=== PATIENT | male | born 1940 | race Two or more races ===

== ENCOUNTER → 2024-07-08 | Outpatient (CLI) | payer MEDICARE, MEDICAID, SELFPAY ==
[2024-07-08 14:00] LABS: Basophils % (Auto) 1 % (0-2.5); Eosinophils # (Auto) 0.2 Thou/mm3 (0.0-0.5); Eosinophils % (Auto) 3 % (0-10); Hematocrit 35.5 % (41.0-53.0); Hemoglobin 10.4 g/dL (13.5-16.0); Immature Granulocytes % (Auto) 0 % (0-0); Immature Granulocytes Auto 0.02 Thou/mm3 (0.00-0.00); Lymphocytes # (Auto) 1.5 Thou/mm3 (1.0-4.8); Lymphocytes % (Auto) 25 % (10-50); Mean Corpuscular HGB Conc 29.3 g/dl (31.0-37.0); Mean Corpuscular Hemoglobin 25.3 pg (25.0-35.0); Mean Corpuscular Volume 86 fL (80-100); Monocytes # (Auto) 0.6 Thou/mm3 (0.0-0.8); Monocytes % (Auto) 10 % (0-12); Neutrophils # (Auto) 3.5 Thou/mm3 (1.8-7.7); Neutrophils % (Auto) 61 % (37-80); Nucleated Red Blood Cell % 0 /100 WBC (0); Platelet Count 254 Thou/mm3 (140-440); RDW Standard Deviation 58.8 fL (35.1-43.9); Red Blood Count 4.11 Miln/mm3 (4.50-5.90); White Blood Count 5.8 Thou/mm3 (3.8-10.6)
[2024-07-08 14:11] LABS: Prostate Specific Antigen 7.08 ng/mL (0-4.00)
[2024-07-08 14:13] LABS: Alanine Aminotransferase 25 U/L (10-49); Albumin, Serum 3.8 gm/dL (3.4-4.8); Albumin/Globulin Ratio 1.5 (1.2-2.2); Alkaline Phosphatase 130 U/L (46-116); Anion Gap 6 (7-16); Aspartate Amino Transferase 28 U/L (0-34); BUN/Creatinine Ratio 18 Ratio (12-20); Bilirubin,Total 0.6 mg/dL (0.3-1.2); Blood Urea Nitrogen 18 mg/dL (9-23); Calcium 8.9 mg/dL (8.3-10.6); Calcium (Corrected) 9.1 mg/dL (8.5-10.1); Carbon Dioxide 31.9 mMol/L (20.0-31.0); Chloride 103 mMol/L (98-107); Globulin 2.5 gm/dL (2.3-3.5); Glucose 94 mg/dL (74-106); Osmolality,Calculated 283 (275-295); Potassium 4.6 mMol/L (3.4-5.1); Sodium 141 mMol/L (136-145); Total Protein 6.3 gm/dL (5.7-8.2); eGFR > 60 See Note
== END | disposition home or self-care (01) ==
LOC: SCTO 13:03
PROVIDERS: PCP Family Medicine; Referring Provider Internal Medicine Hematology & Oncology; Visit Provider Internal Medicine Hematology & Oncology
DX: C61 Malignant neoplasm of prostate (principal)
CPT/HCPCS: 36415; 80053; 84153; 85025

== ENCOUNTER 2024-07-09 13:02 | Outpatient (RCR) | payer MEDICARE, MEDICAID, SELFPAY | END 2024-07-13 23:59 | disposition home or self-care (01) | LOC: SCTC 13:02 | PROVIDERS: PCP Nurse Practitioner Primary Care; Referring Provider Nurse Practitioner Primary Care; Visit Provider Internal Medicine Hematology & Oncology | DX: Z51.11 Encounter for antineoplastic chemotherapy (principal); C61 Malignant neoplasm of prostate; C67.9 Malignant neoplasm of bladder, unspecified; Z92.3 Personal history of irradiation; M89.9 Disorder of bone, unspecified; R97.21 Rising PSA following treatment for malignant neoplasm of prostate | CPT/HCPCS: 96402; 99213; J9217; G0463 ==

== ENCOUNTER → 2024-07-26 | Outpatient (CLI) | payer MEDICARE, MEDICAID, SELFPAY ==
[2024-07-26 10:20] LABS: Basophils % (Auto) 1 % (0-2.5); Eosinophils # (Auto) 0.2 Thou/mm3 (0.0-0.5); Eosinophils % (Auto) 4 % (0-10); Hematocrit 35.2 % (41.0-53.0); Hemoglobin 10.7 g/dL (13.5-16.0); Immature Granulocytes % (Auto) 0 % (0-0); Immature Granulocytes Auto 0.01 Thou/mm3 (0.00-0.00); Lymphocytes # (Auto) 1.6 Thou/mm3 (1.0-4.8); Lymphocytes % (Auto) 30 % (10-50); Mean Corpuscular HGB Conc 30.4 g/dl (31.0-37.0); Mean Corpuscular Hemoglobin 25.5 pg (25.0-35.0); Mean Corpuscular Volume 84 fL (80-100); Monocytes # (Auto) 0.4 Thou/mm3 (0.0-0.8); Monocytes % (Auto) 8 % (0-12); Neutrophils # (Auto) 3.1 Thou/mm3 (1.8-7.7); Neutrophils % (Auto) 58 % (37-80); Nucleated Red Blood Cell % 0 /100 WBC (0); Platelet Count 208 Thou/mm3 (140-440); RDW Standard Deviation 53.9 fL (35.1-43.9); Red Blood Count 4.19 Miln/mm3 (4.50-5.90); White Blood Count 5.3 Thou/mm3 (3.8-10.6)
[2024-07-26 10:40] LABS: Alanine Aminotransferase 28 U/L (10-49); Albumin, Serum 4.1 gm/dL (3.4-4.8); Albumin/Globulin Ratio 1.8 (1.2-2.2); Alkaline Phosphatase 119 U/L (46-116); Anion Gap 6 (7-16); Aspartate Amino Transferase 28 U/L (0-34); BUN/Creatinine Ratio 16 Ratio (12-20); Bilirubin,Total 0.7 mg/dL (0.3-1.2); Blood Urea Nitrogen 18 mg/dL (9-23); Calcium 9.3 mg/dL (8.3-10.6); Calcium (Corrected) 9.3 mg/dL (8.5-10.1); Carbon Dioxide 31.8 mMol/L (20.0-31.0); Chloride 101 mMol/L (98-107); Creatinine (Component) 1.1 mg/dL (0.6-1.3); Globulin 2.3 gm/dL (2.3-3.5); Glucose 116 mg/dL (74-106); Osmolality,Calculated 280 (275-295); Potassium 4.4 mMol/L (3.4-5.1); Sodium 139 mMol/L (136-145); Total Protein 6.4 gm/dL (5.7-8.2); eGFR > 60 See Note
[2024-07-26 10:41] LABS: Prostate Specific Antigen 6.95 ng/mL (0-4.00)
== END | disposition home or self-care (01) ==
LOC: SCTO 09:40
PROVIDERS: PCP Family Medicine; Referring Provider Internal Medicine Hematology & Oncology; Visit Provider Internal Medicine Hematology & Oncology
DX: C61 Malignant neoplasm of prostate (principal)
CPT/HCPCS: 36415; 80053; 84153; 85025

== ENCOUNTER 2024-07-31 07:00 | Outpatient (RCR) | payer MEDICARE, MEDICAID, SELFPAY | END 2024-08-13 23:59 | disposition home or self-care (01) | LOC: SCTC 07:00 | PROVIDERS: Referring Provider Internal Medicine Hematology & Oncology; Visit Provider Internal Medicine Hematology & Oncology | DX: C61 Malignant neoplasm of prostate (principal); Z79.818 Long term (current) use of other agents affecting estrogen receptors and estrogen levels; M89.9 Disorder of bone, unspecified | CPT/HCPCS: 99213; G0463 ==

== ENCOUNTER → 2024-09-24 | Outpatient (CLI) | payer MEDICARE, MEDICAID, SELFPAY ==
[2024-09-24 10:34] LABS: Basophils % (Auto) 0 % (0-2.5); Eosinophils # (Auto) 0.2 Thou/mm3 (0.0-0.5); Eosinophils % (Auto) 3 % (0-10); Hematocrit 35.1 % (41.0-53.0); Immature Granulocytes % (Auto) 0 % (0-0); Immature Granulocytes Auto 0.02 Thou/mm3 (0.00-0.00); Lymphocytes # (Auto) 1.1 Thou/mm3 (1.0-4.8); Lymphocytes % (Auto) 19 % (10-50); Mean Corpuscular HGB Conc 28.5 g/dl (31.0-37.0); Mean Corpuscular Hemoglobin 23.2 pg (25.0-35.0); Mean Corpuscular Volume 81 fL (80-100); Monocytes # (Auto) 0.5 Thou/mm3 (0.0-0.8); Monocytes % (Auto) 9 % (0-12); Neutrophils # (Auto) 3.8 Thou/mm3 (1.8-7.7); Neutrophils % (Auto) 68 % (37-80); Nucleated Red Blood Cell % 0 /100 WBC (0); Platelet Count 187 Thou/mm3 (140-440); RDW Standard Deviation 49.9 fL (35.1-43.9); Red Blood Count 4.31 Miln/mm3 (4.50-5.90); White Blood Count 5.6 Thou/mm3 (3.8-10.6)
[2024-09-24 10:43] LABS: B-Type Natriuretic Peptide 105 pg/mL (0-100)
[2024-09-24 10:57] LABS: Alanine Aminotransferase 18 U/L (10-49); Albumin, Serum 3.5 gm/dL (3.4-4.8); Alkaline Phosphatase 134 U/L (46-116); Anion Gap 3 (7-16); Aspartate Amino Transferase 22 U/L (0-34); BUN/Creatinine Ratio 16 Ratio (12-20); Bilirubin,Direct 0.2 mg/dL (0.0-0.3); Bilirubin,Total 0.6 mg/dL (0.3-1.2); Blood Urea Nitrogen 18 mg/dL (9-23); Carbon Dioxide 31.8 mMol/L (20.0-31.0); Cardiac Risk Estimate 2.8 RATIO (4.0-6.7); Chloride 108 mMol/L (98-107); Cholesterol 136 mg/dL (132-200); Creatinine (Component) 1.1 mg/dL (0.6-1.3); Glucose 113 mg/dL (74-106); HDL Cholesterol 48 mg/dL (40-60); LDL Cholesterol,Calculated 68 mg/dL (0-130); Osmolality,Calculated 287 (275-295); Phosphorous 4.1 mg/dL (2.4-5.1); Potassium 4.7 mMol/L (3.4-5.1); Sodium 143 mMol/L (136-145); Total Protein 5.7 gm/dL (5.7-8.2); Triglycerides 102 mg/dL (30-150); eGFR > 60 See Note
[2024-10-01 06:55] LABS: Direct LDL* 81 mg/dL (<100)
== END | disposition home or self-care (01) ==
PROVIDERS: Referring Provider Internal Medicine Cardiovascular Disease; Visit Provider Internal Medicine Cardiovascular Disease
DX: I11.0 Hypertensive heart disease with heart failure (principal); I50.9 Heart failure, unspecified; E78.5 Hyperlipidemia, unspecified
CPT/HCPCS: 36415; 80048; 80061; 80076; 83721; 83880; 84100; 85025

== ENCOUNTER → 2024-10-03 | Outpatient (CLI) | payer MEDICARE, MEDICAID, SELFPAY ==
[2024-10-03 10:27] LABS: Basophils % (Auto) 1 % (0-2.5); Eosinophils # (Auto) 0.1 Thou/mm3 (0.0-0.5); Eosinophils % (Auto) 2 % (0-10); Hematocrit 36.9 % (41.0-53.0); Hemoglobin 10.9 g/dL (13.5-16.0); Immature Granulocytes % (Auto) 0 % (0-0); Immature Granulocytes Auto 0.01 Thou/mm3 (0.00-0.00); Lymphocytes # (Auto) 1.5 Thou/mm3 (1.0-4.8); Lymphocytes % (Auto) 27 % (10-50); Mean Corpuscular HGB Conc 29.5 g/dl (31.0-37.0); Mean Corpuscular Hemoglobin 23.4 pg (25.0-35.0); Mean Corpuscular Volume 79 fL (80-100); Monocytes # (Auto) 0.4 Thou/mm3 (0.0-0.8); Monocytes % (Auto) 7 % (0-12); Neutrophils # (Auto) 3.5 Thou/mm3 (1.8-7.7); Neutrophils % (Auto) 63 % (37-80); Nucleated Red Blood Cell % 0 /100 WBC (0); Platelet Count 257 Thou/mm3 (140-440); RDW Standard Deviation 49.1 fL (35.1-43.9); Red Blood Count 4.65 Miln/mm3 (4.50-5.90); White Blood Count 5.5 Thou/mm3 (3.8-10.6)
[2024-10-03 10:44] LABS: Prostate Specific Antigen 8.94 ng/mL (0-4.00)
[2024-10-03 10:51] LABS: Alanine Aminotransferase 16 U/L (10-49); Albumin, Serum 3.7 gm/dL (3.4-4.8); Albumin/Globulin Ratio 1.5 (1.2-2.2); Alkaline Phosphatase 119 U/L (46-116); Anion Gap 6 (7-16); Aspartate Amino Transferase 22 U/L (0-34); BUN/Creatinine Ratio 18 Ratio (12-20); Bilirubin,Total 0.5 mg/dL (0.3-1.2); Blood Urea Nitrogen 18 mg/dL (9-23); Calcium 9.1 mg/dL (8.3-10.6); Calcium (Corrected) 9.3 mg/dL (8.5-10.1); Chloride 102 mMol/L (98-107); Globulin 2.4 gm/dL (2.3-3.5); Glucose 111 mg/dL (74-106); Osmolality,Calculated 282 (275-295); Potassium 4.8 mMol/L (3.4-5.1); Sodium 140 mMol/L (136-145); Total Protein 6.1 gm/dL (5.7-8.2); eGFR > 60 See Note
== END | disposition home or self-care (01) ==
LOC: SCTO 09:31
PROVIDERS: PCP Family Medicine; Referring Provider Internal Medicine Hematology & Oncology; Visit Provider Internal Medicine Hematology & Oncology
DX: C61 Malignant neoplasm of prostate (principal)
CPT/HCPCS: 36415; 80053; 84153; 85025

== ENCOUNTER 2024-10-08 13:02 | Outpatient (RCR) | payer MEDICARE, MEDICAID, SELFPAY ==
--- NOTE | 2024-10-20 15:05 | CTCFLWUP_ITS ---
Patient: DERRICK LESLIE : 1940 Page 2 of 2 FOLLOW UP NOTE DATE OF SERVICE: 10/20/2024 NAME: DERRICK LESLIE ACCOUNT: [id number] : 1940 AGE: 84 INTERVAL HISTORY: Patient doing well on Xtandi. Patient do not have any complaints. ONCOLOGY HISTORY:?[facility] Oncology Hx? DIAGNOSIS: Malignant neoplasm of prostate [ICD10] C61 DATE OF DIAGNOSIS: 11/04/2022 STAGE/TNM: Stage IV TREATMENT HISTORY: Care?Plan Start?Date Cycle Day Intent Lupron?22.5?mg?q?3?mon 12/11/2023 1 90 Palliative HISTORY OF PRESENT ILLNESS: Derrick Leslie is a 84-year-old SPA speaking male with the following oncology history. 09/29/2022: Mr. Leslie had prostate biopsy due to elevated PSA of 47. Biopsy showed Rose grade 10, grade group 5 prostate take adenocarcinoma in all the 10 biopsy samples. 11/04/2022: Bone scan? 12/19/2022: Mr. Leslie had CT scan of the abdomen and pelvis with IV contrast which was compared to previous study done on 09/19/2021. 11/03/2022: Mr. Leslie was started on Lupron injections. 01/31/2023 - 03/17/2023: Mr. Leslie had 5940 cGy radiation therapy to the pelvis. PSA trend: 03/04/2022: PSA 47.88 10/19/2022: PSA 195.4. 12/15/2022: PSA 92.92. 05/19/2023: PSA 9.01. 09/07/2023: PSA 3.78. 10/24/2023: Abiraterone and prednisone prescribed 12/04/2023: PSA 6.14. 12/26/2023: PET/CT scan 12/28/2023: PSA 4.48. 12/29/2023: Bone scan 03/26/2024: PSA 7.95 OTHER MEDICAL HISTORY/CONDITIONS: HTN Hyperlipidemia Prostate cancer - dx 09/29/2022 // FAMILY HISTORY: Cancer?History:?Denies Patient?denies?family?cancer?history. SOCIAL HISTORY: Occupational?History:?RETIRED Education?Level:?Completed something less than 8th grade Marital?Status:? Tobacco Use:?Smoked 2-3 cigarettes/day x 15 yrs - Quit 50 yrs ago ETOH?Use:?Socially Drug?Note:?Denies Social?History?Note:?Lives?with?son MEDICATIONS: 1. atorvastatin - 10 mg Daily 2. carvedilol - 3.13 mg Daily 3. Cozaar - 100 mg Daily 4. Lasix - 40 mg Daily 5. Xtandi - 80 mg 2 tab Daily?Palabra Meds? Medications Last Reconciled by Katie Tello MA on 10/08/2024 (Reconcile on Approval: ?) ALLERGIES: No Known Drug Allergies REVIEW OF SYSTEMS: A complete 14-point review of systems was performed and is negative except as noted in interval history. PHYSICAL EXAMINATION:?CloneBlock PE? VITAL SIGNS: PAIN: None ECOG Performance Status: 0 - Asymptomatic and fully active GENERAL APPEARANCE: Appears well, in no apparent distress, appropriately interactive. HEENT: Normocephalic, no temporal wasting, normal conjunctiva, no scleral icterus, normal hearing, lips without lesions, neck normal range of motion. CARDIOVASCULAR: Not assessed. PULMONARY: Normal respiratory effort, no respiratory distress or use of accessory muscles, speaking in full sentences, no tachypnea. EXTREMITIES: No pedal edema or cyanosis. SKIN: Normal skin appearance. NEUROLOGIC: Alert and oriented x4. PSHYCHIATRIC: Appropriate affect, mood normal, behavior normal, intact thought and speech. LABORATORY DATA: I have personally reviewed and interpreted each of the patient?s relevant lab tests, abnormal findings are below: Date 09/24/24 10/03/24 ??WHITE?BLOOD?COUNT?(Thou/mm3) 5.6 5.5 ??RED?BLOOD?COUNT?(Miln/mm3) 4.31?L 4.65 ??HEMOGLOBIN?(gm/dl) 10.0?L 10.9?L ??HEMATOCRIT?(%) 35.1?L 36.9?L ??PLATELET?COUNT?(Thou/mm3) 187 257 ??NEUTROPHILS?%,?AUTO?(%) 68 63 ??LYMPH?%,?AUTO?(%) 19 27 ??NEUTROPHILS,?AUTO?(Thou/mm3) 3.8 3.5 ??GLUCOSE,RANDOM?(mg/dL) 113?H 111?H ??BLOOD?UREA?NITROGEN?(mg/dL) 18 18 ??CREATININE?(mg/dL) 1.10 1.00 ??SODIUM?(mmol/L) 143 140 ??POTASSIUM?(mmol/L) 4.7 4.8 ??CHLORIDE?(mmol/L) 108?H 102 ??CrCl?(CandG)?(ml/min) ? 66.68 ??AST/SGOT?(Unit/L) ? 22 ??ALT/SGPT?(Unit/L) ? 16 ??ALKALINE?PHOSPHATASE?(Unit/L) ? 119?H ??BILIRUBIN,?TOTAL?(mg/dL) ? 0.5 ??PROTEIN?TOTAL?(gm/dl) ? 6.1 ??ALBUMIN,?SERUM?(gm/dl) ? 3.7 ??GLOBULIN?(gm/dl) ? 2.4 ??ALBUMIN/GLOBULIN?RATIO ? 1.5 ??CALCIUM,?SERUM?(mg/dL) 9.0 9.1 ??CALCIUM?SERUM?(CORRECTED)?(mg/dL) ? 9.3 ASSESSMENT/PLAN:?Traci Phipps Assessment/Plan? Metastatic prostate cancer Patient was unable to tolerate Zytiga PET CT scan showed only a lesion in the third rib and patient is asymptomatic from it Will continue Xtandi along with Lupron and Xgeva PSA is 8.94 Patient is elderly and do not want chemotherapy until absolutely necessary Will continue to monitor PSA and continue current therapy PSA has been mildly progressing ORDERS: CBC CMP PSA RETURN TO CLINIC: I will see him back in the clinic in 2 months. BILLING AND COMPLIANCE: I reviewed external records from providers outside my specialty as summarized above. I spent a total of 50 minutes on this patient?s care on the day of their visit excluding time spent related to any billed procedures. This time includes time spent with the patient as well as time spent documenting in the medical record, reviewing patients records and tests, obtaining history, placing orders, communicating with other healthcare professionals, counseling the patient, family or caregiver, and/or care coordination for the diagnoses above. Electronically Signed by: Maxi Phipps MD T: 3:02 PM CC: Erick?Roxana,? PCP: Bong Byers Referring: Bong Byers This document was completed utilizing speech recognition software. Grammatical errors, random word insertions, pronoun errors, and incomplete sentences are an occasional consequence of this system due to software limitations, ambient noise, and hardware issues. Any formal questions or concerns about the content, text or information contained within the body of this dictation should be directly addressed to the provider for clarification.
== END 2024-10-11 23:59 | disposition home or self-care (01) ==
LOC: SCTC 13:02
PROVIDERS: PCP Family Medicine; Referring Provider Family Medicine; Visit Provider Internal Medicine Hematology & Oncology
DX: Z51.11 Encounter for antineoplastic chemotherapy (principal); C61 Malignant neoplasm of prostate; R97.21 Rising PSA following treatment for malignant neoplasm of prostate
CPT/HCPCS: 96402; 99213; J9217; G0463

== ENCOUNTER → 2024-12-12 | Outpatient (CLI) | payer MEDICARE, MEDICAID, SELFPAY ==
[2024-12-12 09:55] LABS: Basophils % (Auto) 1 % (0-2.5); Eosinophils # (Auto) 0.1 Thou/mm3 (0.0-0.5); Eosinophils % (Auto) 2 % (0-10); Hematocrit 33.9 % (41.0-53.0); Hemoglobin 10.6 g/dL (13.5-16.0); Immature Granulocytes % (Auto) 1 % (0-0); Immature Granulocytes Auto 0.03 Thou/mm3 (0.00-0.00); Lymphocytes # (Auto) 1.5 Thou/mm3 (1.0-4.8); Lymphocytes % (Auto) 27 % (10-50); Mean Corpuscular HGB Conc 31.3 g/dl (31.0-37.0); Mean Corpuscular Hemoglobin 25.1 pg (25.0-35.0); Mean Corpuscular Volume 80 fL (80-100); Monocytes # (Auto) 0.4 Thou/mm3 (0.0-0.8); Monocytes % (Auto) 8 % (0-12); Neutrophils # (Auto) 3.3 Thou/mm3 (1.8-7.7); Neutrophils % (Auto) 61 % (37-80); Nucleated Red Blood Cell % 0 /100 WBC (0); Platelet Count 205 Thou/mm3 (140-440); RDW Standard Deviation 58.4 fL (35.1-43.9); Red Blood Count 4.23 Miln/mm3 (4.50-5.90); White Blood Count 5.3 Thou/mm3 (3.8-10.6)
[2024-12-12 10:00] LABS: Prostate Specific Antigen 12.31 ng/mL (0-4.00)
[2024-12-12 10:19] LABS: Alanine Aminotransferase 22 U/L (10-49); Albumin, Serum 3.8 gm/dL (3.4-4.8); Albumin/Globulin Ratio 1.5 (1.2-2.2); Alkaline Phosphatase 105 U/L (46-116); Anion Gap 8 (7-16); Aspartate Amino Transferase 27 U/L (0-34); BUN/Creatinine Ratio 21 Ratio (12-20); Bilirubin,Total 0.6 mg/dL (0.3-1.2); Blood Urea Nitrogen 25 mg/dL (9-23); Calcium 9.1 mg/dL (8.3-10.6); Calcium (Corrected) 9.3 mg/dL (8.5-10.1); Carbon Dioxide 29.9 mMol/L (20.0-31.0); Chloride 105 mMol/L (98-107); Creatinine (Component) 1.2 mg/dL (0.6-1.3); Globulin 2.5 gm/dL (2.3-3.5); Glucose 114 mg/dL (74-106); Osmolality,Calculated 290 (275-295); Potassium 4.7 mMol/L (3.4-5.1); Sodium 143 mMol/L (136-145); Total Protein 6.3 gm/dL (5.7-8.2); eGFR 59 See Note
== END | disposition home or self-care (01) ==
LOC: SCTO 08:44
PROVIDERS: PCP Family Medicine; Referring Provider Internal Medicine Hematology & Oncology; Visit Provider Internal Medicine Hematology & Oncology
DX: C61 Malignant neoplasm of prostate (principal)
CPT/HCPCS: 36415; 80053; 84153; 85025

== ENCOUNTER 2024-12-25 07:36 | Outpatient (CLI) | payer MEDICARE, MEDICAID, SELFPAY ==
[2024-12-23 14:50] VITALS: BMI 40.7
[2024-12-24 10:27] LABS: Basophils % (Auto) 1 % (0-2.5); Eosinophils # (Auto) 0.2 Thou/mm3 (0.0-0.5); Eosinophils % (Auto) 3 % (0-10); Hematocrit 35.5 % (41.0-53.0); Hemoglobin 11.1 g/dL (13.5-16.0); Immature Granulocytes % (Auto) 0 % (0-0); Immature Granulocytes Auto 0.02 Thou/mm3 (0.00-0.00); Lymphocytes # (Auto) 1.5 Thou/mm3 (1.0-4.8); Lymphocytes % (Auto) 24 % (10-50); Mean Corpuscular HGB Conc 31.3 g/dl (31.0-37.0); Mean Corpuscular Hemoglobin 25.2 pg (25.0-35.0); Mean Corpuscular Volume 81 fL (80-100); Monocytes # (Auto) 0.5 Thou/mm3 (0.0-0.8); Monocytes % (Auto) 9 % (0-12); Neutrophils # (Auto) 3.8 Thou/mm3 (1.8-7.7); Neutrophils % (Auto) 64 % (37-80); Nucleated Red Blood Cell % 0 /100 WBC (0); Platelet Count 215 Thou/mm3 (140-440)
[2024-12-24 11:39] LABS: INR 0.9 (0.9-1.3); Prothrombin Time 10.3 Seconds (9.0-12.2)
[2024-12-25] VITALS (12 sets, daily range): BP systolic 158–184; BP diastolic 72–92; PULSE 57–92; RESP 14–20; TEMP 36.2–36.5; O2SAT 92–100
--- NOTE | 2024-12-25 08:00 | XR_ITS ---
Examination: IR venous implantation Port-A-Cath. Ultrasound-guided needle placement right internal jugular vein. Fluoroscopy AP Chest, portable single view Exam date and time: December 25, 2024 0910 hours INDICATIONS: Diagnosis malignant neoplasm prostate, need for long-term intravenous chemotherapy. Informed consent provided Technique: A timeout was completed, verifying correct patient, procedure, site, positioning, and special equipment if applicable The patient was placed in a dependent position appropriate for central line placement based on the vein to be cannulated. The patient's right neck was prepped and draped in sterile fashion. Maximum Sterile Barrier Technique used including cap, mask, sterile gown, sterile gloves, and sterile full body drape. If ultrasound technique used: sterile gel and sterile probe covers. Hand Hygiene performed using proper scrub, soap and water, or alcohol-based hand rub. Site right portable apparatus utilized to confirm patency of the right internal jugular vein, utilizing ultrasonographic guidance successful 20-gauge Puncture right internal jugular vein Ultrasound images were recorded and stored. Successful micropuncture with a 21-gauge needle was performed. 0.18 wire guide was introduced into the IVC under fluoroscopic guidance. Low dissection utilized to form Port-A-Cath pocket in the upper right chest 8 Kenyan 26 cm Port-A-Cath line then connected to Port-A-Cath reservoir in place to a venous sheath into the right superior vena cava Estimated blood loss2 cc. Findings: Under fluoroscopy, the tip of the catheter is in good position in the vena cava. Portable chest x-ray, post line placement, as ordered. Impression: Successful ultrasound-guided needle placement right internal jugular vein. Successful IR venous implantation Port-A-Cath Fluoroscopy 0.1 minute radiation dose 3.49 milligray 1 spot fluoroscopic chest film. AP portable chest completion procedure demonstrates satisfactory position Port-A-Cath tip SVC. May use Port-A-Cath
[2024-12-25] MEDS: SODIUM CHLORIDE 0.9% 500 ML 500 ML 20 ML IV (09:49)
[2024-12-25] MEDS: ceFAZolin/D5W 1 GM IVPB 1 GM/50 ML BAG IV ×2 (09:50)
[2024-12-25] MEDS: HEPARIN SOD LOCK SYR 100 UNIT/ML 500 UNIT IV (10:20)
[2024-12-25] MEDS: LIDOCAINE 1% W/EPI 1:100K 20 ML VIAL 8 ML INFL (10:21)
[2024-12-25] MEDS: fentaNYL CIT INJ 50 mCg/ML AMP 2ML 100 MCG IVP (10:21)
[2024-12-25] MEDS: LIDOCAINE INJ PF 1% 30 ML VIAL 7 ML INFL (10:21)
--- NOTE | 2024-12-25 14:22 | PC.NURSE ---
1049 patient is awake, alert, breathing unlabored, s/p port placement, dressing to right chest dry with no bleeding, report received from Ema VERDUZCO, patient to recover for 1 hour. 1100 patient ate 1/2 sandwich and jello, tolerated well with no nausea or vomiting 1205 patient awake, alert, breathing unlabored, dressing dry with no bleeding, discharge instructions given by charge nurse/global consumer sector vice president Lakshmi VERDUZCO, patient discharged home in wheelchair with all belongings.
== END 2024-12-25 12:05 | disposition home or self-care (01) ==
PROVIDERS: Radiology Diagnostic Radiology; PCP Family Medicine; Referring Provider Internal Medicine Hematology & Oncology; Visit Provider Internal Medicine Hematology & Oncology
DX: C61 Malignant neoplasm of prostate (principal); R06.02 Shortness of breath; Z01.812 Encounter for preprocedural laboratory examination
CPT/HCPCS: 36561; 36415; 76937; 77001; 85025; 85610; 85730; C1769; C1788; C1894; J0689; J1642; J3010; J3490; J7040; J7050

== ENCOUNTER → 2025-01-02 | Outpatient (CLI) | payer MEDICARE, MEDICAID, SELFPAY ==
--- NOTE | 2025-01-02 12:30 | XR_ITS ---
EXAMINATION: PET/CT FUSION SKULL TO THIGH EXAM DATE AND TIME: January 02, 2025 at 1324 hours Comparison December 26, 2023, May 21, 2024 INDICATIONS: Diagnosis malignant neoplasm prostate, restaging CTDI:vol (mGy) 11.22 DLP: (mGycm) 1164 PROCEDURE: 16.8 mCi FDG was administered intravenously To allow for distribution and uptake of radiotracer, the patient was allowed to rest quietly in a shielded room. Imaging was performed on an integrated 16-slice PET/CT scanner, with scanning from the skull base to the mid thigh. Serum blood glucose at the time of the injection was measured 100 mg/dL. CT scanning was performed without oral or intravenous contrast material. FINDINGS: Head and Neck: There is no jacklyn hypermetabolism in the neck. The visualized portions of the brain are normal in appearance on CT. Chest: There is no jacklyn hypermetabolism in the chest. There are no pulmonary nodules. Abdomen and Pelvis: 1 hypermetabolic left lower lateral periaortic lymph node 19 mm compared to [address] scan December 26, 2023 Musculoskeletal: Stable non hypermetabolic sclerotic focus right third anterior rib. IMPRESSION: Non hypermetabolic left lateral periaortic lymph node measures 19 mm on the current study compared to [address] scan 03/27/2024 Stable sclerotic focus right third rib compared to December 26, 2023
== END | disposition home or self-care (01) ==
LOC: CDIM 12:19
PROVIDERS: PCP Family Medicine; Referring Provider Internal Medicine Hematology & Oncology; Visit Provider Internal Medicine Hematology & Oncology
DX: C61 Malignant neoplasm of prostate (principal)
CPT/HCPCS: 78815; A9552

== ENCOUNTER → 2025-01-03 | Outpatient (CLI) | payer MEDICARE, MEDICAID, SELFPAY ==
--- NOTE | 2025-01-03 11:59 | PC.NURSE ---
patient came in for jose a removal. nine jose a removed. patient tolerated well. site is soft, non-tender, flat, no signs of hematoma as well as no signs of infection. education given to patient and family member. both expressed verbal understanding.
== END | disposition home or self-care (01) ==
PROVIDERS: PCP Internal Medicine Hematology & Oncology; Referring Provider Radiology Diagnostic Radiology; Visit Provider Radiology Diagnostic Radiology
DX: Z48.02 Encounter for removal of sutures (principal)

== ENCOUNTER 2025-01-07 13:53 | Outpatient (RCR) | payer MEDICARE, MEDICAID, SELFPAY ==
--- NOTE | 2024-12-17 06:38 | CTCFLWUP_ITS ---
Patient: DERRICK LESLIE : 1940 Page 5 of 5 FOLLOW UP NOTE DATE OF SERVICE: 12/16/2024 NAME: DERRICK LESLIE ACCOUNT: [id number] : 1940 AGE: 84 INTERVAL HISTORY: Summary Derrick Bahena, an 84-year-old male with prostate cancer, presented for follow-up of rising PSA levels (increased from 8.94 to 12) while on Xtandi. He denied new pain or symptoms. Given disease progression despite current treatment, the plan includes continuing Xtandi, initiating low-dose Docetaxel chemotherapy, placing a chemotherapy port, ordering a PET scan to assess cancer spread, and obtaining blood work. Follow-up scheduled in 4 weeks to review results. . Chief Complaint Rising PSA levels indicating potential prostate cancer progression History of Present Illness Derrick Bahena, an 84-year-old male with a history of prostate cancer, presents for follow-up of his current treatment regimen. The patient reports feeling fine with his current medication, Xtandi. Since the last visit, there has been a notable increase in the patient's PSA level, rising from 8.94 to 12, indicating potential progression of his prostate cancer. Despite adherence to his prescribed medication, this increase suggests that the current treatment may not be optimally effective. The patient denies experiencing any new pain or symptoms in his body when specifically asked. The patient's age is taken into consideration for treatment planning, with emphasis placed on tolerability of potential new interventions. He expresses agreement with the proposed changes in his treatment plan, including the possibility of initiating chemotherapy. Medical History - Prostate cancer, with rising PSA levels (currently 12, previously 8.94) Medications and Supplements - Xtandi - Patient reports feeling fine with this medication - PSA levels increased from 8.94 to 12 while on this medication - Docetaxel - Not yet started, planned for future use Social History - Language: Japanese-speaking, requires critical care nurse Review of Systems Genitourinary: Negative for new pain. Laboratory, Imaging, and Diagnostic Test Results - PSA: 12 (current), 8.94 (previous) ONCOLOGY HISTORY: DIAGNOSIS: Malignant neoplasm of prostate [ICD10] C61 DATE OF DIAGNOSIS: 11/04/2022 STAGE/TNM: Stage IV TREATMENT HISTORY: Care?Plan Start?Date Cycle Day Intent Lupron?22.5?mg?q?3?mon 12/11/2023 1 90 Palliative HISTORY OF PRESENT ILLNESS: Derrick Leslie is a 84-year-old SPA speaking male with the following oncology history. 09/29/2022: Mr. Leslie had prostate biopsy due to elevated PSA of 47. Biopsy showed Kathryn grade 10, grade group 5 prostate take adenocarcinoma in all the 10 biopsy samples. 11/04/2022: Bone scan? 12/19/2022: Mr. Leslie had CT scan of the abdomen and pelvis with IV contrast which was compared to previous study done on 09/19/2021. 11/03/2022: Mr. Leslie was started on Lupron injections. 01/31/2023 - 03/17/2023: Mr. Leslie had 5940 cGy radiation therapy to the pelvis. PSA trend: 03/04/2022: PSA 47.88 10/19/2022: PSA 195.4. 12/15/2022: PSA 92.92. 05/19/2023: PSA 9.01. 09/07/2023: PSA 3.78. 10/24/2023: Abiraterone and prednisone prescribed 12/04/2023: PSA 6.14. 12/26/2023: PET/CT scan 12/28/2023: PSA 4.48. 12/29/2023: Bone scan 03/26/2024: PSA 7.95 OTHER MEDICAL HISTORY/CONDITIONS: HTN Hyperlipidemia Prostate cancer - dx 09/29/2022 // FAMILY HISTORY: Cancer?History:?Denies Patient?denies?family?cancer?history. SOCIAL HISTORY: Occupational?History:?RETIRED Education?Level:?Completed something less than 8th grade Marital?Status:? Tobacco Use:?Smoked 2-3 cigarettes/day x 15 yrs - Quit 50 yrs ago ETOH?Use:?Socially Drug?Note:?Denies Social?History?Note:?Lives?with?son MEDICATIONS: 1. atorvastatin - 10 mg Daily 2. carvedilol - 3.13 mg Daily 3. Cozaar - 100 mg Daily 4. Lasix - 40 mg Daily 5. Xtandi - 80 mg 2 tab Daily Medications Last Reconciled by An Garland MA on 12/16/2024 ALLERGIES: No Known Drug Allergies REVIEW OF SYSTEMS: A complete 14-point review of systems was performed and is negative except as noted in interval history. PHYSICAL EXAMINATION: VITAL SIGNS: Temperature?99.8, B/P?162/92, Oxygen?Saturation?95% PAIN: 0 - No pain ECOG Performance Status: 0 - Asymptomatic and fully active GENERAL APPEARANCE: Appears well, in no apparent distress, appropriately interactive. HEENT: Normocephalic, no temporal wasting, normal conjunctiva, no scleral icterus, normal hearing, lips without lesions, neck normal range of motion. CARDIOVASCULAR: Not assessed. PULMONARY: Normal respiratory effort, no respiratory distress or use of accessory muscles, speaking in full sentences, no tachypnea. EXTREMITIES: No pedal edema or cyanosis. SKIN: Normal skin appearance. NEUROLOGIC: Alert and oriented x4. PSHYCHIATRIC: Appropriate affect, mood normal, behavior normal, intact thought and speech. LABORATORY DATA: I have personally reviewed and interpreted each of the patient?s relevant lab tests, abnormal findings are below: Date 10/03/24 12/12/24 ??WHITE?BLOOD?COUNT?(Thou/mm3) 5.5 5.3 ??RED?BLOOD?COUNT?(Miln/mm3) 4.65 4.23?L ??HEMOGLOBIN?(gm/dl) 10.9?L 10.6?L ??HEMATOCRIT?(%) 36.9?L 33.9?L ??PLATELET?COUNT?(Thou/mm3) 257 205 ??NEUTROPHILS?%,?AUTO?(%) 63 61 ??LYMPH?%,?AUTO?(%) 27 27 ??NEUTROPHILS,?AUTO?(Thou/mm3) 3.5 3.3 ??GLUCOSE,RANDOM?(mg/dL) 111?H 114?H ??BLOOD?UREA?NITROGEN?(mg/dL) 18 25?H ??CREATININE?(mg/dL) 1.00 1.20 ??SODIUM?(mmol/L) 140 143 ??POTASSIUM?(mmol/L) 4.8 4.7 ??CHLORIDE?(mmol/L) 102 105 ??CrCl?(CandG)?(ml/min) 66.68 54.23 ??AST/SGOT?(Unit/L) 22 27 ??ALT/SGPT?(Unit/L) 16 22 ??ALKALINE?PHOSPHATASE?(Unit/L) 119?H 105 ??BILIRUBIN,?TOTAL?(mg/dL) 0.5 0.6 ??PROTEIN?TOTAL?(gm/dl) 6.1 6.3 ??ALBUMIN,?SERUM?(gm/dl) 3.7 3.8 ??GLOBULIN?(gm/dl) 2.4 2.5 ??ALBUMIN/GLOBULIN?RATIO 1.5 1.5 ??CALCIUM,?SERUM?(mg/dL) 9.1 9.1 ??CALCIUM?SERUM?(CORRECTED)?(mg/dL) 9.3 9.3 ASSESSMENT/PLAN: Metastatic prostate cancer Patient was unable to tolerate Zytiga PET CT scan showed only a lesion in the third rib and patient is asymptomatic from it Derrick Bahena, 84-year-old male with prostate cancer, presenting for follow-up of treatment with Xtandi (enzalutamide). Prostate Cancer Assessment: Patient's prostate-specific antigen (PSA) level has increased from 8.94 to 12, indicating disease progression despite current treatment with Xtandi (enzalutamide). This suggests that the current medication regimen is not effectively controlling the cancer. Patient denies any new pain or symptoms. Given the patient's advanced age of 84 years, treatment considerations must balance efficacy with tolerability. Plan: - Continue Xtandi (enzalutamide) until further notice - Initiate chemotherapy with Docetaxel - Start with a low dose to ensure tolerability - Informed consent obtained for chemotherapy initiation - Place chemotherapy port - Order PET scan to assess for cancer spread - Order blood work (specifics not mentioned) - Nursing staff to contact patient with chemotherapy approval and start date - Follow-up appointment in 4 weeks to review PET scan and blood work results ORDERS: Order # Description RETURN TO CLINIC: BILLING AND COMPLIANCE: I reviewed external records from providers outside my specialty as summarized above. I spent a total of 50 minutes on this patient?s care on the day of their visit excluding time spent related to any billed procedures. This time includes time spent with the patient as well as time spent documenting in the medical record, reviewing patients records and tests, obtaining history, placing orders, communicating with other healthcare professionals, counseling the patient, family or caregiver, and/or care coordination for the diagnoses above. Electronically Signed by: {Object.Sanct_ID*[email or web address]@M}, {Object.Sanct_ID*[email or web address]@U} D: {Object.Sanct_Date} T: {Object.Sanct_Time} CC: Erick?Roxana,? PCP: Adama Grigsby Referring: Adama Grigsby This document was completed utilizing speech recognition software. Grammatical errors, random word insertions, pronoun errors, and incomplete sentences are an occasional consequence of this system due to software limitations, ambient noise, and hardware issues. Any formal questions or concerns about the content, text or information contained within the body of this dictation should be directly addressed to the provider for clarification.
[2025-01-07 14:43] LABS: Basophils % (Auto) 0 % (0-2.5); Eosinophils # (Auto) 0.1 Thou/mm3 (0.0-0.5); Eosinophils % (Auto) 3 % (0-10); Hematocrit 32.6 % (41.0-53.0); Hemoglobin 10.3 g/dL (13.5-16.0); Immature Granulocytes % (Auto) 0 % (0-0); Immature Granulocytes Auto 0.01 Thou/mm3 (0.00-0.00); Lymphocytes % (Auto) 21 % (10-50); Mean Corpuscular HGB Conc 31.6 g/dl (31.0-37.0); Mean Corpuscular Hemoglobin 25.8 pg (25.0-35.0); Mean Corpuscular Volume 82 fL (80-100); Monocytes # (Auto) 0.4 Thou/mm3 (0.0-0.8); Monocytes % (Auto) 9 % (0-12); Neutrophils # (Auto) 3.4 Thou/mm3 (1.8-7.7); Neutrophils % (Auto) 67 % (37-80); Nucleated Red Blood Cell % 0 /100 WBC (0); Platelet Count 173 Thou/mm3 (140-440); RDW Standard Deviation 59.2 fL (35.1-43.9)
[2025-01-07 14:55] LABS: Alanine Aminotransferase 18 U/L (10-49); Albumin, Serum 3.7 gm/dL (3.4-4.8); Albumin/Globulin Ratio 1.6 (1.2-2.2); Alkaline Phosphatase 110 U/L (46-116); Anion Gap 7 (7-16); Aspartate Amino Transferase 27 U/L (0-34); BUN/Creatinine Ratio 18 Ratio (12-20); Bilirubin,Total 0.5 mg/dL (0.3-1.2); Blood Urea Nitrogen 21 mg/dL (9-23); Calcium 8.4 mg/dL (8.3-10.6); Calcium (Corrected) 8.6 mg/dL (8.5-10.1); Carbon Dioxide 29.8 mMol/L (20.0-31.0); Chloride 106 mMol/L (98-107); Creatinine (Component) 1.2 mg/dL (0.6-1.3); Globulin 2.3 gm/dL (2.3-3.5); Glucose 123 mg/dL (74-106); Osmolality,Calculated 288 (275-295); Potassium 3.9 mMol/L (3.4-5.1); Sodium 143 mMol/L (136-145); eGFR 59 See Note
== END 2025-01-11 23:59 | disposition home or self-care (01) ==
LOC: SCTC 13:53
PROVIDERS: PCP Family Medicine; Referring Provider Family Medicine; Visit Provider Internal Medicine Hematology & Oncology
DX: Z51.11 Encounter for antineoplastic chemotherapy (principal); C61 Malignant neoplasm of prostate; R97.21 Rising PSA following treatment for malignant neoplasm of prostate
CPT/HCPCS: 36591; 80053; 85025; 96402; 99212; A4216; J1642; J9217; G0463

== ENCOUNTER 2025-01-29 15:50 | Inpatient (IN) | payer MEDICARE, MEDICAID, SELFPAY ==
[2025-01-29] VITALS (8 sets, daily range): BP systolic 109–152; BP diastolic 55–74; PULSE 86–113; RESP 17–89; TEMP 37.2–39.3; O2SAT 93–100; BMI 41.9; BMI 43.4; BMI 44.6
--- NOTE | 2025-01-29 16:05 | XR_ITS ---
Examination: AP chest single view Technique : AP portable upright chest single view Date and time: January 29, 2025 1435 hours INDICATION: SOB today. FINDINGS: Mild prominence cardiac contour Prominent central pulmonary vasculature Scarring in the right lung No interval pneumonia or pulmonary edema. Right internal jugular Port-A-Cath tip satisfactory position IMPRESSION: Suspicious for pulmonary artery hypertension No lumbar pneumonia or pulmonary edema
--- NOTE | 2025-01-29 16:24 | XR_ITS ---
Examination: CT chest with intravenous contrast CT abdomen with intravenous contrast CT pelvis with intravenous contrast 2-D coronal and sagittal reconstructions Time of exam: January 29, 2025 1801 hours INDICATIONS: Fever chills today with leukopenia, unknown source of infection, diagnosis malignant neoplasm prostate COMPARISON: PET CT scan January 02, 2025 CTDI: vol (mGy) : 14.7 DLP: (mGycm): 1238 Technique: Multiple axial images of the chest, abdomen and pelvis with intravenous contrast, 3.0 mm slice thickness. Images obtained post intravenous injection Isovue 370 60 cc. 2-D sagittal and coronal reconstructions. Low dose protocols were performed. One or more of the following dose reduction techniques were used; automated exposure control, adjustment of the mA and/or KV according to patient size, use of iterative reconstruction technique. Findings: No thoracic aortic aneurysm dilatation No pulmonary artery filling defects No paratracheal tracheobronchial or bronchopulmonary adenopathy 12 mm 8 mm pulmonary nodules right middle lobe Opacity in the right upper lobe consistent with pneumonia No visualized liver or splenic lesion No gallstones Benign left and right renal cysts Aorta normal size Mild left hydronephrosis which appears to be secondary to a mass in the posterior left urinary bladder, axial images 278, measuring 32 x 18 mm Prostate is irregular in contour measuring 4 cm in AP dimension Sclerotic focus right third rib again depicted Left lateral periaortic lymph node again noted, measuring 25 mm on this study IMPRESSION: Right upper lobe pneumonia Pulmonary nodule is 12 mm 8 mm in the right middle lobe Mild left hydronephrosis which appears to be secondary to a mass in the posterior left urinary bladder, axial images 278, measuring 32 x 18 mm, recommend urology consultation and cystoscopy to confirm bladder mass Sclerotic focus right third anterior rib (the dictated Left lateral periaortic lymph node again depicted, currently measuring 25 mm
--- NOTE | 2025-01-29 16:24 | PD.EDURI ---
Upper Respiratory Inf. RME/HPI General Chief Complaint: Flu Like Symptoms Stated Complaint: FEVER, CHILLS X1WK SENT BY DR CERNA FROM [facility] Time Seen by Provider: 01/29/25 16:11 Arrival date/time: 01/29/25 15:50 RME / HPI RME / HPI Narrative: 84-year-old male patient with significant history of hypertension, prostate cancer, COPD, was sent to us by cancer MD for fever. Patient is having fever since early today. Patient's been sick not feeling well for 10 days, however since yesterday is getting worse. Patient been complaining of generalized body aches, joint pains, severity moderate. Saw PCP, and laboratory workup was done and was advised to come to the emergency room. Patient was noted to have a neutropenia open 0.7. Patient denies any cough denies any abdominal pain denies any other complaints. Last chemotherapy given was 9 days ago. Related Data Home Medications ?Medication ?Instructions ?Recorded ?Confirmed carvedilol 3.125 mg tablet 3.125 mg PO BID 11/04/21 12/25/24 furosemide 40 mg tablet 40 mg PO BID 11/04/21 12/25/24 atorvastatin 10 mg tablet 10 mg PO QDAY 10/20/22 12/25/24 enzalutamide 80 mg tablet (Xtandi) 80 mg PO BID 12/25/24 12/25/24 losartan 100 mg tablet 100 mg PO DAILY 12/25/24 12/25/24 Allergies Allergy/AdvReac Type Severity Reaction Status Date / Time No Known Allergies Allergy Verified 01/29/25 15:54 Review of Systems Review of Systems Narrative Review of Systems: Review of system reviewed and within normal limits except mentioned in HPI ED Exam Narrative Physical exam: VITAL SIGNS: Reviewed. GENERAL APPEARANCE: Alert and interactive, follows commands, no acute distress, febrile HEAD AND FACE: Non-traumatic. ENT: PERRL, pink conjunctivitis, eyelid no trauma, Mucous membrane moist. NECK: Supple, nontender, no nuchal rigidity. CHEST: No tenderness, no crepitus, no paradoxical movement, no retractions. LUNGS: Clear, well ventilated, symmetric, no rales, no wheezing, no ronchi, no stridor, good breath sounds bilaterally. HEART: Regular rate, regular rhythm, no murmur, no gallops. ABDOMEN: Soft, positive bowel sounds, nondistended, no guarding, nontender, no rebound, no masses, RECTAL: Deferred. GENITAL: Deferred. NEUROLOGICAL: Gross motor function intact sensory function intact, Appropriate for age. MUSCULOSKELETAL: low back nontender, full range of motion. EXTREMITIES: Nontender, full range of motion. SKIN: Color pink, dry, no rash, no lacerations, no abrasions, no contusions. LYMPHATICS: Deferred. Course Quality Measures none Orders Category Date Time Status Bedside COVID-19 Antigen Test NOW Care 01/29/25 16:05 Active Bedside Influenza A&B Antigen Test NOW Care 01/29/25 16:05 Completed COVID-19 Screening Questionnaire NOW Care 01/29/25 20:[address] Screening NOW Care 01/29/25 16:25 Active Body And Frame Man NOW Care 01/29/25 16:05 Active Decision to Admit X1 Care 01/29/25 20:03 Completed Insert IV NOW Care 01/29/25 16:06 Active May Access Port-A-Cath NOW Care 01/29/25 16:[address] chest abdomen pelvis w Stat Exams 01/29/25 16:24 Completed XR chest 1V portable Stat Exams 01/29/25 16:05 Completed Blood Culture (Lab) Stat Lab 01/29/25 16:25 Received CBC Stat Lab 01/29/25 16:25 Completed Comprehensive Metabolic Panel Stat Lab 01/29/25 16:25 Completed Lactate (Lactic Acid) Stat Lab 01/29/25 16:25 Completed Procalcitonin Stat Lab 01/29/25 16:25 Completed Urinalysis Stat Lab 01/29/25 17:40 Completed Urine Culture Stat Lab 01/29/25 17:40 Received Acetaminophen Tab [Tylenol ES Tab] Med 01/29/25 16:05 Discontinued 1,000 mg PO X1 ONE Cefepime Inj [Maxipime Inj] 2 gm Med 01/29/25 16:18 Discontinued SODIUM CHLORIDE 0.9% (Popper) [Ns 0.9% (P)] 50 ml IV X1 Filgrastim Inj (Zarxio) [Zarxio Inj] Med 01/29/25 16:30 Discontinued 300 mcg SC X1 ONE Fluconazole/Ns 200 mg Ivpb [Diflucan/Ns Ivpb] Med 01/29/25 16:22 Discontinued 200 mg in 100 ml IV X1 Sodium Chloride 0.9% 1000 ml [Ns] 1,000 ml Med 01/29/25 16:18 Discontinued IV 999 mls/hr Vital Signs Vital signs: Vital Signs Temperature 102.7 F H 01/29/25 16:03 Pulse Rate 113 H 01/29/25 16:03 Respiratory Rate 22 H 01/29/25 16:03 Blood Pressure 144/74 H 01/29/25 16:03 Pulse Oximetry (%) 93 L 01/29/25 16:03 Oxygen Delivery Method Room Air 01/29/25 16:03 Upper Respiratory Infection MDM Narrative MDM Narrative:: 84-year-old male patient with significant history of hypertension, prostate cancer, COPD, was sent to us by cancer MD for fever. Patient is having fever since early today. Patient's been sick not feeling well for 10 days, however since yesterday is getting worse. Patient been complaining of generalized body aches, joint pains, severity moderate. Saw PCP, and laboratory workup was done and was advised to come to the emergency room. Patient was noted to have a neutropenia open 0.7. Patient denies any cough denies any abdominal pain denies any other complaints. Last chemotherapy given was 9 days ago. Patient's CBC showed neutropenia of 0.7 hemoglobin 9.4 hematocrit of 29.0. Platelets normal CMP unremarkable urinalysis no UTI CT chest abdomen pelvis showed Right upper lobe pneumonia Pulmonary nodule is 12 mm 8 mm in the right middle lobe Mild left hydronephrosis which appears to be secondary to a mass in the posterior left urinary bladder, axial images 278, measuring 32 x 18 mm, recommend urology consultation and cystoscopy to confirm bladder mass Sclerotic focus right third anterior rib (the dictated Left lateral periaortic lymph node again depicted, currently measuring 25 mm Patient was started on IV cefepime, a dose of Diflucan IV x 1 Tylenol and Neupogen IM was also given IV fluids. Spoke with hospitalist who admitted the patient. Patient data External records reviewed:: None Clinical information provided by:: patient and family Social determinants that could affect healthcare access:: none Patient has the following chronic illnesses:: Prostate cancer How is presenting disease/condition affected by chronic disease/condition?: exacerbated by Evaluation data The following diagnostics were reviewed and interpreted by me:: lab results and radiology exam(s) Lab and/or radiology exams considered but not ordered:: None Interpretation Summary: See results in the MDM Medications / Prescriptions Medications or Prescriptions considered but not ordered:: None Medication administrations:: Medication Administration History Discontinued Medications Acetaminophen (Acetaminophen 500 Mg Tablet) 1,000 mg PO X1 ONE Stop: 01/29/25 16:06 Last Admin: 01/29/25 16:56 Dose: 1,000 mg Documented By: Filgrastim (Filgrastim Inj (Zarxio) 300 Mcg/0.5 Ml Syringe) 300 mcg SC X1 ONE Stop: 01/29/25 16:31 Last Admin: 01/29/25 17:03 Dose: 300 mcg Documented By: Sodium Chloride (Ns) 1,000 mls @ 999 mls/hr IV .Q1H1M ONE Stop: 01/29/25 17:18 Last Infusion: 01/29/25 18:47 Dose: Infused Documented By: Admin: 01/29/25 16:59 Dose: 999 mls/hr Documented By: Cefepime HCl 2 gm/ Sodium (Chloride) 50 mls @ 100 mls/hr IV X1 ONE Stop: 01/29/25 16:47 Last Infusion: 01/29/25 17:30 Dose: Infused Documented By: Admin: 01/29/25 17:00 Dose: 100 mls/hr Documented By: Fluconazole (Diflucan/Ns Ivpb) 200 mg in 100 mls @ 100 mls/hr IV X1 ONE Stop: 01/29/25 17:21 Last Infusion: 01/29/25 18:47 Dose: Infused Documented By: Admin: 01/29/25 17:30 Dose: 100 mls/hr Documented By: YAN Seen in [facility] Consultations Consultation(s) initiated? (list below): No Diagnosis Upper Respiratory Differential Diagnosis: upper respiratory infection and other (Pneumonia, neutropenic fever history of prostate cancer) Most likely diagnosis given after review of the tests above:: Neutropenic fever, history of prostate cancer, pneumonia, sepsis Admission Indicated Admission indicated?: indicated Admission Request Was there a request for admission?: Yes Admission Attestation Admission request attestation: Discussed case with [Dr. Choe] from Hospitalist service regarding admission. Discussed patients ED course, exam findings, labs, and radiology results. The Hospitalist [agrees] to accept the patient for admission. Disposition Plan Disposition Plan: Admit Discharge Plan Plan Patient Disposition: Admit Acute Care w/in Hospital Prescriptions/Referrals Prescriptions/Med Rec: No Action furosemide 40 mg tablet 40 mg PO BID carvedilol 3.125 mg tablet 3.125 mg PO BID Rx Instructions: must administer with a meal/food losartan 100 mg tablet 100 mg PO DAILY Patient Comments: take 1 tablet by mouth once daily Xtandi 80 mg tablet 80 mg PO BID atorvastatin 10 mg tablet 10 mg PO QDAY Patient Comments: take 1 tablet by mouth once daily for 3 MONTHS Referrals: No Primary/Family,Physician [Primary Care Provider] - In 1 week Problem List Clinical Impression: Sepsis, Pneumonia, Neutropenic fever, Prostate cancer Patient/Caregiver Discharge Instructions Print Language: Brazilian Stand Alone Forms: Diana Award Info., Patient Portal Info Letter
[2025-01-29 16:37] LABS: Lactate (Lactic Acid) 1.2 mMol/L (0.4-2.0)
[2025-01-29] MEDS: ACETAMINOPHEN 500 MG TABLET 1000 MG PO (16:56)
[2025-01-29] MEDS: SODIUM CHLORIDE 0.9% 1000 ML 1,000 ML 999 ML IV (16:59)
[2025-01-29] MEDS: CEFEPIME INJ 2 GM in SODIUM CHLORIDE 0.9% (Popper) 50 ML IV (17:00)
[2025-01-29] MEDS: FILGRASTIM INJ (ZARXIO) 300 MCG/0.5 ML SYRINGE SC (17:03)
[2025-01-29 17:09] LABS: Alanine Aminotransferase 14 U/L (10-49); Albumin, Serum 3.5 gm/dL (3.4-4.8); Albumin/Globulin Ratio 1.5 (1.2-2.2); Alkaline Phosphatase 88 U/L (46-116); Anion Gap 7 (7-16); Aspartate Amino Transferase 19 U/L (0-34); BUN/Creatinine Ratio 14 Ratio (12-20); Bilirubin,Total 0.8 mg/dL (0.3-1.2); Blood Urea Nitrogen 15 mg/dL (9-23); Calcium 8.2 mg/dL (8.3-10.6); Calcium (Corrected) 8.6 mg/dL (8.5-10.1); Carbon Dioxide 27.2 mMol/L (20.0-31.0); Chloride 102 mMol/L (98-107); Creatinine (Component) 1.1 mg/dL (0.6-1.3); Estimated Creatinine Clearance 58.5 mL/min (>60); Globulin 2.3 gm/dL (2.3-3.5); Glucose 146 mg/dL (74-106); Osmolality,Calculated 275 (275-295); Potassium 3.9 mMol/L (3.4-5.1); Procalcitonin 0.11 ng/ml (0.0-0.49); Sodium 136 mMol/L (136-145); Total Protein 5.8 gm/dL (5.7-8.2); eGFR > 60 See Note
[2025-01-29 17:28] LABS: Basophils % (Auto) 2 % (0-2.5); Eosinophils % (Auto) 0 % (0-10); Hemoglobin 9.4 g/dL (13.5-16.0); Immature Granulocytes % (Auto) 2 % (0-0); Immature Granulocytes Auto 0.01 Thou/mm3 (0.00-0.00); Lymphocytes # (Auto) 0.4 Thou/mm3 (1.0-4.8); Lymphocytes % (Auto) 54 % (10-50); Mean Corpuscular HGB Conc 32.4 g/dl (31.0-37.0); Mean Corpuscular Hemoglobin 25.8 pg (25.0-35.0); Mean Corpuscular Volume 80 fL (80-100); Monocytes # (Auto) 0.2 Thou/mm3 (0.0-0.8); Monocytes % (Auto) 35 % (0-12); Neutrophils # (Auto) 0.1 Thou/mm3 (1.8-7.7); Neutrophils % (Auto) 8 % (37-80); Nucleated Red Blood Cell # 0.18 Thou/mm3 (0.00-0.00); Nucleated Red Blood Cell % 28 /100 WBC (0); Platelet Count 160 Thou/mm3 (140-440); RDW Standard Deviation 49.7 fL (35.1-43.9); Red Blood Count 3.64 Miln/mm3 (4.50-5.90)
[2025-01-29] MEDS: FLUCONAZOLE/NS 200 MG IVPB 200 MG/100 ML BAG 100 MG IV (17:30)
[2025-01-29 17:39] LABS: White Blood Count 0.7 Thou/mm3 (3.8-10.6)
[2025-01-29 17:53] LABS: Collection Type, Urine Clean Catch
[2025-01-29 17:57] LABS: Bilirubin,Urine Negative (Negative); Blood,Urine Trace (Negative); Clarity,Urine Clear (Clear/Hazy); Color,Urine Yellow (Lt Yel-Yel); Glucose, Urine Negative (Negative); Hyaline Casts,Urine < 1 /hpf (0-1); Ketones,Urine Negative (Negative); Leukocyte Esterase,Urine Negative (Negative); Nitrite,Urine Negative (Negative); PH,Urine 6.5 (5.0-7.0); Protein,Urine Trace (Neg - Trace); RBC,Urine 12 /hpf (0-3); Specific Gravity,Urine 1.021 (1.001-1.035); Squamous Epithelial Cell,Urine 2 /hpf (0-5); WBC,Urine 1 /hpf (0-5)
--- NOTE | 2025-01-29 22:39 | ESHP_ITS ---
<Statement entered by Joleen Castaneda MD - 01/30/25 06:00> I Joleen Castnaeda MD reviewed the note and agree with the resident's assessment & plan with exceptions as below. I have personally reviewed labs, imaging, home meds/prior records, examined the patient, formulated and discussed management plan with the IM team. An 84-year-old male with history of metastatic prostate cancer, HTN, HLD with recent initiation of chemotherapy noted to be febrile, tachycardic with severe neutropenia. Admitted for evaluation and management of neutropenic fever. Will start on IV fluid resuscitation with NS at 125 mL an hour, will treat empirically with Zosyn, vancomycin and IV fluconazole. Likely potential source of infection is pneumonia. obtain EKG, blood cultures, urine cultures, sputum cultures, fungal cultures, cocci titers, mycoplasma antigen, urinary streptococcal antigen, inflammatory markers. Consult ID regarding optimal management. Documentation for date of: 01/29/25 HPI History of Present Illness Chief complaint: Neutropenic fever History of present illness: 84-year-old male with past medical history of prostate cancer, hypertension, COPD who presented to the ED from the cancer treatment center due to fevers of 103. Apparently patient has been sick for the past 10 days [facility] found to have [facility]ropenia and was sent here to the ER for sepsis workup. Patient states symptoms have gotten progressively worse. Patient is currently on chemotherapy regimen and last chemotherapy was with docetaxel on 01/20/2025. He also endorses some chills. Patient denies headache, blurry vision, shortness of breath, chest pain, palpitations, nausea, vomiting, diarrhea, recent sick contacts, recent travel. ED course: ED vitals: BP 144/74, HR 113, respiratory rate 22, temperature 102.7 ?F, saturating 93% on room air ED labs: WBC 0.7, hemoglobin 9.4, glucose 146, calcium 8.2, UA shows 12 RBCs, negative for UTI, chest x-ray suspicious for pulmonary artery hypertension, CT chest abdomen pelvis shows Right upper lobe pneumonia, Pulmonary nodule is 12 mm 8 mm in the right middle lobe, Mild left hydronephrosis which appears to be secondary to a mass in the posterior left urinary bladder, axial images 278, measuring 32 x 18 mm, recommend urology consultation and cystoscopy to confirm bladder mass, Sclerotic focus right third anterior rib, Left lateral periaortic lymph node again depicted, currently measuring 25 mm PMHx: As above SH Hx: Does not remember Social Hx: Denies cigarette use, denies alcohol use, denies illicit substances including THC FH X: Unknown Review of Systems Review of Systems Systems Reviewed: All systems reviewed, normal except as documented Narrative Review of Systems: All 12 systems reviewed and found negative unless otherwise stated in the HPI. Exam Vital Signs Temp Pulse Resp BP Pulse Ox O2 Del Method O2 Flow Rate 99.4 F 88 22 H 134/64 H 100 Nasal Cannula 2 01/29/25 21:00 01/29/25 21:00 01/29/25 21:00 01/29/25 21:00 01/29/25 21:00 01/29/25 21:00 01/29/25 21:00 Narrative Exam Physical Exam GENERAL: NAD, AAOx3, obese, slightly diaphoretic HEENT: Moist mucosa. Eyes open, symmetrical, & clear CARDIO: Heart RRR, no obvious murmurs PULM: No noted coughing/dyspnea CTA B/L, no R/W/R GI: Abdomen soft, nondistended, no pain on palpation. BSx4 SKIN/MSK/EXT: No wounds/rashes/edema/amputations, no pain on palpation. Pedal pulses present B/L NEURO: AAOx3, no focal neuro deficits, able to move all 4 extremities Results: Labs 01/29/25 16:25 01/29/25 16:25 Labs: Short CBC 01/29/25 Range/Units 16:25 WBC 0.7 L* (3.8-10.6) Thou/mm3 Hgb 9.4 L (13.5-16.0) g/dL Hct 29.0 L (41.0-53.0) % Plt Count 160 (140-440) Thou/mm3 BMP 01/29/25 16:25 Sodium 136 Potassium 3.9 Chloride 102 Carbon Dioxide 27.2 BUN 15 Creatinine 1.1 Glucose 146 H Calcium 8.2 L Liver Function 01/29/25 Range/Units 16:25 Total Bilirubin 0.8 (0.3-1.2) mg/dL AST 19 (0-34) U/L ALT 14 (10-49) U/L Alkaline Phosphatase 88 (46-116) U/L Albumin 3.5 (3.4-4.8) gm/dL Urine 01/29/25 Range/Units 17:40 Urine Color Yellow (Lt Yel-Yel) Urine Clarity Clear (Clear/Hazy) Urine pH 6.5 (5.0-7.0) Ur Specific [place] 1.021 (1.001-1.035) Urine Protein Trace (Neg - Trace) Urine Glucose (UA) Negative (Negative) Quality Measures Quality Measures none Advance care planning discussed with:: patient Medications Home Medications and Allergies Home Medications ?Medication ?Instructions ?Recorded ?Confirmed ?Type carvedilol 3.125 mg tablet 3.125 mg PO BID 11/04/21 History furosemide 40 mg tablet 40 mg PO BID 11/04/21 History atorvastatin 10 mg tablet 10 mg PO QDAY 10/20/2212/25 History enzalutamide 80 mg tablet (Xtandi) 80 mg PO BID 12/25/24 History losartan 100 mg tablet 100 mg PO DAILY 12/25/24 History Allergies Allergy/AdvReac Type Severity Reaction Status Date / Time No Known Allergies Allergy Verified 01/29/25 15:54 Visit Medications Acetaminophen (Acetaminophen 325 Mg Tablet) 650 mg PO Q6H PRN PRN Reason: Fever >99.5 Stop: 02/28/25 22:31 Acetaminophen (Acetaminophen 325 Mg Tablet) 1,000 mg PO Q6H PRN PRN Reason: PAIN SCALE 1-3 (mild Stop: 02/28/25 22:31 Enoxaparin Sodium (Enoxaparin Sod Inj 40 Mg/0.4 Ml Syringe) 40 mg SC QDAY [facility] Stop: 02/13/25 08:59 Piperacillin/Tazobactam/Dextrose (Zosyn) 50 mls @ 100 mls/hr IV Q8HR BERE Stop: 02/05/25 22:36 Ondansetron HCl (Ondansetron Inj 2 Mg/Ml Inj 2 Ml) 4 mg IVP Q6H PRN; Protocol PRN Reason: NAUSEA OR VOMITING Stop: 02/28/25 22:31 Pharmacy Consult (Vancomycin Pharmacy To Dose 1 Each Each) 1 each IV QDAY BERE Stop: 03/01/25 08:59 Discontinued Medications Acetaminophen (Acetaminophen 500 Mg Tablet) 1,000 mg PO X1 ONE Stop: 01/29/25 16:06 Last Admin: 01/29/25 16:56 Dose: 1,000 mg Filgrastim (Filgrastim Inj (Zarxio) 300 Mcg/0.5 Ml Syringe) 300 mcg SC X1 ONE Stop: 01/29/25 16:31 Last Admin: 01/29/25 17:03 Dose: 300 mcg Sodium Chloride (Ns) 1,000 mls @ 999 mls/hr IV .Q1H1M ONE Stop: 01/29/25 17:18 Last Infusion: 01/29/25 18:47 Dose: Infused Cefepime HCl 2 gm/ Sodium (Chloride) 50 mls @ 100 mls/hr IV X1 ONE Stop: 01/29/25 16:47 Last Infusion: 01/29/25 17:30 Dose: Infused Fluconazole (Diflucan/Ns Ivpb) 200 mg in 100 mls @ 100 mls/hr IV X1 ONE Stop: 01/29/25 17:21 Last Infusion: 01/29/25 18:47 Dose: Infused Assessment & Plan Plan 84-year-old male with past medical history as stated above who presents to the ED with neutropenic fever from cancer treatment center. #Neutropenic fever #Right upper lobe pneumonia #Prostate cancer on chemotherapy Patient has not been feeling well for the past 10 days and has been having fevers in the 103 last chemotherapy was with docetaxel on 01/20/2025. CT shows right upper lobe pneumonia WBCs on presentation 0.7 ANC: 58 ? Zosyn ? Vancomycin ? Fluconazole prophylaxis ? IV fluids ? Follow-up blood cultures ? Follow-up urine cultures ? Follow sputum cultures ? Follow-up fungal cultures ? Follow-up beta glucan ? Follow-up RSV, cocci ? Neutropenic precautions ? Neupogen [address] Phipps #Hypertension ? Resume carvedilol 3.125 mg twice daily as taken at home ? Resume Lasix ? Resume losartan #Normocytic anemia No active signs of bleeding ? Monitor #COPD Not in acute exacerbation ? DuoNebs as needed Health Maintenance: Disposition: MedSurg, neutropenic precautions Fluids: NS Feeding: Low-sodium Thrombo prophylaxis: lovenox Gastric Ulcer prophylaxis: none CODE STATUS: Full code Case discussed with my attending Dr. Leonel Byers MD PGY-1 Disclaimer: Despite multiple revisions, due to the dictation software being used, the document bellow may not be free of grammatical errors including phonetic/typographic errors. However, this does not deter from our commitment to providing health care in the patient's best interest in mind.
[2025-01-30] VITALS (17 sets, daily range): BP systolic 96–137; BP diastolic 56–70; PULSE 76–102; RESP 17–20; TEMP 36.1–36.6; O2SAT 94–100
[2025-01-30] MEDS: SODIUM CHLORIDE 0.9% 1000 ML 1,000 ML 100 ML IV (00:17)
[2025-01-30] MEDS: PIPER/TAZO 3.375 GM PREMIX 3.375 GM/50 ML BAG IV ×4 (00:17→21:43)
--- NOTE | 2025-01-30 01:45 | EKG_ITS ---
[facility] Test Date: 2025-01-30 Pat Name: DERRICK ALVARADO [facility] Gender: Male [employer] Machine: ARISTIDES : [id number] Requested By: James Alfaro Order Number: [id number] Reading MD: James Alfaro Measurements Intervals [place] Rate: 89 P: 67 AL: 263 QRS: 38 QRSD: 117 T: 44 QT: 379 QTc: 463 Interpretive Statements SINUS RHYTHM WITH FIRST DEGREE AV BLOCK MODERATE INTRAVENTRICULAR CONDUCTION DELAY Compared to ECG 04/18/2024 17:20:56 Sinus bradycardia no longer present T-wave abnormality no longer present /store/S0/[id number].pdf
[2025-01-30] MEDS: VANCOMYCIN/NS 1 GM IVPB 200 ML IV ×3 (02:11→21:42)
[2025-01-30] MEDS: POTASSIUM CHLORIDE 20 mEq TABCR PO (04:54)
[2025-01-30] MEDS: Furosemide 40 MG TABLET PO (05:28)
[2025-01-30 05:30] LABS: Basophils % (Auto) 0 % (0-2.5); Eosinophils % (Auto) 0 % (0-10); Hematocrit 26.3 % (41.0-53.0); Immature Granulocytes % (Auto) 1 % (0-0); Immature Granulocytes Auto 0.01 Thou/mm3 (0.00-0.00); Lymphocytes # (Auto) 0.5 Thou/mm3 (1.0-4.8); Lymphocytes % (Auto) 51 % (10-50); Mean Corpuscular HGB Conc 31.9 g/dl (31.0-37.0); Mean Corpuscular Hemoglobin 25.9 pg (25.0-35.0); Mean Corpuscular Volume 81 fL (80-100); Monocytes # (Auto) 0.4 Thou/mm3 (0.0-0.8); Monocytes % (Auto) 38 % (0-12); Neutrophils # (Auto) 0.1 Thou/mm3 (1.8-7.7); Neutrophils % (Auto) 11 % (37-80); Nucleated Red Blood Cell # 0.17 Thou/mm3 (0.00-0.00); Nucleated Red Blood Cell % 18 /100 WBC (0); Platelet Count 139 Thou/mm3 (140-440); RDW Standard Deviation 51.2 fL (35.1-43.9); Red Blood Count 3.24 Miln/mm3 (4.50-5.90)
[2025-01-30 05:50] LABS: Alanine Aminotransferase 11 U/L (10-49); Albumin, Serum 3.2 gm/dL (3.4-4.8); Albumin/Globulin Ratio 1.6 (1.2-2.2); Alkaline Phosphatase 77 U/L (46-116); Anion Gap 9 (7-16); Aspartate Amino Transferase 16 U/L (0-34); BUN/Creatinine Ratio 13 Ratio (12-20); Bilirubin,Total 0.9 mg/dL (0.3-1.2); Blood Urea Nitrogen 13 mg/dL (9-23); Calcium (Corrected) 8.6 mg/dL (8.5-10.1); Carbon Dioxide 26.2 mMol/L (20.0-31.0); Chloride 104 mMol/L (98-107); Estimated Creatinine Clearance 65.3 mL/min (>60); Glucose 116 mg/dL (74-106); Magnesium 1.6 mg/dL (1.6-2.6); Osmolality,Calculated 278 (275-295); Phosphorous 3.6 mg/dL (2.4-5.1); Potassium 3.9 mMol/L (3.4-5.1); Sodium 139 mMol/L (136-145); Total Protein 5.2 gm/dL (5.7-8.2); eGFR > 60 See Note
[2025-01-30] MEDS: Magnesium Sulfate 2 GM Ivpb 2 GM/50 ML BAG IV (06:02)
[2025-01-30 06:08] LABS: Hemoglobin 8.4 g/dL (13.5-16.0); White Blood Count 0.9 Thou/mm3 (3.8-10.6)
[2025-01-30] MEDS: carVEDILOL 3.125 MG TABLET PO ×2 (08:45→18:27)
[2025-01-30] MEDS: FLUCONAZOLE 100 MG TABLET 400 MG PO (08:46)
[2025-01-30] MEDS: ENOXAPARIN SOD INJ 40 MG/0.4 ML SYRINGE SC (08:46)
[2025-01-30] MEDS: FILGRASTIM INJ (ZARXIO) 480 MCG/0.8 ML SYRINGE SC (09:29)
--- NOTE | 2025-01-30 09:50 | PD.RESPRO ---
Documentation for date of: 01/30/25 Subjective Subjective Interval history: Overnight admission. Patient seen and examined at bedside in saturating well on 2 L nasal cannula and denies any shortness of breath. 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 Otherwise we will continue with broad-spectrum antibiotics (Vanco/Zosyn) and fluconazole, and follow-up labs. Cocci IgM pending, beta D glucan pending, blood/urine/sputum cultures pending. Fungal cultures ordered, RSV ordered. On Neupogen 480 mcg SC daily with goal ANC above 1000. Exam Vital Signs Temp Pulse Resp BP Pulse Ox O2 Del Method O2 Flow Rate 97.8 F 90 18 96/70 94 L Nasal Cannula 2 01/30/25 07:29 01/30/25 08:48 01/30/25 07:51 01/30/25 08:48 01/30/25 07:51 01/30/25 07:29 01/30/25 07:51 Narrative Exam General: AOx3, no acute distress, able to speak full sentences HEENT: NC/AT, mucous membranes moist, bilateral sclera anicteric Cardiovascular: regular rate and rhythm, S1/S2 present, no murmurs appreciated Pulmonary: breathing comfortably on 2 L NC, clear to auscultation bilaterally, no rales/rhonchi/wheezes Abdominal: soft, non-tender, non-distended, no rebound/guarding, normal bowel sounds present Musculoskeletal: normal ROM, no peripheral edema Skin: warm and dry, intact, no rashes Neuro: CN II-XII intact, no focal deficits Objective Labs 01/30/25 04:46 01/30/25 04:46 Labs: Laboratory Results - last 24 hr 01/29/25 01/29/25 01/30/25 16:25 17:40 04:46 WBC 0.7 L* 0.9 L* RBC 3.64 L 3.24 L Hgb 9.4 L 8.4 L Hct 29.0 L 26.3 L MCV 80 81 MCH 25.8 25.9 MCHC 32.4 31.9 RDW Std Deviation 49.7 H 51.2 H Plt Count 160 139 L Neut % (Auto) 8 L 11 L Lymph % (Auto) 54 H 51 H [place] % (Auto) 35 H 38 H Eos % (Auto) 0 0 Baso % (Auto) 2 0 Neut # (Auto) 0.1 L 0.1 L Lymph # (Auto) 0.4 L 0.5 L [place] # (Auto) 0.2 0.4 Eos # (Auto) 0.0 0.0 Baso # (Auto) 0.0 0.0 Immature Gran # (Auto) 0.01 H 0.01 H Absolute Nucleated RBC 0.18 H 0.17 H Immature Gran % 2 H 1 H Nucleated RBC % 28 H 18 H Sodium 136 139 Potassium 3.9 3.9 Chloride 102 104 Carbon Dioxide 27.2 26.2 Anion Gap 7 9 BUN 15 13 Creatinine 1.1 1.0 Estim Creat Clear Calc 58.5 L 65.3 eGFR > 60 > 60 BUN/Creatinine Ratio 14 13 Glucose 146 H 116 H Calculated Osmolality 275 278 Lactic Acid 1.2 Calcium 8.2 L 8.0 L Corrected Calcium 8.6 8.6 Phosphorus 3.6 Magnesium 1.6 Total Bilirubin 0.8 0.9 AST 19 16 ALT 14 11 Alkaline Phosphatase 88 77 Total Protein 5.8 5.2 L Albumin 3.5 3.2 L Globulin 2.3 2.0 L Albumin/Globulin Ratio 1.5 1.6 Procalcitonin 0.11 Ur Collection Type Clean Catch Urine Color Yellow Urine Clarity Clear Urine pH 6.5 Ur Specific [place] 1.021 Urine Protein Trace Urine Glucose (UA) Negative Urine Ketones Negative Urine Blood Trace Urine Nitrite Negative Urine Bilirubin Negative Urine Urobilinogen (Auto) 3.0 Ur Leukocyte Esterase Negative Urine RBC 12 H Urine WBC 1 Ur Squamous Epith Cells 2 Urine Bacteria None Hyaline Casts < 1 Quality Measures Quality Measures none Advance care planning discussed with:: patient Assessment & Plan Assessment Current Active Medications: Generic Name Dose Route Start Last Admin Trade Name Freq PRN Reason Stop Dose Admin Acetaminophen 650 mg 01/29/25 22:32 Acetaminophen 325 Mg Tablet PO 02/28/25 22:31 Q6H PRN Fever >99.5 Acetaminophen 1,000 mg 01/29/25 22:43 Acetaminophen 500 Mg Tablet PO 02/28/25 22:42 Q6H PRN PAIN SCALE 1-3 (mild Albuterol/Ipratropium 3 ml 01/30/25 00:47 Albuterol/Ipratropium (Duoneb) Rt Chaya 3 Ml Nebu INH 03/01/25 00:46 Q2HR PRN SHORTNESS OF BREATH OR WHEEZE Carvedilol 3.125 mg 01/30/25 08:00 01/30/25 08:45 Carvedilol 3.125 Mg Tablet PO 03/01/25 07:59 3.125 mg BIDWM BERE Administration Enoxaparin Sodium 40 mg 01/30/25 09:00 01/30/25 08:46 Enoxaparin Sod Inj 40 Mg/0.4 Ml Syringe SC 02/13/25 08:59 40 mg QDAY BERE Administration Filgrastim 480 mcg 01/30/25 09:00 01/30/25 09:29 Filgrastim Inj (Zarxio) 480 Mcg/0.8 Ml Syringe SC 03/01/25 08:59 480 mcg QDAY BERE Administration Fluconazole 400 mg 01/30/25 09:00 01/30/25 08:46 Fluconazole 100 Mg Tablet PO 02/06/25 08:59 400 mg QDAY BERE Administration Furosemide 40 mg 01/31/25 09:00 Furosemide 40 Mg Tablet PO 03/02/25 08:59 QDAY BERE Piperacillin/Tazobactam/Dextrose 3.375 gm in 50 mls @ 12.5 mls/hr 01/30/25 06:00 01/30/25 06:01 Zosyn IV 02/06/25 05:59 12.5 mls/hr Q8HR BERE Administration Protocol Vancomycin/Sodium Chloride 200 mls @ 120 mls/hr 01/30/25 22:00 Vancomycin/Ns 1 Gm Ivpb IV 02/06/25 21:59 Q12H BERE Losartan Potassium 100 mg 01/30/25 09:00 01/30/25 08:48 Losartan Potassium 25 Mg Tablet PO 03/01/25 08:59 Not Given QDAY BERE Ondansetron HCl 4 mg 01/29/25 22:32 Ondansetron Inj 2 Mg/Ml Inj 2 Ml IVP 02/28/25 22:31 Q6H PRN NAUSEA OR VOMITING Protocol Pharmacy Consult 1 each 01/29/25 23:10 Vancomycin Pharmacy To Dose 1 Each Each IV 02/28/25 23:09 QDAY PRN PROTOCOL Plan Geoff Bahena is an 84-year-old male with past medical history of prostate cancer on chemotherapy, hypertension, and COPD who is admitted for neutropenic fever secondary to pneumonia as seen on CT. #Neutropenic fever #Right upper lobe pneumonia #Prostate cancer on chemotherapy Presented to cancer center for which he was found to have a fever of 103 ?F and sent to ED. Last chemotherapy was with docetaxel on 01/20/2025. CT showed right upper lobe pneumonia. WBC on presentation 0.7, ANC 0.1. Blood culture 01/29: Pending Urine culture 01/29: Pending Sputum culture 01/30: Gram stain showing rare GNR Cocci IgM: Pending Beta D glucan: Pending ? Filgrastim 480 mcg daily with goal ANC >1000 ? Vancomycin/Zosyn (01/30-) ? Fluconazole (01/30-) ? Follow-up fungal cultures ? Follow-up RSV ? Neutropenic precautions #Hypertension ? Carvedilol 3.125 mg twice daily as taken at home ? Losartan held given soft BP ? Lasix 40 mg BID -> daily given soft BP #Normocytic anemia No active signs of bleeding ? Follow-up a.m. iron panel and ferritin ? Monitor #COPD Not in acute exacerbation ? DuoNebs as needed Health Maintenance: Disposition: MedSurg, neutropenic precautions Fluids: NS Feeding: Low-sodium DVT prophylaxis: lovenox GI prophylaxis: none CODE STATUS: Full code ----- Plan discussed with attending physician Dr. Amber Katz MD PGY-1 Internal Medicine Attending Provider Attestation/Addendum I attest that I was physically present for the evaluation, physical examination, lab and imaging review of the patient with the residents. I discussed the case with the residents and agree with the findings and plans of care as documented above. At bedside today, patient states she is feeling well and does not have any complaints. Did not have any febrile episodes overnight. Saturating well on 2 L nasal cannula. WBC is 900, improved from 700 yesterday. Neutrophil count is 500. Continues to be on broad-spectrum antibiotics and antifungal. Also on Neupogen 480 mcg daily with ANC goal of thousand and above. Continues to be on contact precautions for neutropenic fever. Decreased Lasix to 40 mg daily, continues to be on carvedilol, blood pressure is soft this morning, we will monitor closely and resume his antihypertensives if starts to go high. Peripheral blood smear shows anemia with an isopoikilocytosis and borderline MCV, we will obtain iron studies. Awaiting culture results. Vilma Clark MD
[2025-01-30 12:09] LABS: Cocci Serology, IgM Negative (Negative)
[2025-01-30] MEDS: PANTOPRAZOLE 40 MG TABLET PO (20:11)
[2025-01-31] VITALS (13 sets, daily range): BP systolic 99–136; BP diastolic 52–68; PULSE 64–86; RESP 14–20; TEMP 36–36.7; O2SAT 90–99
[2025-01-31 03:36] LABS: Respiratory Syncytial Virus Ag Negative (Negative)
[2025-01-31] MEDS: PIPER/TAZO 3.375 GM PREMIX 3.375 GM/50 ML BAG IV ×3 (05:26→21:17)
[2025-01-31 05:46] LABS: Basophils # (Auto) 0.1 Thou/mm3 (0.0-0.2); Basophils % (Auto) 1 % (0-2.5); Eosinophils % (Auto) 0 % (0-10); Hematocrit 25.4 % (41.0-53.0); Immature Granulocytes % (Auto) 7 % (0-0); Immature Granulocytes Auto 0.24 Thou/mm3 (0.00-0.00); Lymphocytes # (Auto) 0.5 Thou/mm3 (1.0-4.8); Lymphocytes % (Auto) 15 % (10-50); Mean Corpuscular HGB Conc 32.3 g/dl (31.0-37.0); Mean Corpuscular Hemoglobin 26.3 pg (25.0-35.0); Mean Corpuscular Volume 81 fL (80-100); Monocytes # (Auto) 0.7 Thou/mm3 (0.0-0.8); Monocytes % (Auto) 20 % (0-12); Neutrophils # (Auto) 2.1 Thou/mm3 (1.8-7.7); Neutrophils % (Auto) 57 % (37-80); Nucleated Red Blood Cell % 6 /100 WBC (0); Platelet Count 152 Thou/mm3 (140-440); RDW Standard Deviation 51.2 fL (35.1-43.9); Red Blood Count 3.12 Miln/mm3 (4.50-5.90); White Blood Count 3.6 Thou/mm3 (3.8-10.6)
[2025-01-31 05:55] LABS: Hemoglobin 8.2 g/dL (13.5-16.0)
[2025-01-31 06:04] LABS: Ferritin 75 ng/mL (10.5-307.3); Iron 13 mcg/dL (65-175); Percent Iron Saturation 6 % (20-55); Total Iron Binding Capacity 206 mcg/dL (250-425); Unsaturated Iron Binding 193 (225-295)
[2025-01-31 06:27] LABS: Alanine Aminotransferase 11 U/L (10-49); Albumin/Globulin Ratio 1.5 (1.2-2.2); Alkaline Phosphatase 78 U/L (46-116); Anion Gap 7 (7-16); Aspartate Amino Transferase 18 U/L (0-34); BUN/Creatinine Ratio 12 Ratio (12-20); Bilirubin,Total 0.8 mg/dL (0.3-1.2); Blood Urea Nitrogen 13 mg/dL (9-23); Calcium 7.9 mg/dL (8.3-10.6); Calcium (Corrected) 8.7 mg/dL (8.5-10.1); Carbon Dioxide 27.1 mMol/L (20.0-31.0); Chloride 105 mMol/L (98-107); Creatinine (Component) 1.1 mg/dL (0.6-1.3); Estimated Creatinine Clearance 59.4 mL/min (>60); Glucose 122 mg/dL (74-106); Magnesium 1.8 mg/dL (1.6-2.6); Osmolality,Calculated 278 (275-295); Phosphorous 2.8 mg/dL (2.4-5.1); Potassium 3.5 mMol/L (3.4-5.1); Sodium 139 mMol/L (136-145); eGFR > 60 See Note
[2025-01-31] MEDS: PANTOPRAZOLE 40 MG TABLET PO (08:43)
[2025-01-31] MEDS: ENOXAPARIN SOD INJ 40 MG/0.4 ML SYRINGE SC (08:43)
[2025-01-31] MEDS: Furosemide 40 MG TABLET PO (08:44)
[2025-01-31] MEDS: FLUCONAZOLE 100 MG TABLET 400 MG PO (08:44)
[2025-01-31] MEDS: carVEDILOL 3.125 MG TABLET PO ×2 (08:44→17:22)
[2025-01-31] MEDS: VANCOMYCIN/NS 1 GM IVPB 200 ML IV ×2 (09:12→22:51)
--- NOTE | 2025-01-31 12:34 | PC.SS ---
Patient is an 84YO male, reason for visit: NEUTORPONIC FEVER met with patient and his daughter in law Melanie Perry at bedside. Role and purpose of today's contact was provided. Demographic information was confirmed. Patient reports being independent with ADLs. He utilizes a walker-rollator to ambulate. [facility]acy[facility]. PCP: None. Previously with [facility]. Patient's primary medical surrogate surrogate decision maker is his son Tristen Kumar [phone]. Discharge plan: Home, anjel Ramon to provide transportation. Next of kin: Anjel Kumar [phone]
--- NOTE | 2025-01-31 13:33 | PD.RESPRO ---
Documentation for date of: 01/31/25 Subjective Subjective Interval history: No acute overnight events. Seen and examined at bedside with family present and patient has no complaints, including fever, chills, nausea, vomiting, shortness of breath. Vital signs stable and did not have any fevers overnight. CBC showed significant improvement after 1 day filgrastim with WBC 3.6 and ANC 2100 and so filgrastim was discontinued. Will continue on current regimen of Vanco, Zosyn, and fluconazole and monitor blood cultures which have been negative for last 24 hours. If remain negative after 48 hours, will touch base with Dr. Whelan for recommendations and anticipate discharge within next 24 to 48 hours. Exam Vital Signs Temp Pulse Resp BP Pulse Ox O2 Del Method O2 Flow Rate 96.9 F 67 20 136/52 H 95 Nasal Cannula 2 01/31/25 12:00 01/31/25 12:00 01/31/25 12:00 01/31/25 12:00 01/31/25 12:00 01/31/25 12:00 01/30/25 20:00 Narrative Exam General: AOx3, no acute distress, able to speak full sentences HEENT: NC/AT, mucous membranes moist, bilateral sclera anicteric Cardiovascular: regular rate and rhythm, S1/S2 present, no murmurs appreciated Pulmonary: breathing comfortably on 2 L NC, clear to auscultation bilaterally, no rales/rhonchi/wheezes Abdominal: soft, non-tender, non-distended, no rebound/guarding, normal bowel sounds present Musculoskeletal: normal ROM, no peripheral edema Skin: warm and dry, intact, no rashes Neuro: CN II-XII intact, no focal deficits Objective Labs 01/31/25 05:01 01/31/25 05:01 Labs: Laboratory Results - last 24 hr 01/30/25 01/31/25 12:00 05:01 WBC 3.6 L D RBC 3.12 L Hgb 8.2 L Hct 25.4 L MCV 81 MCH 26.3 MCHC 32.3 RDW Std Deviation 51.2 H Plt Count 152 Neut % (Auto) 57 Lymph % (Auto) 15 [place] % (Auto) 20 H Eos % (Auto) 0 Baso % (Auto) 1 Neut # (Auto) 2.1 Lymph # (Auto) 0.5 L [place] # (Auto) 0.7 Eos # (Auto) 0.0 Baso # (Auto) 0.1 Immature Gran # (Auto) 0.24 H Absolute Nucleated RBC 0.20 H Immature Gran % 7 H Nucleated RBC % 6 H Sodium 139 Potassium 3.5 Chloride 105 Carbon Dioxide 27.1 Anion Gap 7 BUN 13 Creatinine 1.1 Estim Creat Clear Calc 59.4 L eGFR > 60 BUN/Creatinine Ratio 12 Glucose 122 H Calculated Osmolality 278 Calcium 7.9 L Corrected Calcium 8.7 Phosphorus 2.8 Magnesium 1.8 Iron 13 L TIBC 206 L Iron Saturation 6 L Unsat Iron Binding 193 L Ferritin 75 Total Bilirubin 0.8 AST 18 ALT 11 Alkaline Phosphatase 78 Total Protein 5.0 L Albumin 3.0 L Globulin 2.0 L Albumin/Globulin Ratio 1.5 RSV Rapid Negative Quality Measures Quality Measures none Advance care planning discussed with:: patient and child Assessment & Plan Assessment Current Active Medications: Generic Name Dose Route Start Last Admin Trade Name Freq PRN Reason Stop Dose Admin Acetaminophen 650 mg 01/29/25 22:32 Acetaminophen 325 Mg Tablet PO 02/28/25 22:31 Q6H PRN Fever >99.5 Acetaminophen 1,000 mg 01/29/25 22:43 Acetaminophen 500 Mg Tablet PO 02/28/25 22:42 Q6H PRN PAIN SCALE 1-3 (mild Albuterol/Ipratropium 3 ml 01/30/25 00:47 Albuterol/Ipratropium (Duoneb) Rt Chaya 3 Ml Nebu INH 03/01/25 00:46 Q2HR PRN SHORTNESS OF BREATH OR WHEEZE Carvedilol 3.125 mg 01/30/25 08:00 01/31/25 08:44 Carvedilol 3.125 Mg Tablet PO 03/01/25 07:59 3.125 mg BIDWM BERE Administration Enoxaparin Sodium 40 mg 01/30/25 09:00 01/31/25 08:43 Enoxaparin Sod Inj 40 Mg/0.4 Ml Syringe SC 02/13/25 08:59 40 mg QDAY BERE Administration Fluconazole 400 mg 01/30/25 09:00 01/31/25 08:44 Fluconazole 100 Mg Tablet PO 02/06/25 08:59 400 mg QDAY BERE Administration Furosemide 40 mg 01/31/25 09:00 01/31/25 08:44 Furosemide 40 Mg Tablet PO 03/02/25 08:59 40 mg QDAY BERE Administration Piperacillin/Tazobactam/Dextrose 3.375 gm in 50 mls @ 12.5 mls/hr 01/30/25 06:00 01/31/25 05:26 Zosyn IV 02/06/25 05:59 12.5 mls/hr Q8HR BERE Administration Protocol Vancomycin/Sodium Chloride 200 mls @ 120 mls/hr 01/30/25 22:00 01/31/25 09:12 Vancomycin/Ns 1 Gm Ivpb IV 02/06/25 21:59 120 mls/hr Q12H BERE Administration Protocol Losartan Potassium 100 mg 01/30/25 09:00 01/30/25 08:48 Losartan Potassium 25 Mg Tablet PO 03/01/25 08:59 Not Given QDAY BERE Ondansetron HCl 4 mg 01/29/25 22:32 Ondansetron Inj 2 Mg/Ml Inj 2 Ml IVP 02/28/25 22:31 Q6H PRN NAUSEA OR VOMITING Protocol Pantoprazole Sodium 40 mg 01/30/25 20:15 01/31/25 08:43 Pantoprazole 40 Mg Tablet PO 03/01/25 20:14 40 mg QDAY BERE Administration Pharmacy Consult 1 each 01/29/25 23:10 Vancomycin Pharmacy To Dose 1 Each Each IV 02/28/25 23:09 QDAY PRN PROTOCOL Plan Geoff Bahena is an 84-year-old male with past medical history of prostate cancer on chemotherapy, hypertension, and COPD who is admitted for neutropenic fever secondary to pneumonia as seen on CT. #Neutropenic fever #Right upper lobe pneumonia #Prostate cancer on chemotherapy Presented to cancer center for which he was found to have a fever of 103 ?F and sent to ED. Last chemotherapy was with docetaxel on 01/20/2025. CT showed right upper lobe pneumonia. WBC on presentation 0.7, ANC 0.1. Blood culture 01/29: Gram stain showing GNR Urine culture 01/29: Pending Sputum culture 01/30: Gram stain showing rare GNR Beta D glucan: Pending Filgrastim discontinued on 01/31 Cocci IgG and IgM negative, RSV negative ? Vancomycin/Zosyn (01/30-) ? Fluconazole (01/30-) ? Follow-up fungal cultures ? Neutropenic precautions #Hypertension ? Carvedilol 3.125 mg twice daily as taken at home ? Losartan held given soft BP ? Lasix 40 mg BID -> daily given soft BP #Normocytic anemia No active signs of bleeding ? Follow-up a.m. iron panel and ferritin ? Monitor #COPD Not in acute exacerbation ? DuoNebs as needed Health Maintenance: Disposition: MedSurg, neutropenic precautions, IV antibiotics Feeding: Low-sodium DVT prophylaxis: lovenox GI prophylaxis: none CODE STATUS: Full code ----- Plan discussed with attending physician Dr. Amber Katz MD PGY-1 Internal Medicine Attending Provider Attestation/Addendum I attest that I was physically present for the evaluation, physical examination, lab and imaging review of the patient with the residents. I discussed the case with the residents and agree with the findings and plans of care as documented above. At bedside today, patient states she is feeling well and denies any new complaints. Saturating well on nasal cannula. Rest of the vitals are stable. Lab results show improvement in WBC from 0.9-3.6, his absolute neutrophil count also improved from 100-2100. We will stop filgrastim as discussed with oncology yesterday. Continues to be on broad-spectrum antibiotics and antifungal. Culture results are pending. Vilma Clark MD
[2025-01-31 13:54] LABS: Cocci Serology, IgG Negative (Negative)
[2025-01-31 22:32] LABS: Vancomycin,Trough 15.5 mcg/mL (5.0-10.0)
[2025-02-01] VITALS (15 sets, daily range): BP systolic 103–155; BP diastolic 53–73; PULSE 60–84; RESP 16–20; TEMP 36.1–36.9; O2SAT 96–100; BMI 44.6; BMI 15.0
[2025-02-01] MEDS: PIPER/TAZO 3.375 GM PREMIX 3.375 GM/50 ML BAG IV ×2 (05:27→13:41)
[2025-02-01 05:56] LABS: Basophils # (Auto) 0.1 Thou/mm3 (0.0-0.2); Basophils % (Auto) 1 % (0-2.5); Eosinophils % (Auto) 0 % (0-10); Hematocrit 23.2 % (41.0-53.0); Immature Granulocytes % (Auto) 11 % (0-0); Immature Granulocytes Auto 0.94 Thou/mm3 (0.00-0.00); Lymphocytes # (Auto) 0.9 Thou/mm3 (1.0-4.8); Lymphocytes % (Auto) 11 % (10-50); Mean Corpuscular HGB Conc 31.5 g/dl (31.0-37.0); Mean Corpuscular Hemoglobin 25.8 pg (25.0-35.0); Mean Corpuscular Volume 82 fL (80-100); Monocytes % (Auto) 11 % (0-12); Neutrophils # (Auto) 5.8 Thou/mm3 (1.8-7.7); Neutrophils % (Auto) 67 % (37-80); Nucleated Red Blood Cell # 0.08 Thou/mm3 (0.00-0.00); Nucleated Red Blood Cell % 1 /100 WBC (0); Platelet Count 166 Thou/mm3 (140-440); RDW Standard Deviation 52.2 fL (35.1-43.9); Red Blood Count 2.83 Miln/mm3 (4.50-5.90); White Blood Count 8.7 Thou/mm3 (3.8-10.6)
[2025-02-01 05:57] LABS: Hemoglobin 7.3 g/dL (13.5-16.0)
[2025-02-01 06:14] LABS: Alanine Aminotransferase 11 U/L (10-49); Albumin, Serum 3.1 gm/dL (3.4-4.8); Albumin/Globulin Ratio 1.6 (1.2-2.2); Alkaline Phosphatase 83 U/L (46-116); Anion Gap 9 (7-16); Aspartate Amino Transferase 17 U/L (0-34); BUN/Creatinine Ratio 11 Ratio (12-20); Bilirubin,Total 0.4 mg/dL (0.3-1.2); Blood Urea Nitrogen 13 mg/dL (9-23); Calcium 8.2 mg/dL (8.3-10.6); Calcium (Corrected) 8.9 mg/dL (8.5-10.1); Carbon Dioxide 31.4 mMol/L (20.0-31.0); Chloride 104 mMol/L (98-107); Creatinine (Component) 1.2 mg/dL (0.6-1.3); Estimated Creatinine Clearance 54.5 mL/min (>60); Glucose 112 mg/dL (74-106); Magnesium 1.8 mg/dL (1.6-2.6); Osmolality,Calculated 287 (275-295); Potassium 3.7 mMol/L (3.4-5.1); Sodium 144 mMol/L (136-145); Total Protein 5.1 gm/dL (5.7-8.2); eGFR 59 See Note
[2025-02-01 06:17] LABS: Path Review Blood Smear Sent to Pathologist
[2025-02-01] MEDS: carVEDILOL 3.125 MG TABLET PO (08:36)
[2025-02-01] MEDS: Furosemide 40 MG TABLET PO (08:36)
[2025-02-01] MEDS: PANTOPRAZOLE 40 MG TABLET PO (08:36)
[2025-02-01] MEDS: FLUCONAZOLE 100 MG TABLET 400 MG PO (08:37)
[2025-02-01] MEDS: ENOXAPARIN SOD INJ 40 MG/0.4 ML SYRINGE SC (08:37)
[2025-02-01] MEDS: VANCOMYCIN/NS 1 GM IVPB 200 ML IV (10:05)
--- NOTE | 2025-02-01 10:51 | PC.NURSE ---
Patient ambulated down hallway and back to room with PT no O2, O2 saturation 84% RA, applied O2 @ 2L NC saturation 95%.
--- NOTE | 2025-02-01 15:28 | ESDS_ITS ---
Planned Discharge Date 02/01/25 DS: Providers Provider Date of admission: 01/29/25 22:32 Primary care physician: Physician No Primary/Family Admitting Provider: Joleen Castaneda MD Attending Provider on Admission: Vilma Clark MD Consults: 02/01/25 08:22 Referral Physical Therapy Stat Comment: Physician Instructions: Attending Provider on DC: Kaur Mackay MD Discharging Provider: Kaur Mackay MD DS: Diagnosis Problem List Completed Was Problem List Reviewed/Reconciled?: Yes Hospital Course Hospital Course Hospital course: 84-year-old male with a history of prostate cancer on chemotherapy, hypertension, and COPD, who presented with high-grade fevers (up to 103?F) and was found to be neutropenic. He was transferred from the cancer treatment center for sepsis workup. The patient had been feeling unwell for approximately 10 days and was evaluated at the cancer center where neutropenia was identified. He was sent to the ED for further evaluation due to concern for febrile neutropenia and possible sepsis due to PNA. He endorsed chills but denied headache, blurry vision, chest pain, shortness of breath, nausea, vomiting, diarrhea, sick contacts, or recent travel. His last chemotherapy session (docetaxel) was on 01/20/2025. On presentation patient labs finding was WBC 0.7,Hemoglobin 9.4, absolute neutrophil count 0.1 Imaging: Chest X-ray: Suspicious for pulmonary artery hypertension Chest/Abdomen/Pelvis: Right upper lobe pneumonia Right middle lobe pulmonary nodule (12 x 8 mm) Mild left hydronephrosis likely secondary to bladder mass (32 x 18 mm, posterior bladder wall) Sclerotic focus in right third anterior rib Left periaortic lymphadenopathy (25 mm The patient was managed for febrile neutropenia and possible sepsis. He was started on broad-spectrum antibiotics and received a dose of filgrastim with good response. His absolute neutrophil count improved to 5.8. He remained afebrile throughout hospitalization after initial management, and blood cultures remained negative. Anemia was noted and one unit of PRBC was transfused per hematology's recommendation. He tolerated the transfusion well. Pulmonary infection was managed with antibiotics, and symptoms improved significantly. Today upon our evaluation patient was hemodynamically stable. He denied any shortness of breath, cough, fever or any other associated symptoms. Plan is to discharge patient today on Augmentin and doxycycline to complete pneumonia treatment, patient must follow-up outpatient with hematology on Monday, repeat CBC CMP on Monday, follow-up outpatient with PCP in 1 to 2 weeks after discharge. Patient also was given some iron tablets due to Fe def anemia Urology follow-up is recommended due to the suspected bladder mass seen on imaging. Cystoscopy as an outpatient is advised for further evaluation. Patient will be discharged home today. Family was at bedside, all questions and concerns were addressed. Patient gave verbalized understanding. #Sepsis-resolved #Neutropenic fever?resolved #Prostate cancer on chemotherapy #Right upper lobe pneumonia #Hypertension #Normocytic anemia #History of COPD Patient care was discussed with attending physician Dr. Amber Mackay MD PGY-2 Time Spent with Patient Time attestation: Total time spent providing and/or coordinating discharge services: Time spent: Less than 30 minutes Exam Vital Signs Temp Pulse Resp BP Pulse Ox O2 Del Method O2 Flow Rate 97.0 F 60 18 123/62 99 Nasal Cannula 2 02/01/25 13:05 02/01/25 13:05 02/01/25 13:05 02/01/25 13:05 02/01/25 13:05 02/01/25 12:00 02/01/25 13:05 Narrative Exam General: AOx3, no acute distress, able to speak full sentences HEENT: NC/AT, mucous membranes moist, bilateral sclera anicteric Cardiovascular: regular rate and rhythm, S1/S2 present, no murmurs appreciated Pulmonary: breathing comfortably on 2 L NC, clear to auscultation bilaterally, no rales/rhonchi/wheezes Abdominal: soft, non-tender, non-distended, no rebound/guarding, normal bowel sounds present Musculoskeletal: normal ROM, no peripheral edema Skin: warm and dry, intact, no rashes Neuro: CN II-XII intact, no focal deficits Discharge Plan Plan Patient Disposition: HOME (Self Care) Patient condition on transfer: Stable and Benefits outweigh risks Care Plan Goals: ? Continue taking all other home medications as prescribed - start taking Augmentin 1 tab twice daily for 7 more days - start taking Doxycycline 100 mg twice daily for 7 more days to complete pneu monia treatment course - start Iron tablets 1 tab every other day ? Follow-up with Dr. Phipps as soon as possible after discharge, - repeat CBC on MONDAY - Urology follow-up is recommended due to the suspected bladder mass seen on imaging. Cystoscopy as an outpatient is advised for further evaluation. - Follow up in Cancer center after discharge ? Follow-up with PCP within 1-2 weeks of discharge ? Return to ED if symptoms worsen or recur Prescriptions/Referrals Prescriptions/Med Rec: New amoxicillin-pot clavulanate 875-125 mg tablet 1 tab PO BID 7 Days Qty: 14 0RF doxycycline monohydrate 100 mg capsule 100 mg PO BID 7 Days Qty: 14 0RF ferrous sulfate [Feosol] 325 mg (65 mg iron) tablet 325 mg PO Q OTHER DAY 30 Days Qty: 15 0RF Continued furosemide 40 mg tablet 40 mg PO BID carvedilol 3.125 mg tablet 3.125 mg PO BID Rx Instructions: must administer with a meal/food losartan 100 mg tablet 100 mg PO DAILY Patient Comments: take 1 tablet by mouth once daily Xtandi 80 mg tablet 80 mg PO BID atorvastatin 10 mg tablet 10 mg PO QDAY Patient Comments: take 1 tablet by mouth once daily for 3 MONTHS Referrals: Myriam An MD [Physician] - Maxi Phipps MD [Physician] - No Primary/Family,Physician [Primary Care Provider] - Patient/Caregiver Discharge Instructions Discharge Activity: activity as tolerated Education Materials: Neutropenia, What Is Pneumonia?, Treating Pneumonia, ED Pneumonia (Adult) Print Language: Swedish Stand Alone Forms: Diana Award Info., Patient Portal Info Letter Discharge Order Discharge Orders: Discharge (Routine); Ordered 02/01/25 Ordered By: Kaur Mackay Quality Discharge Quality Measures VTE prophylaxis Attestestation Attestation I attest that I was physically present for the evaluation, physical examination, lab and imaging review of the patient with the residents. I discussed the case with the residents and agree with the findings and plans of care as documented above. Vilma Clark MD
--- NOTE | 2025-02-01 16:02 | PC.SS ---
ELKIN completed referral for oxygen to [facility]. Oxygen will be delivered at bedside.
--- NOTE | 2025-02-01 17:40 | PC.NURSE ---
Called and spoke with Dr. Parra, order received to deaccess port-a-cath prior to discharge.
[2025-02-02 19:49] LABS: (1-3)-B-D-glucan* <31 pg/mL
[2025-02-03 07:03] LABS: Interpretation NEGATIVE
== END 2025-02-01 17:46 | disposition home or self-care (01) | DRG 808 ==
LOC: SERX 22:26 → SERHOLD 23:01 → S3SX 23:48
PROVIDERS: Nurse Practitioner Primary Care; Student in an Organized Health Care Education/Training Program; Admitting Provider Student in an Organized Health Care Education/Training Program; Emergency Provider Emergency Medicine; Visit Provider Student in an Organized Health Care Education/Training Program
DX: D70.9 Neutropenia, unspecified (principal); J18.9 Pneumonia, unspecified organism; J44.0 Chronic obstructive pulmonary disease with (acute) lower respiratory infection; N13.30 Unspecified hydronephrosis; R50.81 Fever presenting with conditions classified elsewhere; I10 Essential (primary) hypertension; R91.1 Solitary pulmonary nodule; C61 Malignant neoplasm of prostate; D64.89 Other specified anemias; Z79.899 Other long term (current) drug therapy
CPT/HCPCS: 36415; 71045; 71260; 74177; 80053; 80202; 81001; 82728; 83540; 83550; 83605; 83735; 84100; 84145; 85025; 86331; 86635; 86850; 86900; 86901; 86923; 87040; 87081; 87086; 87101; 87102; 87205; 87400; 87449; 87634; 87811; 93005; 93225; 94762; 96365; 96367; 96372; 97162; 99285; A4649; J0692; J1450; J1650; J2543; J3370; J3475; J7030; J7050; P9016; Q5101; Q9967; A9270

== ENCOUNTER 2025-02-10 07:42 | Outpatient (RCR) | payer MEDICARE, MEDICAID, SELFPAY ==
[2025-01-17 11:45] LABS: Basophils % (Auto) 0 % (0-2.5); Eosinophils # (Auto) 0.2 Thou/mm3 (0.0-0.5); Eosinophils % (Auto) 4 % (0-10); Hematocrit 33.3 % (41.0-53.0); Hemoglobin 10.6 g/dL (13.5-16.0); Immature Granulocytes % (Auto) 0 % (0-0); Immature Granulocytes Auto 0.01 Thou/mm3 (0.00-0.00); Lymphocytes # (Auto) 1.3 Thou/mm3 (1.0-4.8); Lymphocytes % (Auto) 27 % (10-50); Mean Corpuscular HGB Conc 31.8 g/dl (31.0-37.0); Mean Corpuscular Hemoglobin 25.9 pg (25.0-35.0); Mean Corpuscular Volume 81 fL (80-100); Monocytes # (Auto) 0.4 Thou/mm3 (0.0-0.8); Monocytes % (Auto) 9 % (0-12); Neutrophils # (Auto) 2.9 Thou/mm3 (1.8-7.7); Neutrophils % (Auto) 59 % (37-80); Nucleated Red Blood Cell % 0 /100 WBC (0); Platelet Count 214 Thou/mm3 (140-440); RDW Standard Deviation 55.7 fL (35.1-43.9); White Blood Count 4.8 Thou/mm3 (3.8-10.6)
[2025-01-17 12:01] LABS: Alanine Aminotransferase 20 U/L (10-49); Albumin, Serum 3.8 gm/dL (3.4-4.8); Albumin/Globulin Ratio 1.8 (1.2-2.2); Alkaline Phosphatase 105 U/L (46-116); Anion Gap 10 (7-16); Aspartate Amino Transferase 31 U/L (0-34); BUN/Creatinine Ratio 19 Ratio (12-20); Bilirubin,Total 0.5 mg/dL (0.3-1.2); Blood Urea Nitrogen 25 mg/dL (9-23); Calcium (Corrected) 9.2 mg/dL (8.5-10.1); Carbon Dioxide 27.1 mMol/L (20.0-31.0); Chloride 104 mMol/L (98-107); Creatinine (Component) 1.3 mg/dL (0.6-1.3); Globulin 2.1 gm/dL (2.3-3.5); Glucose 91 mg/dL (74-106); Osmolality,Calculated 285 (275-295); Potassium 3.9 mMol/L (3.4-5.1); Prostate Specific Antigen 14.22 ng/mL (0-4.00); Sodium 141 mMol/L (136-145); Total Protein 5.9 gm/dL (5.7-8.2); eGFR 54 See Note
[2025-01-28 16:15] LABS: Basophils % (Auto) 2 % (0-2.5); Eosinophils % (Auto) 2 % (0-10); Hematocrit 29.7 % (41.0-53.0); Hemoglobin 9.4 g/dL (13.5-16.0); Immature Granulocytes % (Auto) 0 % (0-0); Lymphocytes # (Auto) 0.4 Thou/mm3 (1.0-4.8); Lymphocytes % (Auto) 67 % (10-50); Mean Corpuscular HGB Conc 31.6 g/dl (31.0-37.0); Mean Corpuscular Hemoglobin 25.5 pg (25.0-35.0); Mean Corpuscular Volume 81 fL (80-100); Monocytes # (Auto) 0.2 Thou/mm3 (0.0-0.8); Monocytes % (Auto) 23 % (0-12); Neutrophils # (Auto) 0.1 Thou/mm3 (1.8-7.7); Neutrophils % (Auto) 8 % (37-80); Nucleated Red Blood Cell # 0.04 Thou/mm3 (0.00-0.00); Nucleated Red Blood Cell % 6 /100 WBC (0); Platelet Count 153 Thou/mm3 (140-440); RDW Standard Deviation 51.2 fL (35.1-43.9); Red Blood Count 3.69 Miln/mm3 (4.50-5.90)
[2025-01-28 16:29] LABS: White Blood Count 0.7 Thou/mm3 (3.8-10.6)
[2025-01-28 16:37] LABS: Alanine Aminotransferase 15 U/L (10-49); Albumin, Serum 3.6 gm/dL (3.4-4.8); Albumin/Globulin Ratio 1.6 (1.2-2.2); Alkaline Phosphatase 89 U/L (46-116); Anion Gap 9 (7-16); Aspartate Amino Transferase 19 U/L (0-34); BUN/Creatinine Ratio 16 Ratio (12-20); Bilirubin,Total 0.6 mg/dL (0.3-1.2); Blood Urea Nitrogen 18 mg/dL (9-23); Calcium 8.4 mg/dL (8.3-10.6); Calcium (Corrected) 8.7 mg/dL (8.5-10.1); Chloride 103 mMol/L (98-107); Creatinine (Component) 1.1 mg/dL (0.6-1.3); Globulin 2.2 gm/dL (2.3-3.5); Glucose 116 mg/dL (74-106); Osmolality,Calculated 282 (275-295); Potassium 4.2 mMol/L (3.4-5.1); Sodium 140 mMol/L (136-145); Total Protein 5.8 gm/dL (5.7-8.2); eGFR > 60 See Note
[2025-01-28 17:57] LABS: Path Review Blood Smear Sent to Pathologist
--- NOTE | 2025-01-29 16:10 | CTCFLWUP_ITS ---
Patient: DERRICK LESLIE : 1940 Page 2 of 2 FOLLOW UP NOTE DATE OF SERVICE: 01/29/2025 NAME: DERRICK LESLIE ACCOUNT: [id number] : 1940 AGE: 84 INTERVAL HISTORY: Summary Patient was seen in the clinic for follow-up on his chemotherapy for prostate cancer. Patient received his last chemotherapy with docetaxel on 01/20/2025. Per patient he has been sick for last 10 days. He has his blood work done yesterday. Today in the clinic patient was found to have fever of 103. Patient is neutropenic with a fever. Patient wheeled into the emergency room for workup for sepsis. Patient should be covered and treated with broad-spectrum antibiotics as well as antifungal prophylaxis. Patient should be started on Neupogen until ANC is above thousand. Chief Complaint Fever and fatigue History of Present Illness Derrick Bahena, an 84-year-old male with a history of prostate cancer, presents for follow-up of his current treatment regimen. Patient was treated with first cycle of docetaxel. Since the last visit, patient had increase in his PSA level with Xtandi and was changed to Taxotere. Patient t olerated chemotherapy but has been fatigued and tired. As patient had a fever so concern is for sepsis so we will send patient for evaluation. Medical History - Prostate cancer, with rising PSA levels (currently 12, previously 8.94) Medications and Supplements - Xtandi - Patient reports feeling fine with this medication - PSA levels increased from 8.94 to 12 while on this medication - Docetaxel - Not yet started, planned for future use Social History - Language: Serbian-speaking, requires sight effects specialist Review of Systems Genitourinary: Negative for new pain. Laboratory, Imaging, and Diagnostic Test Results - PSA: 12 (current), 8.94 (previous) ONCOLOGY HISTORY: DIAGNOSIS: Malignant neoplasm of prostate [ICD10] C61 DATE OF DIAGNOSIS: 11/04/2022 STAGE/TNM: Stage IV TREATMENT HISTORY: Care?Plan Start?Date Cycle Day Intent Lupron?22.5?mg?q?3?mon 12/11/2023 1 90 Palliative DOCEtaxel?75?mg/m*2?and?prednisone?5?mg?bid 01/20/2025 1 21 Palliative HISTORY OF PRESENT ILLNESS: Derrick Leslie is a 84-year-old SPA speaking male with the following oncology history. 09/29/2022: Mr. Leslie had prostate biopsy due to elevated PSA of 47. Biopsy showed Kathryn grade 10, grade group 5 prostate take adenocarcinoma in all the 10 biopsy samples. 11/04/2022: Bone scan? 12/19/2022: Mr. Leslie had CT scan of the abdomen and pelvis with IV contrast which was compared to previous study done on 09/19/2021. 11/03/2022: Mr. Leslie was started on Lupron injections. 01/31/2023 - 03/17/2023: Mr. Leslie had 5940 cGy radiation therapy to the pelvis. PSA trend: 03/04/2022: PSA 47.88 10/19/2022: PSA 195.4. 12/15/2022: PSA 92.92. 05/19/2023: PSA 9.01. 09/07/2023: PSA 3.78. 10/24/2023: Abiraterone and prednisone prescribed 12/04/2023: PSA 6.14. 12/26/2023: PET/CT scan 12/28/2023: PSA 4.48. 12/29/2023: Bone scan 03/26/2024: PSA 7.95 OTHER MEDICAL HISTORY/CONDITIONS: HTN Hyperlipidemia Prostate cancer - dx 09/29/2022 // FAMILY HISTORY: Cancer?History:?Denies Patient?denies?family?cancer?history. SOCIAL HISTORY: Occupational?History:?RETIRED Education?Level:?Completed something less than 8th grade Marital?Status:? Tobacco Use:?Smoked 2-3 cigarettes/day x 15 yrs - Quit 50 yrs ago ETOH?Use:?Socially Drug?Note:?Denies Social?History?Note:?Lives?with?son MEDICATIONS: 1. atorvastatin - 10 mg Daily 2. carvedilol - 3.13 mg Daily 3. Compazine - 5 mg 1 tab as needed 4. Cozaar - 100 mg Daily 5. dexamethasone - 4 mg 2 tab 2 tabs po twice a day starting one day before chem 6. Lasix - 40 mg Daily 7. ondansetron - 8 mg 1 tab as needed 8. prednisone - 5 mg 1 tab Daily 9. Xtandi - 80 mg 2 tab Daily Medications Last Reconciled by Katie Tello MA on 01/29/2025 ALLERGIES: No Known Drug Allergies REVIEW OF SYSTEMS: A complete 14-point review of systems was performed and is negative except as noted in interval history. PHYSICAL EXAMINATION: VITAL SIGNS: PAIN: 2 - Mild pain ECOG Performance Status: 2 - Symptomatic; ambulatory; capable of self-care; >50% of waking hrs. not in bed GENERAL APPEARANCE: Appears well, in no apparent distress, appropriately interactive. HEENT: Normocephalic, no temporal wasting, normal conjunctiva, no scleral icterus, normal hearing, lips without lesions, neck normal range of motion. CARDIOVASCULAR: Not assessed. PULMONARY: Normal respiratory effort, no respiratory distress or use of accessory muscles, speaking in full sentences, no tachypnea. EXTREMITIES: No pedal edema or cyanosis. SKIN: Normal skin appearance. NEUROLOGIC: Alert and oriented x4. PSHYCHIATRIC: Appropriate affect, mood normal, behavior normal, intact thought and speech. LABORATORY DATA: I have personally reviewed and interpreted each of the patient?s relevant lab tests, abnormal findings are below: Date 01/17/25 01/28/25 ??WHITE?BLOOD?COUNT?(Thou/mm3) 4.8 0.7?LL ??RED?BLOOD?COUNT?(Miln/mm3) 4.10?L 3.69?L ??HEMOGLOBIN?(gm/dl) 10.6?L 9.4?L ??HEMATOCRIT?(%) 33.3?L 29.7?L ??PLATELET?COUNT?(Thou/mm3) 214 153 ??NEUTROPHILS?%,?AUTO?(%) 59 8?L ??LYMPH?%,?AUTO?(%) 27 67?H ??NEUTROPHILS,?AUTO?(Thou/mm3) 2.9 0.1?L ??GLUCOSE,RANDOM?(mg/dL) 91 116?H ??BLOOD?UREA?NITROGEN?(mg/dL) 25?H 18 ??CREATININE?(mg/dL) 1.30 1.10 ??SODIUM?(mmol/L) 141 140 ??POTASSIUM?(mmol/L) 3.9 4.2 ??CHLORIDE?(mmol/L) 104 103 ??CrCl?(CandG)?(ml/min) 50.85 59.69 ??AST/SGOT?(Unit/L) 31 19 ??ALT/SGPT?(Unit/L) 20 15 ??ALKALINE?PHOSPHATASE?(Unit/L) 105 89 ??BILIRUBIN,?TOTAL?(mg/dL) 0.5 0.6 ??PROTEIN?TOTAL?(gm/dl) 5.9 5.8 ??ALBUMIN,?SERUM?(gm/dl) 3.8 3.6 ??GLOBULIN?(gm/dl) 2.1?L 2.2?L ??ALBUMIN/GLOBULIN?RATIO 1.8 1.6 ??CALCIUM,?SERUM?(mg/dL) 9.0 8.4 ??CALCIUM?SERUM?(CORRECTED)?(mg/dL) 9.2 8.7 ASSESSMENT/PLAN: Metastatic prostate cancer Patient was unable to tolerate Zytiga Prostate Cancer Assessment: Patient's prostate-specific antigen (PSA) level has been rising indicating disease progression despite current treatment with Xtandi (enzalutamide). This suggests that the current medication regimen is not effectively controlling the cancer. Patient was started on docetaxel Patient previously received Xtandi Will send him to emergency room as patient have sepsis-have ANC less than 0.1 and temperature of 103 Patient need panculture Broad-spectrum antibiotics covering gram-negative and anaerobic's as well as antifungal Start on Neupogen 480 mcg subcu daily and continue till ANC is above 1000 IV fluids as tolerated RTC in 2 weeks after hospital discharge to reassess ORDERS: Order # Description [id number] Infusion 2 Hours [id number] Infusion 2 Hours [id number] Infusion 2 Hours [id number] Infusion 2 Hours [id number] Infusion 2 Hours [id number] Infusion 2 Hours [id number] Infusion 2 Hours [id number] Infusion 2 Hours [id number] Infusion 2 Hours RETURN TO CLINIC: BILLING AND COMPLIANCE: I reviewed external records from providers outside my specialty as summarized above. I spent a total of 50 minutes on this patient?s care on the day of their visit excluding time spent related to any billed procedures. This time includes time spent with the patient as well as time spent documenting in the medical record, reviewing patients records and tests, obtaining history, placing orders, communicating with other healthcare professionals, counseling the patient, family or caregiver, and/or care coordination for the diagnoses above. Electronically Signed by: Maxi Phipps MD T: 4:08 PM CC: Erick?Roxana? PCP: No Primary/family, Physician Referring: Maxi Phipps This document was completed utilizing speech recognition software. Grammatical errors, random word insertions, pronoun errors, and incomplete sentences are an occasional consequence of this system due to software limitations, ambient noise, and hardware issues. Any formal questions or concerns about the content, text or information contained within the body of this dictation should be directly addressed to the provider for clarification.
[2025-02-04 16:13] LABS: Basophils # (Auto) 0.1 Thou/mm3 (0.0-0.2); Basophils % (Auto) 1 % (0-2.5); Eosinophils % (Auto) 0 % (0-10); Hematocrit 30.7 % (41.0-53.0); Hemoglobin 9.8 g/dL (13.5-16.0); Immature Granulocytes % (Auto) 10 % (0-0); Immature Granulocytes Auto 0.61 Thou/mm3 (0.00-0.00); Lymphocytes # (Auto) 0.8 Thou/mm3 (1.0-4.8); Lymphocytes % (Auto) 13 % (10-50); Mean Corpuscular HGB Conc 31.9 g/dl (31.0-37.0); Mean Corpuscular Hemoglobin 25.7 pg (25.0-35.0); Mean Corpuscular Volume 80 fL (80-100); Monocytes # (Auto) 0.6 Thou/mm3 (0.0-0.8); Monocytes % (Auto) 10 % (0-12); Neutrophils # (Auto) 4.2 Thou/mm3 (1.8-7.7); Neutrophils % (Auto) 67 % (37-80); Nucleated Red Blood Cell # 0.06 Thou/mm3 (0.00-0.00); Nucleated Red Blood Cell % 1 /100 WBC (0); Platelet Count 194 Thou/mm3 (140-440); RDW Standard Deviation 52.4 fL (35.1-43.9); Red Blood Count 3.82 Miln/mm3 (4.50-5.90); White Blood Count 6.3 Thou/mm3 (3.8-10.6)
[2025-02-04 16:38] LABS: Alanine Aminotransferase 11 U/L (10-49); Albumin, Serum 3.5 gm/dL (3.4-4.8); Albumin/Globulin Ratio 1.5 (1.2-2.2); Alkaline Phosphatase 88 U/L (46-116); Anion Gap 7 (7-16); Aspartate Amino Transferase 20 U/L (0-34); BUN/Creatinine Ratio 18 Ratio (12-20); Bilirubin,Total 0.3 mg/dL (0.3-1.2); Blood Urea Nitrogen 21 mg/dL (9-23); Calcium 8.6 mg/dL (8.3-10.6); Chloride 104 mMol/L (98-107); Creatinine (Component) 1.2 mg/dL (0.6-1.3); Globulin 2.4 gm/dL (2.3-3.5); Glucose 114 mg/dL (74-106); Osmolality,Calculated 287 (275-295); Potassium 4.4 mMol/L (3.4-5.1); Sodium 142 mMol/L (136-145); Total Protein 5.9 gm/dL (5.7-8.2); eGFR 59 See Note
[2025-02-04 16:41] LABS: Prostate Specific Antigen 15.37 ng/mL (0-4.00)
--- NOTE | 2025-02-06 00:14 | CTCFLWUP_ITS ---
Patient: DERRICK LESLIE : 1940 Page 5 of 6 FOLLOW UP NOTE DATE OF SERVICE: 02/04/2025 NAME: DERRICK LESLIE ACCOUNT: [id number] : 1940 AGE: 84 INTERVAL HISTORY: Summary Derrick Bahena, an 84-year-old male, presented with fever after failing to take prescribed antibiotics (Augmentin and Doxycycline) since hospital discharge on February 01 due to family miscommunication about medication pickup. The patient was assessed with suspected ongoing/recurrent infection. Management included ordering immediate blood work (CBC), prescribing Augmentin and Doxycycline twice daily for 7 days, and educating the family on medication adherence and proper discharge procedures. Chief Complaint Fever and fatigue History of Present Illness Subjective: Chief Complaint Fever, not taking prescribed antibiotics since hospital discharge on February 01 History of Present Illness Derrick Bahena, an 84-year-old male, presents for follow-up after a recent hospital discharge on February 01, 2025. The patient has not been taking his prescribed antibiotics since discharge and is currently experiencing fever. Mr. Dagoberto Bahena was discharged from the hospital three days ago with prescriptions for Augmentin and Doxycycline. However, due to a miscommunication between family members, the medications were not picked up from the pharmacy. The patient's daughter, who is usually in charge of his care, thought the other family members had obtained the medications. As a result, the patient has not been taking his prescribed antibiotics since discharge. The patient is currently experiencing fever, though the exact onset, duration, and severity are not specified. This symptom, combined with the lack of antibiotic treatment, suggests a potential worsening of his condition since discharge. Medications and Supplements - Augmentin - Prescribed at hospital discharge - Not taken since discharge on the - Doxycycline - Prescribed at hospital discharge - Not taken since discharge on the Review of Systems General: Positive for fever. 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 Laboratory, Imaging, and Diagnostic Test Results - PSA: 12 (current), 8.94 (previous) ONCOLOGY HISTORY: DIAGNOSIS: Malignant neoplasm of prostate [ICD10] C61 DATE OF DIAGNOSIS: 11/04/2022 STAGE/TNM: Stage IV TREATMENT HISTORY: Care?Plan Start?Date Cycle Day Intent Lupron?22.5?mg?q?3?mon 12/11/2023 1 90 Palliative DOCEtaxel?75?mg/m*2?and?prednisone?5?mg?bid 01/20/2025 1 21 Palliative HISTORY OF PRESENT ILLNESS: Derrick Leslie is a 84-year-old SPA speaking male with the following oncology history. 09/29/2022: Mr. Leslie had prostate biopsy due to elevated PSA of 47. Biopsy showed [place] grade 10, grade group 5 prostate take adenocarcinoma in all the 10 biopsy samples. 11/04/2022: Bone scan? 12/19/2022: Mr. Leslie had CT scan of the abdomen and pelvis with IV contrast which was compared to previous study done on 09/19/2021. 11/03/2022: Mr. Leslie was started on Lupron injections. 01/31/2023 - 03/17/2023: Mr. Leslie had 5940 cGy radiation therapy to the pelvis. PSA trend: 03/04/2022: PSA 47.88 10/19/2022: PSA 195.4. 12/15/2022: PSA 92.92. 05/19/2023: PSA 9.01. 09/07/2023: PSA 3.78. 10/24/2023: Abiraterone and prednisone prescribed 12/04/2023: PSA 6.14. 12/26/2023: PET/CT scan 12/28/2023: PSA 4.48. 12/29/2023: Bone scan 03/26/2024: PSA 7.95 OTHER MEDICAL HISTORY/CONDITIONS: HTN Hyperlipidemia Prostate cancer - dx 09/29/2022 // FAMILY HISTORY: Cancer?History:?Denies Patient?denies?family?cancer?history. SOCIAL HISTORY: Occupational?History:?RETIRED Education?Level:?Completed something less than 8th grade Marital?Status:? Tobacco Use:?Smoked 2-3 cigarettes/day x 15 yrs - Quit 50 yrs ago ETOH?Use:?Socially Drug?Note:?Denies Social?History?Note:?Lives?with?son MEDICATIONS: 1. atorvastatin - 10 mg Daily 2. Augmentin - 500-125 mg 1 tab Daily 3. carvedilol - 3.13 mg Daily 4. Compazine - 5 mg 1 tab as needed 5. Cozaar - 100 mg Daily 6. dexamethasone - 4 mg 2 tab 2 tabs po twice a day starting one day before chem 7. doxycycline hyclate - 100 mg 1 tab twice Daily 8. Lasix - 40 mg Daily 9. ondansetron - 8 mg 1 tab as needed 10. prednisone - 5 mg 1 tab Daily 11. Xtandi - 80 mg 2 tab Daily Medications Last Reconciled by An Garland MA on 02/04/2025 ALLERGIES: No Known Drug Allergies REVIEW OF SYSTEMS: A complete 14-point review of systems was performed and is negative except as noted in interval history. PHYSICAL EXAMINATION: VITAL SIGNS: Temperature?100.5, B/P?148/74, Oxygen?Saturation?94% PAIN: 0 - No pain ECOG Performance Status: 1 - Symptomatic; ambulatory; restricted in strenuous activity GENERAL APPEARANCE: Appears well, in no apparent distress, appropriately interactive. HEENT: Normocephalic, no temporal wasting, normal conjunctiva, no scleral icterus, normal hearing, lips without lesions, neck normal range of motion. CARDIOVASCULAR: Not assessed. PULMONARY: Normal respiratory effort, no respiratory distress or use of accessory muscles, speaking in full sentences, no tachypnea. EXTREMITIES: No pedal edema or cyanosis. SKIN: Normal skin appearance. NEUROLOGIC: Alert and oriented x4. PSHYCHIATRIC: Appropriate affect, mood normal, behavior normal, intact thought and speech. LABORATORY DATA: I have personally reviewed and interpreted each of the patient?s relevant lab tests, abnormal findings are below: Date 02/01/25 02/04/25 ??WHITE?BLOOD?COUNT?(Thou/mm3) ? 6.3 ??RED?BLOOD?COUNT?(Miln/mm3) ? 3.82?L ??HEMOGLOBIN?(gm/dl) ? 9.8?L ??HEMATOCRIT?(%) ? 30.7?L ??PLATELET?COUNT?(Thou/mm3) ? 194 ??NEUTROPHILS?%,?AUTO?(%) ? 67 ??LYMPH?%,?AUTO?(%) ? 13 ??NEUTROPHILS,?AUTO?(Thou/mm3) ? 4.2 ??GLUCOSE,RANDOM?(mg/dL) 112?H 114?H ??BLOOD?UREA?NITROGEN?(mg/dL) 13 21 ??CREATININE?(mg/dL) 1.20 1.20 ??SODIUM?(mmol/L) 144 142 ??POTASSIUM?(mmol/L) 3.7 4.4 ??CHLORIDE?(mmol/L) 104 104 ??CrCl?(CandG)?(ml/min) 54.71 54.71 ??AST/SGOT?(Unit/L) 17 20 ??ALT/SGPT?(Unit/L) 11 11 ??ALKALINE?PHOSPHATASE?(Unit/L) 83 88 ??BILIRUBIN,?TOTAL?(mg/dL) 0.4 0.3 ??PROTEIN?TOTAL?(gm/dl) 5.1?L 5.9 ??ALBUMIN,?SERUM?(gm/dl) 3.1?L 3.5 ??GLOBULIN?(gm/dl) 2.0?L 2.4 ??ALBUMIN/GLOBULIN?RATIO 1.6 1.5 ??CALCIUM,?SERUM?(mg/dL) 8.2?L 8.6 ??CALCIUM?SERUM?(CORRECTED)?(mg/dL) 8.9 9.0 ??MAGNESIUM?(mg/dL) 1.8 ? ASSESSMENT/PLAN: Metastatic prostate cancer Patient was unable to tolerate Zytiga Prostate Cancer Assessment: Patient's prostate-specific antigen (PSA) level has been rising indicating disease progression despite current treatment with Xtandi (enzalutamide). This suggests that the current medication regimen is not effectively controlling the cancer. Patient was started on docetaxel Patient previously received Xtandi Derrick Dagoberto Bahena, an 84-year-old male, was recently discharged from the hospital on February 01, 2025, and has not been taking his prescribed antibiotics, presenting with fever. Suspected Infection Assessment: Patient was discharged from the hospital on February 01, 2025, with a prescription for oral antibiotics (Augmentin and Doxycycline) following intravenous antibiotic treatment during hospitalization. The patient has not been taking the prescribed antibiotics since discharge. He is currently pres enting with fever, suggesting a possible ongoing or recurrent infection. The lack of adherence to the antibiotic regimen may have contributed to the persistence or recurrence of symptoms. 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 I spent a total of 50 minutes on this patient?s care on the day of their visit excluding time spent related to any billed procedures. This time includes time spent with the patient as well as time spent documenting in the medical record, reviewing patients records and tests, obtaining history, placing orders, communicating with other healthcare professionals, counseling the patient, family or caregiver, and/or care coordination for the diagnoses above. Electronically Signed by: {Object.Sanct_ID*PnP.NameFL@M}, {Object.Sanct_ID*PnP.Suffix@U} D: {Object.Sanct_Date} T: {Object.Sanct_Time} CC: Erick?Roxana,? PCP: No Primary/family, Physician Referring: Maxi Phipps This document was completed utilizing speech recognition software. Grammatical errors, random word insertions, pronoun errors, and incomplete sentences are an occasional consequence of this system due to software limitations, ambient noise, and hardware issues. Any formal questions or concerns about the content, text or information contained within the body of this dictation should be directly addressed to the provider for clarification.
[2025-02-07 09:46] LABS: Basophils # (Auto) 0.1 Thou/mm3 (0.0-0.2); Basophils % (Auto) 1 % (0-2.5); Eosinophils % (Auto) 0 % (0-10); Hematocrit 32.3 % (41.0-53.0); Hemoglobin 9.9 g/dL (13.5-16.0); Immature Granulocytes % (Auto) 4 % (0-0); Lymphocytes # (Auto) 0.8 Thou/mm3 (1.0-4.8); Lymphocytes % (Auto) 15 % (10-50); Mean Corpuscular HGB Conc 30.7 g/dl (31.0-37.0); Mean Corpuscular Hemoglobin 25.6 pg (25.0-35.0); Mean Corpuscular Volume 84 fL (80-100); Monocytes # (Auto) 0.5 Thou/mm3 (0.0-0.8); Monocytes % (Auto) 9 % (0-12); Neutrophils # (Auto) 3.6 Thou/mm3 (1.8-7.7); Neutrophils % (Auto) 71 % (37-80); Nucleated Red Blood Cell # 0.02 Thou/mm3 (0.00-0.00); Nucleated Red Blood Cell % 0 /100 WBC (0); Platelet Count 253 Thou/mm3 (140-440); RDW Standard Deviation 53.5 fL (35.1-43.9); Red Blood Count 3.87 Miln/mm3 (4.50-5.90); White Blood Count 5.1 Thou/mm3 (3.8-10.6)
[2025-02-07 10:03] LABS: Prostate Specific Antigen 14.66 ng/mL (0-4.00)
[2025-02-07 10:06] LABS: Alanine Aminotransferase 10 U/L (10-49); Albumin, Serum 3.4 gm/dL (3.4-4.8); Albumin/Globulin Ratio 1.3 (1.2-2.2); Alkaline Phosphatase 82 U/L (46-116); Anion Gap 7 (7-16); Aspartate Amino Transferase 19 U/L (0-34); BUN/Creatinine Ratio 16 Ratio (12-20); Bilirubin,Total 0.3 mg/dL (0.3-1.2); Blood Urea Nitrogen 18 mg/dL (9-23); Calcium 8.7 mg/dL (8.3-10.6); Calcium (Corrected) 9.2 mg/dL (8.5-10.1); Chloride 105 mMol/L (98-107); Creatinine (Component) 1.1 mg/dL (0.6-1.3); Globulin 2.6 gm/dL (2.3-3.5); Glucose 105 mg/dL (74-106); Osmolality,Calculated 285 (275-295); Potassium 4.4 mMol/L (3.4-5.1); Sodium 142 mMol/L (136-145); eGFR > 60 See Note
== END 2025-02-10 23:59 | disposition home or self-care (01) ==
LOC: SCTC 07:42
PROVIDERS: Referring Provider Internal Medicine Hematology & Oncology; Visit Provider Internal Medicine Hematology & Oncology
DX: Z51.11 Encounter for antineoplastic chemotherapy (principal); C61 Malignant neoplasm of prostate; R50.9 Fever, unspecified; R53.0 Neoplastic (malignant) related fatigue
CPT/HCPCS: 36591; 80053; 84153; 85025; 96367; 96413; 99213; A4216; J1100; J1453; J1642; J2405; J7040; J7050; J9171; G0463

== ENCOUNTER 2025-03-03 12:06 | Emergency (ER) | payer MEDICARE, MEDICAID, SELFPAY ==
[2025-03-03 12:26] VITALS: BP 164/83; PULSE 95; RESP 16; TEMP 36.9; O2SAT 95
--- NOTE | 2025-03-03 12:33 | XR_ITS ---
Examination: Duplex scan of the lower extremity, unilateral left Date and time of exam: March 03, 2025 1258 hours INDICATIONS: Lower leg swelling and pain beginning one week ago Technique: Duplex scan of the extremity veins using B-mode/grayscale imaging and Doppler spectral analysis and color flow Attention is directed to internal echogenicity, compression and augmentation involving these veins, color flow assessment, spectral analysis Findings: Major deep venous structures in the extremity demonstrate normal course and caliber. There is no evidence of deep vein thrombosis. Normal color flow and spectral analysis Impression: Negative for DVT..
[2025-03-03 12:50] LABS: Basophils # (Auto) 0.0 Thou/mm3 (0.0-0.2); Basophils % (Auto) 0 % (0-2.5); Eosinophils # (Auto) 0.0 Thou/mm3 (0.0-0.5); Eosinophils % (Auto) 0 % (0-10); Hematocrit 34.1 % (41.0-53.0); Hemoglobin 10.5 g/dL (13.5-16.0); Immature Granulocytes Auto 0.03 Thou/mm3 (0.00-0.00); Lymphocytes # (Auto) 0.6 Thou/mm3 (1.0-4.8); Lymphocytes % (Auto) 9 % (10-50); Mean Corpuscular HGB Conc 30.8 g/dl (31.0-37.0); Mean Corpuscular Hemoglobin 27.2 pg (25.0-35.0); Mean Corpuscular Volume 88 fL (80-100); Monocytes # (Auto) 0.1 Thou/mm3 (0.0-0.8); Monocytes % (Auto) 1 % (0-12); Neutrophils # (Auto) 5.8 Thou/mm3 (1.8-7.7); Neutrophils % (Auto) 89 % (37-80); Nucleated Red Blood Cell # 0.00 Thou/mm3 (0.00-0.00); Nucleated Red Blood Cell % 0 /100 WBC (0); Platelet Count 245 Thou/mm3 (140-440); RDW Standard Deviation 66.2 fL (35.1-43.9); Red Blood Count 3.86 Miln/mm3 (4.50-5.90); White Blood Count 6.5 Thou/mm3 (3.8-10.6)
[2025-03-03 13:04] LABS: INR 1.0 (0.9-1.3); Prothrombin Time 10.6 Seconds (9.0-12.2)
[2025-03-03 13:05] LABS: B-Type Natriuretic Peptide 93 pg/mL (0-100)
[2025-03-03 13:06] LABS: Alanine Aminotransferase 11 U/L (10-49); Albumin, Serum 3.6 gm/dL (3.4-4.8); Albumin/Globulin Ratio 1.4 (1.2-2.2); Alkaline Phosphatase 100 U/L (46-116); Anion Gap 8 (7-16); Aspartate Amino Transferase 18 U/L (0-34); BUN/Creatinine Ratio 23 Ratio (12-20); Bilirubin,Total 0.5 mg/dL (0.3-1.2); Blood Urea Nitrogen 27 mg/dL (9-23); Calcium 8.6 mg/dL (8.3-10.6); Calcium (Corrected) 8.9 mg/dL (8.5-10.1); Carbon Dioxide 28.4 mMol/L (20.0-31.0); Chloride 105 mMol/L (98-107); Creatinine (Component) 1.2 mg/dL (0.6-1.3); Globulin 2.5 gm/dL (2.3-3.5); Glucose 169 mg/dL (74-106); Osmolality,Calculated 290 (275-295); Potassium 4.7 mMol/L (3.4-5.1); Sodium 141 mMol/L (136-145); Total Protein 6.1 gm/dL (5.7-8.2); eGFR 59 See Note
--- NOTE | 2025-03-03 13:30 | PD.EDLOWEX ---
Lower Extremity Injury RME/HPI General Chief Complaint: General Adult/Misc Complain Stated Complaint: SWELLING BLL; SENT BY CTC TO R/O DVT Time Seen by Provider: 03/03/25 12:20 Arrival date/time: 03/03/25 12:06 This is a case 84-year-old male with a history of prostate cancer on chemotherapy, hypertension, and COPD patient was in cancer clinic today when they noted that the patient have left lower extremities edema no pain they were instructed to go to ER for further evaluation and treatment of possible blood clot no injury or trauma Limitations: no limitations Related Data Home Medications ?Medication ?Instructions ?Recorded ?Confirmed carvedilol 3.125 mg tablet 3.125 mg PO BID 11/04/21 01/30/25 furosemide 40 mg tablet 40 mg PO BID 11/04/21 01/30/25 atorvastatin 10 mg tablet 10 mg PO QDAY 10/20/22 01/30/25 enzalutamide 80 mg tablet (Xtandi) 80 mg PO BID 12/25/24 01/30/25 losartan 100 mg tablet 100 mg PO DAILY 12/25/24 01/30/25 Allergies Allergy/AdvReac Type Severity Reaction Status Date / Time No Known Allergies Allergy Verified 03/03/25 12:10 Review of Systems Review of Systems Systems Reviewed: All systems reviewed, normal except as documented Constitutional Constitutional: Reports system reviewed and no additional complaints, except as documented and Reports as per HPI Cardiovascular Cardiovascular: Reports system reviewed and no additional complaints, except as documented, Reports as per HPI, Denies acrocyanosis, Denies chest pain, Denies chest pain at rest, Denies chest pain with activity, Denies claudication, Denies diaphoresis, Denies dyspnea, Denies dyspnea on exertion, Denies edema, Denies irregular heart rhythm, Reports leg edema, Denies leg ulcers, Denies lightheadedness, Denies orthopnea, Denies palpitations, Denies paroxysmal nocturnal dyspnea, Denies pedal edema, Denies radiating jaw, neck or arm pain, Denies rapid heart rate and Denies slow heart rate Respiratory Respiratory: Reports system reviewed and no additional complaints, except as documented, Reports as per HPI, Denies dyspnea and Denies dyspnea on exertion Gastrointestinal Gastrointestinal: Reports system reviewed and no additional complaints, except as documented and Reports as per HPI Genitourinary Genitourinary: Reports system reviewed and no additional complaints, except as documented and Reports as per HPI Musculoskeletal Musculoskeletal: Reports system reviewed and no additional complaints, except as documented and Reports as per HPI Neurologic Neurologic: Reports system reviewed and no additional complaints, except as documented and Reports as per HPI Endocrine Endocrine: Denies palpitations Past Medical History Past Medical History NEUROLOGIC: Negative Neurological Disorders CARDIAC: Positive Coronary Artery Disease (02/03/22 had a procedure where they went thru the groin he is unsure), Hypercholesterolemia and Hypertension; Negative Cardiac Disorders or Congestive Heart Failure RESPIRATORY: Negative Chronic Obstructive Pulmonary Disease (COPD) or Asthma GASTROINTESTINAL: Negative Gastrointestinal Disorders GENITOURINARY: Positive Genitourinary Disorders, Prostate Cancer and Benign Prostatic Hyperplasia; Negative Renal Disease MUSCULOSKELETAL: Negative Musculoskeletal Disorders ENT: Positive Cataracts ENDOCRINE: Negative Endocrine Disorders, Diabetes Mellitus Type 1 or Diabetes Mellitus Type 2 HEMATOLOGIC: Negative Blood Disorders or Sickle Cell Disease OTHER HISTORY: Positive Cancer and Prostate Cancer; Negative Autoimmune Disease, Blood Transfusions, Blood Transfusion Reaction or Anesthesia Reactions Family History FAMILY HISTORY: Negative Family Psychiatric Problems, Family Respiratory Disorders, Family Cardiac Disorders, Family Gastrointestinal Problems, Family Cancer, Family Surgery or Family Anesthesia Reaction Surgical History SURGICAL: Positive Angiogram; Negative Abdominal Surgery, Nephrectomy or Joint Replacement Social History SMOKING STATUS: Former smoker SUBSTANCE USE: does not use ED Exam General Limitations: Present no limitations General appearance: Present alert, in no apparent distress and other (Patient is awake alert oriented not in distress not toxic looking) Head Head exam: Present atraumatic, normocephalic and normal inspection Eye Eye exam: Present normal appearance, PERRL and EOMI ENT ENT exam: Present normal exam, normal oropharynx and mucous membranes moist Neck Neck exam: Present normal inspection, full ROM and trachea midline Chest Chest inspection: Present normal inspection and symmetric chest wall rise; Absent tenderness Respiratory Respiratory exam: Present normal lung sounds bilaterally; Absent respiratory distress, wheezes, stridor, accessory muscle use or prolonged expiratory phase Cardiovascular Cardiovascular exam: Present regular rate, normal rhythm, normal heart sounds and other (Patient have pitting edema +2 on the left lower extremities); Absent bradycardia, tachycardia, irregular rhythm, systolic murmur or diastolic murmur Abdominal Exam Abdominal exam: Present soft, normal bowel sounds and other (Obese); Absent distention, tenderness, guarding, rebound, rigidity, diminished bowel sounds, hyperactive bowel sounds or hypoactive bowel sounds Extremities Exam Extremities exam: Present normal inspection and full ROM Expanded Lower Extremity Exam Hip/Pelvis exam: Present normal inspection and full ROM; Absent tenderness or swelling Upper leg exam: Present normal inspection and full ROM; Absent tenderness or swelling Knee exam: Present normal inspection and full ROM; Absent tenderness or swelling Lower leg exam: Present normal inspection, full ROM and swelling (Left lower extremities +2 edema); Absent tenderness, abrasion, laceration, ecchymosis, deformity, crepitus, dislocation, erythema, palpable cord, Homans' sign or Achilles tendon intact Ankle exam: Present normal inspection and full ROM; Absent tenderness or swelling Foot/toe exam: Present normal inspection and full ROM; Absent tenderness or swelling Back Exam Back exam: Present normal inspection and full ROM Neurological Exam Neurological exam: Present alert, oriented X3, CN II-XII intact, normal gait and reflexes normal; Absent motor sensory deficit Psychiatric Psychiatric exam: Present normal affect and normal mood Skin Skin exam: Present warm, dry, intact and normal color Course Quality Measures none Orders Category Date Time Status US venous doppler LE LT Stat Exams 03/03/25 12:33 Completed BNP [B-Type Natriuretic Peptide] Stat Lab 03/03/25 12:42 Completed CBC Stat Lab 03/03/25 12:42 Completed CMP [Comprehensive Metabolic Panel] Stat Lab 03/03/25 12:42 Completed Prothrombin Time with INR Stat Lab 03/03/25 12:42 Completed Vital Signs Vital signs: Vital Signs Temperature 98.5 F 03/03/25 12:26 Pulse Rate 95 03/03/25 12:26 Respiratory Rate 16 03/03/25 12:26 Blood Pressure 164/83 H 03/03/25 12:26 Pulse Oximetry (%) 95 03/03/25 12:26 Oxygen Delivery Method Room Air 03/03/25 12:26 Patient is afebrile not tachycardic not tachypneic BP stable not hypoxic oxygen saturation 95% in room air BP was rechecked by me and noted to be 145/82 Extremity Injury, Lower MDM Narrative MDM Narrative:: This is a case 84-year-old male with a history of prostate cancer on chemotherapy, hypertension, and COPD patient was in cancer clinic today when they noted that the patient have left lower extremities edema no pain they were instructed to go to ER for further evaluation and treatment of possible blood clot no injury or trauma physical examination patient is awake alert oriented not in distress nontoxic looking patient lungs sound is clear no crackles no rales no retraction no stridor equal breath sounds heart normal rate regular rhythm no murmur abdomen soft normal active bowel sounds obese no guarding no rebound no rigidity no tenderness left lower extremities noted a +2 pitting edema on the left lower extremities ROM intact neurovascular intact negative Homans signs negative Price signs no calf tenderness blood test showed no leukocytosis no anemia kidney and liver function is normal no electrolyte imbalance BNP is normal PT/INR is also normal venous ultrasound of the left lower extremity is negative for DVT at this point patient will be discharged as peripheral edema they were advised to see a thoracic surgeon for left peripheral edema they were advised to use BRIGIDO hose stocking and elevation of the left lower extremities at all time for any worsening symptoms or any emergent concern they will return in the emergency room immediately or call 911 Patient was discharged with comfortable condition walking with stable gait. Patient verbalized no further complains explained diagnosis and answered patient question. Patient is comfortable with the proposed management plan including the need to follow up with his/her primary care physician and any specialist if applicable Discussed patient for any urgent condition or worsening sx, He/She needed to go to emergency room immediately or call 911. Patient acknowledge the responsibility to follow up as instructed and to monitor her/his symptoms. For any persistence of the symptoms for more than 3-5 days return precaution advised. Discussed the result of the test and was given printed discharge instruction Patient data External records reviewed:: [facility] previous records Clinical information provided by:: patient Social determinants that could affect healthcare access:: none Patient has the following chronic illnesses:: None How is presenting disease/condition affected by chronic disease/condition?: no chronic disease Evaluation data The following diagnostics were reviewed and interpreted by me:: lab results and radiology exam(s) Lab and/or radiology exams considered but not ordered:: Reviewed Interpretation Summary: Reviewed Medications / Prescriptions Medications or Prescriptions considered but not ordered:: Given Medication administrations:: Given Consultations Consultation(s) initiated? (list below): No Diagnosis Extremity Injury, Lower Differential Diagnosis: other (DVT cellulitis peripheral edema) Most likely diagnosis given after review of the tests above:: Peripheral edema Admission Indicated Admission indicated?: not indicated Explain why admission is indicated or not indicated:: Not indicated Admission Request Was there a request for admission?: No Admission Attestation Admission request attestation: Not indicated Disposition Plan Disposition Plan: Discharge Discharge Attestation Discharge Attestation: The patient and all family members were given an opportunity to ask questions and understood the discharge instructions. Discharge instructions specifically effects, indications for sooner follow up or return to the emergency department, and the expected course of current diagnosis. Patient condition: Stable Discharge Plan Plan Patient Disposition: HOME (Self Care) Patient condition on transfer: Stable Prescriptions/Referrals Prescriptions/Med Rec: No Action furosemide 40 mg tablet 40 mg PO BID carvedilol 3.125 mg tablet 3.125 mg PO BID Rx Instructions: must administer with a meal/food losartan 100 mg tablet 100 mg PO DAILY Patient Comments: take 1 tablet by mouth once daily Xtandi 80 mg tablet 80 mg PO BID atorvastatin 10 mg tablet 10 mg PO QDAY Patient Comments: take 1 tablet by mouth once daily for 3 MONTHS Problem List Clinical Impression: Edema, peripheral Patient/Caregiver Discharge Instructions Education Materials: ED Leg Swelling in a Single Leg Additional Instructions: Follow-up with your primary care physician in 2 days for reevaluation and to be referred to the neurosurgeon for further evaluation and treatment of peripheral edema persistent worsening symptoms or any emergent concern call 911 or go to the nearest emergency room use of BRIGIDO hose stocking is advised keep the left lower extremities elevated at all times to decrease the swelling Print Language: Citizen Of [place] Stand Alone Forms: Diana Award Info., Patient Portal Info Letter PA/BLADE Supervising Physician VIVIANE/BLADE Supervising Physician: DR kerr
== END 2025-03-03 14:28 | disposition home or self-care (01) ==
LOC: SERX 13:47
PROVIDERS: Nurse Practitioner Family; Emergency Provider Emergency Medicine; PCP Physician Assistant
DX: R60.0 Localized edema (principal)
CPT/HCPCS: 36415; 80053; 83880; 85025; 85610; 93971; 99283

== ENCOUNTER 2025-04-01 11:29 | Outpatient (RCR) | payer MEDICARE, MEDICAID, SELFPAY ==
[2025-03-17 10:10] LABS: Hematocrit 33.3 % (41.0-53.0); Hemoglobin 10.5 g/dL (13.5-16.0)
[2025-03-21 09:00] LABS: Basophils # (Auto) 0.0 Thou/mm3 (0.0-0.2); Basophils % (Auto) 1 % (0-2.5); Eosinophils # (Auto) 0.0 Thou/mm3 (0.0-0.5); Eosinophils % (Auto) 0 % (0-10); Hematocrit 33.2 % (41.0-53.0); Hemoglobin 10.3 g/dL (13.5-16.0); Immature Granulocytes Auto 0.02 Thou/mm3 (0.00-0.00); Lymphocytes # (Auto) 0.9 Thou/mm3 (1.0-4.8); Lymphocytes % (Auto) 12 % (10-50); Mean Corpuscular HGB Conc 31.0 g/dl (31.0-37.0); Mean Corpuscular Hemoglobin 27.5 pg (25.0-35.0); Mean Corpuscular Volume 89 fL (80-100); Monocytes # (Auto) 0.5 Thou/mm3 (0.0-0.8); Monocytes % (Auto) 7 % (0-12); Neutrophils # (Auto) 6.0 Thou/mm3 (1.8-7.7); Neutrophils % (Auto) 80 % (37-80); Nucleated Red Blood Cell # 0.00 Thou/mm3 (0.00-0.00); Nucleated Red Blood Cell % 0 /100 WBC (0); Platelet Count 195 Thou/mm3 (140-440); RDW Standard Deviation 66.6 fL (35.1-43.9); Red Blood Count 3.75 Miln/mm3 (4.50-5.90); White Blood Count 7.5 Thou/mm3 (3.8-10.6)
[2025-03-21 09:22] LABS: Alanine Aminotransferase 12 U/L (10-49); Albumin, Serum 3.5 gm/dL (3.4-4.8); Albumin/Globulin Ratio 1.9 (1.2-2.2); Alkaline Phosphatase 97 U/L (46-116); Anion Gap 10 (7-16); Aspartate Amino Transferase 22 U/L (0-34); BUN/Creatinine Ratio 21 Ratio (12-20); Bilirubin,Total 0.6 mg/dL (0.3-1.2); Blood Urea Nitrogen 23 mg/dL (9-23); Calcium 8.7 mg/dL (8.3-10.6); Calcium (Corrected) 9.1 mg/dL (8.5-10.1); Carbon Dioxide 29.9 mMol/L (20.0-31.0); Chloride 103 mMol/L (98-107); Creatinine (Component) 1.1 mg/dL (0.6-1.3); Globulin 1.8 gm/dL (2.3-3.5); Glucose 118 mg/dL (74-106); Osmolality,Calculated 289 (275-295); Potassium 3.9 mMol/L (3.4-5.1); Sodium 143 mMol/L (136-145); Total Protein 5.3 gm/dL (5.7-8.2); eGFR > 60 See Note
--- NOTE | 2025-04-07 00:23 | CTCFLWUP_ITS ---
Patient: DERRICK LESLIE : 1940 Page 4 of 6 FOLLOW UP NOTE DATE OF SERVICE: 04/01/2025 NAME: DERRICK LESLIE ACCOUNT: [id number] : 1940 AGE: 84 INTERVAL HISTORY: Summary Derrick Bahena, an 84-year-old male, presented with fever after failing to take prescribed antibiotics (Augmentin and Doxycycline) since hospital discharge on February 01 due to family miscommunication about medication pickup. The patient was assessed with suspected ongoing/recurrent infection. Management included ordering immediate blood work (CBC), prescribing Augmentin and Doxycycline twice daily for 7 days, and educating the family on medication adherence and proper discharge procedures. Chief Complaint Fever and fatigue History of Present Illness Subjective: Chief Complaint Fever, not taking prescribed antibiotics since hospital discharge on February 01 History of Present Illness Derrick Bahena, an 84-year-old male, presents for follow-up after a recent hospital discharge on February 01, 2025. The patient has not been taking his prescribed antibiotics since discharge and is currently experiencing fever. Mr. Dagoberto Bahena was discharged from the hospital three days ago with prescriptions for Augmentin and Doxycycline. However, due to a miscommunication between family members, the medications were not picked up from the pharmacy. The patient's daughter, who is usually in charge of his care, thought the other family members had obtained the medications. As a result, the patient has not been taking his prescribed antibiotics since discharge. The patient is currently experiencing fever, though the exact onset, duration, and severity are not specified. This symptom, combined with the lack of antibiotic treatment, suggests a potential worsening of his condition since discharge. Medications and Supplements - Augmentin - Prescribed at hospital discharge - Not taken since discharge on the - Doxycycline - Prescribed at hospital discharge - Not taken since discharge on the Review of Systems General: Positive for fever. 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 Laboratory, Imaging, and Diagnostic Test Results - PSA: 12 (current), 8.94 (previous) ONCOLOGY HISTORY: DIAGNOSIS: Malignant neoplasm of prostate [ICD10] C61 DATE OF DIAGNOSIS: 11/04/2022 STAGE/TNM: Stage IV TREATMENT HISTORY: Care?Plan Start?Date Cycle Day Intent Lupron?22.5?mg?q?3?mon 12/11/2023 1 90 Palliative DOCEtaxel?75?mg/m*2?and?prednisone?5?mg?bid 01/20/2025 1 21 Palliative HISTORY OF PRESENT ILLNESS: Derrick Leslie is a 84-year-old SPA speaking male with the following oncology history. 09/29/2022: Mr. Leslie had prostate biopsy due to elevated PSA of 47. 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 11/04/2022: Bone scan? 12/19/2022: Mr. Leslie had CT scan of the abdomen and pelvis with IV contrast which was compared to previous study done on 09/19/2021. 11/03/2022: Mr. Leslie was started on Lupron injections. 01/31/2023 - 03/17/2023: Mr. Leslie had 5940 cGy radiation therapy to the pelvis. PSA trend: 03/04/2022: PSA 47.88 10/19/2022: PSA 195.4. 12/15/2022: PSA 92.92. 05/19/2023: PSA 9.01. 09/07/2023: PSA 3.78. 10/24/2023: Abiraterone and prednisone prescribed 12/04/2023: PSA 6.14. 12/26/2023: PET/CT scan 12/28/2023: PSA 4.48. 12/29/2023: Bone scan 03/26/2024: PSA 7.95 OTHER MEDICAL HISTORY/CONDITIONS: HTN Hyperlipidemia Prostate cancer - dx 09/29/2022 // FAMILY HISTORY: Cancer?History:?Denies Patient?denies?family?cancer?history. SOCIAL HISTORY: Occupational?History:?RETIRED Education?Level:?Completed something less than 8th grade Marital?Status:? Tobacco Use:?Smoked 2-3 cigarettes/day x 15 yrs - Quit 50 yrs ago ETOH?Use:?Socially Drug?Note:?Denies Social?History?Note:?Lives?with?son MEDICATIONS: 1. atorvastatin - 10 mg Daily 2. carvedilol - 6.25 mg Twice a Day 3. Compazine - 5 mg 1 tab as needed 4. Cozaar - 100 mg Daily 5. dexamethasone - 4 mg 2 tab 2 tabs po twice a day starting one day before chem 6. doxycycline hyclate - 100 mg 1 tab twice Daily 7. Lasix - 40 mg Daily 8. metolazone - 5 mg 9. ondansetron - 8 mg 1 tab as needed 10. prednisone - 5 mg 1 tab Daily 11. Renal-Sachin - 1 tab Daily 12. Xtandi - 80 mg 2 tab Daily Medications Last Reconciled by An Garland MA on 04/01/2025 ALLERGIES: No Known Drug Allergies REVIEW OF SYSTEMS: A complete 14-point review of systems was performed and is negative except as noted in interval history. PHYSICAL EXAMINATION: VITAL SIGNS: Temperature?99.1, B/P?151/77, Oxygen?Saturation?94% PAIN: 0 - No pain ECOG Performance Status: 2 - Symptomatic; ambulatory; capable of self-care; >50% of waking hrs. not in bed GENERAL APPEARANCE: Appears well, in no apparent distress, appropriately interactive. HEENT: Normocephalic, no temporal wasting, normal conjunctiva, no scleral icterus, normal hearing, lips without lesions, neck normal range of motion. CARDIOVASCULAR: Not assessed. PULMONARY: Normal respiratory effort, no respiratory distress or use of accessory muscles, speaking in full sentences, no tachypnea. EXTREMITIES: No pedal edema or cyanosis. SKIN: Normal skin appearance. NEUROLOGIC: Alert and oriented x4. PSHYCHIATRIC: Appropriate affect, mood normal, behavior normal, intact thought and speech. LABORATORY DATA: I have personally reviewed and interpreted each of the patient?s relevant lab tests, abnormal findings are below: Date 03/10/25 03/17/25 03/21/25 ??WHITE?BLOOD?COUNT?(Thou/mm3) ? ? 7.5 ??RED?BLOOD?COUNT?(Miln/mm3) ? ? 3.75?L ??HEMOGLOBIN?(gm/dl) 10.0?L 10.5?L 10.3?L ??HEMATOCRIT?(%) 31.7?L 33.3?L 33.2?L ??PLATELET?COUNT?(Thou/mm3) ? ? 195 ??NEUTROPHILS?%,?AUTO?(%) ? ? 80 ??LYMPH?%,?AUTO?(%) ? ? 12 ??NEUTROPHILS,?AUTO?(Thou/mm3) ? ? 6.0 ??GLUCOSE,RANDOM?(mg/dL) ? ? 118?H ??BLOOD?UREA?NITROGEN?(mg/dL) ? ? 23 ??CREATININE?(mg/dL) ? ? 1.10 ??SODIUM?(mmol/L) ? ? 143 ??POTASSIUM?(mmol/L) ? ? 3.9 ??CHLORIDE?(mmol/L) ? ? 103 ??CrCl?(CandG)?(ml/min) ? ? 59.78 ??AST/SGOT?(Unit/L) ? ? 22 ??ALT/SGPT?(Unit/L) ? ? 12 ??ALKALINE?PHOSPHATASE?(Unit/L) ? ? 97 ??BILIRUBIN,?TOTAL?(mg/dL) ? ? 0.6 ??PROTEIN?TOTAL?(gm/dl) ? ? 5.3?L ??ALBUMIN,?SERUM?(gm/dl) ? ? 3.5 ??GLOBULIN?(gm/dl) ? ? 1.8?L ??ALBUMIN/GLOBULIN?RATIO ? ? 1.9 ??CALCIUM,?SERUM?(mg/dL) ? ? 8.7 ??CALCIUM?SERUM?(CORRECTED)?(mg/dL) ? ? 9.1 ASSESSMENT/PLAN: Metastatic prostate cancer Patient was unable to tolerate Zytiga and progressed on Xtandi Patient has been on docetaxel reduced dose Patient had infection which was treated with antibiotics Completed 4 cycles Will complete total 6 cycles and rescan patient Requested to do PSA before the next visit ORDERS: Order # Description [id number] PSA + Comprehensive Metabolic Panel - 12 + CBC with Auto Diff + RETURN TO CLINIC: I reviewed the diagnosis, prognosis, and recommended treatment/procedure options with the patient (and/or their legal healthcare sales representative), including the potential benefits, risks, side effects and alternative therapies. We also discussed the option of no treatment and the possibility of clinical trial participation, if applicable. All questions were addressed, and they demonstrated understanding. They provided informed consent to proceed with the proposed plan of care. BILLING AND COMPLIANCE: I reviewed external records from providers outside my specialty as summarized above. I spent a total of 50 minutes on this patient?s care on the day of their visit excluding time spent related to any billed procedures. This time includes time spent with the patient as well as time spent documenting in the medical record, reviewing patients records and tests, obtaining history, placing orders, communicating with other healthcare professionals, counseling the patient, family or caregiver, and/or care coordination for the diagnoses above. Electronically Signed by: {Object.Sanct_ID*PnP.NameFL@M}, {Object.Sanct_ID*PnP.Suffix@U} D: {Object.Sanct_Date} T: {Object.Sanct_Time} CC: Erick?Roxana,? PCP: Ben Marlow Referring: Maxi Phipps This document was completed utilizing speech recognition software. Grammatical errors, random word insertions, pronoun errors, and incomplete sentences are an occasional consequence of this system due to software limitations, ambient noise, and hardware issues. Any formal questions or concerns about the content, text or information contained within the body of this dictation should be directly addressed to the provider for clarification.
== END 2025-04-13 23:59 | disposition home or self-care (01) ==
LOC: SCTC 11:29
PROVIDERS: PCP Physician Assistant; Referring Provider Physician Assistant; Visit Provider Internal Medicine Hematology & Oncology
DX: Z51.11 Encounter for antineoplastic chemotherapy (principal); C61 Malignant neoplasm of prostate
CPT/HCPCS: 36591; 80053; 85014; 85018; 85025; 96367; 96372; 96413; 99212; A4216; J1100; J1453; J1642; J2405; J7040; J7050; J9171; Q5101; G0463

== ENCOUNTER 2025-04-18 10:47 | Inpatient (IN) | payer MEDICARE, MEDICAID, SELFPAY ==
[2025-04-18] VITALS (10 sets, daily range): BP systolic 130–149; BP diastolic 67–92; PULSE 93–102; RESP 15–24; TEMP 36.6–37.7; O2SAT 92–100; BMI 38.7
--- NOTE | 2025-04-18 11:26 | XR_ITS ---
Examination: PA lateral chest 2 views TECHNIQUE: Upright PA lateral chest 2 views Date and time: April 18, 2025, 1128 hours, comparison January 29, 2025 INDICATIONS: Patient fell down 5 days ago with chest pain FINDINGS: Mild enlargement cardiac contour. Ectatic enlarged thoracic aorta. Right internal jugular Port-A-Cath tip satisfactory position Prominent central pulmonary arteries Scarring versus pneumonia both lung bases, clinical correlation advised. No pneumothorax. Clavicles ribs appear intact as well as thoracic vertebral bodies Moderate hyperexpansion IMPRESSION: No pneumothorax Scarring versus pneumonia at the lung bases, clinical correlation advised
--- NOTE | 2025-04-18 11:26 | EKG_ITS ---
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
--- NOTE | 2025-04-18 11:26 | PD.EDRME ---
Rapid Medical Screening Exam E Arrival date/time: 04/18/25 10:47 84-year-old male with a history of hyperlipidemia, hypertension, prostate cancer, COPD presents to the emergency room with a chief complaint of cough, congestion, weakness x 3 days. Patient was sent over by his primary care provider. I have greeted and performed a focused initial assessment of this patient. A comprehensive ED assessment and evaluation of the patient, analysis of all test results, and completion of the medical decision making process will be conducted by additional ED providers. Chief Complaint: General Adult/Misc Complain Vital signs: Vital Signs Temperature 99.8 F 04/18/25 10:59 Pulse Rate 98 04/18/25 10:59 Respiratory Rate 24 H 04/18/25 10:59 Blood Pressure 148/77 H 04/18/25 10:59 Pulse Oximetry (%) 93 L 04/18/25 10:59 Oxygen Delivery Method Room Air 04/18/25 10:59 Vital signs reviewed by provider: Yes
--- NOTE | 2025-04-18 11:47 | XR_ITS ---
Examination: CT abdomen and pelvis without contrast. Coronal 3-D reconstructions. Sagittal 2-D reconstructions. Date and time of exam:April 18, 2025 1211 hours, comparison CT chest abdomen pelvis January 29, 2025 INDICATIONS: Patient fell 5 days ago with injury to the abdomen and pelvis, abdomen pain pelvic pain CTDI: vol (mGy): 12.6 DLP: (mGycm): 849 Technique: Axial images of the abdomen have been obtained, 3 mm slice thickness Intravenous contrast material has not been administered. Low dose protocols were performed. One or more of the following dose reduction techniques were used; automated exposure control, adjustment of the mA and/or KV according to patient size, use of iterative reconstruction technique. Findings: No pneumothorax Small left pleural effusion Retrocardiac gastric hernia No liver splenic or renal laceration on this limited noncontrast study Bilateral renal cysts Aorta is intact no free blood in the abdomen or pelvis Normal appendix Negative for pneumoperitoneum Aorto iliac stent Urinary bladder intact without wall thickening Transverse prostate dimension 4.5 cm Severe osteopenia. Nondisplaced fractures left first and second transverse processes IMPRESSION: Nondisplaced fractures left first and second transverse processes No abdominal parenchymal laceration on this noncontrast study Abdominal aorta intact, no free blood in the abdomen
[2025-04-18 12:28] LABS: Basophils # (Auto) 0.0 Thou/mm3 (0.0-0.2); Basophils % (Auto) 0 % (0-2.5); Eosinophils # (Auto) 0.0 Thou/mm3 (0.0-0.5); Eosinophils % (Auto) 0 % (0-10); Hematocrit 33.6 % (41.0-53.0); Hemoglobin 10.3 g/dL (13.5-16.0); Immature Granulocytes Auto 1.43 Thou/mm3 (0.00-0.00); Lymphocytes # (Auto) 0.5 Thou/mm3 (1.0-4.8); Lymphocytes % (Auto) 3 % (10-50); Mean Corpuscular HGB Conc 30.7 g/dl (31.0-37.0); Mean Corpuscular Hemoglobin 28.2 pg (25.0-35.0); Mean Corpuscular Volume 92 fL (80-100); Monocytes # (Auto) 0.1 Thou/mm3 (0.0-0.8); Monocytes % (Auto) 0 % (0-12); Neutrophils # (Auto) 16.5 Thou/mm3 (1.8-7.7); Neutrophils % (Auto) 89 % (37-80); Nucleated Red Blood Cell # 0.00 Thou/mm3 (0.00-0.00); Nucleated Red Blood Cell % 0 /100 WBC (0); Platelet Count 127 Thou/mm3 (140-440); RDW Standard Deviation 65.4 fL (35.1-43.9); Red Blood Count 3.65 Miln/mm3 (4.50-5.90); White Blood Count 18.5 Thou/mm3 (3.8-10.6)
[2025-04-18 12:39] LABS: INR 1.0 (0.9-1.3); Partial Thromboplastin Time 27.9 Seconds (22.0-36.0); Prothrombin Time 10.8 Seconds (9.0-12.2)
[2025-04-18 12:41] LABS: Collection Type, Urine Clean Catch
[2025-04-18 12:42] LABS: B-Type Natriuretic Peptide 118 pg/mL (0-100)
[2025-04-18 12:51] LABS: Bilirubin,Urine Negative (Negative); Blood,Urine Negative (Negative); Clarity,Urine Clear (Clear/Hazy); Color,Urine Yellow (Lt Yel-Yel); Culture Indicated,Urine Not Indicated; Glucose, Urine Negative (Negative); Ketones,Urine Negative (Negative); Leukocyte Esterase,Urine Negative (Negative); Nitrite,Urine Negative (Negative); PH,Urine 5.5 (5.0-7.0); Protein,Urine Trace (Neg - Trace); RBC,Urine 3 /hpf (0-3); Specific Gravity,Urine 1.026 (1.001-1.035); Squamous Epithelial Cell,Urine 1 /hpf (0-5); Urobilinogen,Urine Negative mg/dL (0.0-1.0); WBC,Urine 6 /hpf (0-5)
[2025-04-18 12:55] LABS: Alanine Aminotransferase 9 U/L (10-49); Albumin, Serum 3.4 gm/dL (3.4-4.8); Albumin/Globulin Ratio 1.8 (1.2-2.2); Alkaline Phosphatase 93 U/L (46-116); Anion Gap 11 (7-16); Aspartate Amino Transferase 20 U/L (0-34); BUN/Creatinine Ratio 19 Ratio (12-20); Bilirubin,Total 0.9 mg/dL (0.3-1.2); Blood Urea Nitrogen 21 mg/dL (9-23); Calcium 8.7 mg/dL (8.3-10.6); Calcium (Corrected) 9.2 mg/dL (8.5-10.1); Carbon Dioxide 28.5 mMol/L (20.0-31.0); Chloride 106 mMol/L (98-107); Creatinine (Component) 1.1 mg/dL (0.6-1.3); Estimated Creatinine Clearance 60.6 mL/min (>60); Globulin 1.9 gm/dL (2.3-3.5); Glucose 117 mg/dL (74-106); Magnesium 1.9 mg/dL (1.6-2.6); Osmolality,Calculated 292 (275-295); Potassium 4.2 mMol/L (3.4-5.1); Sodium 145 mMol/L (136-145); Total Protein 5.3 gm/dL (5.7-8.2); Troponin I 0.038 ng/mL (0.0-0.045); eGFR > 60 See Note
[2025-04-18 15:48] LABS: Neutrophils (Manual) 84 % (50-70)
[2025-04-18 15:49] LABS: Band Neutrophils (Manual) 112 % (0-6); Lymphocytes (Manual) 1 % (20-44); Monocytes (Manual) 1 % (2-9); Myelocytes (Manual) 2 % (0-0)
--- NOTE | 2025-04-18 16:21 | XR_ITS ---
Examination: CT chest, without intravenous contrast. Sagittal and coronal 2-D reconstructions. Exam date and time: April 18, 2025, 1648 hrs., Comparison January 29, 2025 Indications: Shortness of breath today, history pulmonary nodules CTDI:vol (mGy) 22.8 DLP: (mGycm) 832 Technique: Multiple 3.0 mm axial sections of the chest to been obtained. Bone and lung density settings are obtained. Sagittal and coronal 2-D reconstructions have been obtained. Low dose protocols were performed. One or more of the following dose reduction techniques were used; automated exposure control, adjustment of the mA and/or KV according to patient size, use of iterative reconstruction technique. Findings: 21 mm calcified thyroid nodule. Thoracic aortic calcification no aneurysmal dilatation Main pulmonary artery segment 46 mm No paratracheal tracheobronchial or bronchopulmonary adenopathy. 9 mm pulmonary nodule left lower lobe 12 mm pulmonary nodule right upper lobe Subtle opacity in both upper lobes with small left pleural fluid Trace pericardial thickening. No visualized liver or splenic lesion No gallstones. No pancreatic or adrenal mass Multiple benign bilateral renal cysts, no hydronephrosis Prominent osteopenia Impression: Calcified right thyroid nodule Pulmonary nodules as above, follow-up continued imaging recommended Pulmonary artery hypertension Subtle pneumonia both upper lobes
[2025-04-18] MEDS: ALBUTEROL RT 2.5 MG/3 ML NEBU 5 MG INH (16:30)
[2025-04-18] MEDS: SODIUM CHLORIDE 0.9% 1000 ML 1,000 ML 999 ML IV (16:41)
--- NOTE | 2025-04-18 16:41 | PD.EDADULT ---
ED General RME/HPI General Chief complaint: General Adult/Misc Complain Stated complaint: PAIN TO L SIDE FELL ON MONDAY, FLU LIKE SYMPTOMS Time Seen by Provider: 04/18/25 11:27 Arrival date/time: 04/18/25 10:47 Limitations: no limitations RME / HPI RME / HPI narrative: 04/18/25 10:47 84-year-old male with a history of hyperlipidemia, hypertension, prostate cancer, COPD presents to the emergency room with a chief complaint of cough, congestion, weakness x 3 days. Patient was sent over by his primary care provider. I have greeted and performed a focused initial assessment of this patient. A comprehensive ED assessment and evaluation of the patient, analysis of all test results, and completion of the medical decision making process will be conducted by additional ED providers. DR. JOHNSON MAIN ED EVALUATION: 84 year old male with history of prostate cancer, hypertension, COPD presents to the ED with right flank pain. The pain began 5 days ago following a ground-level fall. Describes the pain as a dull, aching sensation that has progressively worsened, with a significant increase in intensity today. In addition, the patient reports the onset of a cough, nasal congestion, and generalized weakness starting approximately 3 days ago. Denies fever, chills, chest pain, abdominal pain, nausea, vomiting, diarrhea, or urinary symptoms. Related Data Home Medications ?Medication ?Instructions ?Recorded ?Confirmed carvedilol 3.125 mg tablet 3.125 mg PO BID 11/04/21 01/30/25 furosemide 40 mg tablet 40 mg PO BID 11/04/21 01/30/25 atorvastatin 10 mg tablet 10 mg PO QDAY 10/20/22 01/30/25 enzalutamide 80 mg tablet (Xtandi) 80 mg PO BID 12/25/24 01/30/25 losartan 100 mg tablet 100 mg PO DAILY 12/25/24 01/30/25 Previous Rx's ?Medication ?Instructions ?Recorded levofloxacin 500 mg tablet 500 mg PO QDAY 10 days #10 tabs 04/18/25 Allergies Allergy/AdvReac Type Severity Reaction Status Date / Time No Known Allergies Allergy Verified 04/18/25 10:51 Review of Systems Review of Systems Systems Reviewed: All systems reviewed, normal except as documented Past Medical History Past Medical History CARDIAC: Positive Coronary Artery Disease (02/03/22 had a procedure where they went thru the groin he is unsure), Hypercholesterolemia and Hypertension GENITOURINARY: Positive Genitourinary Disorders, Prostate Cancer and Benign Prostatic Hyperplasia ENT: Positive Cataracts OTHER HISTORY: Positive Cancer and Prostate Cancer Surgical History SURGICAL: Positive Angiogram Social History SMOKING STATUS: Never smoker SUBSTANCE USE: does not use ED Exam General Limitations: Present no limitations General appearance: Present alert and in no apparent distress Head Head exam: Present atraumatic, normocephalic and normal inspection Eye Eye exam: Present normal appearance, PERRL and EOMI ENT ENT exam: Present normal exam, normal oropharynx and mucous membranes moist Neck Neck exam: Present normal inspection, full ROM and trachea midline Chest Chest inspection: Present normal inspection and symmetric chest wall rise Respiratory Respiratory exam: Present normal lung sounds bilaterally Cardiovascular Cardiovascular exam: Present regular rate, normal rhythm and normal heart sounds Abdominal Exam Abdominal exam: Present soft and normal bowel sounds Extremities Exam Extremities exam: Present normal inspection and full ROM Back Exam Back exam: Present full ROM and other (Ecchymosis to the left back T12-L1 area measuring 2x5cm, no significant hematoma ) Neurological Exam Neurological exam: Present alert, oriented X3 and CN II-XII intact Psychiatric Psychiatric exam: Present normal affect and normal mood Skin Skin exam: Present warm, dry, intact and normal color Course Quality Measures Current suspected stage: sepsis Possible source: pulmonary Blood cultures ordered: completed in ED Antibiotic ordered: Yes Pertinent labs: 04/18/25 17:20 Lactic Acid 2.5 H mMol/L (0.4-2.0) Procalcitonin Pending sepsis Orders Category Date Time Status Bedside COVID-19 Antigen Test NOW Care 04/18/25 17:13 Active Bedside Influenza A&B Antigen Test NOW Care 04/18/25 17:13 Active COVID-19 Screening Questionnaire NOW Care 04/18/25 17:40 Active Government Relations Analyst NOW Care 04/18/25 16:21 Active Continuous Pulse Oximetry NOW Care 04/18/25 16:21 Completed Decision to Admit X1 Care 04/18/25 17:40 Active EKG (ED ONLY) *Do not use* NOW Care 04/18/25 11:26 Completed Insert IV NOW Care 04/18/25 16:21 Active Referral - Food Inspector Stat Cons 04/18/25 17:[address] abdomen pelvis wo con Stat Exams 04/18/25 11:[address] chest wo con Stat Exams 04/18/25 16:21 Completed EKG (ED Only) Stat Exams 04/18/25 11:26 Draft XR chest 2V Stat Exams 04/18/25 11:26 Completed B-Type Natriuretic Peptide Stat Lab 04/18/25 11:54 Completed Blood Culture (Lab) Stat Lab 04/18/25 17:20 Received CBC Stat Lab 04/18/25 11:54 Completed Comprehensive Metabolic Panel Stat Lab 04/18/25 11:54 Completed Lactic Acid [Lactate (Lactic Acid)] Stat Lab 04/18/25 17:20 Results Magnesium Stat Lab 04/18/25 11:54 Completed Partial Thromboplastin Time Stat Lab 04/18/25 11:54 Completed Procalcitonin Stat Lab 04/18/25 17:20 Received Prothrombin Time with INR Stat Lab 04/18/25 11:54 Completed Troponin I Stat Lab 04/18/25 11:54 Completed Troponin I Stat Lab 04/18/25 17:20 Received Urinalysis, C/S if Indicated Stat Lab 04/18/25 12:35 Completed ALBUTEROL RT 3ml [Proventil Rt 3ml] Med 04/18/25 15:55 Discontinued 5 mg INH X1 ONE Levofloxacin [Levaquin] Med 04/18/25 15:55 Discontinued 500 mg PO X1 ONE Sodium Chloride 0.9% 1000 ml [Ns] 1,000 ml Med 04/18/25 16:21 Discontinued IV 999 mls/hr metroNIDAZOLE/NS 500 MG IVPB [Flagyl 500 mg IV] Med 04/18/25 17:15 Discontinued 500 mg in 100 ml IV Q6HR Oxygen Delivery NOW RT 04/18/25 16:21 Active Vital Signs Vital signs: Vital Signs Temperature 99.8 F 04/18/25 10:59 Pulse Rate 98 04/18/25 10:59 Respiratory Rate 24 H 04/18/25 10:59 Blood Pressure 148/77 H 04/18/25 10:59 Pulse Oximetry (%) 93 L 04/18/25 10:59 Oxygen Delivery Method Room Air 04/18/25 10:59 Pulse ox is 93% on room air which is low. Discharge Plan Plan Patient Disposition: Admit Acute Care w/in Hospital Prescriptions/Referrals Prescriptions/Med Rec: New levofloxacin 500 mg tablet 500 mg PO QDAY 10 Days Qty: 10 0RF No Action furosemide 40 mg tablet 40 mg PO BID carvedilol 3.125 mg tablet 3.125 mg PO BID Rx Instructions: must administer with a meal/food losartan 100 mg tablet 100 mg PO DAILY Patient Comments: take 1 tablet by mouth once daily Xtandi 80 mg tablet 80 mg PO BID atorvastatin 10 mg tablet 10 mg PO QDAY Patient Comments: take 1 tablet by mouth once daily for 3 MONTHS Referrals: Ben Marlow PA-C [Primary Care Provider] - In 1 week Problem List Clinical Impression: Pneumonia, Fracture of transverse process of vertebra, Leukocytosis Patient/Caregiver Discharge Instructions Education Materials: What Is Pneumonia?, Treating Pneumonia Print Language: Eritrean Stand Alone Forms: Diana Award Info., Patient Portal Info Letter MDM Narrative MDM hospital course: Elaine Zuniga am scribing for and in the presence of Dr. Johnson. Clinical Information Provided by patient Medical Records Reviewed [facility] Meds/Rx Considered, not Ordered None Labs/Rad/Tests considered, not Ordered None Chronic Illness/Social Conditions which may negatively complicate care or outcome(s)-explain: Cancer EKG Interpretation EKG #1: Date/time of EK04/18/25 11:40 AM EKG interpretation: Sinus tachycardia, rate 111, no STEMI. Lab Interpretation Lab(s) interpretation(s): Leukocytosis at 18.5 Imaging Radiology reports / interpretation(s): Ordering Physician: Branden Hnoeycutt Date of Service: 04/18/25 Procedure(s): XR chest 2V Accession Number(s): [id number] cc: Branden Honeycutt; Thuan Hodgson MD~ Examination: PA lateral chest 2 views TECHNIQUE: Upright PA lateral chest 2 views Date and time: April 18, 2025, 1128 hours, comparison January 29, 2025 INDICATIONS: Patient fell down 5 days ago with chest pain FINDINGS: Mild enlargement cardiac contour. Ectatic enlarged thoracic aorta. Right internal jugular Port-A-Cath tip satisfactory position Prominent central pulmonary arteries Scarring versus pneumonia both lung bases, clinical correlation advised. No pneumothorax. Clavicles ribs appear intact as well as thoracic vertebral bodies Moderate hyperexpansion IMPRESSION: No pneumothorax Scarring versus pneumonia at the lung bases, clinical correlation advised Dictated By: Thuan Hodgson MD Signed By: <Electronically signed by Thuan Hodgson MD in OV> 09/05/25 1144 Ordering Physician: Branden Honeycutt Date of Service: 04/18/25 Procedure(s): CT abdomen pelvis wo con Accession Number(s): [id number] cc: Branden Honeycutt; Thuan Hodgson MD~ Examination: CT abdomen and pelvis without contrast. Coronal 3-D reconstructions. Sagittal 2-D reconstructions. Date and time of exam:April 18, 2025 1211 hours, comparison CT chest abdomen pelvis January 29, 2025 INDICATIONS: Patient fell 5 days ago with injury to the abdomen and pelvis, abdomen pain pelvic pain CTDI: vol (mGy): 12.6 DLP: (mGycm): 849 Technique: Axial images of the abdomen have been obtained, 3 mm slice thickness Intravenous contrast material has not been administered. Low dose protocols were performed. One or more of the following dose reduction techniques were used; automated exposure control, adjustment of the mA and/or KV according to patient size, use of iterative reconstruction technique. Findings: No pneumothorax Small left pleural effusion Retrocardiac gastric hernia No liver splenic or renal laceration on this limited noncontrast study Bilateral renal cysts Aorta is intact no free blood in the abdomen or pelvis Normal appendix Negative for pneumoperitoneum Aorto iliac stent Urinary bladder intact without wall thickening Transverse prostate dimension 4.5 cm Severe osteopenia. Nondisplaced fractures left first and second transverse processes IMPRESSION: Nondisplaced fractures left first and second transverse processes No abdominal parenchymal laceration on this noncontrast study Abdominal aorta intact, no free blood in the abdomen Dictated By: Thuan Hodgson MD Signed By: <Electronically signed by Thuan Hodgson MD in OV> 04/18/25 1246 Ordering Physician: Zen Johnson MD Date of Service: 04/18/25 Procedure(s): CT chest wo con Accession Number(s): [id number] cc: Zen Johnson MD; Ben Marlow PA-C; Thuan Hodgson MD~ Examination: CT chest, without intravenous contrast. Sagittal and coronal 2-D reconstructions. Exam date and time: April 18, 2025, 1648 hrs., Comparison January 29, 2025 Indications: Shortness of breath today, history pulmonary nodules CTDI:vol (mGy) 22.8 DLP: (mGycm) 832 Technique: Multiple 3.0 mm axial sections of the chest to been obtained. Bone and lung density settings are obtained. Sagittal and coronal 2-D reconstructions have been obtained. Low dose protocols were performed. One or more of the following dose reduction techniques were used; automated exposure control, adjustment of the mA and/or KV according to patient size, use of iterative reconstruction technique. Findings: 21 mm calcified thyroid nodule. Thoracic aortic calcification no aneurysmal dilatation Main pulmonary artery segment 46 mm No paratracheal tracheobronchial or bronchopulmonary adenopathy. 9 mm pulmonary nodule left lower lobe 12 mm pulmonary nodule right upper lobe Subtle opacity in both upper lobes with small left pleural fluid Trace pericardial thickening. No visualized liver or splenic lesion No gallstones. No pancreatic or adrenal mass Multiple benign bilateral renal cysts, no hydronephrosis Prominent osteopenia Impression: Calcified right thyroid nodule Pulmonary nodules as above, follow-up continued imaging recommended Pulmonary artery hypertension Subtle pneumonia both upper lobes Dictated By: Thuan Hodgson MD Signed By: <Electronically signed by Thuan Hodgson MD in OV> 04/18/25 8247 Medication Administration(s) Medication Administration History Discontinued Medications Albuterol (Albuterol Rt 2.5 Mg/3 Ml Nebu) 5 mg INH X1 ONE Stop: 04/18/25 15:56 Last Admin: 04/18/25 16:30 Dose: 5 mg Documented By: RG Sodium Chloride (Ns) 1,000 mls @ 999 mls/hr IV .Q1H1M ONE Stop: 04/18/25 17:21 Last Admin: 04/18/25 16:41 Dose: 999 mls/hr Documented By: BY Metronidazole (Flagyl 500 Mg Iv) 500 mg in 100 mls @ 200 mls/hr IV Q6HR BERE Stop: 04/25/25 17:14 Levofloxacin (Levofloxacin 250 Mg Tablet) 500 mg PO X1 ONE Stop: 04/18/25 15:56 Last Admin: 04/18/25 17:14 Dose: 500 mg Documented By: BY See above Consultations/Discussions re: Management Consult #1: Date/time: 04/18/25 5:45 pm Physician, specialty, service, details: I spoke with hospitalist team A regarding admission. Diagnosis Most likely dx, and/or detailed dx discussion: Transverse process fracture Leukocytosis Pneumonia Dispositon Disposition: Admit
[2025-04-18] MEDS: LEVOFLOXACIN 250 MG TABLET 500 MG PO (17:14)
[2025-04-18 17:28] LABS: Lactate (Lactic Acid) 2.5 mMol/L (0.4-2.0)
[2025-04-18 18:00] LABS: Procalcitonin 0.13 ng/ml (0.0-0.49); Troponin I 0.033 ng/mL (0.0-0.045)
--- NOTE | 2025-04-18 18:11 | PC.NURSE ---
patient is covid positive, patient placed on airborne brecautions, and supplies placed at the door
--- NOTE | 2025-04-18 18:15 | PD.HHHP ---
Documentation for date of: 04/18/25 HPI - Hospitalist History of Present Illness History of present illness: Patient is a pleasant 84-year-old male with a medical history of prostate cancer with mets, primary hypertension, COPD, and dyslipidemia presents to [facility] emergency department on 04/18/2025 with chief complaint of productive cough, congestion, and generalized weakness. Patient reports symptoms have been present for 3 days and have progressively worsened. He was seen by his primary care provider today and given the severity of his symptoms he was sent to the emergency room. Patient accompanied by his daughter. At bedside he endorses relatively severe shortness of breath and productive cough. He endorses subjective fever/chills. He denies headache, chest pain, palpitations, abdominal pain, urinary or GI symptoms. He does state he fell down days prior and has had back pain since he is still able to ambulate. He denies loss of sensation or urinary symptoms. Social history: Denies tobacco, alcohol, and illicit substances Surgical history: Unknown Family history: Noncontributory ED course: Presenting vital signs: Temperature 99.0 ?F, pulse 102, BP 149/92, O2 sat 92% Pertinent laboratories: WBC 18.5, hemoglobin 10.3, platelets 127, CR 1.1, BUN 21, LA 2.5, BNP 118, PSA 7.75 Urinalysis: Within normal limits Chest x-ray: Pneumonia at lung bases Abdomen and pelvis: Nondisplaced fractures of left 1st and 2nd transverse processes Chest CT: Pneumonia both upper lobes and pulmonary nodules Plan : Patient was given levofloxacin 500 mg p.o. x 1, 1 L fluid bolus NS, and breathing treatment x 1. Review of Systems Review of Systems Systems Reviewed: All systems reviewed, normal except as documented Past Medical History Past Medical History CARDIAC: Positive Coronary Artery Disease (02/03/22 had a procedure where they went thru the groin he is unsure), Hypercholesterolemia and Hypertension GENITOURINARY: Positive Genitourinary Disorders, Prostate Cancer and Benign Prostatic Hyperplasia ENT: Positive Cataracts OTHER HISTORY: Positive Cancer and Prostate Cancer Surgical History SURGICAL: Positive Angiogram Social History SMOKING STATUS: Never smoker SUBSTANCE USE: does not use Meds Home Medications and Allergies Home Medications ?Medication ?Instructions ?Recorded ?Confirmed ?Type carvedilol 3.125 mg tablet 3.125 mg PO BID 11/04/21 01/30/25 History furosemide 40 mg tablet 40 mg PO BID 11/04/21 01/30/25 History atorvastatin 10 mg tablet 10 mg PO QDAY 10/20/22 01/30/25 History enzalutamide 80 mg tablet (Xtandi) 80 mg PO BID 12/25/24 01/30/25 History losartan 100 mg tablet 100 mg PO DAILY 12/25/24 01/30/25 History Allergies Allergy/AdvReac Type Severity Reaction Status Date / Time No Known Allergies Allergy Verified 04/18/25 10:51 Exam Vital Signs Temp Pulse Resp BP Pulse Ox O2 Del Method O2 Flow Rate 99 F 101 H 18 132/67 H 98 Nasal Cannula 3 04/18/25 15:17 04/18/25 17:59 04/18/25 17:59 04/18/25 17:59 04/18/25 17:59 04/18/25 17:59 04/18/25 17:59 Narrative Gen: A&O NAD HEENT: NCAT, EOMI, not icteric. External ears normal. No rhinorrhea. Moist mucous membranes. Neck: Supple, full range of motion, no observable masses, No meningeal sign. Lungs: Bilateral rhonchi noted at lung bases, no wheezing at this time CV: RRR, Normal S1/S2, no edema. Abdomen: Soft, nondistended, No rebound tenderness. MSK: No joint swelling, no redness. Skin: No rashes, petechiae, lesions. Normal color per patient. Neuro: Normal Gait, Grossly intact. CN II-XII grossly intact Psych: Appropriate for situation. Results - Hospitalist Labs Diagrams: 04/18/25 11:54 04/18/25 11:54 Labs: Short CBC 04/18/25 Range/Units 11:54 WBC 18.5 H D (3.8-10.6) Thou/mm3 Hgb 10.3 L (13.5-16.0) g/dL Hct 33.6 L (41.0-53.0) % Plt Count 127 L D (140-440) Thou/mm3 BMP 04/18/25 11:54 Sodium 145 Potassium 4.2 Chloride 106 Carbon Dioxide 28.5 BUN 21 Creatinine 1.1 Glucose 117 H Calcium 8.7 Cardiac Enzymes 04/18/25 04/18/25 Range/Units 11:54 17:20 Troponin I 0.038 0.033 (0.0-0.045) ng/mL Liver Function 04/18/25 Range/Units 11:54 Total Bilirubin 0.9 (0.3-1.2) mg/dL AST 20 (0-34) U/L ALT 9 L (10-49) U/L Alkaline Phosphatase 93 (46-116) U/L Albumin 3.4 (3.4-4.8) gm/dL Urine 04/18/25 Range/Units 12:35 Urine Color Yellow (Lt Yel-Yel) Urine Clarity Clear (Clear/Hazy) Urine pH 5.5 (5.0-7.0) Ur Specific [place] 1.026 (1.001-1.035) Urine Protein Trace (Neg - Trace) Urine Glucose (UA) Negative (Negative) Assessment & Plan -Hospitalist Additional Assessment Patient is a pleasant 84-year-old male with a medical history of prostate cancer with mets, primary hypertension, COPD, and dyslipidemia presents to [facility] emergency department on 04/18/2025 with chief complaint of productive cough, congestion, and generalized weakness. Patient was found to have bacterial pneumonia with elevated curb 65 and COVID-positive in the setting of prostate cancer and will be admitted to the hospital for IV antibiotics. #Community-acquired pneumonia #COVID Pneumonitis #Pulmonary nodules #COPD - Patient presented with productive cough, congestion, and generalized weakness, LA 2.5, WBC 18.5 - Curb 65 score 2 points and intermediate risk - CXR: Pneumonia at lung bases bilaterally - Chest CT: Pneumonia both upper lobes with pulmonary nodules - Plan: Given patient is immunocompromise with metastatic cancer and elevated curb 65 score, I feel patient needs admission to the hospital for IV antibiotics given the severity of his infection. Start IV Rocephin and doxycycline. Continue supplemental oxygen as needed for comfort, maintain O2 saturation 90% or greater. Cultures taken and follow-up results when available. No wheezing on exam and low suspicion for COPD exacerbation and no steroids needed for now. Breathing treatments as needed for shortness of breath. Patient was found to be COVID-positive and we will proceed with supportive treatment for now. Tylenol as needed for fever. # Lactic acidosis - On admission lactic acid 2.5. - Most likely type A from infection versus type B from underlying malignancy - Plan: Start IVF LR at 70 cc an hour. Follow-up repeat lactic acid. #Ground-level fall # Transverse fracture of spine - CT abdomen and pelvis revealed nondisplaced fractures of the left 1st and 2nd transverse processes. - Plan: No orthopedics available in house although treatment is largely supportive. Pain management as needed. Physical therapy consultation. Follow-up outpatient with orthopedics. # Prostate cancer with mets - Follows at [facility] with Dr. Hill - Plan: PSA 7.75 on admission. Appears to take Xtandi which is not on formulary. Awaiting home medication reconciliation and family advised to bring medicines to the hospital. # Primary hypertension - plan: Resume home Coreg 6.25 mg p.o. twice daily. Patient reports he takes nifedipine as well although awaiting medication reconciliation. Will resume home antihypertensives as tolerated. # Dyslipidemia Plan: Continue home atorvastatin, pending dosage DVT prophylaxis; heparin Diet: Cardiac CODE STATUS: Full code Dispo: Admit to the hospital for IV antibiotics Dr. Mark MD Quality Measures Quality Measures sepsis Current suspected stage: ruled out Possible source: pulmonary Blood cultures ordered: completed in ED Antibiotic ordered: Yes Advance care planning discussed with:: patient
--- NOTE | 2025-04-18 18:17 | PC.CC ---
Patient is a 84 year-old male who presents to the hospital for generalized pain to left side fell on Monday. TELETYPIST, Emily made [id number] contact with patient introduced self, role, and reason for visit. Patient appeared alert and oriented to self, location, and situation. At bedside was patient's daughter in law, Melanie Perry whom patient provided consent to remain in the room during assessment. TELETYPIST, discussed limits of confidentiality. Patient made appropriate eye contact and engaged in initial assessment. ? Patient confirmed information on demographics and reports to living at home with his son, Tristen and daughter in law Melanie. Patient's next of kin is his son Tristen Kumar . At home patient ambulates with a walker and is able to complete his own ADLs. Patient reports he uses oxygen at home but was unable to provider the liters. Per patient his primary provider is Ben Marlow and he uses [facility] for prescription medication. Upon discharge patient plans to return home with his family. creative services manager to follow up with any discharge needs.
[2025-04-18] MEDS: RINGERS LACTATED 1000 ML 1,000 ML 70 ML IV (19:09)
[2025-04-18 20:25] LABS: Reflex Lactate? Y
[2025-04-18 20:53] LABS: Lactic Acid, 3 HR 2.0 mMol/L (0.4-2.0)
[2025-04-18] MEDS: DOXYCYCLINE 100 MG TABLET PO (21:10)
[2025-04-18] MEDS: HEPARIN SOD INJ 5000 UNIT/ML VIAL SC (21:12)
[2025-04-19] VITALS (12 sets, daily range): BP systolic 118–142; BP diastolic 62–84; PULSE 73–118; RESP 17–20; TEMP 36.1–36.9; O2SAT 94–99
--- NOTE | 2025-04-19 00:09 | PC.NURSE ---
Med reconcilation not completed. Pt. not sure what medication he is taking at home. Family will bring a med list in the AM.
[2025-04-19] MEDS: HEPARIN SOD INJ 5000 UNIT/ML VIAL SC ×3 (05:12→21:26)
[2025-04-19 05:36] LABS: Basophils # (Auto) 0.0 Thou/mm3 (0.0-0.2); Basophils % (Auto) 0 % (0-2.5); Eosinophils # (Auto) 0.0 Thou/mm3 (0.0-0.5); Eosinophils % (Auto) 0 % (0-10); Hematocrit 32.2 % (41.0-53.0); Hemoglobin 9.6 g/dL (13.5-16.0); Immature Granulocytes Auto 1.72 Thou/mm3 (0.00-0.00); Lymphocytes # (Auto) 0.3 Thou/mm3 (1.0-4.8); Lymphocytes % (Auto) 3 % (10-50); Mean Corpuscular HGB Conc 29.8 g/dl (31.0-37.0); Mean Corpuscular Hemoglobin 27.9 pg (25.0-35.0); Mean Corpuscular Volume 94 fL (80-100); Monocytes # (Auto) 0.1 Thou/mm3 (0.0-0.8); Monocytes % (Auto) 1 % (0-12); Neutrophils # (Auto) 9.6 Thou/mm3 (1.8-7.7); Neutrophils % (Auto) 82 % (37-80); Nucleated Red Blood Cell # 0.00 Thou/mm3 (0.00-0.00); Nucleated Red Blood Cell % 0 /100 WBC (0); Platelet Count 110 Thou/mm3 (140-440); RDW Standard Deviation 65.6 fL (35.1-43.9); Red Blood Count 3.44 Miln/mm3 (4.50-5.90); White Blood Count 11.7 Thou/mm3 (3.8-10.6)
[2025-04-19 06:16] LABS: Path Review Blood Smear Sent to Pathologist
[2025-04-19 06:17] LABS: Alanine Aminotransferase 9 U/L (10-49); Albumin, Serum 3.3 gm/dL (3.4-4.8); Albumin/Globulin Ratio 1.9 (1.2-2.2); Alkaline Phosphatase 88 U/L (46-116); Anion Gap 9 (7-16); Aspartate Amino Transferase 24 U/L (0-34); BUN/Creatinine Ratio 24 Ratio (12-20); Bilirubin,Total 0.8 mg/dL (0.3-1.2); Blood Urea Nitrogen 22 mg/dL (9-23); Calcium 8.5 mg/dL (8.3-10.6); Calcium (Corrected) 9.1 mg/dL (8.5-10.1); Carbon Dioxide 29.9 mMol/L (20.0-31.0); Chloride 106 mMol/L (98-107); Creatinine (Component) 0.9 mg/dL (0.6-1.3); Estimated Creatinine Clearance 74.1 mL/min (>60); Globulin 1.7 gm/dL (2.3-3.5); Glucose 120 mg/dL (74-106); Magnesium 2.0 mg/dL (1.6-2.6); Osmolality,Calculated 293 (275-295); Phosphorous 3.9 mg/dL (2.4-5.1); Potassium 4.4 mMol/L (3.4-5.1); Sodium 145 mMol/L (136-145); Total Protein 5.0 gm/dL (5.7-8.2); eGFR > 60 See Note
[2025-04-19] MEDS: DOXYCYCLINE 100 MG TABLET PO ×2 (09:08→21:26)
[2025-04-19] MEDS: cefTRIAXone/D5w 1gm IV premix 1 GM/50 ML BAG IV (09:11)
--- NOTE | 2025-04-19 10:47 | XR_ITS ---
Examination: Bilateral hips, AP pelvis, 5 views Technique: AP, lateral views both hips, AP pelvis, 5 views Exam date and time: April 19, 2025, 10:50 AM Indications: Patient fell today with injury to both hips, bilateral hip pain. Findings: Severe osteopenia No acute hip fracture. Bones of the pelvis intact Impression: No acute hip fracture Given the severe osteopenia, recommend 1 day follow-up AP pelvis as clinically warranted
--- NOTE | 2025-04-19 15:02 | ESPR_ITS ---
<Statement entered by Sabine Valencia MD - 04/20/25 16:29> Patient seen and examined at bedside. No acute overnight events reported. Patient uses home oxygen but not sure how much at home. Per chart review, no formal PFTs for possible COPD diagnosis. Patient may have a component of OHS/PAULA and may need to follow-up outpatient for sleep study. Patient will continue to be on IV antibiotics for suspected bacterial pneumonia superimposed with COVID pneumonitis. Pending PT eval as well as formal O2 walk test. Anticipate discharge within 48 hours. I discussed with and supervised the physician general internal medicine physician who took care of this patient. I personally saw and examined the patient and discussed the assessment and plan with the entire medicine team, including my attending Dr. Flores, I agree with most of the assessment and plan as documented below Sabine Valencia M.D. PGY-3 Disclaimer: Despite multiple revisions, due to the dictation software being used, the document bellow may not be free of grammatical errors including phonetic/typographic errors. However, this does not deter from our commitment to providing health care in the patient's best interest in mind. Documentation for date of: 04/19/25 Subjective Subjective Interval history: Patient is a pleasant 84-year-old male with a medical history of prostate cancer with mets, primary hypertension, COPD, and dyslipidemia presents to [facility] emergency department on 04/18/2025 with chief complaint of productive cough, congestion, and generalized weakness. Patient reports symptoms have been present for 3 days and have progressively worsened. He was seen by his primary care provider today and given the severity of his symptoms he was sent to the emergency room. Patient accompanied by his daughter. At bedside he endorses relatively severe shortness of breath and productive cough. He endorses subjective fever/chills. He denies headache, chest pain, palpitations, abdominal pain, urinary or GI symptoms. He does state he fell down days prior and has had back pain since he is still able to ambulate. He denies loss of sensation or urinary symptoms. 04/19/2024 patient seen and examined at bedside. pt states that he does not use home oxygen. Patient appears to be comfortable sitting upright and also when seen later patient able to tolerate laying flat on 4 L nasal cannula. Per chart review patient was discharged 621 with plans for p.o. antibiotics for pneumonia seen on chest x-ray however due to communication mixup patient was not able to fern picker prescription and did not take. Patient continues on antibiotics suspected bacterial pneumonia superimposed on COVID pneumonitis. Continue supportive measures downtitrate o2 as tolerated. pt reports that he had fallen on his L hip, BL hip xray, pending read. PT eval pending. Exam Vital Signs Temp Pulse Resp BP Pulse Ox O2 Del Method O2 Flow Rate 97.8 F 73 18 126/82 97 Room Air 4 04/19/25 12:00 04/19/25 12:00 04/19/25 12:00 04/19/25 12:00 04/19/25 12:00 04/19/25 12:00 04/19/25 07:45 Narrative Exam General: AOx3, no acute distress, able to speak full sentences, sitting upright eating breakfast, and later laying flat HEENT: NC/AT, mucous membranes moist, bilateral sclera anicteric Cardiovascular: regular rate and rhythm, S1/S2 present, no murmurs appreciated Pulmonary: breathing comfortably on 4 L NC, clear to auscultation bilaterally, no rales/rhonchi/wheezes Abdominal: obese, soft, non-tender, non-distended, no rebound/guarding, normal bowel sounds present Musculoskeletal: normal ROM, no peripheral edema Skin: warm and dry, intact, no rashes Neuro: CN II-XII intact, no focal deficits Objective Labs 04/20/25 06:02 04/19/25 04:32 Labs: Laboratory Results - last 24 hr 04/18/25 04/18/25 04/18/25 11:54 17:20 20:47 WBC RBC Hgb Hct MCV MCH MCHC RDW Std Deviation Plt Count Neut % (Auto) Lymph % (Auto) Garrard % (Auto) Eos % (Auto) Baso % (Auto) Neut # (Auto) Lymph # (Auto) Garrard # (Auto) Eos # (Auto) Baso # (Auto) Immature Gran # (Auto) Absolute Nucleated RBC Immature Gran % Neutrophils % (Manual) 84 H Monocytes % (Manual) 1 L Myelocytes % 2 H Nucleated RBC % Band Neutrophils 112 H Lymphocytes (Manual) 1 L Smear Path Review Sodium Potassium Chloride Carbon Dioxide Anion Gap BUN Creatinine Estim Creat Clear Calc eGFR BUN/Creatinine Ratio Glucose Calculated Osmolality Lactic Acid 2.5 H 2.0 Calcium Corrected Calcium Phosphorus Magnesium Total Bilirubin AST ALT Alkaline Phosphatase Troponin I 0.033 Total Protein Albumin Globulin Albumin/Globulin Ratio Procalcitonin 0.13 04/19/25 04:32 WBC 11.7 H D RBC 3.44 L Hgb 9.6 L Hct 32.2 L MCV 94 MCH 27.9 MCHC 29.8 L RDW Std Deviation 65.6 H Plt Count 110 L Neut % (Auto) 82 H Lymph % (Auto) 3 L Garrard % (Auto) 1 Eos % (Auto) 0 Baso % (Auto) 0 Neut # (Auto) 9.6 H Lymph # (Auto) 0.3 L Garrard # (Auto) 0.1 Eos # (Auto) 0.0 Baso # (Auto) 0.0 Immature Gran # (Auto) 1.72 H Absolute Nucleated RBC 0.00 Immature Gran % 15 H Neutrophils % (Manual) Monocytes % (Manual) Myelocytes % Nucleated RBC % 0 Band Neutrophils Lymphocytes (Manual) Smear Path Review Sent to Pathologist Sodium 145 Potassium 4.4 Chloride 106 Carbon Dioxide 29.9 Anion Gap 9 BUN 22 Creatinine 0.9 Estim Creat Clear Calc 74.1 eGFR > 60 BUN/Creatinine Ratio 24 H Glucose 120 H Calculated Osmolality 293 Lactic Acid Calcium 8.5 Corrected Calcium 9.1 Phosphorus 3.9 Magnesium 2.0 Total Bilirubin 0.8 AST 24 ALT 9 L Alkaline Phosphatase 88 Troponin I Total Protein 5.0 L Albumin 3.3 L Globulin 1.7 L Albumin/Globulin Ratio 1.9 Procalcitonin Quality Measures Quality Measures sepsis Current suspected stage: sepsis Possible source: pulmonary Blood cultures ordered: completed in ED Antibiotic ordered: Yes Advance care planning discussed with:: patient Assessment & Plan Assessment Current Active Medications: Generic Name Dose Route Start Last Admin Trade Name Freq PRN Reason Stop Dose Admin Acetaminophen 650 mg 04/18/25 18:08 Acetaminophen 325 Mg Tablet PO 05/18/25 18:07 Q6H PRN Fever >101.5 Acetaminophen 650 mg 04/18/25 18:08 Acetaminophen 325 Mg Tablet PO 05/18/25 18:07 Q6H PRN PAIN SCALE 1-3 (mild Albuterol/Ipratropium 3 ml 04/18/25 18:22 Albuterol/Ipratropium (Duoneb) Rt Chaya 3 Ml Nebu INH 05/18/25 18:21 Q2HR PRN SHORTNESS OF BREATH OR WHEEZE Carvedilol 6.25 mg 04/19/25 08:00 04/19/25 09:08 Carvedilol 3.125 Mg Tablet PO 05/19/25 07:59 6.25 mg BIDWM BERE Administration Doxycycline Hyclate 100 mg 04/18/25 21:00 04/19/25 09:08 Doxycycline 100 Mg Tablet PO 04/25/25 20:59 100 mg BID BERE Administration Heparin Sodium (Porcine) 5,000 unit 04/18/25 22:00 04/19/25 13:40 Heparin Sod Inj 5000 Unit/Ml Vial SC 05/02/25 21:59 5,000 unit Q8HR BERE Administration Ceftriaxone Sodium/Dextrose 1 gm in 50 mls @ 100 mls/hr 04/19/25 09:00 04/19/25 09:11 Rocephin/D5w 1gm Iv Premix IV 04/26/25 08:59 100 mls/hr QDAY BERE Administration Ondansetron HCl 4 mg 04/18/25 18:08 Ondansetron Inj 2 Mg/Ml Inj 2 Ml IVP 05/18/25 18:07 Q6H PRN NAUSEA OR VOMITING Protocol Plan Patient is a pleasant 84-year-old male with a medical history of prostate cancer with mets, primary hypertension, COPD, and dyslipidemia presents to [facility] emergency department on 04/18/2025 with chief complaint of productive cough, congestion, and generalized weakness. Patient was found to have bacterial pneumonia with elevated curb 65 and COVID-positive in the setting of prostate cancer and will be admitted to the hospital for IV antibiotics. #Community-acquired pneumonia #COVID Pneumonitis #Pulmonary nodules #COPD (not on home oxygen) (on 4L SD inpatient) - Patient presented with productive cough, congestion, and generalized weakness, LA 2.5, WBC 18.5 (downtrending) - Curb 65 score 2 points and intermediate risk - CXR: Pneumonia at lung bases bilaterally - Chest CT: Pneumonia both upper lobes with pulmonary nodules - Plan: Given patient is immunocompromise with metastatic cancer and elevated curb 65 score, patient needs admission to the hospital for IV antibiotics given the severity of his infection. - IV Rocephin and doxycycline. (04/18-) - Continue supplemental oxygen as needed for comfort, maintain O2 saturation 90% or greater. - Cultures taken and follow-up results when available. No wheezing on exam and low suspicion for COPD exacerbation and no steroids needed for now. Breathing treatments as needed for shortness of breath. - Patient was found to be COVID-positive and we will proceed with supportive treatment for now. - Tylenol as needed for fever. #Ground-level fall # Transverse fracture of spine - CT abdomen and pelvis revealed nondisplaced fractures of the left 1st and 2nd transverse processes. - XR hips, pending read - Plan: No orthopedics available in house although treatment is largely supportive. Pain management as needed. Physical therapy consultation. Follow- up outpatient with orthopedics. # Lactic acidosis- RESOLVED - On admission lactic acid 2.5. --> 2.0 - Most likely type A from infection versus type B from underlying malignancy - Plan: Start IVF LR at 70 cc an hour. # Prostate cancer with mets - Follows at [facility] with Dr. Hill - Plan: PSA 7.75 on admission. Appears to take Xtandi which is not on formulary. Awaiting home medication reconciliation and family advised to bring medicines to the hospital. # Primary hypertension - plan: Resume home Coreg 6.25 mg p.o. twice daily. Patient reports he takes nifedipine as well although awaiting medication reconciliation. HOLDING antihypertensives BP 120s # Dyslipidemia Plan: Continue home atorvastatin, pending dosage DVT prophylaxis; heparin Diet: Cardiac CODE STATUS: Full code Dispo: Admit to the hospital for IV antibiotics and managment of acute hypoxic resp failure Plan discussed with Dr. Calderon, Dr Valencia, and Dr. Mark Dc MD PGY1 Attending Provider Attestation/Addendum I have examined the patient, reviewed labs and imaging findings, discussed the case with the resident(s), and reviewed entered orders. I agree with the plan of care as outlined in this note, with these additional summaries/recommendations: Patient seen at bedside. No acute overnight events. Today patient is noted to be on 4 L nasal cannula with O2 saturation 93%. He denies using home oxygen. Continue to wean supplemental oxygen as tolerated. Patient admitted for community-acquired pneumonia with elevated curb 65 score and COVID pneumonitis. Continue supportive treatment for COVID. Continue IV antibiotics for superimposed bacterial infection. Leukocytosis improving. Breathing treatments as needed for history of COPD. No wheezing noted on physical exam. Lactic acidosis resolved. Patient had ground-level fall prior to admission that revealed left 1st and 2nd transverse process fractures of spine. Continue pain management and patient will need to follow-up with orthopedics outpatient. Pending physical therapy consultation. Patient has underlying prostate cancer with metastasis. Outpatient follow-up with oncology. Continue home antihypertensives. Patient updated on the plan and in agreement. All questions answered to satisfaction. Please see residents note for additional details of management. Dr. Mark MD
--- NOTE | 2025-04-19 15:18 | PC.SS ---
Rounding: COVID+, pending cultures on IV ABX, DC plan home
[2025-04-20] VITALS (15 sets, daily range): BP systolic 110–169; BP diastolic 55–82; PULSE 74–130; RESP 12–20; TEMP 36.1–37; O2SAT 95–100
--- NOTE | 2025-04-20 01:26 | EKG_ITS ---
[facility] Test Date: 2025-04-20 Pat Name: DERRICK ALVARADO [facility] Hearing Impaired Itinerant Teacher: YOLANDA : 1940 Requested By: Santo Crow Order Number: [id number] Reading MD: Santo Crow Measurements Intervals [place] Rate: 84 P: 42 MI: 227 QRS: 47 QRSD: 118 T: 75 QT: 377 QTc: 446 Interpretive Statements SINUS RHYTHM WITH FIRST DEGREE AV BLOCK MODERATE INTRAVENTRICULAR CONDUCTION DELAY Compared to ECG 04/18/2025 11:41:02 Intraventricular conduction delay now present /store/S0/[id number].pdf
[2025-04-20] MEDS: HEPARIN SOD INJ 5000 UNIT/ML VIAL SC ×2 (05:12→13:31)
[2025-04-20 06:22] LABS: Basophils # (Auto) 0.0 Thou/mm3 (0.0-0.2); Basophils % (Auto) 0 % (0-2.5); Eosinophils # (Auto) 0.1 Thou/mm3 (0.0-0.5); Eosinophils % (Auto) 1 % (0-10); Hematocrit 30.5 % (41.0-53.0); Hemoglobin 9.0 g/dL (13.5-16.0); Immature Granulocytes Auto 0.43 Thou/mm3 (0.00-0.00); Lymphocytes # (Auto) 0.5 Thou/mm3 (1.0-4.8); Lymphocytes % (Auto) 13 % (10-50); Mean Corpuscular HGB Conc 29.5 g/dl (31.0-37.0); Mean Corpuscular Hemoglobin 27.9 pg (25.0-35.0); Mean Corpuscular Volume 94 fL (80-100); Monocytes # (Auto) 0.1 Thou/mm3 (0.0-0.8); Monocytes % (Auto) 2 % (0-12); Neutrophils # (Auto) 2.9 Thou/mm3 (1.8-7.7); Neutrophils % (Auto) 72 % (37-80); Nucleated Red Blood Cell # 0.00 Thou/mm3 (0.00-0.00); Nucleated Red Blood Cell % 0 /100 WBC (0); Platelet Count 74 Thou/mm3 (140-440); RDW Standard Deviation 63.7 fL (35.1-43.9); Red Blood Count 3.23 Miln/mm3 (4.50-5.90); White Blood Count 4.0 Thou/mm3 (3.8-10.6)
[2025-04-20 07:13] LABS: Slide Review Platelets confirmed
[2025-04-20 07:54] LABS: Alanine Aminotransferase 9 U/L (10-49); Albumin, Serum 3.1 gm/dL (3.4-4.8); Albumin/Globulin Ratio 1.7 (1.2-2.2); Alkaline Phosphatase 83 U/L (46-116); Anion Gap 8 (7-16); Aspartate Amino Transferase 18 U/L (0-34); BUN/Creatinine Ratio 22 Ratio (12-20); Bilirubin,Total 0.6 mg/dL (0.3-1.2); Blood Urea Nitrogen 20 mg/dL (9-23); Calcium 8.3 mg/dL (8.3-10.6); Calcium (Corrected) 9.0 mg/dL (8.5-10.1); Carbon Dioxide 31.3 mMol/L (20.0-31.0); Chloride 106 mMol/L (98-107); Creatinine (Component) 0.9 mg/dL (0.6-1.3); Estimated Creatinine Clearance 74.1 mL/min (>60); Globulin 1.8 gm/dL (2.3-3.5); Glucose 112 mg/dL (74-106); Osmolality,Calculated 292 (275-295); Potassium 4.7 mMol/L (3.4-5.1); Sodium 145 mMol/L (136-145); Total Protein 4.9 gm/dL (5.7-8.2); eGFR > 60 See Note
[2025-04-20] MEDS: DOXYCYCLINE 100 MG TABLET PO ×2 (08:45→21:16)
[2025-04-20] MEDS: cefTRIAXone/D5w 1gm IV premix 1 GM/50 ML BAG IV (08:48)
[2025-04-20 10:17] LABS: Magnesium 1.9 mg/dL (1.6-2.6); Phosphorous 3.7 mg/dL (2.4-5.1)
--- NOTE | 2025-04-20 10:30 | PC.SS ---
Addendum entered by GENNY Perales 04/20/25 15:30: Rounding note: Bipap tomorrow, SS will follow up with new oxygen test note once available and send to [facility]. Addendum entered by GENNY Perales 04/20/25 10:41: BOAT WASHER spoke to bedside nurse Lakia to notify her patient is established with [facility] but they need an updated note. Original Note: BOAT WASHER spoke to Dr. Flores who stated patient may need oxygen once medical clear, BOAT WASHER will follow up to verify if patient is connected to provider. BOAT WASHER spoke to patients daughter in law Melanie who confirmed patient has oxygen at home and it is provided by [facility]. BOAT WASHER notified family that they would need to bring oxygen to the hospitals. BOAT WASHER spoke to Loki at [facility] who confirmed that patient is connected to [facility] for DME walker, vest, oxygen. Loki from [facility] stated that patient would need new prescription if oxygen is 5L and higher, patients oxygen is currently 4L. Loki requested that updated oxygen prescription be sent. Loki stated that if patient is at 4L then they can just increase the oxygen themselves with the equipment they have already.
[2025-04-20] MEDS: FUROSEMIDE INJ 10 MG/ML 4ML VIAL 40 MG IVP ×2 (11:46→17:13)
[2025-04-20 12:25] LABS: Base Excess, Venous 5 (-3-3); O2 Saturation, Venous 54 % (96-97); PCO2, Venous 64 mmHg (36-56); PO2, Venous 30 mmHg (15-58); pH, Venous 7.31 (7.33-7.66)
--- NOTE | 2025-04-20 12:38 | ESPR_ITS ---
Documentation for date of: 04/20/25 Subjective Subjective Interval history: Patient is a pleasant 84-year-old male with a medical history of prostate cancer with mets, primary hypertension, COPD, and dyslipidemia presents to [facility] emergency department on 04/18/2025 with chief complaint of productive cough, congestion, and generalized weakness. Patient reports symptoms have been present for 3 days and have progressively worsened. He was seen by his primary care provider today and given the severity of his symptoms he was sent to the emergency room. Patient accompanied by his daughter. At bedside he endorses relatively severe shortness of breath and productive cough. He endorses subjective fever/chills. He denies headache, chest pain, palpitations, abdominal pain, urinary or GI symptoms. He does state he fell down days prior and has had back pain since he is still able to ambulate. He denies loss of sensation or urinary symptoms. 04/19/2025 patient seen and examined at bedside. pt states that he does not use home oxygen. Patient appears to be comfortable sitting upright and also when seen later patient able to tolerate laying flat on 4 L nasal cannula. Per chart review patient was discharged 621 with plans for p.o. antibiotics for pneumonia seen on chest x-ray however due to communication mixup patient was not able to tow picker prescription and did not take. Patient continues on antibiotics suspected bacterial pneumonia superimposed on COVID pneumonitis. Continue supportive measures downtitrate o2 as tolerated. pt reports that he had fallen on his L hip, BL hip xray, pending read. PT eval pending. 04/20/2025 patient seen and examined at bedside. Patient's son is present. Patient states that he does use oxygen at home when he needs it however does not remember how many liters of oxygen he uses. Patient reports decreased appetite and increased fatigue. today he continues to be on 4 L nasal cannula renal panel notable for bicarb of 31 VBG with pH 7.31 and pCO2 of 64. Placed patient on CPAP at night. Given Lasix 40 twice daily and atorvastatin 10 mg nightly given patient is on contact precautions for COVID infection he is unable to proceed with ambulation test. Exam Vital Signs Temp Pulse Resp BP Pulse Ox O2 Del Method O2 Flow Rate 97.0 F 87 13 142/68 H 99 Room Air 4 04/20/25 08:00 04/20/25 12:00 04/20/25 08:00 04/20/25 11:46 04/20/25 08:00 04/20/25 08:00 04/20/25 07:15 Narrative Exam General: AOx3, no acute distress, able to speak short sentences sentences,laying flat in bed with a couple pillows HEENT: NC/AT, mucous membranes moist, bilateral sclera anicteric Cardiovascular: regular rate and rhythm, S1/S2 present, no murmurs appreciated Pulmonary: breathing comfortably on 4 L NC, clear to auscultation bilaterally, no rales/rhonchi/wheezes Abdominal: obese, soft, non-tender, non-distended, no rebound/guarding, normal bowel sounds present Musculoskeletal: normal ROM, trace edema bilaterally Skin: warm and dry, intact, no rashes Neuro: CN II-XII intact, no focal deficits Objective Labs 04/21/25 06:10 04/21/25 04:25 Labs: Laboratory Results - last 24 hr 04/20/25 04/20/25 06:02 11:55 WBC 4.0 D RBC 3.23 L Hgb 9.0 L Hct 30.5 L MCV 94 MCH 27.9 MCHC 29.5 L RDW Std Deviation 63.7 H Plt Count 74 L D Neut % (Auto) 72 Lymph % (Auto) 13 [place] % (Auto) 2 Eos % (Auto) 1 Baso % (Auto) 0 Neut # (Auto) 2.9 Lymph # (Auto) 0.5 L [place] # (Auto) 0.1 Eos # (Auto) 0.1 Baso # (Auto) 0.0 Immature Gran # (Auto) 0.43 H Absolute Nucleated RBC 0.00 Immature Gran % 11 H Nucleated RBC % 0 VBG pH 7.31 L VBG pCO2 64 H VBG pO2 30 VBG O2 Sat (Dilma) 54 L VBG Base Excess 5 H Sodium 145 Potassium 4.7 Chloride 106 Carbon Dioxide 31.3 H Anion Gap 8 BUN 20 Creatinine 0.9 Estim Creat Clear Calc 74.1 eGFR > 60 BUN/Creatinine Ratio 22 H Glucose 112 H Calculated Osmolality 292 Calcium 8.3 Corrected Calcium 9.0 Phosphorus 3.7 Magnesium 1.9 Total Bilirubin 0.6 AST 18 ALT 9 L Alkaline Phosphatase 83 Total Protein 4.9 L Albumin 3.1 L Globulin 1.8 L Albumin/Globulin Ratio 1.7 Misc Test Result Platelets confirmed ABG Interpretation ABG results: 04/20/25 11:55 VBG pH 7.31 L VBG pCO2 64 H VBG pO2 30 VBG Base Excess 5 H Quality Measures Quality Measures sepsis Current suspected stage: sepsis Possible source: pulmonary Blood cultures ordered: completed in ED Antibiotic ordered: Yes Advance care planning discussed with:: patient and child Assessment & Plan Assessment Current Active Medications: Generic Name Dose Route Start Last Admin Trade Name Freq PRN Reason Stop Dose Admin Acetaminophen 650 mg 04/18/25 18:08 Acetaminophen 325 Mg Tablet PO 05/18/25 18:07 Q6H PRN Fever >101.5 Acetaminophen 650 mg 04/18/25 18:08 Acetaminophen 325 Mg Tablet PO 05/18/25 18:07 Q6H PRN PAIN SCALE 1-3 (mild Albuterol/Ipratropium 3 ml 04/18/25 18:22 Albuterol/Ipratropium (Duoneb) Rt Chaya 3 Ml Nebu INH 05/18/25 18:21 Q2HR PRN SHORTNESS OF BREATH OR WHEEZE Atorvastatin Calcium 10 mg 04/20/25 21:00 Atorvastatin Calcium 10 Mg Tablet PO 05/20/25 20:59 HS BERE Carvedilol 6.25 mg 04/19/25 08:00 04/20/25 08:45 Carvedilol 3.125 Mg Tablet PO 05/19/25 07:59 6.25 mg BIDWM BERE Administration Doxycycline Hyclate 100 mg 04/18/25 21:00 04/20/25 08:45 Doxycycline 100 Mg Tablet PO 04/25/25 20:59 100 mg BID BERE Administration Furosemide 40 mg 04/20/25 11:00 04/20/25 11:46 Furosemide Inj 10 Mg/Ml 4ml Vial IVP 05/20/25 10:59 40 mg BIDD BERE Administration Heparin Sodium (Porcine) 5,000 unit 04/18/25 22:00 04/20/25 05:12 Heparin Sod Inj 5000 Unit/Ml Vial SC 05/02/25 21:59 5,000 unit Q8HR BERE Administration Ceftriaxone Sodium/Dextrose 1 gm in 50 mls @ 100 mls/hr 04/19/25 09:00 04/20/25 08:48 Rocephin/D5w 1gm Iv Premix IV 04/26/25 08:59 100 mls/hr QDAY BERE Administration Ondansetron HCl 4 mg 04/18/25 18:08 Ondansetron Inj 2 Mg/Ml Inj 2 Ml IVP 05/18/25 18:07 Q6H PRN NAUSEA OR VOMITING Protocol Plan Patient is a pleasant 84-year-old male with a medical history of prostate cancer with mets, primary hypertension, COPD, and dyslipidemia presents to [facility] emergency department on 04/18/2025 with chief complaint of productive cough, congestion, and generalized weakness. Patient was found to have bacterial pneumonia with elevated curb 65 and COVID-positive in the setting of prostate cancer and will be admitted to the hospital for IV antibiotics. #Community-acquired pneumonia #COVID Pneumonitis #Pulmonary nodules #respiratory acidosis 2/ #Suspect PAULA vs OHS #COPD (on home oxygen- unknown L ) (on 4L [place] inpatient) - Patient presented with productive cough, congestion, and generalized weakness, LA 2.5, WBC 18.5 (downtrending) - Curb 65 score 2 points and intermediate risk - CXR: Pneumonia at lung bases bilaterally - Chest CT: Pneumonia both upper lobes with pulmonary nodules - Plan: Given patient is immunocompromise with metastatic cancer and elevated curb 65 score, patient needs admission to the hospital for IV antibiotics given the severity of his infection. - IV Rocephin and doxycycline. (04/18-) - Continue supplemental oxygen as needed for comfort, maintain O2 saturation 90% or greater. - Cultures taken and follow-up results when available. No wheezing on exam and low suspicion for COPD exacerbation and no steroids needed for now. Breathing treatments as needed for shortness of breath. - CPAP qhs - Tylenol as needed for fever. - Lasix 40 mg IV BID #Ground-level fall # Transverse fracture of spine - CT abdomen and pelvis revealed nondisplaced fractures of the left 1st and 2nd transverse processes. - XR hips, w severe osteopenia - Plan: No orthopedics available in house although treatment is largely supportive. Pain management as needed. Physical therapy consultation. Follow- up outpatient with orthopedics. # Lactic acidosis- RESOLVED - On admission lactic acid 2.5. --> 2.0 - Most likely type A from infection versus type B from underlying malignancy - Plan: Start IVF LR at 70 cc an hour. # Prostate cancer with mets - Follows at [facility] with Dr. Hill - Plan: PSA 7.75 on admission. Appears to take Xtandi which is not on formulary. Awaiting home medication reconciliation and family advised to bring medicines to the hospital. # Primary hypertension - plan: Resume home Coreg 6.25 mg p.o. twice daily. Patient reports he takes nifedipine as well although awaiting medication reconciliation. HOLDING antihypertensives BP 120s # Dyslipidemia Plan: Continue home atorvastatin 10 mg DVT prophylaxis; heparin Diet: Cardiac CODE STATUS: Full code Dispo: Admit to the hospital for IV antibiotics and managment of acute hypoxic resp failure, cpap tonight Plan discussed with Dr. Mark Dc MD PGY1 Attending Provider Attestation/Addendum I have examined the patient, reviewed labs and imaging findings, discussed the case with the resident(s), and reviewed entered orders. I agree with the plan of care as outlined in this note, with these additional summaries/recommendations: Patient seen at bedside. No acute overnight events. Today patient is noted to be on 4 L nasal cannula with O2 saturation 93%. Patient's son reports he uses home oxygen as needed at nighttime. Discussed with patient and patient's son to obtain pulse oximeter at home to monitor O2 saturation. Patient is currently requiring 4 L at rest. Continue to wean supplemental oxygen as tolerated and case management working with DME supplier to arrange oxygen to home when medically cleared for discharge. Patient will remain hospitalized today as we continue to wean O2 supplementation. Patient admitted for community-acquired pneumonia with elevated curb 65 score and COVID pneumonitis. Continue supportive treatment for COVID. Continue IV antibiotics for superimposed bacterial infection. Leukocytosis improving. Breathing treatments as needed for history of COPD. No wheezing noted on physical exam. Lactic acidosis resolved. Patient had ground-level fall prior to admission that revealed left 1st and 2nd transverse process fractures of spine. Continue pain management and patient will need to follow-up with orthopedics outpatient. Patient was seen by physical therapy who recommended home health although patient and family refused. Resume home diuresis to keep lungs dry. Patient has underlying prostate cancer with metastasis. Outpatient follow-up with oncology. Continue home antihypertensives. Patient updated on the plan and in agreement. All questions answered to satisfaction. Please see residents note for additional details of management. Dr. Mark MD
[2025-04-20] MEDS: ATORVASTATIN CALCIUM 10 MG TABLET PO (21:16)
[2025-04-20] MEDS: ONDANSETRON INJ 2 MG/ML INJ 2 ML 4 MG IVP (22:47)
[2025-04-21] VITALS (15 sets, daily range): BP systolic 122–145; BP diastolic 50–77; PULSE 73–98; RESP 14–22; TEMP 36.1–36.3; O2SAT 95–100
[2025-04-21 05:33] LABS: Basophils # (Auto) 0.0 Thou/mm3 (0.0-0.2); Basophils % (Auto) 3 % (0-2.5); Eosinophils # (Auto) 0.0 Thou/mm3 (0.0-0.5); Eosinophils % (Auto) 2 % (0-10); Hematocrit 28.6 % (41.0-53.0); Immature Granulocytes Auto 0.03 Thou/mm3 (0.00-0.00); Lymphocytes # (Auto) 0.4 Thou/mm3 (1.0-4.8); Lymphocytes % (Auto) 37 % (10-50); Mean Corpuscular HGB Conc 30.8 g/dl (31.0-37.0); Mean Corpuscular Hemoglobin 28.8 pg (25.0-35.0); Mean Corpuscular Volume 94 fL (80-100); Monocytes # (Auto) 0.1 Thou/mm3 (0.0-0.8); Monocytes % (Auto) 9 % (0-12); Neutrophils # (Auto) 0.5 Thou/mm3 (1.8-7.7); Neutrophils % (Auto) 47 % (37-80); Nucleated Red Blood Cell # 0.00 Thou/mm3 (0.00-0.00); Nucleated Red Blood Cell % 0 /100 WBC (0); RDW Standard Deviation 62.4 fL (35.1-43.9); Red Blood Count 3.06 Miln/mm3 (4.50-5.90)
[2025-04-21 05:45] LABS: Hemoglobin 8.8 g/dL (13.5-16.0); Platelet Count 48 Thou/mm3 (140-440); White Blood Count 1.1 Thou/mm3 (3.8-10.6)
[2025-04-21] MEDS: FUROSEMIDE INJ 10 MG/ML 4ML VIAL 40 MG IVP ×2 (05:49→17:20)
[2025-04-21 06:12] LABS: Alanine Aminotransferase 9 U/L (10-49); Albumin, Serum 3.0 gm/dL (3.4-4.8); Albumin/Globulin Ratio 1.9 (1.2-2.2); Alkaline Phosphatase 77 U/L (46-116); Anion Gap 8 (7-16); Aspartate Amino Transferase 17 U/L (0-34); BUN/Creatinine Ratio 22 Ratio (12-20); Bilirubin,Total 0.4 mg/dL (0.3-1.2); Blood Urea Nitrogen 20 mg/dL (9-23); Calcium 8.4 mg/dL (8.3-10.6); Calcium (Corrected) 9.2 mg/dL (8.5-10.1); Carbon Dioxide 32.3 mMol/L (20.0-31.0); Chloride 105 mMol/L (98-107); Creatinine (Component) 0.9 mg/dL (0.6-1.3); Estimated Creatinine Clearance 74.1 mL/min (>60); Globulin 1.6 gm/dL (2.3-3.5); Glucose 108 mg/dL (74-106); Magnesium 1.8 mg/dL (1.6-2.6); Osmolality,Calculated 292 (275-295); Phosphorous 4.0 mg/dL (2.4-5.1); Potassium 4.6 mMol/L (3.4-5.1); Sodium 145 mMol/L (136-145); Total Protein 4.6 gm/dL (5.7-8.2); eGFR > 60 See Note
[2025-04-21 06:36] LABS: Basophils # (Auto) 0.1 Thou/mm3 (0.0-0.2); Basophils % (Auto) 4 % (0-2.5); Eosinophils # (Auto) 0.0 Thou/mm3 (0.0-0.5); Eosinophils % (Auto) 2 % (0-10); Hematocrit 30.7 % (41.0-53.0); Hemoglobin 9.2 g/dL (13.5-16.0); Immature Granulocytes Auto 0.11 Thou/mm3 (0.00-0.00); Lymphocytes # (Auto) 0.5 Thou/mm3 (1.0-4.8); Lymphocytes % (Auto) 36 % (10-50); Mean Corpuscular HGB Conc 30.0 g/dl (31.0-37.0); Mean Corpuscular Hemoglobin 28.0 pg (25.0-35.0); Mean Corpuscular Volume 94 fL (80-100); Monocytes # (Auto) 0.1 Thou/mm3 (0.0-0.8); Monocytes % (Auto) 9 % (0-12); Neutrophils # (Auto) 0.5 Thou/mm3 (1.8-7.7); Neutrophils % (Auto) 41 % (37-80); Nucleated Red Blood Cell # 0.00 Thou/mm3 (0.00-0.00); Nucleated Red Blood Cell % 0 /100 WBC (0); Platelet Count 82 Thou/mm3 (140-440); RDW Standard Deviation 62.1 fL (35.1-43.9); Red Blood Count 3.28 Miln/mm3 (4.50-5.90)
[2025-04-21 07:00] LABS: White Blood Count 1.3 Thou/mm3 (3.8-10.6)
[2025-04-21 07:47] LABS: Slide Review Platelets confirmed
[2025-04-21] MEDS: DOXYCYCLINE 100 MG TABLET PO ×2 (08:09→21:32)
[2025-04-21] MEDS: cefTRIAXone/D5w 1gm IV premix 1 GM/50 ML BAG IV (08:10)
[2025-04-21] MEDS: Magnesium Sulfate 4 GM Ivpb 4 GM/50 ML BAG IV (09:55)
--- NOTE | 2025-04-21 13:38 | ESPR_ITS ---
Documentation for date of: 04/21/25 Subjective Subjective Interval history: Patient is a pleasant 84-year-old male with a medical history of prostate cancer with mets, primary hypertension, COPD, and dyslipidemia presents to [facility] emergency department on 04/18/2025 with chief complaint of productive cough, congestion, and generalized weakness. Patient reports symptoms have been present for 3 days and have progressively worsened. He was seen by his primary care provider today and given the severity of his symptoms he was sent to the emergency room. Patient accompanied by his daughter. At bedside he endorses relatively severe shortness of breath and productive cough. He endorses subjective fever/chills. He denies headache, chest pain, palpitations, abdominal pain, urinary or GI symptoms. He does state he fell down days prior and has had back pain since he is still able to ambulate. He denies loss of sensation or urinary symptoms. 04/19/2025 patient seen and examined at bedside. pt states that he does not use home oxygen. Patient appears to be comfortable sitting upright and also when seen later patient able to tolerate laying flat on 4 L nasal cannula. Per chart review patient was discharged 621 with plans for p.o. antibiotics for pneumonia seen on chest x-ray however due to communication mixup patient was not able to cloth picker prescription and did not take. Patient continues on antibiotics suspected bacterial pneumonia superimposed on COVID pneumonitis. Continue supportive measures downtitrate o2 as tolerated. pt reports that he had fallen on his L hip, BL hip xray, pending read. PT eval pending. 04/20/2025 patient seen and examined at bedside. Patient's son is present. Patient states that he does use oxygen at home when he needs it however does not remember how many liters of oxygen he uses. Patient reports decreased appetite and increased fatigue. today he continues to be on 4 L nasal cannula renal panel notable for bicarb of 31 VBG with pH 7.31 and pCO2 of 64. Placed patient on CPAP at night. Given Lasix 40 twice daily and atorvastatin 10 mg nightly given patient is on contact precautions for COVID infection he is unable to proceed with ambulation test. 04/21/2025: Patient seen and examined at bedside patient's home program done and [id number]. Supplemental oxygen reduced from 4 L to 1 L while in the room saturating well. Patient endorses increased fatigue and decreased appetite. Patient did not use CPAP last night continued with nasal cannula. Of note patient white count 1.3 today, contacted Dr. Phipps who recommended giving 480 mcg of Neupogen subcutaneously. Patient and family amenable to home with home health. Unable to ambulate patient in hallway secondary to COVID contact precautions. Exam Vital Signs Temp Pulse Resp BP Pulse Ox O2 Del Method O2 Flow Rate 97.0 F 77 20 132/59 H 96 Nasal Cannula 3 04/21/25 12:00 04/21/25 12:04/21/25 12:00 04/21/25 12:04/21/25 12:04/21/25 12:04/21/25 12:00 Narrative Exam General: AOx3, no acute distress, able to speak short sentences sentences,laying flat in bed with a couple pillows HEENT: NC/AT, mucous membranes moist, bilateral sclera anicteric Cardiovascular: regular rate and rhythm, S1/S2 present, no murmurs appreciated Pulmonary: breathing comfortably on 2-3 L NC, clear to auscultation bilaterally, no rales/rhonchi/wheezes Abdominal: obese, soft, non-tender, non-distended, no rebound/guarding, normal bowel sounds present Musculoskeletal: normal ROM, trace edema bilaterally Skin: warm and dry, intact, no rashes Neuro: CN II-XII intact, no focal deficits Objective Labs 04/21/25 06:10 04/21/25 04:25 Labs: Laboratory Results - last 24 hr 04/21/25 04/21/25 04:25 06:10 WBC 1.1 L* D 1.3 L* RBC 3.06 L 3.28 L Hgb 8.8 L 9.2 L Hct 28.6 L 30.7 L MCV 94 94 MCH 28.8 28.0 MCHC 30.8 L 30.0 L RDW Std Deviation 62.4 H 62.1 H Plt Count 48 L D 82 L D Neut % (Auto) 47 41 Lymph % (Auto) 37 36 [place] % (Auto) 9 9 Eos % (Auto) 2 2 Baso % (Auto) 3 H 4 H Neut # (Auto) 0.5 L 0.5 L Lymph # (Auto) 0.4 L 0.5 L [place] # (Auto) 0.1 0.1 Eos # (Auto) 0.0 0.0 Baso # (Auto) 0.0 0.1 Immature Gran # (Auto) 0.03 H 0.11 H Absolute Nucleated RBC 0.00 0.00 Immature Gran % 3 H 9 H Nucleated RBC % 0 0 Sodium 145 Potassium 4.6 Chloride 105 Carbon Dioxide 32.3 H Anion Gap 8 BUN 20 Creatinine 0.9 Estim Creat Clear Calc 74.1 eGFR > 60 BUN/Creatinine Ratio 22 H Glucose 108 H Calculated Osmolality 292 Calcium 8.4 Corrected Calcium 9.2 Phosphorus 4.0 Magnesium 1.8 Total Bilirubin 0.4 AST 17 ALT 9 L Alkaline Phosphatase 77 Total Protein 4.6 L Albumin 3.0 L Globulin 1.6 L Albumin/Globulin Ratio 1.9 Misc Test Result Platelets confirmed ABG Interpretation ABG results: 04/20/25 11:55 VBG pH 7.31 L VBG pCO2 64 H VBG pO2 30 VBG Base Excess 5 H Quality Measures Quality Measures sepsis Current suspected stage: sepsis Possible source: pulmonary Blood cultures ordered: completed in ED Antibiotic ordered: Yes Advance care planning discussed with:: patient and child Assessment & Plan Assessment Current Active Medications: Generic Name Dose Route Start Last Admin Trade Name Freq PRN Reason Stop Dose Admin Acetaminophen 650 mg 04/18/25 18:08 Acetaminophen 325 Mg Tablet PO 05/18/25 18:07 Q6H PRN Fever >101.5 Acetaminophen 650 mg 04/18/25 18:08 Acetaminophen 325 Mg Tablet PO 05/18/25 18:07 Q6H PRN PAIN SCALE 1-3 (mild Albuterol/Ipratropium 3 ml 04/18/25 18:22 Albuterol/Ipratropium (Duoneb) Rt Chaya 3 Ml Nebu INH 05/18/25 18:21 Q2HR PRN SHORTNESS OF BREATH OR WHEEZE Atorvastatin Calcium 10 mg 04/20/25 21:00 04/20/25 21:16 Atorvastatin Calcium 10 Mg Tablet PO 05/20/25 20:59 10 mg HS BERE Administration Carvedilol 6.25 mg 04/19/25 08:00 04/21/25 08:09 Carvedilol 3.125 Mg Tablet PO 05/19/25 07:59 6.25 mg BIDWM BERE Administration Doxycycline Hyclate 100 mg 04/18/25 21:00 04/21/25 08:09 Doxycycline 100 Mg Tablet PO 04/25/25 20:59 100 mg BID BERE Administration Furosemide 40 mg 04/20/25 11:00 04/21/25 05:49 Furosemide Inj 10 Mg/Ml 4ml Vial IVP 05/20/25 10:59 40 mg BIDD BERE Administration Heparin Sodium (Porcine) 5,000 unit 04/18/25 22:00 04/21/25 13:37 Heparin Sod Inj 5000 Unit/Ml Vial SC 05/02/25 21:59 Not Given Q8HR BERE Ceftriaxone Sodium/Dextrose 1 gm in 50 mls @ 100 mls/hr 04/19/25 09:00 04/21/25 08:10 Rocephin/D5w 1gm Iv Premix IV 04/26/25 08:59 100 mls/hr QDAY BERE Administration Ondansetron HCl 4 mg 04/18/25 18:08 04/20/25 22:47 Ondansetron Inj 2 Mg/Ml Inj 2 Ml IVP 05/18/25 18:07 4 mg Q6H PRN Administration NAUSEA OR VOMITING Protocol Plan Patient is a pleasant 84-year-old male with a medical history of prostate cancer with mets, primary hypertension, COPD, and dyslipidemia presents to [facility] emergency department on 04/18/2025 with chief complaint of productive cough, congestion, and generalized weakness. Patient was found to have bacterial pneumonia with elevated curb 65 and COVID-positive in the setting of prostate cancer and will be admitted to the hospital for IV antibiotics, now with leukopenia given philgastrim per Dr. Phipps recommendations. pt and family amenable to home with home health. #Leukopenia likely secondary to chemotherapy 04/15 Discussed patient case with Dr. Phipps who recommended giving patient 1-2 doses of philgastrim 480mcg subcutaneously WBC 1.3. low suspicion of aplastic covid, likely secondary to recent chemo treatment on 04/15. afebrile. Plan - Philgastrim 480mcg SC x1 (consider giving additional dose tomorrow) #Community-acquired pneumonia #COVID Pneumonitis #Pulmonary nodules #Acute hypercarbic respiratory failure #Suspect PAULA vs OHS #COPD (on home oxygen- unknown L) (on 2-4L [place] inpatient) - Patient presented with productive cough, congestion, and generalized weakness, LA 2.5, WBC 18.5 (downtrending) - Curb 65 score 2 points and intermediate risk - CXR: Pneumonia at lung bases bilaterally - Chest CT: Pneumonia both upper lobes with pulmonary nodules - Plan: - IV Rocephin and doxycycline. (04/18-) - Continue supplemental oxygen as needed for comfort, maintain O2 saturation 90% or greater. - Cultures taken and follow-up results when available. No wheezing on exam and low suspicion for COPD exacerbation and no steroids needed for now. Breathing treatments as needed for shortness of breath. - CPAP qhs - Tylenol as needed for fever. - Lasix 40 mg IV BID #Ground-level fall # Transverse fracture of spine - CT abdomen and pelvis revealed nondisplaced fractures of the left 1st and 2nd transverse processes. - XR hips, w severe osteopenia - Plan: No orthopedics available in house although treatment is largely supportive. Pain management as needed. Physical therapy consultation. Follow- up outpatient with orthopedics. - plan to discharge with home health. pt and family do not want rehab, pt lives with his son who cares for him. # Lactic acidosis- RESOLVED - On admission lactic acid 2.5. --> 2.0 - Most likely type A from infection versus type B from underlying malignancy - Plan: Start IVF LR at 70 cc an hour. # Prostate cancer with mets - Follows at [facility] with Dr. Hill - Plan: PSA 7.75 on admission. Appears to take Xtandi which is not on formulary. Awaiting home medication reconciliation and family advised to bring medicines to the hospital. # Primary hypertension - plan: Resume home Coreg 6.25 mg p.o. twice daily. Patient reports he takes nifedipine as well although awaiting medication reconciliation. HOLDING antihypertensives BP 120s # Dyslipidemia Plan: Continue home atorvastatin 10 mg DVT prophylaxis; heparin Diet: Cardiac CODE STATUS: Full code Dispo: Admit to the hospital for IV antibiotics and management of acute hypoxic resp failure, cpap tonight Plan discussed with Dr. Mark Dc MD PGY1 Attending Provider Attestation/Addendum I have examined the patient, reviewed labs and imaging findings, discussed the case with the resident(s), and reviewed entered orders. I agree with the plan of care as outlined in this note, with these additional summaries/recommendations: Patient seen at bedside. No acute overnight events. Patient has no new symptoms to report today and states overall he feels better. Hematology panel today shows leukopenia and neutropenia. He is afebrile. Medical team discussed patient's case with oncology who recommends starting Neupogen x 2 days. Repeat hematology panel in AM. Today patient is noted to be on 3 L nasal cannula with O2 saturation 96%. On further history it appears patient uses 3 to 4 L at baseline. Discussed with patient and patient's son to obtain pulse oximeter at home to monitor O2 saturation. Continue to wean supplemental oxygen as tolerated and case management working with DME supplier to arrange oxygen to home when medically cleared for discharge. Patient admitted for community-acquired pneumonia with elevated curb 65 score and COVID pneumonitis. Continue supportive treatment for COVID. Patient did receive 1 dose of remdesivir although did not complete treatment course given mild symptoms and no remdesivir available onsite. Continue IV antibiotics for superimposed bacterial infection. Breathing treatments as needed for history of COPD. Minimal hypercapnia noted on VBG. No wheezing noted on physical exam. Lactic acidosis resolved. Patient had ground-level fall prior to admission that revealed left 1st and 2nd transverse process fractures of spine. Continue pain management and patient will need to follow-up with orthopedics outpatient. Patient was seen by physical therapy who recommended home health although patient initially refused but now in agreement. Continue home diuresis to keep lungs dry. Patient has underlying prostate cancer with metastasis. Outpatient follow-up with oncology. Continue home antihypertensives. Patient updated on the plan and in agreement. All questions answered to satisfaction. Please see residents note for additional details of management. Dr. Mark MD
[2025-04-21] MEDS: FILGRASTIM INJ (ZARXIO) 480 MCG/0.8 ML SYRINGE SC (13:59)
[2025-04-21] MEDS: ATORVASTATIN CALCIUM 10 MG TABLET PO (21:32)
[2025-04-22] VITALS (7 sets, daily range): BP systolic 109–134; BP diastolic 58–71; PULSE 72–82; RESP 16–25; TEMP 35.6–36.2; O2SAT 96–100
[2025-04-22] MEDS: FUROSEMIDE INJ 10 MG/ML 4ML VIAL 40 MG IVP (05:27)
[2025-04-22 08:04] LABS: Basophils # (Auto) 0.0 Thou/mm3 (0.0-0.2); Basophils % (Auto) 1 % (0-2.5); Eosinophils # (Auto) 0.0 Thou/mm3 (0.0-0.5); Eosinophils % (Auto) 1 % (0-10); Hematocrit 28.7 % (41.0-53.0); Immature Granulocytes Auto 0.03 Thou/mm3 (0.00-0.00); Lymphocytes # (Auto) 0.5 Thou/mm3 (1.0-4.8); Lymphocytes % (Auto) 24 % (10-50); Mean Corpuscular HGB Conc 30.3 g/dl (31.0-37.0); Mean Corpuscular Hemoglobin 28.5 pg (25.0-35.0); Mean Corpuscular Volume 94 fL (80-100); Monocytes # (Auto) 0.3 Thou/mm3 (0.0-0.8); Monocytes % (Auto) 12 % (0-12); Neutrophils # (Auto) 1.3 Thou/mm3 (1.8-7.7); Neutrophils % (Auto) 61 % (37-80); Nucleated Red Blood Cell # 0.02 Thou/mm3 (0.00-0.00); Nucleated Red Blood Cell % 1 /100 WBC (0); RDW Standard Deviation 60.9 fL (35.1-43.9); Red Blood Count 3.05 Miln/mm3 (4.50-5.90); White Blood Count 2.1 Thou/mm3 (3.8-10.6)
[2025-04-22] MEDS: DOXYCYCLINE 100 MG TABLET PO (08:08)
[2025-04-22] MEDS: cefTRIAXone/D5w 1gm IV premix 1 GM/50 ML BAG IV (08:08)
[2025-04-22 08:26] LABS: Alanine Aminotransferase 9 U/L (10-49); Albumin, Serum 3.0 gm/dL (3.4-4.8); Albumin/Globulin Ratio 1.7 (1.2-2.2); Alkaline Phosphatase 82 U/L (46-116); Anion Gap 8 (7-16); Aspartate Amino Transferase 15 U/L (0-34); BUN/Creatinine Ratio 27 Ratio (12-20); Bilirubin,Total 0.5 mg/dL (0.3-1.2); Blood Urea Nitrogen 27 mg/dL (9-23); Calcium 8.8 mg/dL (8.3-10.6); Calcium (Corrected) 9.6 mg/dL (8.5-10.1); Carbon Dioxide 35.7 mMol/L (20.0-31.0); Chloride 101 mMol/L (98-107); Creatinine (Component) 1.0 mg/dL (0.6-1.3); Estimated Creatinine Clearance 66.7 mL/min (>60); Globulin 1.8 gm/dL (2.3-3.5); Glucose 106 mg/dL (74-106); Magnesium 1.9 mg/dL (1.6-2.6); Osmolality,Calculated 293 (275-295); Phosphorous 4.0 mg/dL (2.4-5.1); Potassium 4.4 mMol/L (3.4-5.1); Sodium 145 mMol/L (136-145); Total Protein 4.8 gm/dL (5.7-8.2); eGFR > 60 See Note
[2025-04-22 08:51] LABS: Hemoglobin 8.7 g/dL (13.5-16.0); Platelet Count 68 Thou/mm3 (140-440)
[2025-04-22 11:05] LABS: Slide Review Platelets confirmed
--- NOTE | 2025-04-22 17:06 | ESDS_ITS ---
Planned Discharge Date 04/22/25 DS: Providers Provider Date of admission: 04/18/25 20:18 Primary care physician: Ben Marlow PA-C Admitting Provider: Jerry Flores MD Attending Provider on Admission: Jerry Flores MD Consults: 04/18/25 17:23 Referral - Manager Performance Improvement Stat Service Needed for Transfer: renal transplant team Addl Comments:: 67 yo with fever, diarrhea, elevated procalcitonin and elevated Cr of 1.7. 04/18/25 18:31 Referral Physical Therapy Routine Comment: Physician Instructions: Attending Provider on DC: Min Courtney DO Discharging Provider: Min Courtney DO DS: Diagnosis Problem List Completed Was Problem List Reviewed/Reconciled?: Yes Hospital Course Hospital Course Hospital course: Patient is 84-year-old male with a medical history of prostate cancer with mets, primary hypertension, COPD, and dyslipidemia presents to [facility] emergency department on 04/18/2025 with chief complaint of productive cough, congestion, and generalized weakness. Patient reported symptoms have been present for 3 days and have progressively worsened. He was seen by his primary care provider and given the severity of his symptoms he was sent to the emergency room. Patient was admitted for treatment of CAP, COVID pneumonitis with IV antibiotics. CT chest showed Pneumonia both upper lobes with pulmonary nodules. CT A/P revealed nondisplaced fractures of the left 1st and 2nd transverse processes. Patient and family were counseled to follow up outpatient. Elevated lactic acidosis (2.5) resolved with fluids. Supportive treatment was continued. During hospitalization, WBCs had downtrended to 1.3. Patient's oncologist who he follows closely with, Dr. Phipps recommended to have patient dosed x 1 of Neupogen. Repeat WBC subsequent day showed improvement to 2.1. He has completed full course of IV antibiotics. Oxygen requirements improved and able to wean patient's oxygen requirements. Patient was assessed by physical therapy who had recommended home health however family did refuse. Should follow-up closely with oncology after discharge. He is now in stable condition and ready for discharge. Discharge instructions: Please see your PCP in 1 week Please follow up with Dr. Phipps, your oncologist. Please take your home medications as prescribed. Please return to the ED if your symptoms worsen Hospital diagnoses: #Leukopenia #Community-acquired pneumonia #COVID Pneumonitis #Pulmonary nodules #Acute hypercarbic respiratory failure #Suspect PAULA vs OHS #COPD #Ground-level fall # Transverse fracture of spine # Lactic acidosis- RESOLVED # Primary hypertension # Dyslipidemia The patient's management plan was discussed with my attending physician Dr. Courtney. Anitra Calderon MD, PGY-2 Time Spent with Patient Time attestation: Total time spent providing and/or coordinating discharge services: Time spent: Greater than 30 minutes Exam Vital Signs Temp Pulse Resp BP Pulse Ox O2 Del Method O2 Flow Rate 97.1 F 72 20 109/66 96 Nasal Cannula 3 04/22/25 12:00 04/22/25 12:00 04/22/25 12:04/22/25 12:04/22/25 12:04/22/25 12:04/22/25 12:00 Narrative Exam General: AOx3, no acute distress, able to speak short sentences sentences,laying flat in bed with a couple pillows HEENT: NC/AT, mucous membranes moist, bilateral sclera anicteric Cardiovascular: regular rate and rhythm, S1/S2 present, no murmurs appreciated Pulmonary: breathing comfortably on 2-3 L NC, clear to auscultation bilaterally, no rales/rhonchi/wheezes Abdominal: obese, soft, non-tender, non-distended, no rebound/guarding, normal bowel sounds present Musculoskeletal: normal ROM, trace edema bilaterally Skin: warm and dry, intact, no rashes Neuro: CN II-XII intact, no focal deficits Discharge Plan Plan Patient Disposition: HOME (Self Care) Patient condition on transfer: Stable Prescriptions/Referrals Prescriptions/Med Rec: Continued furosemide 40 mg tablet 40 mg PO BID carvedilol 3.125 mg tablet 3.125 mg PO BID Rx Instructions: must administer with a meal/food losartan 100 mg tablet 100 mg PO DAILY Patient Comments: take 1 tablet by mouth once daily Xtandi 80 mg tablet 80 mg PO BID metolazone 5 mg tablet 5 mg PO ACBR Patient Comments: TAKE 1 TABLET BY MOUTH BEFORE BREAKFAST IN THE MORNING Nissa-Sachin 0.8 mg tablet 1 tab PO QDAY Patient Comments: TAKE 1 TABLET BY MOUTH ONCE A DAY prochlorperazine maleate 5 mg tablet 5 mg PO Q6H PRN (Reason: nausea and vomiting) Patient Comments: take 1 tablet by mouth every 6 hours if needed for nausea ondansetron 8 mg tablet,disintegrating 8 mg PO Q8H PRN (Reason: nausea and vomiting) Patient Comments: dissolve 1 tablet on top of the tongue every 8 hours if needed for nausea atorvastatin 10 mg tablet 10 mg PO QDAY Patient Comments: take 1 tablet by mouth once daily for 3 MONTHS Referrals: Maxi Phipps MD [Physician, Hematology & Oncology] Ben Marlow PA-C [Primary Care Provider] Patient/Caregiver Discharge Instructions Other Discharge Activity Instructions:: Please see your PCP in 1 week Please follow up with Dr. Phipps, your oncologist. Please take your home medications as prescribed. Please return to the ED if your symptoms worsen Education Materials: Immunocompromised Patient Dc, ED Shortness of Breath (Dyspnea) Print Language: Ethiopian Stand Alone Forms: Diana Award Info., Patient Portal Info Letter Discharge Order Discharge Orders: Discharge (Routine); Ordered 04/22/25 Ordered By: Anitra Calderon Quality Discharge Quality Measures VTE prophylaxis Attestestation MD Attestation I have discussed and was present for the essential components of the discharge history, physical examination, diagnosis, and discharge treatment plan with the resident. I agree with the patient's discharge care as documented by the resident and amended herein by me. Jose Courtney DO. The patient understood all discharge instructions, all questions were answered satisfactorily. The patient was instructed to return to the Emergency Department is symptoms worsened or persisted. Although this document has been carefully reviewed, there may still be some phonetic and other typographical errors. These errors are purely grammatical due to imperfections in the software program and should not be construed in any way to compromise the substance of the patient's medical care during this visit.
== END 2025-04-22 13:34 | disposition home or self-care (01) | DRG 177 ==
LOC: SERX 17:42 → SERHOLD 21:13 → S3SX 23:45
PROVIDERS: Nurse Practitioner Family; Admitting Provider Student in an Organized Health Care Education/Training Program; Emergency Provider Family Medicine; PCP Physician Assistant; Visit Provider Student in an Organized Health Care Education/Training Program
DX: U07.1 COVID-19 (principal); J12.82 Pneumonia due to coronavirus disease 2019; J15.9 Unspecified bacterial pneumonia; J96.02 Acute respiratory failure with hypercapnia; J44.0 Chronic obstructive pulmonary disease with (acute) lower respiratory infection; C79.9 Secondary malignant neoplasm of unspecified site; E87.29 Other acidosis; S12.000A Unspecified displaced fracture of first cervical vertebra, initial encounter for closed fracture; S12.100A Unspecified displaced fracture of second cervical vertebra, initial encounter for closed fracture; E78.5 Hyperlipidemia, unspecified; I10 Essential (primary) hypertension; C61 Malignant neoplasm of prostate; M85.80 Other specified disorders of bone density and structure, unspecified site; Z99.81 Dependence on supplemental oxygen; W18.30XA Fall on same level, unspecified, initial encounter; Z79.899 Other long term (current) drug therapy; Z85.46 Personal history of malignant neoplasm of prostate
CPT/HCPCS: 36415; 71046; 71250; 73521; 74176; 80053; 81001; 82803; 83605; 83735; 83880; 84100; 84145; 84484; 85025; 85610; 85730; 87040; 87400; 87811; 93005; 93225; 94640; 94664; 96361; 96374; 97162; 99284; J0696; J1644; J1938; J2405; J3475; J7030; J7120; Q5101; A9270

== ENCOUNTER 2025-05-12 16:58 | Inpatient (IN) | payer MEDICARE, MEDICAID, SELFPAY ==
[2025-05-12] VITALS (11 sets, daily range): BP systolic 117–159; BP diastolic 60–99; PULSE 85–109; RESP 14–85; TEMP 36.8–38.9; O2SAT 85–100; BMI 42.9
--- NOTE | 2025-05-12 17:27 | PD.EDRME ---
Rapid Medical Screening Exam E Arrival date/time: 05/12/25 16:58 84-year-old male with a history of hyperlipidemia, hypertension, prostate cancer presents to the emergency room with a chief complaint of fever, body aches, shortness of breath x 3 days I have greeted and performed a focused initial assessment of this patient. A comprehensive ED assessment and evaluation of the patient, analysis of all test results, and completion of the medical decision making process will be conducted by additional ED providers. Chief Complaint: Fever Time Seen by Provider: 05/12/25 17:16 Vital signs: Vital Signs Temperature 102.0 F H 05/12/25 17:22 Pulse Rate 109 H 05/12/25 17:22 Respiratory Rate 20 05/12/25 17:22 Blood Pressure 117/82 05/12/25 17:22 Pulse Oximetry (%) 85 L 05/12/25 17:22 Oxygen Delivery Method Room Air 05/12/25 17:22 Vital signs reviewed by provider: Yes
[2025-05-12 17:44] LABS: Lactate (Lactic Acid) 1.4 mMol/L (0.4-2.0)
--- NOTE | 2025-05-12 17:47 | EKG_ITS ---
[facility] Test Date: 2025-05-12 Pat Name: DERRICK ALVARADO Department: Room: - Gender: Male [id number] Developer: : [id number] Requested By: Scottie Ashton Order Number: [id number] Reading MD: Scottie Ashton Measurements Intervals Ash Rate: 96 P: 14 OK: 230 QRS: 52 QRSD: 98 T: 49 QT: 346 QTc: 439 Interpretive Statements SINUS RHYTHM WITH MARKED SINUS ARRHYTHMIA WITH FIRST DEGREE AV BLOCK INCOMPLETE RIGHT BUNDLE BRANCH BLOCK [90+ ms QRS DURATION, TERMINAL R IN V1/V2, 40+ ms S IN I/aVL/V4/V5/V6] Compared to ECG 04/20/2025 01:39:42 Incomplete right bundle-branch block now present Intraventricular conduction delay no longer present /store/S0/[id number]/ecg/[id number].pdf
--- NOTE | 2025-05-12 17:48 | XR_ITS ---
Examination: AP chest single view Technique: Sitting portable AP chest single view Date and time: May 12, 2025, 1751 hrs. Indications: Sepsis protocol Findings: Pneumonia in the right mid lung zone, pneumonia both bases Mild to moderate enlargement cardiac contour Prominent central pulmonary arteries Right internal jugular Port-A-Cath tip satisfactory position Prominent osteopenia Impression: Significant bilateral pneumonia
--- NOTE | 2025-05-12 17:49 | PD.EDADULT ---
ED General RME/HPI General Chief complaint: Fever Stated complaint: FEVER, LETHARGIC, FEELING BAD , CHEMO LAST WEEK Time Seen by Provider: 05/12/25 17:16 Arrival date/time: 05/12/25 16:58 RME / HPI RME / HPI narrative: 05/12/25 16:58 84-year-old male with a history of hyperlipidemia, hypertension, prostate cancer presents to the emergency room with a chief complaint of fever, body aches, shortness of breath x 3 days I have greeted and performed a focused initial assessment of this patient. A comprehensive ED assessment and evaluation of the patient, analysis of all test results, and completion of the medical decision making process will be conducted by additional ED providers. Related Data Home Medications ?Medication ?Instructions ?Recorded ?Confirmed carvedilol 3.125 mg tablet 3.125 mg PO BID 11/04/21 04/19/25 furosemide 40 mg tablet 40 mg PO BID 11/04/21 04/19/25 atorvastatin 10 mg tablet 10 mg PO QDAY 10/20/22 04/19/25 enzalutamide 80 mg tablet (Xtandi) 80 mg PO BID 12/25/24 04/19/25 losartan 100 mg tablet 100 mg PO DAILY 12/25/24 04/19/25 metolazone 5 mg tablet 5 mg PO ACBR 04/19/25 04/19/25 ondansetron 8 mg disintegrating 8 mg PO Q8H PRN nausea and vomiting 04/19/25 04/19/25 tablet prochlorperazine maleate 5 mg 5 mg PO Q6H PRN nausea and vomiting 04/19/25 04/19/25 tablet vitamin B complex-vitamin C-folic 1 tab PO QDAY 04/19/25 04/19/25 acid 0.8 mg tablet (Nissa-Sachin) Allergies Allergy/AdvReac Type Severity Reaction Status Date / Time No Known Allergies Allergy Verified 05/12/25 17:01 Course Course Course Narrative: Patient's case clinical presentation past medical history laboratory results and imaging presented to Dr. Rodriguez, attending who agrees to accept the patient for admission for fever leukopenia pneumonia. Hypoxemia Quality Measures none Orders Category Date Time Status Admit to Inpatient Status Routine Admission 05/12/25 20:58 Active Patient Condition Routine Admission 05/12/25 20:58 Ordered Bedside COVID-19 Antigen Test NOW Care 05/12/25 17:27 Active Bedside Influenza A&B Antigen Test NOW Care 05/12/25 20:24 Completed Administrative Support Manager STAT Care 05/12/25 17:47 Active Continuous Pulse Oximetry STAT Care 05/12/25 17:47 Completed EKG (ED ONLY) *Do not use* NOW Care 05/12/25 17:47 Completed Insert IV NOW Care 05/12/25 17:47 Active NPO STAT Care 05/12/25 17:47 Active Notify provider NEEDED Care 05/12/25 20:58 Active Strict Intake and Output Routine Care 05/12/25 17:47 Ordered EKG (ED Only) Stat Exams 05/12/25 17:47 Draft XR chest 1V Stat Exams 05/12/25 17:48 Completed B-Type Natriuretic Peptide Stat Lab 05/12/25 17:40 Completed Blood Culture (Lab) Stat Lab 05/12/25 17:40 Received CBC AM DRAW Lab 05/13/25 05:00 Ordered CBC AM DRAW Lab 05/14/25 05:00 Ordered CBC AM DRAW Lab 05/15/25 05:00 Ordered CBC Stat Lab 05/12/25 17:40 Completed CMP [Comprehensive Metabolic Panel] Stat Lab 05/12/25 17:40 Completed Comprehensive Metabolic Panel AM DRAW Lab 05/13/25 05:00 Ordered Comprehensive Metabolic Panel AM DRAW Lab 05/14/25 05:00 Ordered Comprehensive Metabolic Panel AM DRAW Lab 05/15/25 05:00 Ordered LDH (Lactate Dehydrogenase) Stat Lab 05/12/25 17:40 Completed Lactate (Lactic Acid) Stat Lab 05/12/25 17:40 Completed Lipase Stat Lab 05/12/25 17:40 Completed Magnesium AM DRAW Lab 05/13/25 05:00 Ordered Magnesium AM DRAW Lab 05/14/25 05:00 Ordered Magnesium AM DRAW Lab 05/15/25 05:00 Ordered Magnesium Stat Lab 05/12/25 17:40 Completed Partial Thromboplastin Time Stat Lab 05/12/25 17:40 Completed Phosphorous AM DRAW Lab 05/13/25 05:00 Ordered Phosphorous AM DRAW Lab 05/14/25 05:00 Ordered Phosphorous AM DRAW Lab 05/15/25 05:00 Ordered Phosphorous Stat Lab 05/12/25 17:40 Completed Procalcitonin Stat Lab 05/12/25 17:40 Completed Prothrombin Time with INR Stat Lab 05/12/25 17:40 Completed Troponin I Stat Lab 05/12/25 17:40 Completed UA [Urinalysis] Stat Lab 05/12/25 18:36 Completed Urinalysis, C/S if Indicated Stat Lab 05/12/25 18:36 Completed Urine Culture Stat Lab 05/12/25 18:36 Received Acetaminophen Tab [Tylenol Tab] Med 05/12/25 20:58 Ordered 650 mg PO Q6H PRN Cefepime Inj [Maxipime Inj] 2 gm Med 05/12/25 21:15 Ordered SODIUM CHLORIDE 0.9% (Popper) [Ns 0.9% (P)] 50 ml IV Q8H Piper/Tazo 3.375 gm Premix [Zosyn] Med 05/12/25 17:51 Discontinued 3.375 gm in 50 ml IV X1 Vancomycin Pharmacy to Dose Med 05/13/25 09:00 Ordered 1 each IV QDAY Code Status Routine Oth 05/12/25 20:58 Ordered Oxygen Delivery NOW RT 05/12/25 17:47 Active Vital Signs Vital signs: Vital Signs Temperature 102.0 F H 05/12/25 17:22 Pulse Rate 109 H 05/12/25 17:22 Respiratory Rate 20 05/12/25 17:22 Blood Pressure 117/82 05/12/25 17:22 Pulse Oximetry (%) 85 L 05/12/25 17:22 Oxygen Delivery Method Room Air 05/12/25 17:22 Discharge Plan Plan Patient Disposition: Other Care w/in Hosp ([facility]C/SYLVIE) Patient condition on transfer: Stable Prescriptions/Referrals Prescriptions/Med Rec: No Action furosemide 40 mg tablet 40 mg PO BID carvedilol 3.125 mg tablet 3.125 mg PO BID Rx Instructions: must administer with a meal/food losartan 100 mg tablet 100 mg PO DAILY Patient Comments: take 1 tablet by mouth once daily Xtandi 80 mg tablet 80 mg PO BID metolazone 5 mg tablet 5 mg PO ACBR Patient Comments: TAKE 1 TABLET BY MOUTH BEFORE BREAKFAST IN THE MORNING Nissa-Sachin 0.8 mg tablet 1 tab PO QDAY Patient Comments: TAKE 1 TABLET BY MOUTH ONCE A DAY prochlorperazine maleate 5 mg tablet 5 mg PO Q6H PRN (Reason: nausea and vomiting) Patient Comments: take 1 tablet by mouth every 6 hours if needed for nausea ondansetron 8 mg tablet,disintegrating 8 mg PO Q8H PRN (Reason: nausea and vomiting) Patient Comments: dissolve 1 tablet on top of the tongue every 8 hours if needed for nausea atorvastatin 10 mg tablet 10 mg PO QDAY Patient Comments: take 1 tablet by mouth once daily for 3 MONTHS Referrals: Bong Byers MD [Primary Care Provider, [facility]] - In 1 week Problem List Clinical Impression: Hypoxemia, Pneumonia, Leukopenia, Fever Patient/Caregiver Discharge Instructions Print Language: Ukrainian Stand Alone Forms: Diana Award Info., Patient Portal Info Letter PA/[employer] AND [employer]Y SUPERVISOR Supervising Physician PA/[employer] SUPERVISOR Supervising Physician: Scottie Murray ENP [facility] Clinical Information Provided by: patient and EMS Medical Records reviewed [facility] and EMS Meds/Rx considered, not ordered None Labs/Rad/Tests considered, not ordered None Chronic Illness/Social Conditions Explain: Prostate cancer on chemotherapy. CHF, hypertension hyperlipidemia EKG Interpretation EKG #1: EKG Interpretation: EKG performed at 1734 shows a ventricular rate of 96 [place] interval 230 QRS of 98 QTc of 400 sinus rhythm first-degree block. Labs Labs: interpreted by ri Lab(s) Interpretation(s): CBC shows leukopenia WBCs at 1.5 H&H of 8.3 and 27.3. Platelets at 111 Coags within acceptable limits BNP is 276 Medication Administration(s) Medication Administration History Acetaminophen (Acetaminophen 325 Mg Tablet) 650 mg PO Q6H PRN PRN Reason: Fever >101.5 Stop: 06/11/25 20:57 Discontinued Medications Piperacillin/Tazobactam/Dextrose (Zosyn) 3.375 gm in 50 mls @ 100 mls/hr IV X1 ONE; Protocol Stop: 05/12/25 18:20 Last Infusion: 05/12/25 19:30 Dose: Infused Documented By: Admin: 05/12/25 18:42 Dose: 100 mls/hr Documented By: MASOUD
[2025-05-12 17:56] LABS: Basophils # (Auto) 0.0 Thou/mm3 (0.0-0.2); Basophils % (Auto) 1 % (0-2.5); Eosinophils # (Auto) 0.0 Thou/mm3 (0.0-0.5); Eosinophils % (Auto) 0 % (0-10); Hematocrit 27.7 % (41.0-53.0); Immature Granulocytes Auto 0.01 Thou/mm3 (0.00-0.00); Lymphocytes # (Auto) 0.4 Thou/mm3 (1.0-4.8); Lymphocytes % (Auto) 24 % (10-50); Mean Corpuscular HGB Conc 30.0 g/dl (31.0-37.0); Mean Corpuscular Hemoglobin 27.7 pg (25.0-35.0); Mean Corpuscular Volume 92 fL (80-100); Monocytes # (Auto) 0.2 Thou/mm3 (0.0-0.8); Monocytes % (Auto) 16 % (0-12); Neutrophils # (Auto) 0.9 Thou/mm3 (1.8-7.7); Neutrophils % (Auto) 58 % (37-80); Nucleated Red Blood Cell # 0.00 Thou/mm3 (0.00-0.00); Nucleated Red Blood Cell % 0 /100 WBC (0); Platelet Count 111 Thou/mm3 (140-440); RDW Standard Deviation 59.5 fL (35.1-43.9); Red Blood Count 3.00 Miln/mm3 (4.50-5.90)
[2025-05-12 18:20] LABS: INR 1.0 (0.9-1.3); Partial Thromboplastin Time 31.9 Seconds (22.0-36.0); Prothrombin Time 11.1 Seconds (9.0-12.2)
[2025-05-12 18:21] LABS: White Blood Count 1.5 Thou/mm3 (3.8-10.6)
[2025-05-12 18:22] LABS: Hemoglobin 8.3 g/dL (13.5-16.0)
--- NOTE | 2025-05-12 18:30 | PC.NURSE ---
IN TO ASSESS PT. PT WITH C/O FEVER, BODYACHES, SOB X3 DAYS. PT WITHOUT FURTHER COMPLAINTS AT THIS TIME. ORDERS RECEIVED AND INITIATED. CALL LIGHT PLACED WITHIN REACH. PLAN OF CARE ONGOING.
[2025-05-12] MEDS: PIPER/TAZO 3.375 GM PREMIX 3.375 GM/50 ML BAG IV (18:42)
[2025-05-12 18:45] LABS: Collection Type, Urine Clean Catch
[2025-05-12 19:12] LABS: Bilirubin,Urine Negative (Negative); Blood,Urine Negative (Negative); Clarity,Urine Clear (Clear/Hazy); Culture Indicated,Urine Not Indicated; Glucose, Urine Negative (Negative); Ketones,Urine Negative (Negative); Leukocyte Esterase,Urine Negative (Negative); Nitrite,Urine Negative (Negative); PH,Urine 7.0 (5.0-7.0); Protein,Urine 1+ (Neg - Trace); RBC,Urine 1 /hpf (0-3); Specific Gravity,Urine 1.020 (1.001-1.035); Squamous Epithelial Cell,Urine 1 /hpf (0-5); Urobilinogen,Urine Negative mg/dL (0.0-1.0); WBC,Urine < 1 /hpf (0-5)
[2025-05-12 19:13] LABS: B-Type Natriuretic Peptide 276 pg/mL (0-100)
[2025-05-12 19:35] LABS: Color,Urine Lt-Orange (Lt Yel-Yel)
[2025-05-12 20:03] LABS: Alanine Aminotransferase 8 U/L (10-49); Albumin, Serum 3.3 gm/dL (3.4-4.8); Albumin/Globulin Ratio 1.6 (1.2-2.2); Alkaline Phosphatase 65 U/L (46-116); Anion Gap 7 (7-16); Aspartate Amino Transferase 22 U/L (0-34); BUN/Creatinine Ratio 17 Ratio (12-20); Bilirubin,Total 0.6 mg/dL (0.3-1.2); Blood Urea Nitrogen 17 mg/dL (9-23); Calcium 8.5 mg/dL (8.3-10.6); Calcium (Corrected) 9.1 mg/dL (8.5-10.1); Carbon Dioxide 30.5 mMol/L (20.0-31.0); Chloride 102 mMol/L (98-107); Creatinine (Component) 1.0 mg/dL (0.6-1.3); Globulin 2.1 gm/dL (2.3-3.5); Glucose 127 mg/dL (74-106); Osmolality,Calculated 281 (275-295); Potassium 4.4 mMol/L (3.4-5.1); Procalcitonin 0.39 ng/ml (0.0-0.49); Sodium 139 mMol/L (136-145); Total Protein 5.4 gm/dL (5.7-8.2); eGFR > 60 See Note
[2025-05-12 20:28] LABS: LDH (Lactate Dehydrogenase) 236 U/L (120-246); Lipase 18 U/L (12-53); Magnesium 1.6 mg/dL (1.6-2.6); Phosphorous 2.5 mg/dL (2.4-5.1); Troponin I 0.025 ng/mL (0.0-0.045)
--- NOTE | 2025-05-12 21:04 | PD.RESHP ---
Documentation for date of: 05/12/25 [facility] History of Present Illness History of present illness: Patient is a 84-year-old male past medical significant for metastatic prostate cancer patient, hypertension and dyslipidemia presented to the ED on 05/12/2025 with chief complaint of fever and lethargy. The patient?s grandson is at the bedside today and reports that the patient has become increasingly lethargic, febrile, and short of breath over the past few days. These symptoms began following chemotherapy administered last week. The patient also complains of generalized fatigue and muscle aches, with the right side being more symptomatic. There has been worsening dyspnea, though the patient does not use home oxygen. Additionally, the patient has developed a cough over the past few days, with increased production of white phlegm. Patient has denies recent sick contact however a few weeks prior patient was admitted for COVID-pneumonitis. The patient denies chest pain, palpitations, headaches, back pain, abdominal pain, changes in urinary frequency or dysuria, and any changes in bowel habits. ED Course: - Initial vitals were BP 117/82, pulse 109, respiratory 20, temperature 102, O2 sat 85% on room air, currently saturating 99% on 4 L nasal cannula -Labs significant for WBC 1.5, hemoglobin 8.3, hematocrit 27.7, platelet 111, BNP 276, Pro-Ruel 0.39 (wnl) - UA negative for UTI - Imaging included x-ray showed significant bilateral pneumonia -In the ED, patient was given Zosyn 3.375 x 1 -Patient was admitted for fever and acute hypoxic respiratory failure secondary to pneumonia evaluation, Review of Systems Review of systems otherwise negative except what is mentioned above. Past Medical History: As above Family History: Noncontributory Surgical History: Unknown Social History: Denies history of smoking, denies current alcohol use, denies recreational drug use Current Medications: Med list Allergies: No known drug allergies Exam Vital Signs Temp Pulse Resp BP Pulse Ox O2 Del Method O2 Flow Rate 99.0 F 92 21 H 142/72 H 98 Nasal Cannula 6 05/12/25 19:39 05/12/25 19:39 05/12/25 19:39 05/12/25 19:39 05/12/25 19:39 05/12/25 19:39 05/12/25 19:39 Narrative Exam General: Alert, no acute distress.Conversational and non-toxic appearing. Skin: Warm, dry, intact. No rash or ecchymoses. Head: Normocephalic, atraumatic. Eye: Normal conjunctiva, PERRL. Throat: Oral mucosa moist. No obvious lesions in oropharynx. Cardiovascular: Regular rate and rhythm, no murmur, +S1/S2. Respiratory: Lungs are clear to auscultation, respirations unlabored, no crackles, no wheezing. Gastrointestinal: Soft, nontender, non-distended. No guarding or rebound tenderness. Extremities: Bilateral trace edema, no cyanosis, no clubbing. Neuro: Alert and oriented x3.No focal deficits observed. Conversant, moving all extremities. No overt cerebellar signs/incoordination. Psychiatric: Cooperative, appropriate affect Results: Labs 05/13/25 04:39 05/12/25 17:40 Labs: Short CBC 05/12/25 Range/Units 17:40 WBC 1.5 L (3.8-10.6) Thou/mm3 Hgb 8.3 L (13.5-16.0) g/dL Hct 27.7 L (41.0-53.0) % Plt Count 111 L D (140-440) Thou/mm3 BMP 05/12/25 17:40 Sodium 139 Potassium 4.4 Chloride 102 Carbon Dioxide 30.5 BUN 17 Creatinine 1.0 Glucose 127 H Calcium 8.5 Cardiac Enzymes 05/12/25 Range/Units 17:40 Troponin I 0.025 (0.0-0.045) ng/mL Liver Function 05/12/25 Range/Units 17:40 Total Bilirubin 0.6 (0.3-1.2) mg/dL AST 22 (0-34) U/L ALT 8 L (10-49) U/L Alkaline Phosphatase 65 (46-116) U/L Albumin 3.3 L (3.4-4.8) gm/dL Urine 05/12/25 Range/Units 18:36 Urine Color Lt-[place] A (Lt Yel-Yel) Urine Clarity Clear (Clear/Hazy) Urine pH 7.0 (5.0-7.0) Ur Specific [place] 1.020 (1.001-1.035) Urine Protein 1+ A (Neg - Trace) Urine Glucose (UA) Negative (Negative) Quality Measures Quality Measures VTE prophylaxis Advance care planning discussed with:: patient and other Medications Home Medications and Allergies Home Medications ?Medication ?Instructions ?Recorded ?Confirmed ?Type furosemide 40 mg tablet 40 mg PO BID 11/04/21 05/12/25 History atorvastatin 10 mg tablet 10 mg PO QDAY 10/20/22 05/12/25 History enzalutamide 80 mg tablet (Xtandi) 80 mg PO BID 12/25/24 05/12/25 History losartan 100 mg tablet 100 mg PO DAILY 12/25/24 05/12/25 History metolazone 5 mg tablet 5 mg PO ACBR 04/19/25 05/12/25 History ondansetron 8 mg disintegrating 8 mg PO Q8H PRN nausea and vomiting 04/19/25 05/12/25 History tablet vitamin B complex-vitamin C-folic 1 tab PO QDAY 04/19/25 05/12/25 History acid 0.8 mg tablet (Nissa-Sachin) carvedilol 6.25 mg tablet 6.25 mg PO QDAY 05/12/25 05/12/25 History Allergies Allergy/AdvReac Type Severity Reaction Status Date / Time No Known Allergies Allergy Verified 05/12/25 17:01 Visit Medications Acetaminophen (Acetaminophen 325 Mg Tablet) 650 mg PO Q6H PRN PRN Reason: Fever >101.5 Stop: 06/11/25 20:57 Discontinued Medications Piperacillin/Tazobactam/Dextrose (Zosyn) 3.375 gm in 50 mls @ 100 mls/hr IV X1 ONE; Protocol Stop: 05/12/25 18:20 Last Infusion: 05/12/25 19:30 Dose: Infused Assessment & Plan Plan Patient is a 84-year-old male past medical significant for metastatic prostate cancer patient, hypertension and dyslipidemia presented to the ED on 05/12/2025 with chief complaint of fever and lethargy. Admitted for neutropenic fever and acute postoperative fever failure evaluation and management. #Neutropenic fever #Acute hypoxic respiratory failure secondary to #Bilateral pneumonia Patient presented with fever, fatigue, cough with increased sputum production. Temp 102, O2 sat 85% on room air. Upon physical evaluation lungs bilateral breath sound heard, no crackles or wheeze. Received Zosyn x 1 in the ED. COVID-19 negative. Influenza A, B negative PSI/PRT Sscore class IV-hospitalization recommended - Started vancomycin - Started cefepime 2 mg IV q8hr - MRSA nasal screen - Sputum culture and Gram stain culture - DuoNebs q6h - Supplemental O2, titrate as tolerated to maintain SpO2 >93% - Blood cultures #Thrombocytopenia #Normocytic anemia #History of metastatic prostate cancer Patient has a history of metastatic cancer For which he follows oncologist Dr. Hill outpatient. On arrival WBC 1.5, platelets 111 and febrile, Hgb 8.3, HCT 27.7. These lab values likely secondary to chemotherapy-induced myelosuppression - Continue antibiotic as mentioned above - Blood culture, pending - Urine culture, pending - Tylenol as needed for fever #Muscle spams Upon examination, the patient exhibited a new right-sided muscle spasm, which they reported as an onset symptom. -US venous Doppler ordered #Hypertension #Dyslipidemia -Resume home atorvastatin 10 mg - Resume home Lasix 40 mg twice daily (b/l lower extremity trace edema found on physical examination) - held home Coreg as blood pressure soft Hospital management: Lines: peripheral IV Diet: Cardiac GI prophylaxis: pantoprazole DVT prophylaxis: Heparin sc bid Disposition: On telemetry for neutropenic fever and acute hypoxi respiratory failure evaluation and management CODE STATUS: Full code Patient seen and assessed under supervision of attending physician Dr.Alhalaibeh Bianca Babin MD PGY-1, Internal Medicine Please note: this document was transcribed using voice recognition technology; minor inaccuracies may be present. Attending Provider Attestation/Addendum After examination of the patient and review of the clinical data I feel that this patient needs admission to the hospital for further treatment/evaluation. Plan of care discussed with patient and is in agreement. I Henry Kan MD, attest that I was physically present for edwards portions of evaluation, and examined patient, labs and imagings and plan of care were discussed with IM residents team, and I agree with the findings and plans documented above.
[2025-05-12] MEDS: CEFEPIME INJ 2 GM in SODIUM CHLORIDE 0.9% (Popper) 50 ML IV (21:20)
[2025-05-12] MEDS: HEPARIN SOD INJ 5000 UNIT/ML VIAL SC (22:13)
[2025-05-12] MEDS: VANCOMYCIN/NS 1 GM IVPB 200 ML IV (22:34)
[2025-05-13] VITALS (9 sets, daily range): BP systolic 94–136; BP diastolic 55–86; PULSE 77–99; RESP 17–25; TEMP 35.9–36.8; O2SAT 91–98; BMI 42.7
--- NOTE | 2025-05-13 | XR_ITS ---
Examination: Venous duplex lower extremity sonogram, bilateral. Date and time of exam: May 13, 2025, 0010 hrs. Indications: Generalized body leg pain beginning 3 days ago Technique: Multiple sonographic images of the deep venous system have been obtained. B-mode/2-D grayscale imaging of vascular structures and Doppler spectral analysis (waveforms) and color performed Both legs are examined. Findings: Deep venous systems do not demonstrate abnormal echogenicity. All visualized deep veins exhibit compressibility. All visualized deep veins exhibit augmentation. Impression: Negative for deep vein thrombosis
[2025-05-13] MEDS: VANCOMYCIN/NS 1 GM IVPB 200 ML IV (00:40)
--- NOTE | 2025-05-13 01:47 | PRELIM_ITS ---
Bilateral lower extremity venous Doppler ultrasound. May 13, 2025 at 0010 hours Clinical history: Rule out deep vein thrombosis. No prior study is available for comparison. Findings: Harris scale, color flow and spectral Doppler evaluation of the lower extremity deep veins was performed. Right: The common femoral, superficial femoral and popliteal veins are patent and compressible. Normal respiratory variation and augmentation are noted. The great saphenous vein is patent at the level of the saphenofemoral junction. The calf veins to the extent visualized are patent. Left: The common femoral, superficial femoral and popliteal veins are patent and compressible. Normal respiratory variation and augmentation are noted. The great saphenous vein is patent at the level of the saphenofemoral junction. The calf veins to the extent visualized are patent. Impression: No evidence of deep venous thrombosis in both lower extremities. Report Electronically Signed By: Mike Roberts 05/13/2025 1:46:41 AM [EST]
[2025-05-13 05:45] LABS: Basophils # (Auto) 0.0 Thou/mm3 (0.0-0.2); Basophils % (Auto) 1 % (0-2.5); Eosinophils # (Auto) 0.0 Thou/mm3 (0.0-0.5); Eosinophils % (Auto) 1 % (0-10); Hematocrit 28.2 % (41.0-53.0); Immature Granulocytes Auto 0.02 Thou/mm3 (0.00-0.00); Lymphocytes # (Auto) 0.5 Thou/mm3 (1.0-4.8); Lymphocytes % (Auto) 33 % (10-50); Mean Corpuscular HGB Conc 29.8 g/dl (31.0-37.0); Mean Corpuscular Hemoglobin 28.5 pg (25.0-35.0); Mean Corpuscular Volume 96 fL (80-100); Monocytes # (Auto) 0.2 Thou/mm3 (0.0-0.8); Monocytes % (Auto) 15 % (0-12); Neutrophils # (Auto) 0.8 Thou/mm3 (1.8-7.7); Neutrophils % (Auto) 49 % (37-80); Nucleated Red Blood Cell # 0.02 Thou/mm3 (0.00-0.00); Nucleated Red Blood Cell % 1 /100 WBC (0); Platelet Count 107 Thou/mm3 (140-440); RDW Standard Deviation 61.1 fL (35.1-43.9); Red Blood Count 2.95 Miln/mm3 (4.50-5.90); White Blood Count 1.6 Thou/mm3 (3.8-10.6)
[2025-05-13 06:17] LABS: Hemoglobin 8.4 g/dL (13.5-16.0)
[2025-05-13 06:35] LABS: Alanine Aminotransferase 8 U/L (10-49); Albumin, Serum 3.1 gm/dL (3.4-4.8); Albumin/Globulin Ratio 1.7 (1.2-2.2); Alkaline Phosphatase 62 U/L (46-116); Anion Gap 6 (7-16); Aspartate Amino Transferase 16 U/L (0-34); BUN/Creatinine Ratio 15 Ratio (12-20); Bilirubin,Total 0.5 mg/dL (0.3-1.2); Blood Urea Nitrogen 16 mg/dL (9-23); Calcium 8.6 mg/dL (8.3-10.6); Calcium (Corrected) 9.3 mg/dL (8.5-10.1); Carbon Dioxide 32.7 mMol/L (20.0-31.0); Chloride 103 mMol/L (98-107); Creatinine (Component) 1.1 mg/dL (0.6-1.3); Estimated Creatinine Clearance 62.0 mL/min (>60); Globulin 1.8 gm/dL (2.3-3.5); Glucose 122 mg/dL (74-106); Magnesium 2.0 mg/dL (1.6-2.6); Osmolality,Calculated 285 (275-295); Phosphorous 4.4 mg/dL (2.4-5.1); Potassium 4.5 mMol/L (3.4-5.1); Sodium 142 mMol/L (136-145); Total Protein 4.9 gm/dL (5.7-8.2); eGFR > 60 See Note
[2025-05-13] MEDS: CEFEPIME INJ 2 GM in SODIUM CHLORIDE 0.9% (Popper) 50 ML IV ×3 (08:07→21:01)
[2025-05-13] MEDS: ATORVASTATIN CALCIUM 10 MG TABLET PO (08:08)
[2025-05-13] MEDS: HEPARIN SOD INJ 5000 UNIT/ML VIAL SC ×2 (08:08→20:43)
--- NOTE | 2025-05-13 08:29 | ESPR_ITS ---
<Statement entered by Anitra Calderon MD - 05/13/25 16:32> Patient examined at bedside. Patient is seen on 2 to 3 L nasal cannula, saturating well above 98%. He remains afebrile since admission. ANC calculated at 800, improved since last admission. Neupogen not indicated at this time. Per daughter at bedside, patient just had round of chemo few days ago. Continue IV vancomycin and cefepime. Urine and blood cultures are pending. The patient's management plan was discussed with my attending physician Dr. Chu. Anitra Calderon, PGY-2 <Statement entered by Sabine Valencia MD - 05/13/25 15:50> Patient seen and examined at bedside. Patient is seen on 2 to 3 L nasal cannula, saturating well above 98%. Patient continues to be on IV antibiotics for his neutropenic fever. Patient has been afebrile since admission. Will continue with IV vancomycin and cefepime. 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 Patient's ANC also is around 800, supplement with Neupogen. Pending blood cultures and urine cultures. Patient will continue with breathing treatments and CPAP at night. I discussed with and supervised the production intern physician who took care of this patient. I personally saw and examined the patient and discussed the assessment and plan with the entire medicine team, including my attending Dr. Chu, I agree with most of the assessment and plan as documented below Sabine Valencia M.D. PGY-3 Disclaimer: Despite multiple revisions, due to the dictation software being used, the document bellow may not be free of grammatical errors including phonetic/typographic errors. However, this does not deter from our commitment to providing health care in the patient's best interest in mind. Documentation for date of: 05/13/25 Subjective Subjective Interval history: Mr. Leslie is a 84-year-old gentleman with a medical history of prostate cancer with mets, primary hypertension, COPD, and dyslipidemia presents to [facility] emergency department on 05/12/2025 with chief complaint of productive cough, congestion, and generalized weakness. He had chemo 1 week ago and recieved filgastrim injections for 3 days after chemo. (chemo every [address] Phipps). Patient accompanied by his daughter in law and his grand-daughter. At bedside he endorses productive cough and some shortness of breath. 05/13/2025: Patient seen examined at bedside. I decreased his oxygen supplementation from 4 L to 2.5 L and saturations were sustained at 100%. will continue to provide supplemental oxygen and antibiotics for bibasilar PNA. pt is afebrile. Exam Vital Signs Temp Pulse Resp BP Pulse Ox O2 Del Method O2 Flow Rate 98.3 F 82 18 130/86 H 93 L Nasal Cannula 4 05/13/25 04:00 05/13/25 08:08 05/13/25 06:51 05/13/25 08:08 05/13/25 06:51 05/13/25 04:00 05/13/25 06:51 Narrative Exam General: Alert, no acute distress.Conversational and non-toxic appearing. Skin: Warm, dry, intact. No rash or ecchymoses. Head: Normocephalic, atraumatic. Eye: Normal conjunctiva, PERRL. Throat: Oral mucosa moist. No obvious lesions in oropharynx. large neck with ample soft tissue. Cardiovascular: Regular rate and rhythm, no murmur, +S1/S2. Respiratory: Lungs with trace crackles in the bilateral bases. No wheezing heard on auscultation. Gastrointestinal: obese Soft, nontender, non-distended. No guarding or rebound tenderness. Extremities: Bilateral trace edema, no cyanosis, no clubbing. Neuro: Alert and oriented x3.No focal deficits observed. Conversant, moving all extremities. No overt cerebellar signs/incoordination. Psychiatric: Cooperative, appropriate affect Objective Labs 05/14/25 04:37 05/14/25 04:37 Labs: Laboratory Results - last 24 hr 05/12/25 05/12/25 05/13/25 17:40 18:36 04:39 WBC 1.5 L 1.6 L RBC 3.00 L 2.95 L Hgb 8.3 L 8.4 L Hct 27.7 L 28.2 L MCV 92 96 MCH 27.7 28.5 MCHC 30.0 L 29.8 L RDW Std Deviation 59.5 H 61.1 H Plt Count 111 L D 107 L Neut % (Auto) 58 49 Lymph % (Auto) 24 33 Mason % (Auto) 16 H 15 H Eos % (Auto) 0 1 Baso % (Auto) 1 1 Neut # (Auto) 0.9 L 0.8 L Lymph # (Auto) 0.4 L 0.5 L Mason # (Auto) 0.2 0.2 Eos # (Auto) 0.0 0.0 Baso # (Auto) 0.0 0.0 Immature Gran # (Auto) 0.01 H 0.02 H Absolute Nucleated RBC 0.00 0.02 H Immature Gran % 1 H 1 H Nucleated RBC % 0 1 H PT 11.1 INR 1.0 APTT 31.9 Sodium 139 142 Potassium 4.4 4.5 Chloride 102 103 Carbon Dioxide 30.5 32.7 H Anion Gap 7 6 L BUN 17 16 Creatinine 1.0 1.1 Estim Creat Clear Calc Not Performed. 62.0 eGFR > 60 > 60 BUN/Creatinine Ratio 17 15 Glucose 127 H 122 H Calculated Osmolality 281 285 Lactic Acid 1.4 Calcium 8.5 8.6 Corrected Calcium 9.1 9.3 Phosphorus 2.5 4.4 Magnesium 1.6 2.0 Total Bilirubin 0.6 0.5 AST 22 16 ALT 8 L 8 L Alkaline Phosphatase 65 62 Lactate Dehydrogenase 236 Troponin I 0.025 B-Natriuretic Peptide 276 H Total Protein 5.4 L 4.9 L Albumin 3.3 L 3.1 L Globulin 2.1 L 1.8 L Albumin/Globulin Ratio 1.6 1.7 Lipase 18 Procalcitonin 0.39 Ur Collection Type Clean Catch Urine Color Lt-Patrick A Urine Clarity Clear Urine pH 7.0 Ur Specific Reagan 1.020 Urine Protein 1+ A Urine Glucose (UA) Negative Urine Ketones Negative Urine Blood Negative Urine Nitrite Negative Urine Bilirubin Negative Urine Urobilinogen (Auto) Negative Ur Leukocyte Esterase Negative Urine RBC 1 Urine WBC < 1 Ur Squamous Epith Cells 1 Urine Bacteria None Ur Culture Indicated? Not Indicated Quality Measures Quality Measures VTE prophylaxis Advance care planning discussed with:: patient and other Assessment & Plan Assessment Current Active Medications: Generic Name Dose Route Start Last Admin Trade Name Freq PRN Reason Stop Dose Admin Acetaminophen 650 mg 05/12/25 21:10 Acetaminophen 325 Mg Tablet PO 06/11/25 20:57 Q6H PRN Fever >100.4 and pain 1-3 Albuterol/Ipratropium 3 ml 05/12/25 21:34 Albuterol/Ipratropium (Duoneb) Rt Chaya 3 Ml Nebu INH 06/11/25 21:33 Q6HRRT PRN Wheezing Atorvastatin Calcium 10 mg 05/13/25 09:00 05/13/25 08:08 Atorvastatin Calcium 10 Mg Tablet PO 06/12/25 08:59 10 mg QDAY BERE Administration Furosemide 40 mg 05/13/25 09:00 05/13/25 08:08 Furosemide 40 Mg Tablet PO 06/12/25 08:59 40 mg BID BERE Administration Heparin Sodium (Porcine) 5,000 unit 05/12/25 21:45 05/13/25 08:08 Heparin Sod Inj 5000 Unit/Ml Vial SC 05/26/25 21:44 5,000 unit BID BERE Administration Cefepime HCl 2 gm/ Sodium 50 mls @ 100 mls/hr 05/13/25 06:45 05/13/25 08:07 Chloride IV 05/20/25 06:44 100 mls/hr Q8HR BERE Administration Vancomycin/Sodium Chloride 750 mg in 150 mls @ 120 mls/hr 05/13/25 10:00 Vancomycin/Ns 750 Mg Ivpb IV 05/20/25 09:59 Q12H BERE Protocol Pharmacy Consult 1 each 05/13/25 09:00 Vancomycin Pharmacy To Dose 1 Each Each IV 06/12/25 08:59 QDAY PRN RX Plan Patient is a 84-year-old male past medical significant for metastatic prostate cancer patient, hypertension and dyslipidemia presented to the ED on 05/12/2025 with chief complaint of fever and lethargy. Admitted for neutropenic fever and PNA, started on iv abx and supplemental o2 as needed. #Neutropenic fever- resolved #Acute hypoxic respiratory failure secondary to #Bilateral pneumonia #Bacteremia (GNR and GPC) #COPD on 2-3 L home o2 Patient presented with fever, fatigue, cough with increased sputum production. Temp 102, O2 sat 85% on room air. Upon physical evaluation lungs bilateral breath sound heard, no crackles or wheeze. Received Zosyn x 1 in the ED. COVID- 19 negative. Influenza A, B negative PSI/PRT Sscore class IV-hospitalization recommended - Started vancomycin (05/12- - Started cefepime 2 mg IV q8hr (05/12- - f/u Blood culture speciation - Urine culture pending, UA bland - MRSA nasal screen - Sputum culture and Gram stain culture - DuoNebs q6h - Supplemental O2, titrate as tolerated to maintain SpO2 >93% - CPAP at night - Tylenol as needed for fever #Thrombocytopenia #Normocytic anemia #Metastatic prostate cancer Patient has metastatic cancer For which he follows oncologist Dr. Hill outpatient. On arrival WBC 1.5, platelets 111 and febrile, Hgb 8.3, HCT 27.7. These lab values likely secondary to chemotherapy-induced myelosuppression despite filgastrim injections that were given as an adjunct to chemo. Gets chemo q3 weeks. Pt has hx of recurrent admissions following chemo treatments. Last admission was 04/18 for Covid PNA - follows with [facility]. - CTM #Muscle spams Upon examination, the patient exhibited a new right-sided muscle spasm, which they reported as an onset symptom. -US venous Doppler - no DVT #Hypertension #Dyslipidemia - home atorvastatin 10 mg - home Lasix 40 mg twice daily (b/l lower extremity trace edema found on physical examination) - held home Coreg as blood pressure soft Hospital management: Lines: peripheral IV Diet: Cardiac GI prophylaxis: pantoprazole DVT prophylaxis: Heparin sc bid Disposition: On telemetry for neutropenic fever and acute hypoxi respiratory failure evaluation and management, on iv abx and o2 supplementation CODE STATUS: Full code Plan discussed with Dr. Calderon, Dr Valencia, and Dr. Kimberley Dc MD PGY1 Attending Provider Attestation/Addendum Efrain, Toyin Chu DO, attest that I was physically present for the edwards portions of the service and evaluated the patient with the resident and I reviewed and discussed the case with the resident and agree with the resident's findings and plans of care as documented above Patient seen and eval this a.m. Granddaughter and daughter were at bedside. Patient had last undergone chemo about 1 week ago followed by 3 consecutive shots of filgrastim daily from Monday through Monday. However, patient was noted to be progressively weaker over the weekend. Patient is able to transfer independently, and ambulates with a cane. However, he requires a lot of assistance with ADLs. Patient currently stating that he feels better. Currently on vancomycin and cefepime for broad-spectrum coverage of neutropenic fever. Absolute neutrophil count of 784. Patient denies any dysuria, abdominal pain, diarrhea, nausea or vomiting. Patient has been having poor p.o. intake due to feeling unwell. He does endorse having some cough, but denies any productive sputum. Of note, patient was recently admitted for COVID-pneumonia.
[2025-05-13] MEDS: VANCOMYCIN/NS 750 MG IVPB 750 MG/150 ML BAG 120 MG IV ×2 (11:57→21:41)
--- NOTE | 2025-05-13 14:27 | PC.SS ---
Rounding Note: Patient receiving IV antibiotics. Blood culture is pending. Monitoring patient's fever.
--- NOTE | 2025-05-13 14:52 | PC.SS ---
TOXICOLOGIST conducted bedside contact with the patient conduct initial assessment and to discuss discharge planning.? TOXICOLOGIST utilized baffle installer to assist with discussion.? Patient confirmed demographic information.? Patient resides at home with son.? Patient utilizes a walker to assist with ambulation.? Patient utilizes home oxygen.? Patient describes possessing the ability to complete ADL?s independently.? Patient identified son, Tristen Kumar ; as surrogate medical decision maker.? Patient?s PCP is Dr. Byers, [facility].? 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 Pharmacy of choice for the patient is [facility].? If home health recommended, no preferred provider identified.? Plan is for the patient to return home at the time of discharge.? Family will provide transportation on behalf of the patient.? No further discharge needs identified by the patient.? No further intervention required at this time, social services analyst will be available to address any further concerns.? Next of Kin: Tristen Kumar D/C Plan: Home
[2025-05-13] MEDS: ONDANSETRON ODT 4 MG TABRAP PO (23:29)
[2025-05-14] VITALS (11 sets, daily range): BP systolic 100–143; BP diastolic 51–83; PULSE 85–112; RESP 15–25; TEMP 36.1–37.1; O2SAT 93–100; BMI 42.7
--- NOTE | 2025-05-14 02:49 | PC.NURSE ---
[facility] downtime occurred on 05/14/2025 from 0200 to 0235.
[2025-05-14] MEDS: CEFEPIME INJ 2 GM in SODIUM CHLORIDE 0.9% (Popper) 50 ML IV ×3 (05:10→21:41)
[2025-05-14 05:17] LABS: Basophils # (Auto) 0.0 Thou/mm3 (0.0-0.2); Basophils % (Auto) 1 % (0-2.5); Eosinophils # (Auto) 0.0 Thou/mm3 (0.0-0.5); Eosinophils % (Auto) 2 % (0-10); Hematocrit 31.8 % (41.0-53.0); Hemoglobin 9.2 g/dL (13.5-16.0); Immature Granulocytes Auto 0.07 Thou/mm3 (0.00-0.00); Lymphocytes # (Auto) 0.5 Thou/mm3 (1.0-4.8); Lymphocytes % (Auto) 30 % (10-50); Mean Corpuscular HGB Conc 28.9 g/dl (31.0-37.0); Mean Corpuscular Hemoglobin 28.0 pg (25.0-35.0); Mean Corpuscular Volume 97 fL (80-100); Monocytes # (Auto) 0.2 Thou/mm3 (0.0-0.8); Monocytes % (Auto) 14 % (0-12); Neutrophils # (Auto) 0.8 Thou/mm3 (1.8-7.7); Neutrophils % (Auto) 49 % (37-80); Nucleated Red Blood Cell # 0.04 Thou/mm3 (0.00-0.00); Nucleated Red Blood Cell % 3 /100 WBC (0); Platelet Count 114 Thou/mm3 (140-440); RDW Standard Deviation 59.7 fL (35.1-43.9); Red Blood Count 3.28 Miln/mm3 (4.50-5.90)
[2025-05-14 05:51] LABS: White Blood Count 1.6 Thou/mm3 (3.8-10.6)
[2025-05-14 06:14] LABS: Alanine Aminotransferase 9 U/L (10-49); Albumin, Serum 3.4 gm/dL (3.4-4.8); Albumin/Globulin Ratio 1.5 (1.2-2.2); Alkaline Phosphatase 70 U/L (46-116); Anion Gap 7 (7-16); Aspartate Amino Transferase 19 U/L (0-34); BUN/Creatinine Ratio 15 Ratio (12-20); Bilirubin,Total 0.5 mg/dL (0.3-1.2); Blood Urea Nitrogen 18 mg/dL (9-23); Calcium 8.8 mg/dL (8.3-10.6); Calcium (Corrected) 9.3 mg/dL (8.5-10.1); Carbon Dioxide 34.1 mMol/L (20.0-31.0); Chloride 104 mMol/L (98-107); Creatinine (Component) 1.2 mg/dL (0.6-1.3); Estimated Creatinine Clearance 56.8 mL/min (>60); Globulin 2.2 gm/dL (2.3-3.5); Glucose 126 mg/dL (74-106); Magnesium 1.8 mg/dL (1.6-2.6); Osmolality,Calculated 292 (275-295); Phosphorous 4.7 mg/dL (2.4-5.1); Potassium 3.9 mMol/L (3.4-5.1); Sodium 145 mMol/L (136-145); Total Protein 5.6 gm/dL (5.7-8.2); eGFR 59 See Note
--- NOTE | 2025-05-14 08:33 | ESPR_ITS ---
Documentation for date of: 05/14/25 Patient is a 84-year-old male with a past medical history of COPD on home oxygen, pancytopenia likely secondary to malignancy and chemotherapy, who was admitted for neutropenic fever which has resolved. Patient examined at bedside this morning. Patient denied fevers or chills. Patient stated overnight had bowel movements. Denied abdominal pain. Denied chest pain. Denied shortness of breath, nasal cannula at bedside on 2 L but patient removes it. Neutropenic fever, resolved patient has been afebrile over the past 24 hours. Blood culture positive for bacteremia gram-positive cocci and gram-negative rods at 24 hours. repeat blood cultures obtained. Continue vancomycin and cefepime increased to 2 mg IV every 8 hours. Follow-up with renal function tomorrow. Pancytopenia likely secondary to malignancy and chemo. No pain Neupogen 480 mg x 1, likely repeat tomorrow. Labetolol added PRN given past medical history of HTN, currently normal tensive. - The patient's plan was discussed with attending Dr. Kimberley Enriquez MD PGY2 Internal Medicine Subjective Subjective Interval history: No overnight events. Patient was examined at bedside; he was asleep but woke up when roused and denied any new complaints or symptoms. Labs today significant for WBC 1.6 (stable), Hgb 8.4 -> 9.2, platelet count 114, bicarbonate 32.7 -> 34.1, and creatinine 1.2 (base 0.9). On exam, patient's bilateral lung alex appear clear to auscultation without wheezing or crackles appreciated and the only other notable finding is continued trace edema bilaterally. Patient's absolute neutrophil count today was around 800 and he was given SC Neupogen [address] Phipps, patient's oncologist, was contacted and she recommended continuing to give patient SC Neupogen 480 mg until his ANC is consistently above 1000 as well as to do a swallow evaluation to check for aspiration events that may be causing ongoing pneumonia despite antibiotic treatment (she will try to meet with him next week). Patient seems to have developed a mild MARIO, possibly 2/2 continuous diuresis, and his IV cefepime 2 mg q8HR may require de- escalation to BID dosing should his creatinine clearance remain impaired. Blood culture speciation is still pending (grew GPC and GNR), will repeat a blood culture to see if current antibiotics are effective on pathogens in the blood. UCx grew mixed anna (possible contamination), MRSA negative, sputum culture and Gram stain culture still pending. Exam Vital Signs Temp Pulse Resp BP Pulse Ox O2 Del Method O2 Flow Rate 97.8 F 93 16 115/80 93 L Nasal Cannula 3 05/14/25 04:00 05/14/25 07:00 05/14/25 07:00 05/14/25 04:00 05/14/25 07:00 05/14/25 04:00 05/14/25 07:00 Objective Labs 05/14/25 04:37 05/14/25 04:37 Labs: Laboratory Results - last 24 hr 05/14/25 04:37 WBC 1.6 L RBC 3.28 L Hgb 9.2 L Hct 31.8 L MCV 97 MCH 28.0 MCHC 28.9 L RDW Std Deviation 59.7 H Plt Count 114 L Neut % (Auto) 49 Lymph % (Auto) 30 Mingo % (Auto) 14 H Eos % (Auto) 2 Baso % (Auto) 1 Neut # (Auto) 0.8 L Lymph # (Auto) 0.5 L Mingo # (Auto) 0.2 Eos # (Auto) 0.0 Baso # (Auto) 0.0 Immature Gran # (Auto) 0.07 H Absolute Nucleated RBC 0.04 H Immature Gran % 5 H Nucleated RBC % 3 H Sodium 145 Potassium 3.9 D Chloride 104 Carbon Dioxide 34.1 H Anion Gap 7 BUN 18 Creatinine 1.2 Estim Creat Clear Calc 56.8 L eGFR 59 L BUN/Creatinine Ratio 15 Glucose 126 H Calculated Osmolality 292 Calcium 8.8 Corrected Calcium 9.3 Phosphorus 4.7 Magnesium 1.8 Total Bilirubin 0.5 AST 19 ALT 9 L Alkaline Phosphatase 70 Total Protein 5.6 L Albumin 3.4 Globulin 2.2 L Albumin/Globulin Ratio 1.5 Quality Measures Quality Measures VTE prophylaxis Advance care planning discussed with:: patient Assessment & Plan Assessment Current Active Medications: Generic Name Dose Route Start Last Admin Trade Name Freq PRN Reason Stop Dose Admin Acetaminophen 650 mg 05/12/25 21:10 Acetaminophen 325 Mg Tablet PO 06/11/25 20:57 Q6H PRN Fever >100.4 and pain 1-3 Albuterol/Ipratropium 3 ml 05/12/25 21:34 Albuterol/Ipratropium (Duoneb) Rt Chaya 3 Ml Nebu INH 06/11/25 21:33 Q6HRRT PRN Wheezing Atorvastatin Calcium 10 mg 05/13/25 09:00 05/13/25 08:08 Atorvastatin Calcium 10 Mg Tablet PO 06/12/25 08:59 10 mg QDAY BERE Administration Filgrastim 300 mcg 05/14/25 08:28 Filgrastim Inj (Neupogen) 300 Mcg/Ml Vial SC 05/14/25 08:29 X1 ONE Furosemide 40 mg 05/13/25 09:00 05/13/25 20:42 Furosemide 40 Mg Tablet PO 06/12/25 08:59 40 mg BID BERE Administration Heparin Sodium (Porcine) 5,000 unit 05/12/25 21:45 05/13/25 20:43 Heparin Sod Inj 5000 Unit/Ml Vial SC 05/26/25 21:44 5,000 unit BID BERE Administration Cefepime HCl 2 gm/ Sodium 50 mls @ 100 mls/hr 05/13/25 06:45 05/14/25 05:10 Chloride IV 05/20/25 06:44 100 mls/hr Q8HR BERE Administration Vancomycin/Sodium Chloride 750 mg in 150 mls @ 120 mls/hr 05/13/25 10:00 05/13/25 21:41 Vancomycin/Ns 750 Mg Ivpb IV 05/20/25 09:59 120 mls/hr Q12H BERE Administration Protocol Pharmacy Consult 1 each 05/13/25 09:00 Vancomycin Pharmacy To Dose 1 Each Each IV 06/12/25 08:59 QDAY PRN RX Plan Patient is a 84-year-old male past medical significant for metastatic prostate cancer patient, hypertension and dyslipidemia presented to the ED on 05/12/2025 with chief complaint of fever and lethargy who was admitted for neutropenic fever and PNA. #Bacteremia, GPC and GNR #Acute hypoxic respiratory failure secondary to #Bilateral pneumonia #Neutropenic fever, resolved Patient presented with fever, fatigue, cough with increased sputum production. Temp 102, O2 sat 85% on room air. Upon physical evaluation lungs bilateral breath sound heard, no crackles or wheeze. Received Zosyn x 1 in the ED. COVID- 19 negative. Influenza A, B negative. Patient has been afebrile for the past 24 hours. PSI/PRT Sscore class IV - hospitalization recommended - Per Dr. Phipps, ordered speech evaluation to make sure patient is not aspirating - Continue vancomycin (05/12--) - Continue cefepime 2 mg IV q8hr (05/12--), may need to drop to BID dosing depending on CrCl tomorrow - f/u Blood culture speciation -Ordered repeat blood Cx to check effectiveness of current antibiotic regimen on bacteremia - Urine culture grew mixed anna (possible contamination), UA bland - MRSA nasal screen (negative) - Sputum culture still pending and Gram stain culture still pending - Tylenol as needed for fever #Pancytopenia, likely secondary malignancy & chemo #Thrombocytopenia #Normocytic anemia #Metastatic prostate cancer Patient has metastatic cancer For which he follows oncologist Dr. Hill outpatient. On arrival WBC 1.5, platelets 111 and febrile, Hgb 8.3, HCT 27.7. These lab values likely secondary to chemotherapy-induced myelosuppression despite filgastrim injections that were given as an adjunct to chemo. Gets chemo q3 weeks. Pt has hx of recurrent admissions following chemo treatments. Last admission was 04/18 for Covid PNA - Gave SC Neupogen 480 mg x 1 (per Dr. Phipps, continue giving until ANC is above 1000 consistently [today ANC 800]) - Follows with Dr. Phipps (she will try to see him next week) - Continue to monitor #PMH, Hypertension #Dyslipidemia Patient has a past medical history of HTN, currently normal tensive. -Labetolol PRN - home atorvastatin 10 mg - home Lasix 40 mg twice daily (b/l lower extremity trace edema found on physical examination) - held home Coreg as blood pressure soft #COPD Patient has a past medical history of COPD on home oxygen, 2 Liters. Not in COPD exacerbation. Plan -DuoNebs q6h -Supplemental O2, titrate as tolerated to maintain SpO2 > 93% -CPAP at night #Muscle spasms (resolved) Upon examination, the patient exhibited a new right-sided muscle spasm, which they reported as an onset symptom. No longer complaining about it today -US venous Doppler - no DVT Hospital management: Lines: Peripheral IV Diet: Cardiac GI prophylaxis: Pantoprazole DVT prophylaxis: Heparin sc bid Disposition: On telemetry for neutropenic fever and acute hypoxic respiratory failure evaluation and management, on iv abx and o2 supplementation CODE STATUS: Full Code Case discussed with Senior Resident Dr. Enriquez & Attending Dr. Kimberley Tello DO PGY-1 Attending Provider Attestation/Addendum Toyin Zuniga DO, attest that I was physically present for the edwards portions of the service and evaluated the patient with the resident and I reviewed and discussed the case with the resident and agree with the resident's findings and plans of care as documented above Patient seen and evaluated this AM. He states that he is feeling well and stronger today. No acute events overnight. Will have PT work with patient. Will repeat blood culture as 1/2 cultures is positive for GPC. Continue with broad spectrum abx. Port site appears clean, dry and intact. Anticipate DC within next 48h. Patient has otherwise been afebrile.
--- NOTE | 2025-05-14 08:52 | PC.SS ---
SS follow up note; Patient is pending Blood cultures, patient will discharge home when medically cleared.
[2025-05-14] MEDS: FILGRASTIM INJ (ZARXIO) 480 MCG/0.8 ML SYRINGE SC (09:34)
[2025-05-14] MEDS: HEPARIN SOD INJ 5000 UNIT/ML VIAL SC ×2 (09:35→21:42)
[2025-05-14] MEDS: ATORVASTATIN CALCIUM 10 MG TABLET PO (09:36)
[2025-05-14 10:12] LABS: Vancomycin,Trough 16.3 mcg/mL (5.0-10.0)
[2025-05-14 10:42] LABS: Path Review Blood Smear Sent to Pathologist
[2025-05-14] MEDS: VANCOMYCIN/NS 750 MG IVPB 750 MG/150 ML BAG 120 MG IV ×2 (10:55→21:41)
--- NOTE | 2025-05-14 16:05 | PC.SS ---
Hospital Bed Patient has (dx) a medical condition which requires positioning of the body in ways not feasible with an ordinary bed due to . Patient requires positioning of the body in ways not feasible with an ordinary bed in order to alleviate pain due to . Patient requires positioning of the head or upper body to be elevated more than 30 degrees most of the time due to? (pt dx: COPD, CHF, pulmonary disease). The use of pillows and wedges have been considered and ruled out. Patient diagnosis requires positioning of the head or upper body to be elevated more than 30 degrees. Also the diagnosis requires positioning in order to alleviate pain and if the patient requires frequent changes in the body positioning and/or has an immediate need for change in the body position. Pillows and wedges have been considered and ruled out. Bedside Commode Patient is physically incapable of utilizing regular toilet facilities because his or her diagnosis confines the patient to a single room. Patient is confined to a single level, and there is no toilet on that level; patient cannot access the toilet facilities in a timely manner due to lack of ambulation.
--- NOTE | 2025-05-14 16:16 | PCS.ST ---
SS follow up note; SS was contacted by Sony from PT informing SS that patient's family is requesting hospital bed and bed side commode. SS sent DME referral to [facility]. [facility] to coordinate with family in regards to delivery.
--- NOTE | 2025-05-14 17:29 | PC.PT ---
Patient is safe to ambulate to the bathroom with a FWW and 1 staff assist for safety. RN made aware.
[2025-05-15] VITALS (11 sets, daily range): BP systolic 90–147; BP diastolic 46–98; PULSE 71–133; RESP 14–25; TEMP 36.1–37; O2SAT 91–100; BMI 42.7
--- NOTE | 2025-05-15 04:44 | EKG_ITS ---
[facility] Test Date: 2025-05-15 Pat Name: DERRICK ALVARADO [facility] Seo Professional: ER : 1940 Requested By: Bianca Babin Order Number: [id number] Reading MD: Bianca Babin Measurements Intervals [place] Rate: 120 P: 14 TN: 206 QRS: 46 QRSD: 113 T: 45 QT: 374 QTc: 529 Interpretive Statements SINUS TACHYCARDIA MODERATE INTRAVENTRICULAR CONDUCTION DELAY ABNORMAL RHYTHM ECG Compared to ECG 05/12/2025 17:34:44 Intraventricular conduction delay now present Sinus rhythm no longer present Sinus arrhythmia no longer present First degree AV block no longer present Incomplete right bundle-branch block no longer present /store/S0/[id number]
[2025-05-15 05:17] LABS: Basophils # (Auto) 0.0 Thou/mm3 (0.0-0.2); Basophils % (Auto) 1 % (0-2.5); Eosinophils # (Auto) 0.0 Thou/mm3 (0.0-0.5); Eosinophils % (Auto) 0 % (0-10); Hematocrit 29.2 % (41.0-53.0); Immature Granulocytes Auto 0.07 Thou/mm3 (0.00-0.00); Lymphocytes # (Auto) 0.3 Thou/mm3 (1.0-4.8); Lymphocytes % (Auto) 6 % (10-50); Mean Corpuscular HGB Conc 29.1 g/dl (31.0-37.0); Mean Corpuscular Hemoglobin 27.8 pg (25.0-35.0); Mean Corpuscular Volume 95 fL (80-100); Monocytes # (Auto) 0.2 Thou/mm3 (0.0-0.8); Monocytes % (Auto) 4 % (0-12); Neutrophils # (Auto) 4.6 Thou/mm3 (1.8-7.7); Neutrophils % (Auto) 88 % (37-80); Nucleated Red Blood Cell # 0.11 Thou/mm3 (0.00-0.00); Nucleated Red Blood Cell % 2 /100 WBC (0); Platelet Count 92 Thou/mm3 (140-440); RDW Standard Deviation 58.0 fL (35.1-43.9); Red Blood Count 3.06 Miln/mm3 (4.50-5.90); White Blood Count 5.2 Thou/mm3 (3.8-10.6)
[2025-05-15 05:21] LABS: Hemoglobin 8.5 g/dL (13.5-16.0)
--- NOTE | 2025-05-15 05:26 | PC.NURSE ---
Dr. Babin made RN aware to continue to monitor patients heart rate. if increases from 120 up to 130's notify MD GOVEA.
[2025-05-15] MEDS: CEFEPIME INJ 2 GM in SODIUM CHLORIDE 0.9% (Popper) 50 ML IV ×2 (05:43→17:56)
[2025-05-15 05:56] LABS: Alanine Aminotransferase 10 U/L (10-49); Albumin, Serum 3.2 gm/dL (3.4-4.8); Albumin/Globulin Ratio 1.6 (1.2-2.2); Alkaline Phosphatase 67 U/L (46-116); Anion Gap 10 (7-16); Aspartate Amino Transferase 17 U/L (0-34); BUN/Creatinine Ratio 15 Ratio (12-20); Bilirubin,Total 0.6 mg/dL (0.3-1.2); Blood Urea Nitrogen 19 mg/dL (9-23); Calcium 8.3 mg/dL (8.3-10.6); Calcium (Corrected) 8.9 mg/dL (8.5-10.1); Carbon Dioxide 35.5 mMol/L (20.0-31.0); Chloride 102 mMol/L (98-107); Creatinine (Component) 1.3 mg/dL (0.6-1.3); Estimated Creatinine Clearance 52.4 mL/min (>60); Globulin 2.0 gm/dL (2.3-3.5); Glucose 130 mg/dL (74-106); Magnesium 1.2 mg/dL (1.6-2.6); Osmolality,Calculated 296 (275-295); Phosphorous 3.8 mg/dL (2.4-5.1); Potassium 3.9 mMol/L (3.4-5.1); Sodium 147 mMol/L (136-145); Total Protein 5.2 gm/dL (5.7-8.2); eGFR 54 See Note
--- NOTE | 2025-05-15 09:05 | XR_ITS ---
Examination: AP chest single view Technique one AP portable semiupright chest single view Date and time: May 15, 2025 0913 hours, comparison May 12, 2025 INDICATIONS: Hypoxia today. FINDINGS: [id number] heart failure Enlarged cardiac contour with prominent vascular congestion and perihilar edema Consider superimposed pneumonia in the left upper lobe and both bases Right internal jugular Port-A-Cath tip satisfactory position IMPRESSION: [id number] heart failure Consider superimposed pneumonia in the left upper lobe and both bases
[2025-05-15 09:06] LABS: INR 1.0 (0.9-1.3); Partial Thromboplastin Time 28.1 Seconds (22.0-36.0); Prothrombin Time 10.8 Seconds (9.0-12.2)
[2025-05-15] MEDS: Magnesium Sulfate 4 GM Ivpb 4 GM/50 ML BAG IV (09:55)
--- NOTE | 2025-05-15 09:55 | ESPR_ITS ---
Documentation for date of: 05/15/25 Overnight events patient was hypoxic dropped to SpO2 88% and briefly increased oxygen to 15 L and oxy mask. Patient examined at bedside this morning. Patient is alert and oriented. Increased rhonchi this morning on pulmonary exam. Chest physio started and Guaifenesin. Given contraction alkalosis, Lasix 40 mg BID held. Doxycyline added for atypical coverage. Repeat chest x-ray noted to mild to moderate heart failure and superiposed pneumonia in the left upper lobe. Given history of malignancy continue to monitor blood pressure and heart rate, hypotension likely secondary to resuming carvedilol. Echo ordered given no baseline, denied history of cardiac disease. Home carvedilol resumed. Currently holding given rapid response. - The patient's plan was discussed with attending Dr. Kimberley Enriquez MD PGY2 Internal Medicine Subjective Subjective Interval history: Patient examined at bedside, night team was callled for tachycardia up to the 130s, EKG demonstrated sinus tachycardia. Patient states that he's feeling good overall, still with baseline cough. Laying on right side because he states he breaths better like that. Family at bedside states he looks subjectively worse. He hasn't been eating as much because he doesn't like getting up to go to the bathroom and he had an episode of vomiting yesterday. WBC improved from 1.6 to 5.2. Blood Cx from 05/12 grew GPC, pending speciation and sensitivities. Conversation with the laborer [employer] revealed that there may have been two species present which would confound the antibiotic sensitivities. These are getting run again and will ultimately take another 48 hours for sensitivities to result. -Chest physiotherapy added -Zofran added -guaifenesin added for cough. -Hold Lasix for one day -Start home carvedilol. Exam Vital Signs Temp Pulse Resp BP Pulse Ox O2 Del Method O2 Flow Rate 97.0 F 112 H 19 113/72 96 Oxy Mask 3 05/15/25 08:00 05/15/25 08:00 05/15/25 08:00 05/15/25 08:00 05/15/25 08:00 05/15/25 08:00 05/15/25 08:00 Narrative Exam General: Elderly patient, Laying right lateral decubitous, attempting to sip coffee but spilling due to positioning. No acute distress, HEENT: Mucosa moist. Pupils are equal, redundant tissue around the neck. Cardiovascular: Regular rate and rhythm, systolic murmur appreciated. Respiratory: Lungs with subtle coarse sounds. No wheezes appreciated. Crackles not readily appreciated at the bases. Abdomen: Soft, nontender, not distended, Skin: Dry, no rashes or bruising, some dark discoloration of the nailbeds and distal phalangies, does not appear necrotic. Some hyperpigmentation noted on the shins of the bilateral lower extremities. Musculoskeletal: No gross injuries. Able to move all 4 extremities. Non edematous lower extremities. Neuro: Alert, speaks in relatively short sentences. Objective Labs 05/16/25 05:14 05/16/25 05:14 Labs: Laboratory Results - last 24 hr 05/14/25 05/14/25 05/15/25 04:37 09:06 05:00 WBC 5.2 D RBC 3.06 L Hgb 8.5 L Hct 29.2 L MCV 95 MCH 27.8 MCHC 29.1 L RDW Std Deviation 58.0 H Plt Count 92 L Neut % (Auto) 88 H Lymph % (Auto) 6 L [place] % (Auto) 4 Eos % (Auto) 0 Baso % (Auto) 1 Neut # (Auto) 4.6 Lymph # (Auto) 0.3 L [place] # (Auto) 0.2 Eos # (Auto) 0.0 Baso # (Auto) 0.0 Immature Gran # (Auto) 0.07 H Absolute Nucleated RBC 0.11 H Immature Gran % 1 H Nucleated RBC % 2 H Smear Path Review Sent to Pathologist PT 10.8 INR 1.0 APTT 28.1 Sodium 147 H Potassium 3.9 Chloride 102 Carbon Dioxide 35.5 H Anion Gap 10 BUN 19 Creatinine 1.3 Estim Creat Clear Calc 52.4 L eGFR 54 L BUN/Creatinine Ratio 15 Glucose 130 H Calculated Osmolality 296 H Calcium 8.3 Corrected Calcium 8.9 Phosphorus 3.8 Magnesium 1.2 L Total Bilirubin 0.6 AST 17 ALT 10 Alkaline Phosphatase 67 Total Protein 5.2 L Albumin 3.2 L Globulin 2.0 L Albumin/Globulin Ratio 1.6 Vancomycin Trough 16.3 H Quality Measures Quality Measures VTE prophylaxis Advance care planning discussed with:: patient Assessment & Plan Assessment Current Active Medications: Generic Name Dose Route Start Last Admin Trade Name Freq PRN Reason Stop Dose Admin Acetaminophen 650 mg 05/12/25 21:10 Acetaminophen 325 Mg Tablet PO 06/11/25 20:57 Q6H PRN Fever >100.4 and pain 1-3 Albuterol/Ipratropium 3 ml 05/12/25 21:34 Albuterol/Ipratropium (Duoneb) Rt Chaya 3 Ml Nebu INH 06/11/25 21:33 Q6HRRT PRN Wheezing Atorvastatin Calcium 10 mg 05/13/25 09:00 05/14/25 09:36 Atorvastatin Calcium 10 Mg Tablet PO 06/12/25 08:59 10 mg QDAY BERE Administration Furosemide 40 mg 05/13/25 09:00 05/14/25 21:40 Furosemide 40 Mg Tablet PO 06/12/25 08:59 40 mg On Hold: 05/15/25 08:06 BID BERE Administration Heparin Sodium (Porcine) 5,000 unit 05/15/25 14:00 Heparin Sod Inj 5000 Unit/Ml Vial SC 05/29/25 13:59 Q8HR BERE Vancomycin/Sodium Chloride 750 mg in 150 mls @ 120 mls/hr 05/13/25 10:00 05/14/25 21:41 Vancomycin/Ns 750 Mg Ivpb IV 05/20/25 09:59 120 mls/hr Q12H BERE Administration Protocol Cefepime HCl 2 gm/ Sodium 50 mls @ 100 mls/hr 05/15/25 18:00 Chloride IV 05/22/25 17:59 BID BERE Protocol Magnesium Sulfate 4 gm in 50 mls @ 12.5 mls/hr 05/15/25 08:23 Magnesium Sulfate Ivpb IV 05/15/25 12:22 X1 ONE Labetalol HCl 10 mg 05/14/25 14:34 Labetalol Inj 5 Mg/Ml Vial 20 Ml IVP 06/13/25 14:33 Q6HR PRN Hypertensive Emergency Pharmacy Consult 1 each 05/13/25 09:00 Vancomycin Pharmacy To Dose 1 Each Each IV 06/12/25 08:59 QDAY PRN RX Pharmacy Consult 1 each 05/15/25 08:00 Pharmacy Renal Dose Adjustment 1 Ea XX 06/14/25 07:59 PRN PRN CONSULT Plan Patient is a 84-year-old male past medical significant for metastatic prostate cancer patient, hypertension and dyslipidemia presented to the ED on 05/12/2025 with chief complaint of fever and lethargy who was admitted for neutropenic fever and PNA. #Bacteremia, GPC and GNR #Acute hypoxic respiratory failure secondary to #Bilateral pneumonia #Neutropenic fever, resolved Patient presented with fever, fatigue, cough with increased sputum production. Temp 102, O2 sat 85% on room air. Upon physical evaluation lungs bilateral breath sound heard, no crackles or wheeze. Received Zosyn x 1 in the ED. COVID- 19 negative. Influenza A, B negative. Patient has been afebrile for the past 24 hours. PSI/PRT Sscore class IV - hospitalization recommended Repeat CXR on 05/15 demonstrating potential new consolidation in the left upper lobe. - Per Dr. Phipps, ordered speech evaluation to make sure patient is not aspirating - per WEIGHER [employer]ULKER eval, patient does not suspect aspiration at this time, continue current diet. - Continue vancomycin (05/12--) - Continue cefepime 2 mg IV BID (05/12--), -Doxycycline 100 PO BID 05/15/2025 - f/u Blood culture speciation - Blood cx speciation delayed for another 48 hours due to multiple species and potential confounding of sensitivities. -Ordered repeat blood Cx to check effectiveness of current antibiotic regimen on bacteremia - Urine culture grew mixed anna (possible contamination), UA bland - MRSA nasal screen (negative) - Sputum culture mixed anna and Gram stain culture 3+GPC and 2+GNR - Tylenol as needed for fever - Chest physiotherapy, guaifenesin #Pancytopenia, likely secondary malignancy & chemo, improving #Thrombocytopenia #Normocytic anemia #Metastatic prostate cancer Patient has metastatic cancer For which he follows oncologist Dr. Hill outpatient. On arrival WBC 1.5, platelets 111 and febrile, Hgb 8.3, HCT 27.7. These lab values likely secondary to chemotherapy-induced myelosuppression despite filgastrim injections that were given as an adjunct to chemo. Gets chemo q3 weeks. Pt has hx of recurrent admissions following chemo treatments. Last admission was 04/18 for Covid PNA - Gave SC Neupogen 480 mg x 1 (per Dr. Phipps, continue giving until ANC is above 1000 consistently [today ANC 800]) - Follows with Dr. Phipps (she will try to see him next week) - Continue to monitor #Tachycardia Patient newly tachycardic last overnight. EKG showed sinus tachycardia. Subjectively, family reports patient appears worse. Patient endorses cough but no increased difficulty with breathing. Could be worsening of infection versus possible PE. D-dimer not indicated due to ongoing malignancy. Considering CTA but will hold for now due to tenuous renal function. - TTE Ordered. - Resumed home carvedilol #PMH, Hypertension #Dyslipidemia Patient has a past medical history of HTN, currently normal tensive. -Labetolol PRN - home atorvastatin 10 mg - home Lasix 40 mg twice daily (b/l lower extremity trace edema found on initial physical examination) Today appears dry, holding lasix for today. #COPD Patient has a past medical history of COPD on home oxygen, 2 Liters. Not in COPD exacerbation. Plan -DuoNebs q6h -Supplemental O2, titrate as tolerated to maintain SpO2 > 93% -CPAP at night #Muscle spasms (resolved) Upon examination, the patient exhibited a new right-sided muscle spasm, which they reported as an onset symptom. No longer complaining about it today -US venous Doppler - no DVT Health Maintenance: DVT prophylaxis: Heparin Diet: Special diet request, ensure with meals Alonzo: No Lines: PIV CODE STATUS: Full code Disposition: Pending speciation and sensitivities of blood cultures. Patient's plan and care discussed with my attending, Dr. Chu and my senior Dr Enriquez. Lazarus Hall DO PGY-1 ([facility] Resident) Attending Provider Attestation/Addendum Toyin Zuniga DO, attest that I was physically present for the edwards portions of the service and evaluated the patient with the resident and I reviewed and discussed the case with the resident and agree with the resident's findings and plans of care as documented above Patient seen and evaluated this AM. No acute events overnight. Patient sounds more congested today with more cough. Family at bedside concerned that patient has not been eating and appears more somnolent. However, patient answers appropriately when awoken. He is currently on 5L oxymask. Will order chest PT and mucolytics. Holding lasix at this time. Continue with broad spectrum antibiotics and add doxycycline for atypical coverage.
[2025-05-15] MEDS: ATORVASTATIN CALCIUM 10 MG TABLET PO (09:56)
[2025-05-15] MEDS: VANCOMYCIN/NS 750 MG IVPB 750 MG/150 ML BAG 120 MG IV ×2 (10:04→21:19)
[2025-05-15] MEDS: guaiFENesin SYRUP 200 MG/10 ML UDC 100 MG PO ×2 (13:34→21:19)
[2025-05-15] MEDS: HEPARIN SOD INJ 5000 UNIT/ML VIAL SC ×2 (13:34→21:20)
[2025-05-15] MEDS: ONDANSETRON INJ 2 MG/ML INJ 2 ML 4 MG IVP (13:46)
--- NOTE | 2025-05-15 13:46 | ECHO_ITS ---
Transthoracic Echo Report Ht (in): 67 Wt (lb): 273 Exam Location: Echo Lab Status: Inpatient Stripe Marker: Elizabeth Stockton Indications: Procedure Performed: BP: 108 / 64 HR: 85 MEASUREMENTS (Male / Female) Normal Values 2D ECHO LV Diastolic Diameter PLAX 5.7 cm 4.2 - 5.9 / 3.9 - 5.3 cm LV Systolic Diameter PLAX 3.5 cm IVS Diastolic Thickness 1.3 cm 0.6 - 1.0 / 0.6 - 0.9 cm LVPW Diastolic Thickness 1.3 cm 0.6 - 1.0 / 0.6 - 0.9 cm LV Relative Wall Thickness 0.5 LVOT Diameter 2.0 cm LA Volume Index 43.2 cm?/m? 16 - 28 cm?/m? Ascending Aorta Diameter 3.4 cm M-MODE AV Cusp Separation MM 1.6 cm DOPPLER AV Peak Velocity 300.5 cm/s AV Peak Gradient 36.1 mmHg AV Mean Gradient 21.0 mmHg AV Velocity Time Integral 60.4 cm AI Peak Velocity 402.0 cm/s AI Peak Gradient 64.6 mmHg AI Pressure Half Time 356.0 ms LVOT Peak Velocity 135.0 cm/s LVOT Peak Gradient 7.3 mmHg LVOT Velocity Time Integral 27.9 cm LVOT Cardiac Index 3001.6 cm?/min?m? AV Area Cont Eq vti 1.5 cm? AV Area Cont Eq pk 1.4 cm? MV Area PHT 8.1 cm? Mitral E Point Velocity 92.6 cm/s Mitral A Point Velocity 117.0 cm/s Mitral E to A Ratio 0.8 LV E' Lateral Velocity 11.4 cm/s Mitral E to LV E' Lateral Ratio 8.1 LV E' Septal Velocity 9.0 cm/s Mitral E to LV E' Septal Ratio 10.3 TR Peak Velocity 222.0 cm/s TR Peak Gradient 19.7 mmHg PV Peak Velocity 105.0 cm/s PV Peak Gradient 4.4 mmHg FINDINGS Left Ventricle Mild LVH.Normal left ventricular size, systolic function with no obvious regional wall motion abnormalities.There is grade I diastolic dysfunction of the left ventricle (impaired relaxation pattern). The ejection fraction is visually estimated at 65 %. Right Ventricle The right ventricle is normal in size and systolic function. Left Atrium The left atrial cavity size is severely increased. Right Atrium The right atrial cavity size is moderately increased. Atrial Septum The interatrial septum appears normal with no evidence of a shunt. Aorta The aorta is normal by two-dimensional, color flow and Doppler interrogation. Mitral Valve Moderate mitral regurgitation. Mild mitral regurgitation. Aortic Valve Moderate aoritic sclerosis with moderate stenosis with a V_max of 3.1 m/s, mean PG of 25mmHg.Leigh 0.6cm2 Tricuspid Valve The tricuspid valve is normal by two-dimensional, color flow and Doppler interrogation. There is mild tricuspid valve regurgitation. Pulmonic Valve The pulmonic valve is not well visualized. There is no significant pulmonic valve regurgitation. Vessels The pulmonary artery appears normal. The inferior vena cava mildly dilated measuring 2.3cm Pericardium The pericardium is normal by two-dimensional imaging. There is no significant pericardial effusion. Other Findings TDS due to patient on Cpap machine CONCLUSIONS Indication:concern for possible PE, eval for right heart strain Mild LVH.Normal left ventricular size and function. Grade I diastolic dysfunction. Estimated EF 60-65% Normal Right ventricular size and function. Severely dilated LA and moderately dilated RA Moderate MAC with mild mitral regurgitation Moderate calcific aortic valve stenosis with a V_max of 3.1 m/s, mean PG of 17mmHg. Mild tricuspid regurgitation noted. The inferior vena cava mildly dilated measuring 2.3cm Carito Romero (Electronically Signed) Final Date: 16 May 2025 17:45
--- NOTE | 2025-05-15 15:08 | EKG_ITS ---
[facility] Test Date: 2025-05-15 Pat Name: DERRICK ALVARADO [facility] Supplier Manager: KIRK : 1940 Requested By: Merry Enriquez Order Number: [id number] Reading MD: Merry Enriquez Measurements Intervals [place] Rate: 88 P: 30 SD: 216 QRS: 52 QRSD: 121 T: 53 QT: 387 QTc: 468 Interpretive Statements SINUS RHYTHM WITH FIRST DEGREE AV BLOCK POSSIBLE RIGHT VENTRICULAR CONDUCTION DELAY Compared to ECG 05/15/2025 05:02:02 First degree AV block now present Sinus tachycardia no longer present Intraventricular conduction delay no longer present /store/S0/[id number].pdf
[2025-05-15] MEDS: SODIUM CHLORIDE 0.9% 250 ML 250 ML 999 ML IV ×2 (15:10→16:03)
[2025-05-15 15:25] LABS: Base Excess, Venous 8 (-3-3); O2 Saturation, Venous 97 % (96-97); PCO2, Venous 50 mmHg (36-56); PO2, Venous 71 mmHg (15-58); pH, Venous 7.43 (7.33-7.66)
[2025-05-15 15:26] LABS: Lactate (Lactic Acid) 1.2 mMol/L (0.4-2.0)
[2025-05-15 15:30] LABS: Basophils # (Auto) 0.1 Thou/mm3 (0.0-0.2); Basophils % (Auto) 1 % (0-2.5); Eosinophils # (Auto) 0.0 Thou/mm3 (0.0-0.5); Eosinophils % (Auto) 0 % (0-10); Hematocrit 26.9 % (41.0-53.0); Immature Granulocytes Auto 0.27 Thou/mm3 (0.00-0.00); Lymphocytes # (Auto) 0.4 Thou/mm3 (1.0-4.8); Lymphocytes % (Auto) 5 % (10-50); Mean Corpuscular HGB Conc 29.0 g/dl (31.0-37.0); Mean Corpuscular Hemoglobin 27.9 pg (25.0-35.0); Mean Corpuscular Volume 96 fL (80-100); Monocytes # (Auto) 0.4 Thou/mm3 (0.0-0.8); Monocytes % (Auto) 5 % (0-12); Neutrophils # (Auto) 7.9 Thou/mm3 (1.8-7.7); Neutrophils % (Auto) 87 % (37-80); Nucleated Red Blood Cell # 0.10 Thou/mm3 (0.00-0.00); Nucleated Red Blood Cell % 1 /100 WBC (0); Platelet Count 100 Thou/mm3 (140-440); RDW Standard Deviation 58.4 fL (35.1-43.9); Red Blood Count 2.80 Miln/mm3 (4.50-5.90); White Blood Count 9.1 Thou/mm3 (3.8-10.6)
--- NOTE | 2025-05-15 15:38 | EVENTNT_ITS ---
Documentation for date of: 05/15/25 Event Note Event Note: Rapid response called around 1500 for hypotension, BP was 97/54, HR around 84 on telemetry box. Oxygenation at 92% on 3L, then 98% on 6L oxymask. Patient was conversant, AxO x3, reporting no increased dyspnea or chest pain. No jvd noted on physical exam, extremities warm and well perfused, DP pulse palpated bilaterally. CBC, CMP, VBG,Lactate, EKG, and TTE ordered. Bedside US was conducted, notable for collapsable IVC. He was started on his home carvedilol today 3.125mg at 1140, his furosemide was held today, he was on 40 mg IV daily. VBG showed pH of 7.43, pCO2 50, Lactate wnl at 1.2. His hypotension is most likely secondary to hypovolemia and restarting the home carvedilol. 250cc bolus of fluid given, holding carvedilol and lasix. Patient remained in stable condition. Pending repeat BP after fluid bolus. Patient's plan and care discussed with my attending, Dr. Flores and my senior Dr Enriquez. Lazarus Hall, DO PGY-1 ([facility] Resident)
[2025-05-15 15:46] LABS: Hemoglobin 7.8 g/dL (13.5-16.0)
[2025-05-15 15:59] LABS: Alanine Aminotransferase 8 U/L (10-49); Albumin, Serum 3.0 gm/dL (3.4-4.8); Albumin/Globulin Ratio 1.7 (1.2-2.2); Alkaline Phosphatase 62 U/L (46-116); Anion Gap 6 (7-16); Aspartate Amino Transferase 15 U/L (0-34); BUN/Creatinine Ratio 13 Ratio (12-20); Bilirubin,Total 0.6 mg/dL (0.3-1.2); Blood Urea Nitrogen 21 mg/dL (9-23); Calcium 8.3 mg/dL (8.3-10.6); Calcium (Corrected) 9.1 mg/dL (8.5-10.1); Carbon Dioxide 36.2 mMol/L (20.0-31.0); Chloride 101 mMol/L (98-107); Creatinine (Component) 1.6 mg/dL (0.6-1.3); Estimated Creatinine Clearance 42.6 mL/min (>60); Globulin 1.8 gm/dL (2.3-3.5); Glucose 185 mg/dL (74-106); Osmolality,Calculated 292 (275-295); Potassium 4.7 mMol/L (3.4-5.1); Sodium 143 mMol/L (136-145); Total Protein 4.8 gm/dL (5.7-8.2); Troponin I < 0.020 ng/mL (0.0-0.045); eGFR 42 See Note
[2025-05-15 16:21] LABS: Band Neutrophils (Manual) 31 % (0-6); Lymphocytes (Manual) 5 % (20-44); Monocytes (Manual) 8 % (2-9); Neutrophils (Manual) 55 % (50-70); Promyelocytes (Manual) 1 % (0-0)
[2025-05-15] MEDS: DOXYCYCLINE 100 MG TABLET PO (21:19)
[2025-05-16] VITALS (8 sets, daily range): BP systolic 108–135; BP diastolic 60–91; PULSE 85–96; RESP 13–22; TEMP 35.8–36.1; O2SAT 94–100; BMI 43.5; BMI 43.6
[2025-05-16] MEDS: guaiFENesin SYRUP 200 MG/10 ML UDC 100 MG PO ×3 (05:10→21:19)
[2025-05-16] MEDS: HEPARIN SOD INJ 5000 UNIT/ML VIAL SC ×3 (05:11→21:19)
[2025-05-16 05:58] LABS: Basophils # (Auto) 0.1 Thou/mm3 (0.0-0.2); Basophils % (Auto) 1 % (0-2.5); Eosinophils # (Auto) 0.0 Thou/mm3 (0.0-0.5); Eosinophils % (Auto) 0 % (0-10); Hematocrit 28.4 % (41.0-53.0); Immature Granulocytes Auto 0.49 Thou/mm3 (0.00-0.00); Lymphocytes # (Auto) 0.7 Thou/mm3 (1.0-4.8); Lymphocytes % (Auto) 7 % (10-50); Mean Corpuscular HGB Conc 28.5 g/dl (31.0-37.0); Mean Corpuscular Hemoglobin 28.2 pg (25.0-35.0); Mean Corpuscular Volume 99 fL (80-100); Monocytes # (Auto) 0.5 Thou/mm3 (0.0-0.8); Monocytes % (Auto) 5 % (0-12); Neutrophils # (Auto) 8.0 Thou/mm3 (1.8-7.7); Neutrophils % (Auto) 82 % (37-80); Nucleated Red Blood Cell # 0.08 Thou/mm3 (0.00-0.00); Nucleated Red Blood Cell % 1 /100 WBC (0); Platelet Count 104 Thou/mm3 (140-440); RDW Standard Deviation 59.7 fL (35.1-43.9); Red Blood Count 2.87 Miln/mm3 (4.50-5.90); White Blood Count 9.7 Thou/mm3 (3.8-10.6)
[2025-05-16 06:07] LABS: Hemoglobin 8.1 g/dL (13.5-16.0)
[2025-05-16 06:45] LABS: Alanine Aminotransferase 9 U/L (10-49); Albumin, Serum 3.3 gm/dL (3.4-4.8); Albumin/Globulin Ratio 1.7 (1.2-2.2); Alkaline Phosphatase 75 U/L (46-116); Anion Gap 9 (7-16); Aspartate Amino Transferase 16 U/L (0-34); BUN/Creatinine Ratio 15 Ratio (12-20); Bilirubin,Total 0.5 mg/dL (0.3-1.2); Blood Urea Nitrogen 26 mg/dL (9-23); Calcium 8.6 mg/dL (8.3-10.6); Calcium (Corrected) 9.2 mg/dL (8.5-10.1); Carbon Dioxide 34.3 mMol/L (20.0-31.0); Chloride 100 mMol/L (98-107); Creatinine (Component) 1.7 mg/dL (0.6-1.3); Estimated Creatinine Clearance 40.5 mL/min (>60); Globulin 2.0 gm/dL (2.3-3.5); Glucose 139 mg/dL (74-106); Magnesium 2.3 mg/dL (1.6-2.6); Osmolality,Calculated 291 (275-295); Phosphorous 5.0 mg/dL (2.4-5.1); Potassium 4.7 mMol/L (3.4-5.1); Sodium 143 mMol/L (136-145); Total Protein 5.3 gm/dL (5.7-8.2); eGFR 39 See Note
--- NOTE | 2025-05-16 08:55 | PC.NURSE ---
Per Dr. Enriquez, PICC Line insertion on hold pending blood culture.
[2025-05-16] MEDS: CEFEPIME INJ 2 GM in SODIUM CHLORIDE 0.9% (Popper) 50 ML IV (09:18)
[2025-05-16] MEDS: DOXYCYCLINE 100 MG TABLET PO (09:18)
[2025-05-16] MEDS: ATORVASTATIN CALCIUM 10 MG TABLET PO (09:18)
[2025-05-16 10:59] LABS: Vancomycin,Trough 22.5 mcg/mL (5.0-10.0)
--- NOTE | 2025-05-16 11:15 | PC.SS ---
Update: Patient receiving IV antibiotics. Blood Culture is pending.
--- NOTE | 2025-05-16 11:57 | PD.RESPRO ---
Documentation for date of: 05/16/25 No overnight events. Patient denied any chief complaints. Denied any chills or fever overnight. Patient is currently on 2 L of oxygen saturating well between 98 to 100%. Patient does have a past medical history of COPD but does not appear to be CO2 retainer. Second set of blood cultures resulted, Negative growth. First set of blood cultres likely contaminated, bacteremia less likely given mixed anna. Continue to treat pneumonia with Cefepime 1 mg IV BID from Cefepime 2 mg IV. Discontinue Doxycycline and Vancomycin. Plan to give one additional day of antibiotics. Given MARIO likely pre-renal given BUN/Cr function concern from intrinsic kidney injury vs pre-renal injury. Discontinue additional antibiotics and holding of on Lasix 40 mg BID and additional anti-hypertensive medication as patient has remained normal tensive. Improved pancytopenia. Pending echo. Plan to discharge within the next 24 hours. - The patient's plan was discussed with attending Dr. Sherwin Enriquez MD PGY2 Internal Medicine Subjective Subjective Interval history: No overnight events. Patient was examined at bedside; they report no new symptoms or complaints (translated by grandson who was present at time of interview). Labs today significant for WBC 9.7 (good response to Neupogen), hemoglobin 7.8 -> 8.1, platelet count 104, bicarbonate 36.2 -> 34.3, BUN 21 -> 26, and creatinine 1.6 -> 1.7 (base 0.9). No new findings on physical exam. 05/14 BCx showed 2/2 no growth after 48 hours. TTE still pending. Current plan is to stop both vancomycin and doxycycline and to continue only cefepime with plans to discharge him tomorrow. Exam Vital Signs Temp Pulse Resp BP Pulse Ox O2 Del Method O2 Flow Rate 96.8 F 94 16 108/64 98 Oxy Mask 3 05/16/25 08:00 05/16/25 10:34 05/16/25 10:34 05/16/25 08:00 05/16/25 10:34 05/16/25 08:00 05/16/25 10:34 Narrative Exam General: Elderly patient, sleepy, laying right lateral decubitus in no acute distress. HEENT: Mucosa moist. Pupils are equal, redundant tissue around the neck. Cardiovascular: Regular rate and rhythm, systolic murmur appreciated. Respiratory: Lungs with subtle coarse sounds. No wheezes appreciated. Crackles not readily appreciated at the bases. Abdomen: Soft, non-tender, not distended, Skin: Dry, no rashes or bruising, some dark discoloration of the nailbeds and distal phalanges, does not appear necrotic. Ecchymoses noted on the right duran. Musculoskeletal: No gross injuries. Able to move all 4 extremities. Non edematous lower extremities. Neuro: Alert, speaks in relatively short sentences. Objective Labs 05/20/25 04:16 05/20/25 04:16 Labs: Laboratory Results - last 24 hr 05/15/25 05/15/25 05/16/25 15:13 17:48 05:14 WBC 9.1 D 9.7 RBC 2.80 L 2.87 L Hgb 7.8 L 8.1 L Hct 26.9 L 28.4 L MCV 96 99 MCH 27.9 28.2 MCHC 29.0 L 28.5 L RDW Std Deviation 58.4 H 59.7 H Plt Count 100 L 104 L Neut % (Auto) 87 H 82 H Lymph % (Auto) 5 L 7 L [place] % (Auto) 5 5 Eos % (Auto) 0 0 Baso % (Auto) 1 1 Neut # (Auto) 7.9 H 8.0 H Lymph # (Auto) 0.4 L 0.7 L [place] # (Auto) 0.4 0.5 Eos # (Auto) 0.0 0.0 Baso # (Auto) 0.1 0.1 Immature Gran # (Auto) 0.27 H 0.49 H Absolute Nucleated RBC 0.10 H 0.08 H Immature Gran % 3 H 5 H Neutrophils % (Manual) 55 Monocytes % (Manual) 8 Promyelocytes % 1 H Nucleated RBC % 1 H 1 H Band Neutrophils 31 H Lymphocytes (Manual) 5 L VBG pH 7.43 VBG pCO2 50 VBG pO2 71 H VBG O2 Sat (Dilma) 97 VBG Base Excess 8 H Sodium 143 143 Potassium 4.7 D 4.7 Chloride 101 100 Carbon Dioxide 36.2 H 34.3 H Anion Gap 6 L 9 BUN 21 26 H Creatinine 1.6 H 1.7 H Estim Creat Clear Calc 42.6 L 40.5 L eGFR 42 L 39 L BUN/Creatinine Ratio 13 15 Glucose 185 H D 139 H Calculated Osmolality 292 291 Lactic Acid 1.2 Calcium 8.3 8.6 Corrected Calcium 9.1 9.2 Phosphorus 5.0 Magnesium 2.3 Total Bilirubin 0.6 0.5 AST 15 16 ALT 8 L 9 L Alkaline Phosphatase 62 75 D Troponin I < 0.020 Total Protein 4.8 L 5.3 L Albumin 3.0 L 3.3 L Globulin 1.8 L 2.0 L Albumin/Globulin Ratio 1.7 1.7 Vancomycin Trough Blood Type A Positive Antibody Screen NEGATIVE Blood Bank Wristband ID Yes 05/16/25 10:19 WBC RBC Hgb Hct MCV MCH MCHC RDW Std Deviation Plt Count Neut % (Auto) Lymph % (Auto) [place] % (Auto) Eos % (Auto) Baso % (Auto) Neut # (Auto) Lymph # (Auto) [place] # (Auto) Eos # (Auto) Baso # (Auto) Immature Gran # (Auto) Absolute Nucleated RBC Immature Gran % Neutrophils % (Manual) Monocytes % (Manual) Promyelocytes % Nucleated RBC % Band Neutrophils Lymphocytes (Manual) VBG pH VBG pCO2 VBG pO2 VBG O2 Sat (Dilma) VBG Base Excess Sodium Potassium Chloride Carbon Dioxide Anion Gap BUN Creatinine Estim Creat Clear Calc eGFR BUN/Creatinine Ratio Glucose Calculated Osmolality Lactic Acid Calcium Corrected Calcium Phosphorus Magnesium Total Bilirubin AST ALT Alkaline Phosphatase Troponin I Total Protein Albumin Globulin Albumin/Globulin Ratio Vancomycin Trough 22.5 H* Blood Type Antibody Screen Blood Bank Wristband ID ABG Interpretation ABG results: 05/15/25 15:13 VBG pH 7.43 VBG pCO2 50 VBG pO2 71 H VBG Base Excess 8 H Quality Measures Quality Measures VTE prophylaxis Advance care planning discussed with:: patient Assessment & Plan Assessment Current Active Medications: Generic Name Dose Route Start Last Admin Trade Name Freq PRN Reason Stop Dose Admin Acetaminophen 650 mg 05/12/25 21:10 Acetaminophen 325 Mg Tablet PO 06/11/25 20:57 Q6H PRN Fever >100.4 and pain 1-3 Albuterol/Ipratropium 3 ml 05/12/25 21:34 Albuterol/Ipratropium (Duoneb) Rt Chyaa 3 Ml Nebu INH 06/11/25 21:33 Q6HRRT PRN Wheezing Atorvastatin Calcium 10 mg 05/13/25 09:00 05/16/25 09:18 Atorvastatin Calcium 10 Mg Tablet PO 06/12/25 08:59 10 mg QDAY BERE Administration Carvedilol 3.125 mg 05/15/25 14:44 Carvedilol 3.125 Mg Tablet PO 06/14/25 10:44 On Hold: 05/15/25 15:15 BIDWM BERE Furosemide 40 mg 05/13/25 09:00 05/14/25 21:40 Furosemide 40 Mg Tablet PO 06/12/25 08:59 40 mg On Hold: 05/15/25 08:06 BID BERE Administration Guaifenesin 100 mg 05/15/25 14:00 05/16/25 05:10 Guaifenesin Syrup 200 Mg/10 Ml Udc PO 06/14/25 13:59 100 mg TID BERE Administration Protocol Heparin Sodium (Porcine) 5,000 unit 05/15/25 14:00 05/16/25 05:11 Heparin Sod Inj 5000 Unit/Ml Vial SC 05/29/25 13:59 5,000 unit Q8HR BERE Administration Cefepime HCl 2 gm/ Sodium 50 mls @ 100 mls/hr 05/15/25 18:00 05/16/25 09:18 Chloride IV 05/22/25 17:59 100 mls/hr BID BERE Administration Protocol Labetalol HCl 10 mg 05/14/25 14:34 Labetalol Inj 5 Mg/Ml Vial 20 Ml IVP 06/13/25 14:33 Q6HR PRN Hypertensive Emergency Ondansetron HCl 4 mg 05/15/25 11:34 05/15/25 13:46 Ondansetron Inj 2 Mg/Ml Inj 2 Ml IVP 06/14/25 11:33 4 mg Q6HR PRN Administration NAUSEA OR VOMITING Protocol Pharmacy Consult 1 each 05/15/25 08:00 Pharmacy Renal Dose Adjustment 1 Ea XX 06/14/25 07:59 PRN PRN CONSULT Plan Patient is a 84-year-old male past medical significant for metastatic prostate cancer patient, hypertension and dyslipidemia presented to the ED on 05/12/2025 with chief complaint of fever and lethargy who was admitted for neutropenic fever and PNA. #Bacteremia, GPC and GNR #Acute hypoxic respiratory failure secondary to #Bilateral pneumonia #Neutropenic fever, resolved Patient presented with fever, fatigue, cough with increased sputum production. Temp 102, O2 sat 85% on room air. Upon physical evaluation lungs bilateral breath sound heard, no crackles or wheeze. Received Zosyn x 1 in the ED. COVID-19 negative. Influenza A, B negative. Patient has been afebrile for the past 24 hours. PSI/PRT Sscore class IV - hospitalization recommended Repeat CXR on 05/15 demonstrating potential new consolidation in the left upper lobe. - Per Dr. Phipps, ordered speech evaluation to make sure patient is not aspirating - per DIRECTOR TRUST eval, patient does not suspect aspiration at this time, continue current diet. -Discontinued vancomycin [05/12-05/16] - Continue cefepime 2 mg IV BID (05/12--), -Discontinued Doxycycline 100 PO BID [05/15-05/16] - f/u Blood culture speciation - Blood cx speciation delayed for another 48 hours due to multiple species and potential confounding of sensitivities (however, this result may suggest that initial set of BCx's were contaminated) -Repeat blood Cx showed 2/2 no growth to date after 48 hours - Urine culture grew mixed anna (possible contamination), UA bland - MRSA nasal screen (negative) - Sputum culture mixed anna and Gram stain culture 3+GPC and 2+GNR - Tylenol as needed for fever - Chest physiotherapy, guaifenesin #Pancytopenia, likely secondary malignancy & chemo, improving #Thrombocytopenia #Normocytic anemia #Metastatic prostate cancer Patient has metastatic cancer For which he follows oncologist Dr. Hill outpatient. On arrival WBC 1.5, platelets 111 and febrile, Hgb 8.3, HCT 27.7. These lab values likely secondary to chemotherapy-induced myelosuppression despite filgastrim injections that were given as an adjunct to chemo. Gets chemo q3 weeks. Pt has hx of recurrent admissions following chemo treatments. Last admission was 04/18 for Covid PNA - Gave SC Neupogen 480 mg x 1 (per Dr. Phipps, continue giving until ANC is above 1000 consistently [today ANC 800]) - Follows with Dr. Phipps (she will try to see him next week) - Continue to monitor #Tachycardia Patient newly tachycardic last overnight. EKG showed sinus tachycardia. Subjectively, family reports patient appears worse. Patient endorses cough but no increased difficulty with breathing. Could be worsening of infection versus possible PE. D-dimer not indicated due to ongoing malignancy. Considering CTA but will hold for now due to tenuous renal function. -TTE still pending -Continue home carvedilol #PMH, Hypertension #Dyslipidemia Patient has a past medical history of HTN, currently normal tensive. -Labetolol PRN - home atorvastatin 10 mg - home Lasix 40 mg twice daily (b/l lower extremity trace edema found on initial physical examination) #COPD Patient has a past medical history of COPD on home oxygen, 2 Liters. Not in COPD exacerbation. Plan -DuoNebs q6h -Supplemental O2, titrate as tolerated to maintain SpO2 > 93% -CPAP at night #Muscle spasms (resolved) Upon examination, the patient exhibited a new right-sided muscle spasm, which they reported as an onset symptom. No longer complaining about it today -US venous Doppler - no DVT Health Maintenance: DVT prophylaxis: Heparin Diet: Special diet request, ensure with meals Alonzo: No Lines: PIV CODE STATUS: Full code Disposition: Pending speciation and sensitivities of blood cultures. Patient's plan and care discussed with my attending, Dr. Courtney and my senior Dr. Zoe Tello DO Internal Medicine, PGY-1 Attending Provider Attestation/Addendum I have discussed and was present for the essential components of the history, physical examination, diagnosis, and treatment plan with the resident. I agree with the patient's care as documented by the resident and amended herein by me. Jose Courtney DO. Although this document has been carefully reviewed, there may still be some phonetic and other typographical errors. These errors are purely grammatical due to imperfections in the software program and should not be construed in any way to compromise the substance of the patient's medical care during this visit.
[2025-05-16 12:02] LABS: Band Neutrophils (Manual) 21 % (0-6); Lymphocytes (Manual) 2 % (20-44); Monocytes (Manual) 4 % (2-9); Neutrophils (Manual) 73 % (50-70)
--- NOTE | 2025-05-16 14:26 | PC.SS ---
Rounding Note: Patient receiving IV antibiotics. Possible d/c tomorrow.
[2025-05-16] MEDS: CEFEPIME INJ 1 GM in SODIUM CHLORIDE 0.9% (Popper) 50 ML IV (21:19)
[2025-05-17] VITALS (16 sets, daily range): BP systolic 107–130; BP diastolic 63–78; PULSE 72–99; RESP 12–31; TEMP 36.1–36.6; O2SAT 95–100; BMI 43.9
[2025-05-17] MEDS: guaiFENesin SYRUP 200 MG/10 ML UDC 100 MG PO ×2 (05:22→21:29)
[2025-05-17] MEDS: HEPARIN SOD INJ 5000 UNIT/ML VIAL SC ×3 (05:22→21:44)
[2025-05-17 05:53] LABS: Basophils # (Auto) 0.0 Thou/mm3 (0.0-0.2); Basophils % (Auto) 0 % (0-2.5); Eosinophils # (Auto) 0.0 Thou/mm3 (0.0-0.5); Eosinophils % (Auto) 0 % (0-10); Hematocrit 27.7 % (41.0-53.0); Hemoglobin 8.1 g/dL (13.5-16.0); Immature Granulocytes Auto 0.52 Thou/mm3 (0.00-0.00); Lymphocytes # (Auto) 0.6 Thou/mm3 (1.0-4.8); Lymphocytes % (Auto) 8 % (10-50); Mean Corpuscular HGB Conc 29.2 g/dl (31.0-37.0); Mean Corpuscular Hemoglobin 28.5 pg (25.0-35.0); Mean Corpuscular Volume 98 fL (80-100); Monocytes # (Auto) 0.4 Thou/mm3 (0.0-0.8); Monocytes % (Auto) 5 % (0-12); Neutrophils # (Auto) 5.8 Thou/mm3 (1.8-7.7); Neutrophils % (Auto) 79 % (37-80); Nucleated Red Blood Cell # 0.08 Thou/mm3 (0.00-0.00); Nucleated Red Blood Cell % 1 /100 WBC (0); Platelet Count 107 Thou/mm3 (140-440); RDW Standard Deviation 57.5 fL (35.1-43.9); Red Blood Count 2.84 Miln/mm3 (4.50-5.90); White Blood Count 7.4 Thou/mm3 (3.8-10.6)
[2025-05-17 06:30] LABS: Alanine Aminotransferase 10 U/L (10-49); Albumin, Serum 3.1 gm/dL (3.4-4.8); Albumin/Globulin Ratio 1.5 (1.2-2.2); Alkaline Phosphatase 73 U/L (46-116); Anion Gap 7 (7-16); Aspartate Amino Transferase 15 U/L (0-34); BUN/Creatinine Ratio 20 Ratio (12-20); Bilirubin,Total 0.5 mg/dL (0.3-1.2); Blood Urea Nitrogen 30 mg/dL (9-23); Calcium 8.5 mg/dL (8.3-10.6); Calcium (Corrected) 9.2 mg/dL (8.5-10.1); Carbon Dioxide 36.3 mMol/L (20.0-31.0); Chloride 100 mMol/L (98-107); Creatinine (Component) 1.5 mg/dL (0.6-1.3); Estimated Creatinine Clearance 45.4 mL/min (>60); Globulin 2.1 gm/dL (2.3-3.5); Glucose 120 mg/dL (74-106); Magnesium 2.2 mg/dL (1.6-2.6); Osmolality,Calculated 292 (275-295); Phosphorous 3.2 mg/dL (2.4-5.1); Potassium 4.5 mMol/L (3.4-5.1); Sodium 143 mMol/L (136-145); Total Protein 5.2 gm/dL (5.7-8.2); eGFR 45 See Note
[2025-05-17] MEDS: CEFEPIME INJ 1 GM in SODIUM CHLORIDE 0.9% (Popper) 50 ML IV ×2 (09:19→21:34)
[2025-05-17] MEDS: ATORVASTATIN CALCIUM 10 MG TABLET PO (09:19)
--- NOTE | 2025-05-17 09:19 | XR_ITS ---
Examination: AP chest single view Technique: Upright portable AP chest single view Date and time: May 17, 2025, 0930 hrs., Comparison May 15, 2025 Indications: Coughing congestion today. Findings: Mild to moderate CHF Mild to moderate enlargement cardiac contour, prominent vascular congestion, central vascular engorgement and bilateral perihilar basilar edema Right internal jugular Port-A-Cath tip satisfactory position Prominent osteopenia Impression: Mild to moderate CHF
[2025-05-17 09:47] LABS: Base Excess 9 (-3-3); HCO3 38 mEq/L (20-26); Inspired Oxygen, FIO2 2 %; O2 Saturation 93 % (91-98); PCO2 83 mmHg (32.0-48.0); PO2 66 mmHg (83-108); pH, Arterial 7.26 (7.35-7.45)
[2025-05-17 09:52] LABS: Allen Test Performed/OK; Puncture Site Right Radial
[2025-05-17] MEDS: ALBUTEROL/IPRATROPIUM (Duoneb) RT SOL 3 ML NEBU INH ×4 (10:18→22:00)
[2025-05-17 12:48] LABS: Chloride,Urine Random 26.2 mMol/L (55.0-125.0); Creatinine,Random Urine 140 mg/dL (30-125); Potassium,Urine Random 28 mMol/L (12-62); Sodium,Urine Random < 15.0 mMol/L (20.0-110.0)
[2025-05-17] MEDS: ferumoxytoL (NON-ESRD) 510 MG in SODIUM CHLORIDE 0.9% 100 ML 234 MG IV (13:25)
--- NOTE | 2025-05-17 13:42 | ESPR_ITS ---
Documentation for date of: 05/17/25 No overnight events. Ruben examined at bedside this morning. Noted to have altered mental status as ruben was now A&O X 0 which is not baseline. Noted to have increased work of breathing. Chest x-ray ordered, ABG ordered, and Duonebs scheduled. Continue chest physiology. Patient was started on Bipap. ABG noted to have a pCO2 of 83, which down treded to 73, and eventually 59. Acute encehalopathy likely in the setting of acute hypercapnic respiratory failure, secondary to COPD exacerbation. Continue Bipap and transition patient to Cpap overnight if tolerated. Additional VBG at 9 PM. Improved MARIO, likely in setting of intrinsic renal injury from pre- renal failure caused over diuresis-contraction alkalosis in setting of Lasix. Cr continues to downtrend. Tolding off lasix, continue to monitor kidney function. NO food while on Bpap. Echo noted for perserved ejection fraction with diastolic dysfunction and severely dilated LA and moderatley dilated RA. Re-evaluate ruben's renal function, as patient would benefit of resuming lasix given Central Vascular congestion as noted on x-ray from 05/17/2025. ICU consulted given worsening respiratory function. Continue Bipap given ABG. Resume Doxycyline given immunocompromised stated and concern for initial blood culture showing GPC, re-plated culture from initial blood draw showed GPC. Repeat blood culture on 05/14/2025 negative after 48 hours. Continue to treat for bacteremia. Follow up on VBG at 9 PM - The patient's plan was discussed with attending Dr. Ryne Enriquez MD PGY2 Internal Medicine Subjective Subjective Interval history: No overnight events. Today, patient's family was present at bedside with the patient and reported that he was exhibiting new unsteadiness with ambulation as well as cough productive of thick, green-yellow sputum that had not been present yesterday. He also appeared to be confused and was oriented to person only and not place or time. When patient was questioned, he was observed speaking nonsense and repeating phrases over and over (in [place]). On physical exam, patient was noted to be breathing laboriously with notable sounds of mucus and phlegm. Upon auscultation, diffuse crackles and rhonchi were appreciated on anterior and posterior lung alex bilaterally which seemed worse from previous days. ABG showed acidotic pH 7.26, pCO2 83, pO2 66, and bicarbonate 38. Other significant labs today include: hemoglobin 8.1 -> 7.3, platelet count 107 -> 94, and creatinine 1.5 -> 1.4. Patient was put on BiPAP, given breathing treatments, and started on Solumedrol which seemed to show some improvement in his respiratory status on repeat ABG (pH 7.31, pCO2 73, pO2 91, bicarbonate 37). 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 A discussion with family was held regarding patient's poor prognosis in the setting of metastatic prostate cancer where it was also explained why CPR without intubation would not be a solution. Family has made the decision to make the patient DNR/DNI. Also of note, patient has also not been maintaining good urine output with bladder scan today showing more than 450 mL of retained urine. Due to the patient's deterioration today, ICU has been consulted. Updates to Plan: -BiPAP trialed today (repeat ABG showed some improvement but not much) -Started Duoneb q4HR scheduled and Duoneb q2HR prn -Started IV Solumedrol 60 mg q12HR -Restarted IV doxycycline 100 mg BID (for bacteremia) -Ordered ABG -Ordered bladder scan -Restart Alonzo catheter -Restart PO tamsulosin 0.4 mg qD Exam Vital Signs Temp Pulse Resp BP Pulse Ox O2 Del Method O2 Flow Rate 96.9 F 72 18 107/63 99 BiPAP 2 05/17/25 12:00 05/17/25 12:45 05/17/25 12:45 05/17/25 12:00 05/17/25 12:45 05/17/25 12:00 05/17/25 10:19 FiO2 40 05/17/25 12:45 Narrative Exam General: A&O x 1 elderly, obese male in respiratory distress. HEENT: Mucosa moist. Pupils are equal, redundant tissue around the neck. Cardiovascular: Tachycardic rate and rhythm, systolic murmur appreciated. Respiratory: Tachypneic with productive cough and sounds of phlegm noted. Diffuse crackles and rhonchi appreciated on anterior and posterior lung alex bilaterally. Prolonged expiratory phase. No wheezes appreciated. Abdomen: Soft, non-tender, not distended. No guarding or rebound tenderness. Bowel sounds present. Skin: Dry, no rashes or bruising, some dark discoloration of the nailbeds and distal phalanges, does not appear necrotic. Ecchymosis noted on the right duran. Musculoskeletal: No gross injuries. Able to move all 4 extremities. Non edematous lower extremities. Objective Labs 05/18/25 05:05 05/18/25 05:05 Labs: Laboratory Results - last 24 hr 05/17/25 05/17/25 05/17/25 04:49 09:41 10:50 WBC 7.4 RBC 2.84 L Hgb 8.1 L Hct 27.7 L MCV 98 MCH 28.5 MCHC 29.2 L RDW Std Deviation 57.5 H Plt Count 107 L Neut % (Auto) 79 Lymph % (Auto) 8 L Lander % (Auto) 5 Eos % (Auto) 0 Baso % (Auto) 0 Neut # (Auto) 5.8 Lymph # (Auto) 0.6 L Lander # (Auto) 0.4 Eos # (Auto) 0.0 Baso # (Auto) 0.0 Immature Gran # (Auto) 0.52 H Absolute Nucleated RBC 0.08 H Immature Gran % 7 H Nucleated RBC % 1 H Puncture Site Right Radial ABG pH 7.26 L ABG pCO2 83 H* ABG pO2 66 L ABG HCO3 38 H ABG O2 Saturation 93 ABG Base Excess 9 H FiO2 2 Sodium 143 Potassium 4.5 Chloride 100 Carbon Dioxide 36.3 H Anion Gap 7 BUN 30 H Creatinine 1.5 H Estim Creat Clear Calc 45.4 L eGFR 45 L BUN/Creatinine Ratio 20 Glucose 120 H Calculated Osmolality 292 Calcium 8.5 Corrected Calcium 9.2 Phosphorus 3.2 Magnesium 2.2 Total Bilirubin 0.5 AST 15 ALT 10 Alkaline Phosphatase 73 Total Protein 5.2 L Albumin 3.1 L Globulin 2.1 L Albumin/Globulin Ratio 1.5 Ur Random Creatinine 140 H Ur Random Sodium < 15.0 L Ur Random Potassium 28 Ur Random Chloride 26.2 L ABG Interpretation ABG results: 05/15/25 05/17/25 15:13 09:41 ABG pH 7.26 L ABG pCO2 83 H* ABG pO2 66 L ABG HCO3 38 H ABG O2 Saturation 93 ABG Base Excess 9 H VBG pH 7.43 VBG pCO2 50 VBG pO2 71 H VBG Base Excess 8 H Quality Measures Quality Measures VTE prophylaxis Advance care planning discussed with:: patient Assessment & Plan Assessment Current Active Medications: Generic Name Dose Route Start Last Admin Trade Name Freq PRN Reason Stop Dose Admin Acetaminophen 650 mg 05/12/25 21:10 Acetaminophen 325 Mg Tablet PO 06/11/25 20:57 Q6H PRN Fever >100.4 and pain 1-3 Albuterol/Ipratropium 3 ml 05/17/25 11:00 05/17/25 10:18 Albuterol/Ipratropium (Duoneb) Rt Chaya 3 Ml Nebu INH 06/16/25 10:59 3 ml Q4HRRT BERE Administration Albuterol/Ipratropium 3 ml 05/17/25 10:00 Albuterol/Ipratropium (Duoneb) Rt Chaya 3 Ml Nebu INH 06/16/25 09:59 Q2HR PRN SHORTNESS OF BREATH OR WHEEZE Atorvastatin Calcium 10 mg 05/13/25 09:00 05/17/25 09:19 Atorvastatin Calcium 10 Mg Tablet PO 06/12/25 08:59 10 mg QDAY BERE Administration Carvedilol 3.125 mg 05/15/25 14:44 Carvedilol 3.125 Mg Tablet PO 06/14/25 10:44 On Hold: 05/15/25 15:15 BIDWM BERE Furosemide 40 mg 05/13/25 09:00 05/14/25 21:40 Furosemide 40 Mg Tablet PO 06/12/25 08:59 40 mg On Hold: 05/15/25 08:06 BID BERE Administration Guaifenesin 100 mg 05/15/25 14:00 05/17/25 05:22 Guaifenesin Syrup 200 Mg/10 Ml Udc PO 06/14/25 13:59 100 mg TID BERE Administration Protocol Heparin Sodium (Porcine) 5,000 unit 05/15/25 14:00 05/17/25 05:22 Heparin Sod Inj 5000 Unit/Ml Vial SC 05/29/25 13:59 5,000 unit Q8HR BERE Administration Cefepime HCl 1 gm/ Sodium 50 mls @ 100 mls/hr 05/16/25 21:00 05/17/25 09:19 Chloride IV 05/23/25 20:59 100 mls/hr BID BERE Administration Protocol Labetalol HCl 10 mg 05/14/25 14:34 Labetalol Inj 5 Mg/Ml Vial 20 Ml IVP 06/13/25 14:33 Q6HR PRN Hypertensive Emergency Methylprednisolone Sodium Succinate 60 mg 05/17/25 21:00 Methylprednisolone Sod Succ 40 Mg/Ml Vial IV 05/24/25 20:59 Q12HR BERE Ondansetron HCl 4 mg 05/15/25 11:34 05/15/25 13:46 Ondansetron Inj 2 Mg/Ml Inj 2 Ml IVP 06/14/25 11:33 4 mg Q6HR PRN Administration NAUSEA OR VOMITING Protocol Pharmacy Consult 1 each 05/15/25 08:00 Pharmacy Renal Dose Adjustment 1 Ea XX 06/14/25 07:59 PRN PRN CONSULT Plan Patient is a 84-year-old male past medical significant for metastatic prostate cancer patient, hypertension and dyslipidemia presented to the ED on 05/12/2025 with chief complaint of fever and lethargy who was admitted for neutropenic fever and PNA. #Acute Hypercapnic Respiratory Failure, Secondary to COPD exacerbation #COPD exacerbation #History of COPD On 05/17, patient exhibited cough productive of thick, green-yellow sputum that had not been present prior with new confusion and increased work of breathing Antibiotic course this hospitalization: Vancomycin [05/12-05/16] Cefepime [05/12--] Doxycycline [05/15-05/16], plan to restart [05/17] Plan: -BiPAP trialed today (repeat ABG showed some improvement but not much) -Started Duoneb q4HR scheduled and Duoneb q2HR prn -Started IV Solumedrol 60 mg q12HR -Chest physiotherapy -No intubation as patient is DNR/DNI, ICU has been consulted #Acute encephalopathy, likely 2/2 hypercapnic encephalopathy in the setting of COPD exacerbation Patient appeared newly confused on 05/17, being A&O x 1 and unsteady with walking 05/17 ABG showed acidotic pH 7.26, pCO2 83, pO2 66, and bicarbonate 38 Plan: -Treat underlying COPD exacerbation #Bacteremia, GPC and GNR #Acute hypoxic respiratory failure secondary to #Bilateral pneumonia #Neutropenic fever, resolved Patient presented with fever, fatigue, cough with increased sputum production. Temp 102, O2 sat 85% on room air. Upon physical evaluation lungs bilateral breath sound heard, no crackles or wheeze. Received Zosyn x 1 in the ED. COVID- 19 negative. Influenza A, B negative. Patient has been afebrile for the past 24 hours. PSI/PRT Sscore class IV - hospitalization recommended Repeat CXR on 05/15 demonstrating potential new consolidation in the left upper lobe. - Per Dr. Phipps, ordered speech evaluation to make sure patient is not aspirating - per [employer] eval, patient does not suspect aspiration at this time, continue current diet. -Discontinued vancomycin [05/12-05/16] - Continue cefepime 2 mg IV BID (05/12--), -Discontinued Doxycycline 100 PO BID [05/15-05/16] - Restart IV Doxycycline 100 mg BID [05/17--] - f/u Blood culture speciation - Blood cx speciation delayed for another 48 hours due to multiple species and potential confounding of sensitivities (it is now assumed that patient grew GPC for 4/4 bottles) -Repeat blood Cx showed 09/15 no growth to date after 48 hours - Urine culture grew mixed anna (possible contamination), UA bland - MRSA nasal screen (negative) - Sputum culture mixed anna and Gram stain culture 3+GPC and 2+GNR - Tylenol as needed for fever - Chest physiotherapy, guaifenesin #Pancytopenia, likely secondary malignancy & chemo, improving #Thrombocytopenia #Normocytic anemia #Metastatic prostate cancer Patient has metastatic cancer For which he follows oncologist Dr. Hill outpatient. On arrival WBC 1.5, platelets 111 and febrile, Hgb 8.3, HCT 27.7. These lab values likely secondary to chemotherapy-induced myelosuppression despite filgastrim injections that were given as an adjunct to chemo. Gets chemo q3 weeks. Pt has hx of recurrent admissions following chemo treatments. Last admission was 04/18 for Covid PNA - Gave SC Neupogen 480 mg x 1 (per Dr. Phipps, continue giving until ANC is above 1000 consistently) - Follows with Dr. Phipps (she will try to see him next week) - Continue to monitor #PMH, Hypertension #Dyslipidemia Patient has a past medical history of HTN, currently normal tensive. -Labetolol PRN - home atorvastatin 10 mg - home Lasix 40 mg twice daily (b/l lower extremity trace edema found on initial physical examination) #Urinary retention #BPH Patient has not been having good UOP lately and 05/17 bladder scan showed more than 450 mL of retained urine Patient has previous imaging showing a significantly enlarged prostate in the setting of metastatic prostate cancer Plan: -Restart Alonzo catheter -Restart PO tamsulosin 0.4 mg qD #Muscle spasms (resolved) Upon examination, the patient exhibited a new right-sided muscle spasm, which they reported as an onset symptom. No longer complaining about it today -US venous Doppler - no DVT Health Maintenance: DVT prophylaxis: Heparin Diet: Special diet request, ensure with meals Alonzo: Yes (started today) Lines: PIV CODE STATUS: DNR/DNI Disposition: Consulted ICU due to patient's deteriorating respiratory status even on BiPAP Patient's plan and care discussed with my attending, Dr. Michele and my senior Dr. Zoe Tello, DO Internal Medicine, PGY-1 Attending Provider Attestation/Addendum Patient seen and examined with resident physician Dr. Tello/ Dr. enriquez. Note reviewed, agree with findings and recommendations. Spoke to family-I requested DNR. Currently on BiPAP for respiratory acidosis.
[2025-05-17 13:46] LABS: Lactate (Lactic Acid) 0.8 mMol/L (0.4-2.0)
[2025-05-17 13:56] LABS: Basophils # (Auto) 0.0 Thou/mm3 (0.0-0.2); Basophils % (Auto) 1 % (0-2.5); Eosinophils # (Auto) 0.0 Thou/mm3 (0.0-0.5); Eosinophils % (Auto) 0 % (0-10); Hematocrit 25.3 % (41.0-53.0); Immature Granulocytes Auto 0.42 Thou/mm3 (0.00-0.00); Lymphocytes # (Auto) 0.6 Thou/mm3 (1.0-4.8); Lymphocytes % (Auto) 12 % (10-50); Mean Corpuscular HGB Conc 28.9 g/dl (31.0-37.0); Mean Corpuscular Hemoglobin 27.7 pg (25.0-35.0); Mean Corpuscular Volume 96 fL (80-100); Monocytes # (Auto) 0.2 Thou/mm3 (0.0-0.8); Monocytes % (Auto) 5 % (0-12); Neutrophils # (Auto) 3.5 Thou/mm3 (1.8-7.7); Neutrophils % (Auto) 73 % (37-80); Nucleated Red Blood Cell # 0.13 Thou/mm3 (0.00-0.00); Nucleated Red Blood Cell % 3 /100 WBC (0); Platelet Count 94 Thou/mm3 (140-440); RDW Standard Deviation 58.0 fL (35.1-43.9); Red Blood Count 2.64 Miln/mm3 (4.50-5.90); White Blood Count 4.8 Thou/mm3 (3.8-10.6)
[2025-05-17 14:01] LABS: Hemoglobin 7.3 g/dL (13.5-16.0)
[2025-05-17 14:07] LABS: Base Excess 10 (-3-3); HCO3 37 mEq/L (20-26); Inspired Oxygen, FIO2 40 %; O2 Saturation 98 % (91-98); PCO2 73 mmHg (32.0-48.0); PO2 91 mmHg (83-108); pH, Arterial 7.31 (7.35-7.45)
[2025-05-17 14:27] LABS: Allen Test Performed/OK; Puncture Site Right Radial
[2025-05-17 14:30] LABS: Alanine Aminotransferase 9 U/L (10-49); Albumin, Serum 2.9 gm/dL (3.4-4.8); Albumin/Globulin Ratio 1.5 (1.2-2.2); Alkaline Phosphatase 65 U/L (46-116); Anion Gap 4 (7-16); Aspartate Amino Transferase 14 U/L (0-34); BUN/Creatinine Ratio 24 Ratio (12-20); Bilirubin,Total 0.5 mg/dL (0.3-1.2); Blood Urea Nitrogen 33 mg/dL (9-23); Calcium 8.5 mg/dL (8.3-10.6); Calcium (Corrected) 9.4 mg/dL (8.5-10.1); Carbon Dioxide 36.5 mMol/L (20.0-31.0); Chloride 102 mMol/L (98-107); Creatinine (Component) 1.4 mg/dL (0.6-1.3); Estimated Creatinine Clearance 48.6 mL/min (>60); Globulin 1.9 gm/dL (2.3-3.5); Glucose 95 mg/dL (74-106); Osmolality,Calculated 290 (275-295); Potassium 4.7 mMol/L (3.4-5.1); Sodium 142 mMol/L (136-145); Total Protein 4.8 gm/dL (5.7-8.2); eGFR 49 See Note
--- NOTE | 2025-05-17 15:10 | ESCONSULT_ITS ---
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 ICU team has been consulted for altered mental status with inc work of breathing req BIPAP. Patient was seen on BiPAP. He has lomg standing history of COPD. ABGs were significant for pH 7.26 improved to 7.31, pCO2 83-73, pO2 66-91. ABG showed improvement has been made adjustment to BiPAP settings with increased minute ventilation. Family was present at the bedside and they were explained that patient has overall declining condition due to progression of disease. His altered mentation is attributed to acute on chronic hypoxic hypercapnic respiratory failure due to COPD exacerbation. It was informed that intubation might not help overall due to his disease progression. Primary team was under the discussion with family since morning. Family decided to make the patient DNR/DNI. It is recommended to complete course of antibiotic for 4/4 bottles of GPC seen on 05/12/2025. Patient has immunocompromise state as well as ongoing fever since January 2025 therefore it would be appropriate to cover him for total 14-day course of doxycycline for GPC bacteremia. Recent cultures have been negative x 48 hours. Thank you for letting us participate in patient's care. I discussed and supervised with the industrial engineering intern physician who took care of this patient. I personally saw and examined the patient. I agree with most of the assessment and plan. Disclaimer: Despite multiple revisions, due to the dictation software being used, the document bellow may not be free of grammatical errors including phonetic/typographic errors. However, this does not deter from our commitment to providing health care in the patient's best interest in mind. Plan of care discussed with attending Physician Dr. Randy Foster MD PGY-3 HPI Data of Consult Requesting Physician: Julio Michele MD Admitting Provider: Henry Kan MD Attending Provider: Julio Michele MD Primary Care Provider: Bong Byers MD Consult Narrative Reason for consult: Acute Respiratory Distress History of present illness: Mr. Leslie is a 84-year-old gentleman with a medical history of prostate cancer with mets, primary hypertension, COPD (2L O2 at home), and dyslipidemia presents to [facility] emergency department on 05/12/2025 with chief complaint of fever, productive cough, congestion, and generalized weakness. He had chemo 1 week ago and recieved filgastrim injections for 3 days after chemo. (chemo every [address] Phipps). Patient accompanied by his daughter in law and his grand-daughter. At bedside he endorses productive cough and some shortness of breath. Patient has had multiple hospitalizations since January 2025 for respiratory problems. Blood culture positive for bacteremia gram-positive cocci 11/15 on 05/12. Repeat blood cultures obtained. ABX this hospitalization: vancomycin (05/12 - 05/16), cefepime (05/12--), Doxycycline (05/15--). Goals of Care were discussed with the family 05/17; Family was informed of poor prognosis of patient given his history of metastatic prostate cancer along with the acute, progressing decline in health given relative increased incidences of hospitalizations. Family was informed why intubation only without cpr is not a solution and will not be done as that combination. Upon further discussion with the family, the patient will be DNR/DNI. ICU was consulted given patient's acute on chronic copd exacerbation, with acute transient decrease in mentation and ABG in morning of 05/17 showing pH 7.31, pco2 73, po2 66 and the afternoon ABG showing pH 7.31, pco2 73, pO2 91. cc:: cc: Julio Michele MD Exam Vital Signs Temp Pulse Resp BP Pulse Ox O2 Del Method O2 Flow Rate 96.9 F 85 24 H 107/63 100 BiPAP 2 05/17/25 12:00 05/17/25 14:51 05/17/25 14:51 05/17/25 12:00 05/17/25 14:51 05/17/25 12:00 05/17/25 10:19 FiO2 40 05/17/25 14:31 Narrative Exam General: In acute respiratory distress on bipap, Skin: Warm, dry, intact, no obvious rash, bilateral duran ecchymosis HENT: NCAT, EOMI, not icteric. Moist mucous membranes Cardiovascular: Regular rate and rhythm, no murmur heard, +S1/S2. Respiratory: Tachypnea with bipap on; mild coarse lung sounds; no accessory muscle use GI: Soft, nontender, non-distended. No guarding or rebound tenderness. Extremities: no edema, no cyanosis, no clubbing. Extremity pulses present; brown discoloration of nail beds. Neuro: No focal deficits observed. Eyes are open, is able to move spontaneously, however patient is unable to appropriately answer questions, so unable to determine degree of alertness/orientation Results Labs 05/17/25 13:38 05/17/25 13:38 Labs: Short CBC 05/17/25 05/17/25 Range/Units 04:49 13:38 WBC 7.4 4.8 (3.8-10.6) Thou/mm3 Hgb 8.1 L 7.3 L (13.5-16.0) g/dL Hct 27.7 L 25.3 L (41.0-53.0) % Plt Count 107 L 94 L (140-440) Thou/mm3 BMP 05/17/25 05/17/25 04:49 13:38 Sodium 143 142 Potassium 4.5 4.7 Chloride 100 102 Carbon Dioxide 36.3 H 36.5 H BUN 30 H 33 H Creatinine 1.5 H 1.4 H Glucose 120 H 95 Calcium 8.5 8.5 Liver Function 05/17/25 05/17/25 Range/Units 04:49 13:38 Total Bilirubin 0.5 0.5 (0.3-1.2) mg/dL AST 15 14 (0-34) U/L ALT 10 9 L (10-49) U/L Alkaline Phosphatase 73 65 (46-116) U/L Albumin 3.1 L 2.9 L (3.4-4.8) gm/dL ABG Interpretation ABG results: 05/15/25 05/17/25 05/17/25 15:13 09:41 14:00 ABG pH 7.26 L 7.31 L ABG pCO2 83 H* 73 H* D ABG pO2 66 L 91 D ABG HCO3 38 H 37 H ABG O2 Saturation 93 98 ABG Base Excess 9 H 10 H VBG pH 7.43 VBG pCO2 50 VBG pO2 71 H VBG Base Excess 8 H Quality Measures Quality Measures VTE prophylaxis Advance care planning discussed with:: patient and child Medications Home Medications and Allergies Home Medications ?Medication ?Instructions ?Recorded ?Confirmed ?Type atorvastatin 10 mg tablet 10 mg PO QDAY 10/20/2205/12 History enzalutamide 80 mg tablet (Xtandi) 80 mg PO BID 05/12/25 History ondansetron 8 mg disintegrating 8 mg PO Q8H PRN nausea and vomiting 04/19/25 05/12/25 History tablet vitamin B complex-vitamin C-folic 1 tab PO QDAY 05/12/25 History acid 0.8 mg tablet (Nissa-Sachin) Allergies Allergy/AdvReac Type Severity Reaction Status Date / Time No Known Allergies Allergy Verified 05/12/25 17:01 Visit Medications Acetaminophen (Acetaminophen 325 Mg Tablet) 650 mg PO Q6H PRN PRN Reason: Fever >100.4 and pain 1-3 Stop: 06/11/25 20:57 Albuterol/Ipratropium (Albuterol/Ipratropium (Duoneb) Rt Chaya 3 Ml Nebu) 3 ml INH Q4HRRT BERE Stop: 06/16/25 10:59 Last Admin: 05/17/25 14:31 Dose: 3 ml Albuterol/Ipratropium (Albuterol/Ipratropium (Duoneb) Rt Chaya 3 Ml Nebu) 3 ml INH Q2HR PRN PRN Reason: SHORTNESS OF BREATH OR WHEEZE Stop: 06/16/25 09:59 Atorvastatin Calcium (Atorvastatin Calcium 10 Mg Tablet) 10 mg PO QDAY [facility] Stop: 06/12/25 08:59 Last Admin: 05/17/25 09:19 Dose: 10 mg Carvedilol (Carvedilol 3.125 Mg Tablet) 3.125 mg PO BIDWM BERE On Hold: 05/15/25 15:15 Stop: 06/14/25 10:44 Furosemide (Furosemide 40 Mg Tablet) 40 mg PO BID BERE On Hold: 05/15/25 08:06 Stop: 06/12/25 08:59 Last Admin: 05/14/25 21:40 Dose: 40 mg Guaifenesin (Guaifenesin Syrup 200 Mg/10 Ml Udc) 100 mg PO TID BERE; Protocol Stop: 06/14/25 13:59 Last Admin: 05/17/25 14:14 Dose: Not Given Heparin Sodium (Porcine) (Heparin Sod Inj 5000 Unit/Ml Vial) 5,000 unit SC Q8HR BERE Stop: 05/29/25 13:59 Last Admin: 05/17/25 14:41 Dose: 5,000 unit Cefepime HCl 1 gm/ Sodium (Chloride) 50 mls @ 100 mls/hr IV BID BERE; Protocol Stop: 05/23/25 20:59 Last Admin: 05/17/25 09:19 Dose: 100 mls/hr Labetalol HCl (Labetalol Inj 5 Mg/Ml Vial 20 Ml) 10 mg IVP Q6HR PRN PRN Reason: Hypertensive Emergency Stop: 06/13/25 14:33 Methylprednisolone Sodium Succinate (Methylprednisolone Sod Succ 40 Mg/Ml Vial) 60 mg IV Q12HR BERE Stop: 05/24/25 20:59 Ondansetron HCl (Ondansetron Inj 2 Mg/Ml Inj 2 Ml) 4 mg IVP Q6HR PRN; Protocol PRN Reason: NAUSEA OR VOMITING Stop: 06/14/25 11:33 Last Admin: 05/15/25 13:46 Dose: 4 mg Pharmacy Consult (Pharmacy Renal Dose Adjustment 1 Ea) 1 each XX PRN PRN PRN Reason: CONSULT Stop: 06/14/25 07:59 Discontinued Medications Acetaminophen (Acetaminophen 325 Mg Tablet) 650 mg PO Q6H PRN PRN Reason: Fever >101.5 Stop: 06/11/25 20:57 Albuterol/Ipratropium (Albuterol/Ipratropium (Duoneb) Rt Chaya 3 Ml Nebu) 3 ml INH Q6HRRT PRN PRN Reason: Wheezing Stop: 06/11/25 21:33 Carvedilol (Carvedilol 3.125 Mg Tablet) 3.125 mg PO BIDWM BERE Stop: 06/14/25 10:44 Last Admin: 05/15/25 11:40 Dose: 3.125 mg Doxycycline Hyclate (Doxycycline 100 Mg Tablet) 100 mg PO BID BERE Stop: 05/22/25 20:59 Last Admin: 05/16/25 09:18 Dose: 100 mg Filgrastim (Filgrastim Inj (Neupogen) 300 Mcg/Ml Vial) 300 mcg SC X1 ONE Stop: 05/14/25 08:29 Last Admin: 05/17/25 07:03 Dose: Not Given Filgrastim (Filgrastim Inj (Zarxio) 480 Mcg/0.8 Ml Syringe) 480 mcg SC X1 ONE Stop: 05/14/25 08:38 Last Admin: 05/14/25 09:34 Dose: 480 mcg Heparin Sodium (Porcine) (Heparin Sod Inj 5000 Unit/Ml Vial) 5,000 unit SC BID [facility] Stop: 05/26/25 21:44 Last Admin: 05/14/25 21:42 Dose: 5,000 unit Piperacillin/Tazobactam/Dextrose (Zosyn) 3.375 gm in 50 mls @ 100 mls/hr IV X1 ONE; Protocol Stop: 05/12/25 18:20 Last Infusion: 05/12/25 19:30 Dose: Infused Cefepime HCl 2 gm/ Sodium (Chloride) 50 mls @ 100 mls/hr IV Q8HR [facility] Stop: 05/20/25 06:44 Last Admin: 05/15/25 05:43 Dose: 100 mls/hr Cefepime HCl 2 gm/ Sodium (Chloride) 50 mls @ 100 mls/hr IV X1 ONE Stop: 05/12/25 21:44 Last Admin: 05/12/25 21:20 Dose: 100 mls/hr Vancomycin/Sodium Chloride (Vancomycin/Ns 1 Gm Ivpb) 200 mls @ 120 mls/hr IV Q100M [facility] Stop: 05/13/25 00:34 Last Admin: 05/13/25 00:41 Dose: Not Given Vancomycin/Sodium Chloride (Vancomycin/Ns 750 Mg Ivpb) 750 mg in 150 mls @ 120 mls/hr IV Q12H [facility]; Protocol Stop: 05/20/25 09:59 Last Admin: 05/17/25 07:03 Dose: Not Given Cefepime HCl 2 gm/ Sodium (Chloride) 50 mls @ 100 mls/hr IV BID [facility]; Protocol Stop: 05/22/25 17:59 Last Admin: 05/16/25 09:18 Dose: 100 mls/hr Magnesium Sulfate (Magnesium Sulfate Ivpb) 4 gm in 50 mls @ 12.5 mls/hr IV X1 ONE Stop: 05/15/25 12:22 Last Admin: 05/15/25 09:55 Dose: 12.5 mls/hr Sodium Chloride (Ns) 250 mls @ 999 mls/hr IV .Q16M ONE Stop: 05/15/25 15:21 Last Admin: 05/15/25 15:10 Dose: 999 mls/hr Sodium Chloride (Ns) 250 mls @ 999 mls/hr IV .Q16M ONE Stop: 05/15/25 16:06 Last Admin: 05/15/25 16:03 Dose: 999 mls/hr Ferumoxytol 510 mg/ Sodium (Chloride) 117 mls @ 234 mls/hr IV X1 ONE Stop: 05/17/25 11:59 Last Admin: 05/17/25 13:25 Dose: 234 mls/hr Ondansetron HCl (Ondansetron Odt 4 Mg Tabrap) 4 mg PO X1 ONE; Protocol Stop: 05/13/25 23:22 Last Admin: 05/13/25 23:29 Dose: 4 mg Pharmacy Consult (Vancomycin Pharmacy To Dose 1 Each Each) 1 each IV QDAY PRN PRN Reason: RX Stop: 06/12/25 08:59 Assessment & Plan Plan Mr. Leslie is a 84-year-old gentleman with a medical history of prostate cancer with mets, primary hypertension, COPD (2L O2 at home), and dyslipidemia presents to [facility] emergency department on 05/12/2025 with chief complaint of fever, productive cough, congestion, and generalized weakness. He had chemo 1 week ago and recieved filgastrim injections for 3 days after chemo. (chemo every [address] Phipps). Patient accompanied by his daughter in law and his grand-daughter. At bedside he endorses productive cough and some shortness of breath. ICU was consulted given patient's acute on chronic copd exacerbation, with acute transient decrease in mentation and ABG in morning of 05/17 showing pH 7.31, pco2 73, po2 66 and the afternoon ABG showing pH 7.31, pco2 73, pO2 91. Neurology #Acute Encephalopathy Likely due to acute on chronic copd exacerbation. Patient was transiently confused and not responding to verbal stimuli. Patient's Bipap was adjusted with some improvement in his alertness and orientation. Rx: -Aspiration precautions #Goals of Care Family was informed of poor prognosis of patient given his history of metastatic prostate cancer along with the acute, progressing decline in health given relative increased incidences of hospitalizations. Family was informed why intubation only without cpr is not a solution and will not be done as that combination. Upon further discussion with the family, the patient will be DNR/DNI. Cardiovascular #PMH, Hypertension #Dyslipidemia Patient has a past medical history of HTN, currently normal tensive. Rx: -Labetolol PRN -home atorvastatin 10 mg -home Lasix 40 mg twice daily (b/l lower extremity trace edema found on initial physical examination) #Tachycardia Patient newly tachycardic last overnight. EKG showed sinus tachycardia. Subjectively, family reports patient appears worse. Patient endorses cough but no increased difficulty with breathing. Could be worsening of infection versus possible PE. D-dimer not indicated due to ongoing malignancy. Considering CTA but will hold for now due to tenuous renal function. -TTE still pending -Continue home carvedilol Respiratory #Acute on Chronic COPD exacerbation. #Acute hypoxic hypercapnic respiratory failure #Metastasis to the Lungs #Bilateral Pneumonia Patient has a past medical history of COPD on home oxygen, 2 Liters. Rx: -Recommend continuing ABX that covers at least GPC for total of 14 days in setting of patient being immunocompromised and needing to cover broadly -Recommend continuing appropriate ABX that covers GPC given micro results. -Recommend repeat ABG's -DuoNebs q6h -Supplemental O2, titrate as tolerated to maintain SpO2 > 93% -Currently on BIPAP GI none Renal none Heme #Pancytopenia, likely secondary malignancy & chemo, improving #Thrombocytopenia #Normocytic anemia #Metastatic prostate cancer Patient has metastatic cancer For which he follows oncologist Dr. Hill outpatient. Dx: -On arrival WBC 1.5, platelets 111 and febrile, Hgb 8.3, HCT 27.7. These lab values likely secondary to chemotherapy-induced myelosuppression despite filgastrim injections that were given as an adjunct to chemo. Gets chemo q3 weeks. Pt has hx of recurrent admissions following chemo treatments. Last admission was 04/18 for Covid PNA Rx: - Gave SC Neupogen 480 mg x 1 (per Dr. Phipps, continue giving until ANC is above 1000 consistently [today ANC 800]) RRx: - Continue to monitor cbc & for bleeding Endo none ID #Bacteremia, GPC (not speciated) #Neutropenic fever, resolved Patient presented with fever, fatigue, cough with increased sputum production. Temp 102, O2 sat 85% on room air. Upon physical evaluation lungs bilateral breath sound heard, no crackles or wheeze. Received Zosyn x 1 in the ED. COVID- 19 negative. Influenza A, B negative. Patient has been afebrile for the past 24 hours. Dx: -Repeat CXR on 05/15 demonstrating potential new consolidation in the left upper lobe. -Per Dr. Phipps, ordered speech evaluation to make sure patient is not aspirating -Per [facility] eval, patient does not suspect aspiration at this time, continue current diet. Rx: - Recommend continuing ABX that covers at least GPC for total of 14 days in setting of patient being immunocompromised and needing to cover broadly - f/u Blood culture speciation - / GPC (not speciated) - MRSA nasal screen (negative) DVT prophylaxis: Heparin GI prophylaxis: none Diet: Cardiac Lines: Peripherals CODE STATUS: DNR/DNI Patient plan of care was discussed with the attending physician, Dr. Padilla & senior resident Dr. Cristian Jones MD PGY-1
--- NOTE | 2025-05-17 15:31 | PC.SS ---
SW follow-up note: Patient is declining and is now on BiPAP. Per [facility] resident Dr. Enriquez, she will f/u with family for goals of care due to poor prognosis.
[2025-05-17 18:38] LABS: Base Excess 10 (-3-3); HCO3 36 mEq/L (20-26); Inspired Oxygen, FIO2 21 %; O2 Saturation 97 % (91-98); PCO2 59 mmHg (32.0-48.0); PO2 78 mmHg (83-108); pH, Arterial 7.40 (7.35-7.45)
[2025-05-17 18:41] LABS: Allen Test Performed/OK; Puncture Site Right Radial
--- NOTE | 2025-05-17 19:02 | PC.RT ---
post tx pt place on cpap [address] Enriquez for hours of sleep pt tolerating well. aware of abg results
[2025-05-17 21:28] LABS: Base Excess, Venous 10 (-3-3); O2 Saturation, Venous 77 % (96-97); PCO2, Venous 56 mmHg (36-56); PO2, Venous 39 mmHg (15-58); pH, Venous 7.41 (7.33-7.66)
[2025-05-17] MEDS: DOXYCYCLINE INJ 100 MG in SODIUM CHLORIDE 0.9% (POP) 100 ML IV (21:33)
--- NOTE | 2025-05-17 21:42 | PC.RT ---
called DR. Byers to assess VBG for on cpap, per keep pt on bipap and do a follow up ABG at 01:00
[2025-05-18] VITALS (12 sets, daily range): BP systolic 127–159; BP diastolic 64–92; PULSE 73–99; RESP 20–29; TEMP 36.1–37.6; O2SAT 92–100; BMI 43.9
[2025-05-18 01:10] LABS: Base Excess 11 (-3-3); HCO3 36 mEq/L (20-26); Inspired Oxygen, FIO2 45 %; O2 Saturation 96 % (91-98); PCO2 56 mmHg (32.0-48.0); PO2 72 mmHg (83-108); pH, Arterial 7.42 (7.35-7.45)
[2025-05-18 01:11] LABS: Allen Test Performed/OK; Puncture Site Right Radial
[2025-05-18] MEDS: ALBUTEROL/IPRATROPIUM (Duoneb) RT SOL 3 ML NEBU INH ×6 (02:16→23:45)
[2025-05-18] MEDS: HEPARIN SOD INJ 5000 UNIT/ML VIAL SC ×3 (05:19→21:39)
[2025-05-18] MEDS: guaiFENesin SYRUP 200 MG/10 ML UDC 100 MG PO ×3 (05:19→21:38)
[2025-05-18 05:35] LABS: Basophils # (Auto) 0.0 Thou/mm3 (0.0-0.2); Basophils % (Auto) 1 % (0-2.5); Eosinophils # (Auto) 0.0 Thou/mm3 (0.0-0.5); Eosinophils % (Auto) 0 % (0-10); Hematocrit 25.4 % (41.0-53.0); Immature Granulocytes Auto 0.35 Thou/mm3 (0.00-0.00); Lymphocytes # (Auto) 0.2 Thou/mm3 (1.0-4.8); Lymphocytes % (Auto) 6 % (10-50); Mean Corpuscular HGB Conc 29.5 g/dl (31.0-37.0); Mean Corpuscular Hemoglobin 27.5 pg (25.0-35.0); Mean Corpuscular Volume 93 fL (80-100); Monocytes # (Auto) 0.1 Thou/mm3 (0.0-0.8); Monocytes % (Auto) 3 % (0-12); Neutrophils # (Auto) 2.8 Thou/mm3 (1.8-7.7); Neutrophils % (Auto) 81 % (37-80); Nucleated Red Blood Cell # 0.13 Thou/mm3 (0.00-0.00); Nucleated Red Blood Cell % 4 /100 WBC (0); Platelet Count 100 Thou/mm3 (140-440); RDW Standard Deviation 56.7 fL (35.1-43.9); Red Blood Count 2.73 Miln/mm3 (4.50-5.90); White Blood Count 3.4 Thou/mm3 (3.8-10.6)
[2025-05-18 05:36] LABS: Hemoglobin 7.5 g/dL (13.5-16.0)
[2025-05-18 06:01] LABS: Alanine Aminotransferase 10 U/L (10-49); Albumin, Serum 3.0 gm/dL (3.4-4.8); Albumin/Globulin Ratio 1.5 (1.2-2.2); Alkaline Phosphatase 69 U/L (46-116); Anion Gap 7 (7-16); Aspartate Amino Transferase 16 U/L (0-34); BUN/Creatinine Ratio 28 Ratio (12-20); Bilirubin,Total 0.6 mg/dL (0.3-1.2); Blood Urea Nitrogen 33 mg/dL (9-23); Calcium 8.4 mg/dL (8.3-10.6); Calcium (Corrected) 9.2 mg/dL (8.5-10.1); Carbon Dioxide 33.8 mMol/L (20.0-31.0); Chloride 102 mMol/L (98-107); Creatinine (Component) 1.2 mg/dL (0.6-1.3); Estimated Creatinine Clearance 56.8 mL/min (>60); Globulin 2.0 gm/dL (2.3-3.5); Glucose 173 mg/dL (74-106); Magnesium 2.1 mg/dL (1.6-2.6); Osmolality,Calculated 296 (275-295); Phosphorous 2.1 mg/dL (2.4-5.1); Potassium 4.7 mMol/L (3.4-5.1); Sodium 143 mMol/L (136-145); Total Protein 5.0 gm/dL (5.7-8.2); eGFR 59 See Note
--- NOTE | 2025-05-18 06:52 | ESPR_ITS ---
<Statement entered by Holly Morlaes MD - 05/25/25 12:09> I reviewed above note and agree with findings and plans. I have also personally examined the patient with medicine team and went over assessment and plan with medical team including landscape maintenance internship and resident physician. <Statement entered by Alejandro Howard MD - 05/18/25 19:44> I saw and examined patient personally and supervised PGY 1 resident, Dr. Tello with formulating a management plan. I agree with the documentation with the exceptions as listed below. Yesterday patient's developed altered mental status secondary to hypercarbia and was placed on BiPAP overnight. This morning patient's ABG showed pH 7.42 and pCO2 56 and his mental status was grossly improved being alert and oriented to person and place. For his suspected Staphylococcus hominis bacteremia he continues to be on cefepime and doxycycline IV. Low risk of endocarditis as he has had a TTE this admission which was negative for any valvular vegetations. We will also obtain an ID consult. With regards to patient's COPD, PAULA and likely OHS we will continue with BiPAP/CPAP at to avoid hypercarbia. Patient also continues to be on DuoNebs Q6 with chest physiotherapy. Once patient condition continues to improve anticipate discharge within next 24 to 48 hours. Plan of care discussed with Attending Dr. Andrew Howard MD PGY 2 Disclaimer: This note was dictated by speech recognition. Minor errors in active directory systems administrator may be present due to voice recognition software. Documentation for date of: 05/18/25 Subjective Subjective Interval history: No overnight events. Patient was examined at bedside; they appear markedly improved from a respiratory standpoint from yesterday but still weak and somewhat lethargic. Labs today significant for WBC 4.8 -> 3.4 (ANC 2754), Hgb 7.3 -> 7.5 (MCV 93, RDW 56.7), platelet 94 -> 100, ABG pH 7.42, pCO2 56, pO2 72, HCO3 36, BUN 33, creatinine 1.4 -> 1.2, and phosphorus 2.1. Physical exam today notable for tachycardia, tachypnea with diffuse rhonchi on expiration with prolonged expiratory period, and some tenderness to palpation of epigastrium and upper quadrants of the abdomen. It is currently believed that yesterday's acute hypercapnic respiratory failure was likely 2/2 noncompliance with night-time CPAP for the past few days in the setting of PAULA, COPD exacerbation, and possible OHS. After being treated with BiPAP, breathing treatments, and IV solumedrol, patient's ABG greatly improved and he does not appear to be in acute respiratory distress today. Due to the above, adherence to night-time CPAP will be crucial in preventing any acute decompensations in respiratory status. Speciation of 05/12 blood culture has resulted and shows Staphylococcus hominis, a common commensal organism of human skin, that is sensitive to azithromycin, ciprofloxacin, vancomycin, and tetracycline. This is currently believed to be a contaminant rather than true GPC bacteremia but will proceed as if it is real until ID says otherwise. Patient also failed swallow evaluation this morning, suggesting new-onset dysphagia. Updates to Plan: -ID consulted for bacteremia -Continue doxycycline until ID recommends otherwise Exam Vital Signs Temp Pulse Resp BP Pulse Ox O2 Del Method O2 Flow Rate 97.3 F 78 27 H 137/66 H 99 BiPAP 2 05/18/25 04:00 05/18/25 06:35 05/18/25 06:35 05/18/25 04:00 05/18/25 06:35 05/18/25 04:00 05/17/25 10:19 FiO2 35 05/18/25 06:35 Narrative Exam General: A&O x 2 elderly, obese male in NAD. HEENT: Mucosa moist. Pupils are equal, redundant tissue around the neck. Cardiovascular: Tachycardic rate and rhythm, systolic murmur appreciated. Respiratory: Tachypneic with productive cough and sounds of phlegm noted. Diffuse crackles and rhonchi appreciated on anterior and posterior lung alex bilaterally. Prolonged expiratory phase. No wheezes appreciated. Abdomen: Soft, non-tender, not distended. No guarding or rebound tenderness. Bowel sounds present. Skin: Dry, no rashes or bruising, some dark discoloration of the nailbeds and distal phalanges, does not appear necrotic. Ecchymosis noted on the right duran. Musculoskeletal: No gross injuries. Able to move all 4 extremities. Non edematous lower extremities. Objective Labs 05/18/25 05:05 05/18/25 05:05 Labs: Laboratory Results - last 24 hr 05/17/25 05/17/25 05/17/25 09:41 10:50 13:38 WBC 4.8 RBC 2.64 L Hgb 7.3 L Hct 25.3 L MCV 96 MCH 27.7 MCHC 28.9 L RDW Std Deviation 58.0 H Plt Count 94 L Neut % (Auto) 73 Lymph % (Auto) 12 Clark % (Auto) 5 Eos % (Auto) 0 Baso % (Auto) 1 Neut # (Auto) 3.5 Lymph # (Auto) 0.6 L Clark # (Auto) 0.2 Eos # (Auto) 0.0 Baso # (Auto) 0.0 Immature Gran # (Auto) 0.42 H Absolute Nucleated RBC 0.13 H Immature Gran % 9 H Nucleated RBC % 3 H Puncture Site Right Radial ABG pH 7.26 L ABG pCO2 83 H* ABG pO2 66 L ABG HCO3 38 H ABG O2 Saturation 93 ABG Base Excess 9 H VBG pH VBG pCO2 VBG pO2 VBG O2 Sat (Dilma) VBG Base Excess FiO2 2 Sodium 142 Potassium 4.7 Chloride 102 Carbon Dioxide 36.5 H Anion Gap 4 L BUN 33 H Creatinine 1.4 H Estim Creat Clear Calc 48.6 L eGFR 49 L BUN/Creatinine Ratio 24 H Glucose 95 Calculated Osmolality 290 Lactic Acid 0.8 Calcium 8.5 Corrected Calcium 9.4 Phosphorus Magnesium Total Bilirubin 0.5 AST 14 ALT 9 L Alkaline Phosphatase 65 Total Protein 4.8 L Albumin 2.9 L Globulin 1.9 L Albumin/Globulin Ratio 1.5 Ur Random Creatinine 140 H Ur Random Sodium < 15.0 L Ur Random Potassium 28 Ur Random Chloride 26.2 L 05/17/25 05/17/25 05/17/25 14:00 18:31 21:10 WBC RBC Hgb Hct MCV MCH MCHC RDW Std Deviation Plt Count Neut % (Auto) Lymph % (Auto) Clark % (Auto) Eos % (Auto) Baso % (Auto) Neut # (Auto) Lymph # (Auto) Clark # (Auto) Eos # (Auto) Baso # (Auto) Immature Gran # (Auto) Absolute Nucleated RBC Immature Gran % Nucleated RBC % Puncture Site Right Radial Right Radial ABG pH 7.31 L 7.40 ABG pCO2 73 H* D 59 H D ABG pO2 91 D 78 L ABG HCO3 37 H 36 H ABG O2 Saturation 98 97 ABG Base Excess 10 H 10 H VBG pH 7.41 VBG pCO2 56 VBG pO2 39 D VBG O2 Sat (Dilma) 77 L D VBG Base Excess 10 H FiO2 40 21 Sodium Potassium Chloride Carbon Dioxide Anion Gap BUN Creatinine Estim Creat Clear Calc eGFR BUN/Creatinine Ratio Glucose Calculated Osmolality Lactic Acid Calcium Corrected Calcium Phosphorus Magnesium Total Bilirubin AST ALT Alkaline Phosphatase Total Protein Albumin Globulin Albumin/Globulin Ratio Ur Random Creatinine Ur Random Sodium Ur Random Potassium Ur Random Chloride 05/18/25 05/18/25 01:01 05:05 WBC 3.4 L RBC 2.73 L Hgb 7.5 L Hct 25.4 L MCV 93 MCH 27.5 MCHC 29.5 L RDW Std Deviation 56.7 H Plt Count 100 L Neut % (Auto) 81 H Lymph % (Auto) 6 L Clark % (Auto) 3 Eos % (Auto) 0 Baso % (Auto) 1 Neut # (Auto) 2.8 Lymph # (Auto) 0.2 L Clark # (Auto) 0.1 Eos # (Auto) 0.0 Baso # (Auto) 0.0 Immature Gran # (Auto) 0.35 H Absolute Nucleated RBC 0.13 H Immature Gran % 10 H Nucleated RBC % 4 H Puncture Site Right Radial ABG pH 7.42 ABG pCO2 56 H ABG pO2 72 L ABG HCO3 36 H ABG O2 Saturation 96 ABG Base Excess 11 H VBG pH VBG pCO2 VBG pO2 VBG O2 Sat (Dilma) VBG Base Excess FiO2 45 Sodium 143 Potassium 4.7 Chloride 102 Carbon Dioxide 33.8 H Anion Gap 7 BUN 33 H Creatinine 1.2 Estim Creat Clear Calc 56.8 L eGFR 59 L BUN/Creatinine Ratio 28 H Glucose 173 H D Calculated Osmolality 296 H Lactic Acid Calcium 8.4 Corrected Calcium 9.2 Phosphorus 2.1 L Magnesium 2.1 Total Bilirubin 0.6 AST 16 ALT 10 Alkaline Phosphatase 69 Total Protein 5.0 L Albumin 3.0 L Globulin 2.0 L Albumin/Globulin Ratio 1.5 Ur Random Creatinine Ur Random Sodium Ur Random Potassium Ur Random Chloride ABG Interpretation ABG results: 05/15/25 05/17/25 05/17/25 15:13 09:41 14:00 ABG pH 7.26 L 7.31 L ABG pCO2 83 H* 73 H* D ABG pO2 66 L 91 D ABG HCO3 38 H 37 H ABG O2 Saturation 93 98 ABG Base Excess 9 H 10 H VBG pH 7.43 VBG pCO2 50 VBG pO2 71 H VBG Base Excess 8 H 05/17/25 05/17/25 05/18/25 18:31 21:10 01:01 ABG pH 7.40 7.42 ABG pCO2 59 H D 56 H ABG pO2 78 L 72 L ABG HCO3 36 H 36 H ABG O2 Saturation 97 96 ABG Base Excess 10 H 11 H VBG pH 7.41 VBG pCO2 56 VBG pO2 39 D VBG Base Excess 10 H Quality Measures Quality Measures VTE prophylaxis Advance care planning discussed with:: patient Assessment & Plan Assessment Current Active Medications: Generic Name Dose Route Start Last Admin Trade Name Freq PRN Reason Stop Dose Admin Acetaminophen 650 mg 05/12/25 21:10 Acetaminophen 325 Mg Tablet PO 06/11/25 20:57 Q6H PRN Fever >100.4 and pain 1-3 Albuterol/Ipratropium 3 ml 05/17/25 11:00 05/18/25 06:33 Albuterol/Ipratropium (Duoneb) Rt Chaya 3 Ml Nebu INH 06/16/25 10:59 3 ml Q4HRRT BERE Administration Albuterol/Ipratropium 3 ml 05/17/25 10:00 Albuterol/Ipratropium (Duoneb) Rt Chaya 3 Ml Nebu INH 06/16/25 09:59 Q2HR PRN SHORTNESS OF BREATH OR WHEEZE Atorvastatin Calcium 10 mg 05/13/25 09:00 05/17/25 09:19 Atorvastatin Calcium 10 Mg Tablet PO 06/12/25 08:59 10 mg QDAY BERE Administration Carvedilol 3.125 mg 05/15/25 14:44 Carvedilol 3.125 Mg Tablet PO 06/14/25 10:44 On Hold: 05/15/25 15:15 BIDWM BERE Furosemide 40 mg 05/13/25 09:00 05/14/25 21:40 Furosemide 40 Mg Tablet PO 06/12/25 08:59 40 mg On Hold: 05/15/25 08:06 BID BERE Administration Guaifenesin 100 mg 05/15/25 14:00 05/18/25 05:19 Guaifenesin Syrup 200 Mg/10 Ml Udc PO 06/14/25 13:59 100 mg TID BERE Administration Protocol Heparin Sodium (Porcine) 5,000 unit 05/15/25 14:00 05/18/25 05:19 Heparin Sod Inj 5000 Unit/Ml Vial SC 05/29/25 13:59 5,000 unit Q8HR BERE Administration Cefepime HCl 1 gm/ Sodium 50 mls @ 100 mls/hr 05/16/25 21:00 05/17/25 21:34 Chloride IV 05/23/25 20:59 100 mls/hr BID BERE Administration Protocol Doxycycline Hyclate 100 mg/ 100 mls @ 100 mls/hr 05/17/25 21:00 05/17/25 21:33 Sodium Chloride IV 05/29/25 20:59 100 mls/hr BID BERE Administration Labetalol HCl 10 mg 05/14/25 14:34 Labetalol Inj 5 Mg/Ml Vial 20 Ml IVP 06/13/25 14:33 Q6HR PRN Hypertensive Emergency Methylprednisolone Sodium Succinate 60 mg 05/17/25 21:00 05/17/25 21:31 Methylprednisolone Sod Succ 40 Mg/Ml Vial IV 05/24/25 20:59 60 mg Q12HR BERE Administration Ondansetron HCl 4 mg 05/15/25 11:34 05/15/25 13:46 Ondansetron Inj 2 Mg/Ml Inj 2 Ml IVP 06/14/25 11:33 4 mg Q6HR PRN Administration NAUSEA OR VOMITING Protocol Pharmacy Consult 1 each 05/15/25 08:00 Pharmacy Renal Dose Adjustment 1 Ea XX 06/14/25 07:59 PRN PRN CONSULT Plan Patient is a 84-year-old male past medical significant for metastatic prostate cancer patient, hypertension and dyslipidemia presented to the ED on 05/12/2025 with chief complaint of fever and lethargy who was admitted for neutropenic fever and PNA. #Acute on chronic hypercapnic respiratory failure, likely 2/2 non-compliance w/ night-time CPAP in the setting of COPD exacerbation, PAULA, and possible OHS #COPD exacerbation #PAULA #Possible OHS On 05/17, patient exhibited cough productive of thick, green-yellow sputum that had not been present prior with new confusion and increased work of breathing Had not been compliant w/ night-time CPAP for the past few days prior Now improved on 05/18 s/p BiPAP and breathing treatments Plan: -Emphasize compliance w/ night-time CPAP -Continue Duoneb q4HR scheduled and Duoneb q2HR prn -Continue IV Solumedrol 60 mg q12HR [05/17-05/19] -Chest physiotherapy -Antibiotics as mentioned in #Staphylococcus hominis bacteremia section -No intubation as patient is DNR/DNI #Dysphagia, new Patient failed 05/18 swallow evaluation Concern for aspiration pneumonia risk in the setting of immunocompromised status Plan: -Ordered repeat speech and language evaluation -Will order modified barium swallow if above is failed #??Staphylococcus hominis bacteremia 05/12 blood cultures grew 2/2 GPCs later speciated as Staphyloccocus hominis, a common commensal organism of human skin that is sensitive to azithromycin, ciprofloxacin, vancomycin, and tetracycline 05/12 sputum culture grew mixed anna and Gram stain showed 3 + GPC and 2 + GNR 05/12 UCx grew mixed anna 05/14 repeat blood cultures 09/15 [id number] 05/15 echo negative for vegetations Likely contaminant rather than true Staphylococcus hominis bacteremia Antibiotic course this hospitalization: Vancomycin [05/12-05/16], MRSA (-) Cefepime [05/12--] Doxycycline [05/15-05/16], [05/17--] Plan: - ID consulted, appreciate recommendations - Continue cefepime 2 mg IV BID (05/12--), - Continue IV Doxycycline 100 mg BID [05/17--] - Tylenol as needed for fever - Chest physiotherapy, guaifenesin as needed #Pancytopenia, likely secondary malignancy & chemo, improving #Thrombocytopenia #Normocytic anemia #Metastatic prostate cancer Patient has metastatic cancer for which he follows oncologist Dr. Hill outpatient On arrival WBC 1.5, platelets 111 and febrile, Hgb 8.3, HCT 27.7. These lab values likely secondary to chemotherapy-induced myelosuppression despite filgrastim injections that were given as an adjunct to chemo. Gets chemo q3 weeks. Pt has hx of recurrent admissions following chemo treatments. Last admission was 04/18 for Covid PNA Plan: - Per Dr. Phipps, give SC Neupogen 480 mg if ANC drops below 1000 - Follows with Dr. Phipps (she will try to see him next week) - Continue to monitor #PMH, Hypertension #Dyslipidemia Patient has a past medical history of HTN, currently normal tensive. Plan: -Labetolol PRN -Home atorvastatin 10 mg -Home Lasix 40 mg twice daily RRx: -05/18 starting to become slightly hypertensive (140-150s/70-90s) #Urinary retention (resolved) #BPH Patient has not been having good UOP lately and 05/17 bladder scan showed more than 450 mL of retained urine Patient has previous imaging showing a significantly enlarged prostate in the setting of metastatic prostate cancer Now on Alonzo catheter Plan: -Continue PO tamsulosin 0.4 mg qD Health Maintenance: DVT prophylaxis: Heparin Diet: Special diet request, ensure with meals Alonzo: Yes (started today) Lines: PIV CODE STATUS: DNR/DNI Disposition: pending ID consult for antibiotic with plans to discharge home with possible home health Patient's plan and care discussed with my attending, Dr. Morales and my senior Dr. eLe Tello, DO Internal Medicine, PGY-1
[2025-05-18] MEDS: DOXYCYCLINE INJ 100 MG in SODIUM CHLORIDE 0.9% (POP) 100 ML IV ×2 (09:42→21:28)
[2025-05-18] MEDS: CEFEPIME INJ 1 GM in SODIUM CHLORIDE 0.9% (Popper) 50 ML IV ×2 (09:42→21:26)
--- NOTE | 2025-05-18 14:35 | PC.SS ---
follow-up note: Patient was having difficulty passing his swallow evaluation?one more night for observation; possible discharge 05/19/25.
[2025-05-19] VITALS (13 sets, daily range): BP systolic 111–135; BP diastolic 61–92; PULSE 67–110; RESP 15–23; TEMP 36.2–36.7; O2SAT 89–99; BMI 43.9; BMI 15.0
[2025-05-19] MEDS: ALBUTEROL/IPRATROPIUM (Duoneb) RT SOL 3 ML NEBU INH ×6 (03:16→22:36)
[2025-05-19] MEDS: guaiFENesin SYRUP 200 MG/10 ML UDC 100 MG PO ×3 (06:25→21:27)
[2025-05-19] MEDS: HEPARIN SOD INJ 5000 UNIT/ML VIAL SC ×3 (06:26→21:28)
[2025-05-19 08:40] LABS: Basophils # (Auto) 0.0 Thou/mm3 (0.0-0.2); Basophils % (Auto) 0 % (0-2.5); Eosinophils # (Auto) 0.0 Thou/mm3 (0.0-0.5); Eosinophils % (Auto) 0 % (0-10); Hematocrit 27.9 % (41.0-53.0); Immature Granulocytes Auto 0.48 Thou/mm3 (0.00-0.00); Lymphocytes # (Auto) 0.5 Thou/mm3 (1.0-4.8); Lymphocytes % (Auto) 7 % (10-50); Mean Corpuscular HGB Conc 30.5 g/dl (31.0-37.0); Mean Corpuscular Hemoglobin 27.9 pg (25.0-35.0); Mean Corpuscular Volume 92 fL (80-100); Monocytes # (Auto) 0.3 Thou/mm3 (0.0-0.8); Monocytes % (Auto) 4 % (0-12); Neutrophils # (Auto) 6.8 Thou/mm3 (1.8-7.7); Neutrophils % (Auto) 83 % (37-80); Nucleated Red Blood Cell # 0.17 Thou/mm3 (0.00-0.00); Nucleated Red Blood Cell % 2 /100 WBC (0); Platelet Count 139 Thou/mm3 (140-440); RDW Standard Deviation 58.4 fL (35.1-43.9); Red Blood Count 3.05 Miln/mm3 (4.50-5.90); White Blood Count 8.1 Thou/mm3 (3.8-10.6)
[2025-05-19 08:47] LABS: Hemoglobin 8.5 g/dL (13.5-16.0)
[2025-05-19 08:57] LABS: Alanine Aminotransferase 13 U/L (10-49); Albumin, Serum 3.5 gm/dL (3.4-4.8); Albumin/Globulin Ratio 1.5 (1.2-2.2); Alkaline Phosphatase 78 U/L (46-116); Anion Gap 8 (7-16); Aspartate Amino Transferase 27 U/L (0-34); BUN/Creatinine Ratio 25 Ratio (12-20); Bilirubin,Total 0.7 mg/dL (0.3-1.2); Blood Urea Nitrogen 30 mg/dL (9-23); Calcium 9.5 mg/dL (8.3-10.6); Calcium (Corrected) 9.9 mg/dL (8.5-10.1); Carbon Dioxide 34.4 mMol/L (20.0-31.0); Chloride 103 mMol/L (98-107); Creatinine (Component) 1.2 mg/dL (0.6-1.3); Estimated Creatinine Clearance 56.8 mL/min (>60); Globulin 2.3 gm/dL (2.3-3.5); Glucose 136 mg/dL (74-106); Osmolality,Calculated 296 (275-295); Potassium 4.4 mMol/L (3.4-5.1); Sodium 145 mMol/L (136-145); Total Protein 5.8 gm/dL (5.7-8.2); eGFR 59 See Note
[2025-05-19] MEDS: DOXYCYCLINE INJ 100 MG in SODIUM CHLORIDE 0.9% (POP) 100 ML IV (09:04)
[2025-05-19] MEDS: CEFEPIME INJ 1 GM in SODIUM CHLORIDE 0.9% (Popper) 50 ML IV (09:05)
[2025-05-19] MEDS: ATORVASTATIN CALCIUM 10 MG TABLET PO (09:06)
--- NOTE | 2025-05-19 11:25 | ESCONSULT_ITS ---
<Statement entered by Khalif Solorio MD - 05/26/25 11:55> pt seen with resident. all findings confirmed. see additional notes for details HPI Data of Consult Requesting Physician: Julio Michele MD Admitting Provider: Henry Kan MD Attending Provider: Julio Michele MD Primary Care Provider: Bong Byers MD Consult Narrative Reason for consult: Neutropenic fever and bacteremia History of present illness: Mr. Leslie is a 84-year-old male with past medical history significant for metastatic prostate cancer, hypertension, dyslipidemia who presented to the ED on 05/12/2025 with fever and lethargy and admitted for further management of facial droop and a fever and pneumonia. Patient denies any symptoms at this time. Patient has been afebrile since admission. ID was consulted for further recommendations patient's current coagulase-negative bacteremia. Past medical history: As mentioned above Past surgical history:Unknown Social history: Denies any history of smoking, alcohol use, recreational drug use. Medications: Patient takes Lasix, metolazone, prochlorperazine, atorvastatin, Xtandi, Coreg, dexamethasone, prednisone, Nissa-Sachin, losartan Family history: Diabetes cc:: cc: Julio Michele MD Review of Systems Review of Systems Systems Reviewed: All systems reviewed, normal except as documented Exam Vital Signs Temp Pulse Resp BP Pulse Ox O2 Del Method O2 Flow Rate 97.3 F 103 H 21 H 127/71 95 CPAP 3 05/19/25 08:00 05/19/25 08:00 05/19/25 08:00 05/19/25 08:00 05/19/25 08:00 05/19/25 08:00 05/19/25 08:00 FiO2 40 05/19/25 08:00 Narrative Exam General Appearance: Pt is morbidly obese, seen with nasal cannula, appears stated age in no apparent distress laying in bed. Patient is alert and conversational. HEENT: NC/AT, no scleral icterus, no conjunctival pallor, MMM Lungs: CTAB, CVS: RRR, S1/S2 heard, right Port-A-Cath appears clean with no signs of infection ABD: Soft, non-tender, non-distended, BS + in all 4 quadrants EXT: no deformity/edema/lesions/cyanosis/clubbing, radial pulses 2+ BL, DP pulses 2 + BL; no trace edema noted SKIN: Skin exam normal except for some discoloration in his nailbeds. Neuro: A&O x [address]. No gross neurological deficits. Motor and sensory grossly intact in B/L UL and LL. Psych: Appropriate mood and affect Results Labs 05/20/25 04:16 05/20/25 04:16 Labs: Short CBC 05/19/25 Range/Units 08:23 WBC 8.1 D (3.8-10.6) Thou/mm3 Hgb 8.5 L (13.5-16.0) g/dL Hct 27.9 L (41.0-53.0) % Plt Count 139 L D (140-440) Thou/mm3 BMP 05/19/25 08:23 Sodium 145 Potassium 4.4 Chloride 103 Carbon Dioxide 34.4 H BUN 30 H Creatinine 1.2 Glucose 136 H Calcium 9.5 Liver Function 05/19/25 Range/Units 08:23 Total Bilirubin 0.7 (0.3-1.2) mg/dL AST 27 (0-34) U/L ALT 13 (10-49) U/L Alkaline Phosphatase 78 (46-116) U/L Albumin 3.5 D (3.4-4.8) gm/dL ABG Interpretation ABG results: 05/15/25 05/17/25 05/17/25 15:13 09:41 14:00 ABG pH 7.26 L 7.31 L ABG pCO2 83 H* 73 H* D ABG pO2 66 L 91 D ABG HCO3 38 H 37 H ABG O2 Saturation 93 98 ABG Base Excess 9 H 10 H VBG pH 7.43 VBG pCO2 50 VBG pO2 71 H VBG Base Excess 8 H 05/17/25 05/17/25 05/18/25 18:31 21:10 01:01 ABG pH 7.40 7.42 ABG pCO2 59 H D 56 H ABG pO2 78 L 72 L ABG HCO3 36 H 36 H ABG O2 Saturation 97 96 ABG Base Excess 10 H 11 H VBG pH 7.41 VBG pCO2 56 VBG pO2 39 D VBG Base Excess 10 H Quality Measures Quality Measures VTE prophylaxis Advance care planning discussed with:: patient and other Medications Home Medications and Allergies Home Medications ?Medication ?Instructions ?Recorded ?Confirmed ?Type atorvastatin 10 mg tablet 10 mg PO QDAY 10/20/2205/12 History enzalutamide 80 mg tablet (Xtandi) 80 mg PO BID 05/12/25 History ondansetron 8 mg disintegrating 8 mg PO Q8H PRN nausea and vomiting 04/19/25 05/12/25 History tablet vitamin B complex-vitamin C-folic 1 tab PO QDAY 05/12/25 History acid 0.8 mg tablet (Nissa-Sachin) carvedilol 6.25 mg tablet 6.25 mg PO .BID W/FOOD 05/2005/20/25 History dexamethasone 4 mg tablet 4 mg PO BID 05/20/25 5 History furosemide 40 mg tablet 40 mg PO BID 05/20/25 History losartan 100 mg tablet 100 mg PO QDAY 05/20/2503/07 History metolazone 5 mg tablet 5 mg PO .WITH BREAKFAST 03/0705/20/25 History nifedipine 30 mg tablet,extended 30 mg PO QDAY 5 05/20/25 History release 24 hr prednisone 5 mg tablet 5 mg PO BID 05/20/25 5 History prochlorperazine maleate 5 mg 5 mg PO Q6H PRN nausea a nd vomiting 05/20/25 05/20/25 History tablet Allergies Allergy/AdvReac Type Severity Reaction Status Date / Time No Known Allergies Allergy Verified 05/12/25 17:01 Visit Medications Acetaminophen (Acetaminophen 325 Mg Tablet) 650 mg PO Q6H PRN PRN Reason: Fever >100.4 and pain 1-3 Stop: 06/11/25 20:57 Albuterol/Ipratropium (Albuterol/Ipratropium (Duoneb) Rt Chaya 3 Ml Nebu) 3 ml INH Q4HRRT BERE Stop: 06/16/25 10:59 Last Admin: 05/19/25 10:36 Dose: 3 ml Albuterol/Ipratropium (Albuterol/Ipratropium (Duoneb) Rt Chaya 3 Ml Nebu) 3 ml INH Q2HR PRN PRN Reason: SHORTNESS OF BREATH OR WHEEZE Stop: 06/16/25 09:59 Atorvastatin Calcium (Atorvastatin Calcium 10 Mg Tablet) 10 mg PO QDAY [facility] Stop: 06/12/25 08:59 Last Admin: 05/19/25 09:06 Dose: 10 mg Furosemide (Furosemide 40 Mg Tablet) 40 mg PO BID [facility] On Hold: 05/15/25 08:06 Stop: 06/12/25 08:59 Last Admin: 05/14/25 21:40 Dose: 40 mg Guaifenesin (Guaifenesin Syrup 200 Mg/10 Ml Udc) 100 mg PO TID [facility]; Protocol Stop: 06/14/25 13:59 Last Admin: 05/19/25 06:25 Dose: 100 mg Heparin Sodium (Porcine) (Heparin Sod Inj 5000 Unit/Ml Vial) 5,000 unit SC Q8HR [facility] Stop: 05/29/25 13:59 Last Admin: 05/19/25 06:26 Dose: 5,000 unit Cefepime HCl 1 gm/ Sodium (Chloride) 50 mls @ 100 mls/hr IV BID [facility]; Protocol Stop: 05/23/25 20:59 Last Admin: 05/19/25 09:05 Dose: 100 mls/hr Doxycycline Hyclate 100 mg/ (Sodium Chloride) 100 mls @ 100 mls/hr IV BID [facility] Stop: 05/29/25 20:59 Last Admin: 05/19/25 09:04 Dose: 100 mls/hr Labetalol HCl (Labetalol Inj 5 Mg/Ml Vial 20 Ml) 10 mg IVP Q6HR PRN PRN Reason: Hypertensive Emergency Stop: 06/13/25 14:33 Methylprednisolone Sodium Succinate (Methylprednisolone Sod Succ 40 Mg/Ml Vial) 60 mg IV Q12HR [facility] Stop: 05/24/25 20:59 Last Admin: 05/19/25 09:04 Dose: 60 mg Ondansetron HCl (Ondansetron Inj 2 Mg/Ml Inj 2 Ml) 4 mg IVP Q6HR PRN; Protocol PRN Reason: NAUSEA OR VOMITING Stop: 06/14/25 11:33 Last Admin: 05/15/25 13:46 Dose: 4 mg Pharmacy Consult (Pharmacy Renal Dose Adjustment 1 Ea) 1 each XX PRN PRN PRN Reason: CONSULT Stop: 06/14/25 07:59 Discontinued Medications Acetaminophen (Acetaminophen 325 Mg Tablet) 650 mg PO Q6H PRN PRN Reason: Fever >101.5 Stop: 06/11/25 20:57 Albuterol/Ipratropium (Albuterol/Ipratropium (Duoneb) Rt Chaya 3 Ml Nebu) 3 ml INH Q6HRRT PRN PRN Reason: Wheezing Stop: 06/11/25 21:33 Carvedilol (Carvedilol 3.125 Mg Tablet) 3.125 mg PO BIDWM BERE Stop: 06/14/25 10:44 Last Admin: 05/15/25 11:40 Dose: 3.125 mg Carvedilol (Carvedilol 3.125 Mg Tablet) 3.125 mg PO BIDWM [facility] Stop: 06/14/25 10:44 Doxycycline Hyclate (Doxycycline 100 Mg Tablet) 100 mg PO BID [facility] Stop: 05/22/25 20:59 Last Admin: 05/16/25 09:18 Dose: 100 mg Filgrastim (Filgrastim Inj (Neupogen) 300 Mcg/Ml Vial) 300 mcg SC X1 ONE Stop: 05/14/25 08:29 Last Admin: 05/17/25 07:03 Dose: Not Given Filgrastim (Filgrastim Inj (Zarxio) 480 Mcg/0.8 Ml Syringe) 480 mcg SC X1 ONE Stop: 05/14/25 08:38 Last Admin: 05/14/25 09:34 Dose: 480 mcg Heparin Sodium (Porcine) (Heparin Sod Inj 5000 Unit/Ml Vial) 5,000 unit SC BID [facility] Stop: 05/26/25 21:44 Last Admin: 05/14/25 21:42 Dose: 5,000 unit Piperacillin/Tazobactam/Dextrose (Zosyn) 3.375 gm in 50 mls @ 100 mls/hr IV X1 ONE; Protocol Stop: 05/12/25 18:20 Last Infusion: 05/12/25 19:30 Dose: Infused Cefepime HCl 2 gm/ Sodium (Chloride) 50 mls @ 100 mls/hr IV Q8HR [facility] Stop: 05/20/25 06:44 Last Admin: 05/15/25 05:43 Dose: 100 mls/hr Cefepime HCl 2 gm/ Sodium (Chloride) 50 mls @ 100 mls/hr IV X1 ONE Stop: 05/12/25 21:44 Last Admin: 05/12/25 21:20 Dose: 100 mls/hr Vancomycin/Sodium Chloride (Vancomycin/Ns 1 Gm Ivpb) 200 mls @ 120 mls/hr IV Q100M BERE Stop: 05/13/25 00:34 Last Admin: 05/13/25 00:41 Dose: Not Given Vancomycin/Sodium Chloride (Vancomycin/Ns 750 Mg Ivpb) 750 mg in 150 mls @ 120 mls/hr IV Q12H [facility]; Protocol Stop: 05/20/25 09:59 Last Admin: 05/17/25 07:03 Dose: Not Given Cefepime HCl 2 gm/ Sodium (Chloride) 50 mls @ 100 mls/hr IV BID BERE; Protocol Stop: 05/22/25 17:59 Last Admin: 05/16/25 09:18 Dose: 100 mls/hr Magnesium Sulfate (Magnesium Sulfate Ivpb) 4 gm in 50 mls @ 12.5 mls/hr IV X1 ONE Stop: 05/15/25 12:22 Last Admin: 05/15/25 09:55 Dose: 12.5 mls/hr Sodium Chloride (Ns) 250 mls @ 999 mls/hr IV .Q16M ONE Stop: 05/15/25 15:21 Last Admin: 05/15/25 15:10 Dose: 999 mls/hr Sodium Chloride (Ns) 250 mls @ 999 mls/hr IV .Q16M ONE Stop: 05/15/25 16:06 Last Admin: 05/15/25 16:03 Dose: 999 mls/hr Ferumoxytol 510 mg/ Sodium (Chloride) 117 mls @ 234 mls/hr IV X1 ONE Stop: 05/17/25 11:59 Last Admin: 05/17/25 13:25 Dose: 234 mls/hr Ondansetron HCl (Ondansetron Odt 4 Mg Tabrap) 4 mg PO X1 ONE; Protocol Stop: 05/13/25 23:22 Last Admin: 05/13/25 23:29 Dose: 4 mg Pharmacy Consult (Vancomycin Pharmacy To Dose 1 Each Each) 1 each IV QDAY PRN PRN Reason: RX Stop: 06/12/25 08:59 Potassium Phos/Sodium Phos ([facility] Mbdb 1 Packet (1.5 Gm)) 1 packet PO X1 ONE Stop: 05/18/25 07:58 Last Admin: 05/18/25 09:43 Dose: Not Given Assessment & Plan Plan Mr. Leslie is a 84-year-old male with past medical history significant for metastatic prostate cancer, hypertension, dyslipidemia who presented to the ED on 05/12/2025 with fever and lethargy and admitted for further management of facial droop and a fever and pneumonia. Patient denies any symptoms at this time. Patient has been afebrile since admission. ID was consulted for further recommendations patient's current coagulase-negative bacteremia. #Staphylococcus hominis bacteremia #Neutropenic fever?resolved Blood cultures point 05/12/2025 grew above specimen, which is currently coagulase negative. Patient has been afebrile since admission. Patient had been on IV vancomycin for 3 days prior to being switched to doxycycline and cefepime. At this time we will recommend patient to be solely on IV vancomycin for total of 14 days if aggressive measures are requested by patient and patient's family. Patient is currently DNR/DNI. At this point oral antibiotics will not work in the setting. #Acute on chronic hypercapnic respiratory failure secondary to COPD exacerbation versus PAULA #COPD exacerbation #Pancytopenia #Thrombocytopenia #Normocytic anemia #Metastatic prostate cancer #Hypertension #Dyslipidemia #Urinary retention #BPH Treatment as per primary team Patient's plan and care discussed with my attending, Dr. Lyndsey Valencia MD PGY-3
--- NOTE | 2025-05-19 11:46 | ESPR_ITS ---
Subjective Subjective Interval history: coag neg bacteremia in bc done at same time. had vanco 05/12-05/15, then doxy. repeat bc neg. echo neg Exam Vital Signs Temp Pulse Resp BP Pulse Ox O2 Del Method O2 Flow Rate 97.3 F 103 H 21 H 127/71 95 CPAP 3 05/19/25 08:00 05/19/25 08:00 05/19/25 08:00 05/19/25 08:00 05/19/25 08:00 05/19/25 08:00 05/19/25 08:00 FiO2 40 05/19/25 08:00 Objective - Internal Medicine Labs 05/19/25 08:23 05/19/25 08:23 Labs: Laboratory Results - last 24 hr 05/19/25 08:23 WBC 8.1 D RBC 3.05 L Hgb 8.5 L Hct 27.9 L MCV 92 MCH 27.9 MCHC 30.5 L RDW Std Deviation 58.4 H Plt Count 139 L D Neut % (Auto) 83 H Lymph % (Auto) 7 L [place] % (Auto) 4 Eos % (Auto) 0 Baso % (Auto) 0 Neut # (Auto) 6.8 Lymph # (Auto) 0.5 L [place] # (Auto) 0.3 Eos # (Auto) 0.0 Baso # (Auto) 0.0 Immature Gran # (Auto) 0.48 H Absolute Nucleated RBC 0.17 H Immature Gran % 6 H Nucleated RBC % 2 H Sodium 145 Potassium 4.4 Chloride 103 Carbon Dioxide 34.4 H Anion Gap 8 BUN 30 H Creatinine 1.2 Estim Creat Clear Calc 56.8 L eGFR 59 L BUN/Creatinine Ratio 25 H Glucose 136 H Calculated Osmolality 296 H Calcium 9.5 Corrected Calcium 9.9 Total Bilirubin 0.7 AST 27 ALT 13 Alkaline Phosphatase 78 Total Protein 5.8 Albumin 3.5 D Globulin 2.3 Albumin/Globulin Ratio 1.5 ABG Interpretation ABG results: 05/15/25 05/17/25 05/17/25 15:13 09:41 14:00 ABG pH 7.26 L 7.31 L ABG pCO2 83 H* 73 H* D ABG pO2 66 L 91 D ABG HCO3 38 H 37 H ABG O2 Saturation 93 98 ABG Base Excess 9 H 10 H VBG pH 7.43 VBG pCO2 50 VBG pO2 71 H VBG Base Excess 8 H 05/17/25 05/17/25 05/18/25 18:31 21:10 01:01 ABG pH 7.40 7.42 ABG pCO2 59 H D 56 H ABG pO2 78 L 72 L ABG HCO3 36 H 36 H ABG O2 Saturation 97 96 ABG Base Excess 10 H 11 H VBG pH 7.41 VBG pCO2 56 VBG pO2 39 D VBG Base Excess 10 H Assessment & Plan A&P Narrative bacteremia, coag neg vs contamination metastatic prostate ca most conservative rx is vanco thru 05/30(14d total) least conservative is nothing at all, will put on vanco. oral meds not used for this at all but note that the germ may have been a contaminant as the gnr's are the worrisome pathogens in this setting.if port removed then rx is 10d total and he had 3d before and echo and f/u bc are neg Time Spent With Patient Time: Total time spent is greater than 50% in coordination of care (as documented) at patient's floor/unit and/or counseling patient:
--- NOTE | 2025-05-19 13:11 | ESCONSULT_ITS ---
RE: DERRICK ALVARADO : 1940 DATE OF CONSULTATION: 05/19/2025 REFERRING PHYSICIAN: Dr. Henry Kan HISTORY OF PRESENT ILLNESS: The patient is unfortunately an 84-year-old man with metastatic prostate cancer. He has some other health problems including hypertension and hyperlipidemia that are mild. He has had only prostate surgery in the past. ALLERGIES: NONE KNOWN. IMMUNIZATIONS: Last tetanus is not known. He does not have a flu shot every year. He is concerned about his COVID status, but does recall having had a pneumococcal vaccine. FAMILY HISTORY: Unremarkable. Positive for diabetes. SOCIAL HISTORY: He lives with his brother. He was a regular smoker until his admission when he smoked cigars. He quit smoking about 6 years ago though. PHYSICAL EXAMINATION: General: On exam, the patient is well appearing. He does appear to have some dementia and is 84 years of age. HEENT: Benign. Heart: Benign. Lungs: Benign. Abdomen: Benign. The rest of his exam is unremarkable. This port is not infected. The blood tests were done at the exact same time, so they may be contaminated. He had some renal insufficiency, so we have to keep that in mind. Of note, the fact that the patient has metastatic prostatic CA and is DNR, so it may be inappropriate to give antibiotics, but we will see what the family decides. The most aggressive treatment will be 11 more days of vancomycin from whatever day rx started. If you wish to give him a different antibiotic, that is fine too. He has some renal insufficiency, so you can have it tested for daptomycin to see if you want to use that instead. If you take his port out, you can give a little shorter treatment of 10 days from his first negative, but noting that his first negatives were done while he was on vancomycin. He was more recently changed to tetracycline, which is reasonable, but not the same. Guidelines: favor IV treatment for Staph epi bacteremia line related. We can keep the line in though as long as it is Staph epi, which it has been identified as. I will check on him again Monday if he remains but if he goes home, I have no objection. DT: 12:16:11 TT: 12:34:00 Ref: [id number] - TID: [id number] [facility]
[2025-05-19] MEDS: Vancomycin Inj 2,000 MG in SODIUM CHLORIDE 0.9% 500 ML 500 ML 150 MG IV (13:28)
--- NOTE | 2025-05-19 13:28 | ESPR_ITS ---
<Statement entered by Holly Morales MD - 05/25/25 12:11> I reviewed above note and agree with findings and plans. I have also personally examined the patient with medicine team and went over assessment and plan with medical team including software engineer intern and resident physician. Documentation for date of: 05/19/25 No overnight events. Patient examined at bedside. Altered mental status resolved. Patient is Alert & Orientated X 2, which is patient's baseline since hospital setting. Pending infectious disease consult. Plan to discharge within the next 24 hours. - The patient's plan was discussed with attending Dr. Andrew Enriquez MD PGY2 Internal Medicine Subjective Subjective Interval history: No overnight events. Patient was examined at bedside; they appear even more markedly improved from a respiratory standpoint from yesterday and seem to be doing much better overall. Labs today significant for WBC 3.4 -> 8.1, Hgb 7.5 -> 8.5, platelet count 100 -> 139, bicarbonate 33.8 -> 34.4, BUN 33 -> 30. On physical exam, bilateral lung alex appear much clearer to auscultation and there were no other pertinent positive findings. Plan Updates: -Discontinued Solumedrol and started PO prednisone 40 mg qD for steroid taper -Per ID, discontinue IV doxycycline and start [id number] of IV vancomycin [05/19-06/01] for possible bacteremia Exam Vital Signs Temp Pulse Resp BP Pulse Ox O2 Del Method O2 Flow Rate 97.7 F 92 23 H 125/68 96 CPAP 3 05/19/25 12:00 05/19/25 12:00 05/19/25 12:00 05/19/25 12:00 05/19/25 12:00 05/19/25 12:00 05/19/25 12:00 FiO2 40 05/19/25 12:00 Narrative Exam General: A&O x 3 elderly, obese male in NAD. HEENT: Mucosa moist. Pupils are equal, redundant tissue around the neck. Cardiovascular: Belinda-Cath in place at right chest. Normal rate and rhythm, systolic murmur appreciated. Respiratory: Bilateral anterior lung alex clear to auscultation (greatly improved from yesterday). Prolonged expiratory phase. No wheezes appreciated. Abdomen: Soft, non-tender, not distended. No guarding or rebound tenderness. Bowel sounds present. Skin: Dry, no rashes or bruising, some dark discoloration of the nailbeds and distal phalanges, does not appear necrotic. Ecchymosis noted on the right duran. Musculoskeletal: No gross injuries. Able to move all 4 extremities. Non edematous lower extremities. Objective Labs 05/19/25 08:23 05/19/25 08:23 Labs: Laboratory Results - last 24 hr 05/19/25 08:23 WBC 8.1 D RBC 3.05 L Hgb 8.5 L Hct 27.9 L MCV 92 MCH 27.9 MCHC 30.5 L RDW Std Deviation 58.4 H Plt Count 139 L D Neut % (Auto) 83 H Lymph % (Auto) 7 L Daniels % (Auto) 4 Eos % (Auto) 0 Baso % (Auto) 0 Neut # (Auto) 6.8 Lymph # (Auto) 0.5 L Daniels # (Auto) 0.3 Eos # (Auto) 0.0 Baso # (Auto) 0.0 Immature Gran # (Auto) 0.48 H Absolute Nucleated RBC 0.17 H Immature Gran % 6 H Nucleated RBC % 2 H Sodium 145 Potassium 4.4 Chloride 103 Carbon Dioxide 34.4 H Anion Gap 8 BUN 30 H Creatinine 1.2 Estim Creat Clear Calc 56.8 L eGFR 59 L BUN/Creatinine Ratio 25 H Glucose 136 H Calculated Osmolality 296 H Calcium 9.5 Corrected Calcium 9.9 Total Bilirubin 0.7 AST 27 ALT 13 Alkaline Phosphatase 78 Total Protein 5.8 Albumin 3.5 D Globulin 2.3 Albumin/Globulin Ratio 1.5 ABG Interpretation ABG results: 05/15/25 05/17/25 05/17/25 15:13 09:41 14:00 ABG pH 7.26 L 7.31 L ABG pCO2 83 H* 73 H* D ABG pO2 66 L 91 D ABG HCO3 38 H 37 H ABG O2 Saturation 93 98 ABG Base Excess 9 H 10 H VBG pH 7.43 VBG pCO2 50 VBG pO2 71 H VBG Base Excess 8 H 05/17/25 05/17/25 05/18/25 18:31 21:10 01:01 ABG pH 7.40 7.42 ABG pCO2 59 H D 56 H ABG pO2 78 L 72 L ABG HCO3 36 H 36 H ABG O2 Saturation 97 96 ABG Base Excess 10 H 11 H VBG pH 7.41 VBG pCO2 56 VBG pO2 39 D VBG Base Excess 10 H Quality Measures Quality Measures VTE prophylaxis Advance care planning discussed with:: patient Assessment & Plan Assessment Current Active Medications: Generic Name Dose Route Start Last Admin Trade Name Freq PRN Reason Stop Dose Admin Acetaminophen 650 mg 05/12/25 21:10 Acetaminophen 325 Mg Tablet PO 06/11/25 20:57 Q6H PRN Fever >100.4 and pain 1-3 Albuterol/Ipratropium 3 ml 05/17/25 11:00 05/19/25 10:36 Albuterol/Ipratropium (Duoneb) Rt Chaya 3 Ml Nebu INH 06/16/25 10:59 3 ml Q4HRRT BERE Administration Albuterol/Ipratropium 3 ml 05/17/25 10:00 Albuterol/Ipratropium (Duoneb) Rt Chaya 3 Ml Nebu INH 06/16/25 09:59 Q2HR PRN SHORTNESS OF BREATH OR WHEEZE Atorvastatin Calcium 10 mg 05/13/25 09:00 05/19/25 09:06 Atorvastatin Calcium 10 Mg Tablet PO 06/12/25 08:59 10 mg QDAY BERE Administration Furosemide 40 mg 05/13/25 09:00 05/14/25 21:40 Furosemide 40 Mg Tablet PO 06/12/25 08:59 40 mg On Hold: 05/15/25 08:06 BID BERE Administration Guaifenesin 100 mg 05/15/25 14:00 05/19/25 06:25 Guaifenesin Syrup 200 Mg/10 Ml Udc PO 06/14/25 13:59 100 mg TID BERE Administration Protocol Heparin Sodium (Porcine) 5,000 unit 05/15/25 14:00 05/19/25 06:26 Heparin Sod Inj 5000 Unit/Ml Vial SC 05/29/25 13:59 5,000 unit Q8HR BERE Administration Vancomycin HCl 2,000 mg/ 500 mls @ 150 mls/hr 05/19/25 12:15 Sodium Chloride IV 05/19/25 15:34 X1 ONE Vancomycin/Sodium Chloride 750 mg in 150 mls @ 120 mls/hr 05/19/25 22:00 Vancomycin/Ns 750 Mg Ivpb IV 05/26/25 21:59 BID@1000,2200 BERE Protocol Labetalol HCl 10 mg 05/14/25 14:34 Labetalol Inj 5 Mg/Ml Vial 20 Ml IVP 06/13/25 14:33 Q6HR PRN Hypertensive Emergency Methylprednisolone Sodium Succinate 60 mg 05/17/25 21:00 05/19/25 09:04 Methylprednisolone Sod Succ 40 Mg/Ml Vial IV 05/24/25 20:59 60 mg Q12HR BERE Administration Ondansetron HCl 4 mg 05/15/25 11:34 05/15/25 13:46 Ondansetron Inj 2 Mg/Ml Inj 2 Ml IVP 06/14/25 11:33 4 mg Q6HR PRN Administration NAUSEA OR VOMITING Protocol Pharmacy Consult 1 each 05/20/25 09:00 Vancomycin Pharmacy To Dose 1 Each Each IV 06/19/25 08:59 QDAY PRN PROTOCOL Plan Patient is a 84-year-old male past medical significant for metastatic prostate cancer patient, hypertension and dyslipidemia presented to the ED on 05/12/2025 with chief complaint of fever and lethargy who was admitted for neutropenic fever and PNA. #Acute on chronic hypercapnic respiratory failure, likely 2/2 non-compliance w/ night-time CPAP in the setting of COPD exacerbation, PAULA, and possible OHS (resolving) #COPD exacerbation #PAULA #Possible OHS On 05/17, patient exhibited cough productive of thick, green-yellow sputum that had not been present prior with new confusion and increased work of breathing Had not been compliant w/ night-time CPAP for the past few days prior Now improved on 05/18 s/p BiPAP and breathing treatments Plan: -Discontinued IV Solumedrol 60 mg q12HR [05/17-05/19] -Started PO prednisone 40 mg qD for steroid taper [05/19--] -Emphasize compliance w/ night-time CPAP -Continue Duoneb q4HR scheduled and Duoneb q2HR prn -Chest physiotherapy -Antibiotics as mentioned in #Staphylococcus hominis bacteremia section (changed today per ID recommendations) -No intubation as patient is DNR/DNI #??Staphylococcus hominis bacteremia 05/12 blood cultures grew 2/2 GPCs later speciated as Staphyloccocus hominis, a common commensal organism of human skin that is sensitive to azithromycin, ciprofloxacin, vancomycin, and tetracycline 05/12 sputum culture grew mixed anna and Gram stain showed 3 + GPC and 2 + GNR 05/12 UCx grew mixed anna 05/14 repeat blood cultures 09/15 [id number] 05/15 echo negative for vegetations Likely contaminant rather than true Staphylococcus hominis bacteremia Antibiotic course this hospitalization: Vancomycin [05/12-05/16], MRSA (-), [05/19--] Cefepime [05/12--] Doxycycline [05/15-05/16], [05/17-05/19] Plan: - Per ID recommendations, discontinued doxycycline and started [id number] of IV vancomycin [05/19--] - Continue cefepime 2 mg IV BID (05/12--), - Tylenol as needed for fever - Chest physiotherapy, guaifenesin as needed #Pancytopenia, likely secondary malignancy & chemo, improving #Thrombocytopenia #Normocytic anemia #Metastatic prostate cancer Patient has metastatic cancer for which he follows oncologist Dr. Hill outpatient On arrival WBC 1.5, platelets 111 and febrile, Hgb 8.3, HCT 27.7. These lab values likely secondary to chemotherapy-induced myelosuppression despite filgrastim injections that were given as an adjunct to chemo. Gets chemo q3 weeks. Pt has hx of recurrent admissions following chemo treatments. Last admission was 04/18 for Covid PNA Plan: - Per Dr. Phipps, give SC Neupogen 480 mg if ANC drops below 1000 - Follows with Dr. Phipps (she will try to see him next week) - Continue to monitor #PMH, Hypertension #Dyslipidemia Patient has a reported past medical history of HTN and dyslipidemia Last lipid panel from 09/24/24 was WNL Plan: -Labetolol PRN -Home atorvastatin 10 mg -Home Lasix 40 mg twice daily RRx: -Currently normotensive #Urinary retention (resolved) #BPH Patient has not been having good UOP lately and 05/17 bladder scan showed more than 450 mL of retained urine Patient has previous imaging showing a significantly enlarged prostate in the setting of metastatic prostate cancer Now on Alonzo catheter Plan: -Continue PO tamsulosin 0.4 mg qD Health Maintenance: DVT prophylaxis: Heparin Diet: Special diet request, ensure with meals Alonzo: Yes Lines: PIV CODE STATUS: DNR/DNI Disposition: Plan to discharge home with possible home health Patient's plan and care discussed with my attending, Dr. Morales and my senior Dr. Zoe Tello, DO Internal Medicine, PGY-1
[2025-05-19] MEDS: NAPH,KPH MBDB 1 PACKET (1.5 GM) PO (14:00)
[2025-05-19] MEDS: VANCOMYCIN/NS 750 MG IVPB 750 MG/150 ML BAG 120 MG IV (21:33)
[2025-05-20] VITALS (13 sets, daily range): BP systolic 131–146; BP diastolic 62–77; PULSE 68–90; RESP 16–26; TEMP 35.9–36.6; O2SAT 93–100; BMI 43.9
[2025-05-20] MEDS: ALBUTEROL/IPRATROPIUM (Duoneb) RT SOL 3 ML NEBU INH ×6 (02:17→23:04)
[2025-05-20] MEDS: guaiFENesin SYRUP 200 MG/10 ML UDC 100 MG PO ×3 (05:14→22:25)
[2025-05-20] MEDS: HEPARIN SOD INJ 5000 UNIT/ML VIAL SC ×3 (05:14→22:28)
[2025-05-20 05:32] LABS: Basophils # (Auto) 0.0 Thou/mm3 (0.0-0.2); Basophils % (Auto) 0 % (0-2.5); Eosinophils # (Auto) 0.0 Thou/mm3 (0.0-0.5); Eosinophils % (Auto) 0 % (0-10); Hematocrit 24.1 % (41.0-53.0); Immature Granulocytes Auto 0.79 Thou/mm3 (0.00-0.00); Lymphocytes # (Auto) 0.8 Thou/mm3 (1.0-4.8); Lymphocytes % (Auto) 7 % (10-50); Mean Corpuscular HGB Conc 31.1 g/dl (31.0-37.0); Mean Corpuscular Hemoglobin 29.0 pg (25.0-35.0); Mean Corpuscular Volume 93 fL (80-100); Monocytes # (Auto) 0.8 Thou/mm3 (0.0-0.8); Monocytes % (Auto) 7 % (0-12); Neutrophils # (Auto) 8.4 Thou/mm3 (1.8-7.7); Neutrophils % (Auto) 78 % (37-80); Nucleated Red Blood Cell # 0.32 Thou/mm3 (0.00-0.00); Nucleated Red Blood Cell % 3 /100 WBC (0); Platelet Count 164 Thou/mm3 (140-440); RDW Standard Deviation 60.2 fL (35.1-43.9); Red Blood Count 2.59 Miln/mm3 (4.50-5.90); White Blood Count 10.8 Thou/mm3 (3.8-10.6)
[2025-05-20 06:02] LABS: Alanine Aminotransferase 11 U/L (10-49); Albumin, Serum 2.9 gm/dL (3.4-4.8); Albumin/Globulin Ratio 1.5 (1.2-2.2); Alkaline Phosphatase 69 U/L (46-116); Anion Gap 8 (7-16); Aspartate Amino Transferase 31 U/L (0-34); BUN/Creatinine Ratio 23 Ratio (12-20); Bilirubin,Total 0.5 mg/dL (0.3-1.2); Blood Urea Nitrogen 30 mg/dL (9-23); Calcium 8.5 mg/dL (8.3-10.6); Calcium (Corrected) 9.4 mg/dL (8.5-10.1); Carbon Dioxide 33.5 mMol/L (20.0-31.0); Chloride 103 mMol/L (98-107); Creatinine (Component) 1.3 mg/dL (0.6-1.3); Estimated Creatinine Clearance 52.4 mL/min (>60); Globulin 2.0 gm/dL (2.3-3.5); Glucose 107 mg/dL (74-106); Magnesium 2.0 mg/dL (1.6-2.6); Osmolality,Calculated 293 (275-295); Phosphorous 2.6 mg/dL (2.4-5.1); Potassium 4.6 mMol/L (3.4-5.1); Sodium 144 mMol/L (136-145); Total Protein 4.9 gm/dL (5.7-8.2); eGFR 54 See Note
[2025-05-20 06:06] LABS: Hemoglobin 7.5 g/dL (13.5-16.0)
[2025-05-20] MEDS: VANCOMYCIN/NS 750 MG IVPB 750 MG/150 ML BAG 120 MG IV (09:10)
[2025-05-20] MEDS: ATORVASTATIN CALCIUM 10 MG TABLET PO (09:10)
--- NOTE | 2025-05-20 12:04 | ESPR_ITS ---
<Statement entered by Holly Morales MD - 05/25/25 12:12> I reviewed above note and agree with findings and plans. I have also personally examined the patient with medicine team and went over assessment and plan with medical team including international editorial producer and resident physician. Documentation for date of: 05/20/25 No overnight events. Patient denied chills, fevers, or chest pain overnight. Patient will be started on PICC line with course of Vancomycin until May 30, 2025. Patient likely to be discharge within the next 24 hours. - The patient's plan was discussed with attending Dr. Andrew Enriquez MD PGY2 Internal Medicine Subjective Subjective Interval history: No overnight events. Patient was examined at bedside; he appears significantly improved clinically and without respiratory distress on 3 L NC. Labs today significant for WBC 8.1 -> 10.8, Hgb 8.5 -> 7.5, bicarbonate 34.4 -> 33.5, and creatinine 1.2 -> 1.3. On exam, mild expiratory wheezing of right anterior lung base was auscultated but was otherwise benign. Patient is planned to be discharged tomorrow with PICC line so that he can continue receiving the remainder of his [id number] of IV vancomycin for possible GPC bacteremia; patient's son will be called and informed of the PICC line placement and why it is being done. Exam Vital Signs Temp Pulse Resp BP Pulse Ox O2 Del Method O2 Flow Rate 96.9 F 84 20 134/67 H 95 BiPAP 3 05/20/25 08:00 05/20/25 11:40 05/20/25 11:40 05/20/25 08:00 05/20/25 11:40 05/20/25 08:00 05/20/25 11:40 FiO2 35 05/20/25 08:00 Narrative Exam General: A&O x 3 elderly, obese male in NAD. HEENT: Mucosa moist. Pupils are equal, redundant tissue around the neck. Cardiovascular: Belinda-Cath in place at right chest. Normal rate and rhythm, systolic murmur appreciated. Respiratory: On 3 L NC. Mild expiratory wheezing of R anterior lung base. Prolonged expiratory phase. No crackles, rales, or rhonchi appreciated. Abdomen: Soft, non-tender, not distended. No guarding or rebound tenderness. Bowel sounds present. Skin: Dry, no rashes or bruising, some dark discoloration of the nailbeds and distal phalanges, does not appear necrotic. Ecchymosis noted on the right duran. Musculoskeletal: No gross injuries. Able to move all 4 extremities. Non edematous lower extremities. Objective Labs 05/20/25 04:16 05/20/25 04:16 Labs: Laboratory Results - last 24 hr 05/20/25 04:16 WBC 10.8 H RBC 2.59 L Hgb 7.5 L Hct 24.1 L MCV 93 MCH 29.0 MCHC 31.1 RDW Std Deviation 60.2 H Plt Count 164 Neut % (Auto) 78 Lymph % (Auto) 7 L Garland % (Auto) 7 Eos % (Auto) 0 Baso % (Auto) 0 Neut # (Auto) 8.4 H Lymph # (Auto) 0.8 L Garland # (Auto) 0.8 Eos # (Auto) 0.0 Baso # (Auto) 0.0 Immature Gran # (Auto) 0.79 H Absolute Nucleated RBC 0.32 H Immature Gran % 7 H Nucleated RBC % 3 H Sodium 144 Potassium 4.6 Chloride 103 Carbon Dioxide 33.5 H Anion Gap 8 BUN 30 H Creatinine 1.3 Estim Creat Clear Calc 52.4 L eGFR 54 L BUN/Creatinine Ratio 23 H Glucose 107 H Calculated Osmolality 293 Calcium 8.5 Corrected Calcium 9.4 Phosphorus 2.6 Magnesium 2.0 Total Bilirubin 0.5 AST 31 ALT 11 Alkaline Phosphatase 69 Total Protein 4.9 L Albumin 2.9 L D Globulin 2.0 L Albumin/Globulin Ratio 1.5 ABG Interpretation ABG results: 05/15/25 05/17/25 05/17/25 15:13 09:41 14:00 ABG pH 7.26 L 7.31 L ABG pCO2 83 H* 73 H* D ABG pO2 66 L 91 D ABG HCO3 38 H 37 H ABG O2 Saturation 93 98 ABG Base Excess 9 H 10 H VBG pH 7.43 VBG pCO2 50 VBG pO2 71 H VBG Base Excess 8 H 05/17/25 05/17/25 05/18/25 18:31 21:10 01:01 ABG pH 7.40 7.42 ABG pCO2 59 H D 56 H ABG pO2 78 L 72 L ABG HCO3 36 H 36 H ABG O2 Saturation 97 96 ABG Base Excess 10 H 11 H VBG pH 7.41 VBG pCO2 56 VBG pO2 39 D VBG Base Excess 10 H Quality Measures Quality Measures VTE prophylaxis Advance care planning discussed with:: patient Assessment & Plan Assessment Current Active Medications: Generic Name Dose Route Start Last Admin Trade Name Freq PRN Reason Stop Dose Admin Acetaminophen 650 mg 05/12/25 21:10 Acetaminophen 325 Mg Tablet PO 06/11/25 20:57 Q6H PRN Fever >100.4 and pain 1-3 Albuterol/Ipratropium 3 ml 05/17/25 11:00 05/20/25 11:44 Albuterol/Ipratropium (Duoneb) Rt Chaya 3 Ml Nebu INH 06/16/25 10:59 3 ml Q4HRRT BERE Administration Albuterol/Ipratropium 3 ml 05/17/25 10:00 Albuterol/Ipratropium (Duoneb) Rt Chaya 3 Ml Nebu INH 06/16/25 09:59 Q2HR PRN SHORTNESS OF BREATH OR WHEEZE Atorvastatin Calcium 10 mg 05/13/25 09:00 05/20/25 09:10 Atorvastatin Calcium 10 Mg Tablet PO 06/12/25 08:59 10 mg QDAY BERE Administration Furosemide 40 mg 05/13/25 09:00 05/14/25 21:40 Furosemide 40 Mg Tablet PO 06/12/25 08:59 40 mg On Hold: 05/15/25 08:06 BID BERE Administration Guaifenesin 100 mg 05/15/25 14:00 05/20/25 05:14 Guaifenesin Syrup 200 Mg/10 Ml Udc PO 06/14/25 13:59 100 mg TID BERE Administration Protocol Heparin Sodium (Porcine) 5,000 unit 05/15/25 14:00 05/20/25 05:14 Heparin Sod Inj 5000 Unit/Ml Vial SC 05/29/25 13:59 5,000 unit Q8HR BERE Administration Vancomycin/Sodium Chloride 750 mg in 150 mls @ 120 mls/hr 05/19/25 22:00 05/20/25 09:10 Vancomycin/Ns 750 Mg Ivpb IV 05/26/25 21:59 120 mls/hr BID@1000,2200 BERE Administration Protocol Labetalol HCl 10 mg 05/14/25 14:34 Labetalol Inj 5 Mg/Ml Vial 20 Ml IVP 06/13/25 14:33 Q6HR PRN Hypertensive Emergency Ondansetron HCl 4 mg 05/15/25 11:34 05/15/25 13:46 Ondansetron Inj 2 Mg/Ml Inj 2 Ml IVP 06/14/25 11:33 4 mg Q6HR PRN Administration NAUSEA OR VOMITING Protocol Pantoprazole Sodium 40 mg 05/19/25 13:45 05/20/25 09:10 Pantoprazole Inj 40 Mg Vial IVP 06/18/25 13:44 40 mg QDAY BERE Administration Pharmacy Consult 1 each 05/20/25 09:00 Vancomycin Pharmacy To Dose 1 Each Each IV 06/19/25 08:59 QDAY PRN PROTOCOL Prednisone 40 mg 05/19/25 13:45 05/20/25 09:10 Prednisone 20 Mg Tablet PO 05/26/25 13:36 40 mg QDAY BERE Administration Plan Patient is a 84-year-old male past medical significant for metastatic prostate cancer patient, hypertension and dyslipidemia presented to the ED on 05/12/2025 with chief complaint of fever and lethargy who was admitted for neutropenic fever and PNA. #Staphylococcus hominis bacteremia 05/12 blood cultures grew 2/2 GPCs later speciated as Staphyloccocus hominis, a common commensal organism of human skin that is sensitive to azithromycin, ciprofloxacin, vancomycin, and tetracycline 05/12 sputum culture grew mixed anna and Gram stain showed 3 + GPC and 2 + GNR 05/12 UCx grew mixed anna 05/14 repeat blood cultures 2/2 [id number] 05/15 echo negative for vegetations Likely contaminant rather than true Staphylococcus hominis bacteremia Antibiotic course this hospitalization: Vancomycin [05/12-05/16], MRSA (-), [05/19--] Cefepime [05/12--] Doxycycline [05/15-05/16], [05/17-05/19] Plan: - PICC line placement tomorrow for receiving IV vancomycin in the outpatient setting - Per ID recommendations, continue [id number] of IV vancomycin [05/19--] - Continue cefepime 2 mg IV BID (05/12--) - Tylenol as needed for fever - Chest physiotherapy, guaifenesin as needed #Acute on chronic hypercapnic respiratory failure, likely 2/2 non-compliance w/ night-time CPAP in the setting of COPD exacerbation, PAULA, and possible OHS (resolving) #COPD exacerbation #PAULA #Possible OHS On 05/17, patient exhibited cough productive of thick, green-yellow sputum that had not been present prior with new confusion and increased work of breathing Had not been compliant w/ night-time CPAP for the past few days prior Now improved on 05/18 s/p BiPAP and breathing treatments Received IV Solumedrol 60 mg q12HR [05/17-05/19] Plan: -Continue PO prednisone 40 mg qD for steroid taper [05/19--] -Emphasize compliance w/ night-time CPAP -Continue Duoneb q4HR scheduled and Duoneb q2HR prn -Chest physiotherapy -Antibiotics as mentioned in #Staphylococcus hominis bacteremia section (changed today per ID recommendations) -No intubation as patient is DNR/DNI #Pancytopenia, likely secondary malignancy & chemo, improving #Thrombocytopenia #Normocytic anemia #Metastatic prostate cancer Patient has metastatic cancer for which he follows oncologist Dr. Phipps outpatient On arrival WBC 1.5, platelets 111 and febrile, Hgb 8.3, HCT 27.7. These lab values likely secondary to chemotherapy-induced myelosuppression despite filgrastim injections that were given as an adjunct to chemo. Gets chemo q3 weeks. Pt has hx of recurrent admissions following chemo treatments. Last admission was 04/18 for Covid PNA Plan: - Per Dr. Phipps, give SC Neupogen 480 mg if ANC drops below 1000 - Follows with Dr. Phipps (she will try to see him next week) - Continue to monitor #PMH, Hypertension #Dyslipidemia Patient has a reported past medical history of HTN and dyslipidemia Last lipid panel from 09/24/24 was WNL Plan: -Labetolol PRN -Home atorvastatin 10 mg -Home Lasix 40 mg twice daily RRx: -Currently normotensive #Urinary retention (resolved) #BPH Patient has not been having good UOP lately and 05/17 bladder scan showed more than 450 mL of retained urine Patient has previous imaging showing a significantly enlarged prostate in the setting of metastatic prostate cancer Now on Alonzo catheter Plan: -Continue PO tamsulosin 0.4 mg qD Health Maintenance: DVT prophylaxis: Heparin Diet: Special diet request, ensure with meals Alonzo: Yes Lines: PIV CODE STATUS: DNR/DNI Disposition: Plan to discharge home with possible home health Patient's plan and care discussed with my attending, Dr. Morales and my senior Dr. Zoe Tello, DO Internal Medicine, PGY-1
--- NOTE | 2025-05-20 13:48 | PC.SS ---
SS follow up note; Patient is on IV ABX. Possibly PIC-Line. SS will follow up with family in regards to discharge plan.
--- NOTE | 2025-05-20 13:50 | PC.SS ---
SS follow up note; SS attempted to contact patient's son. SS left voice mail with contact number.
--- NOTE | 2025-05-20 13:54 | PC.SS ---
SS follow up note; SS followed up with [facility] , Melanie [phone]. SS discussed Possible IV ABX. She informed they are able to administer IV ABX at home. Patient seen PCP last month at [facility]. No preference in HH agency.
[2025-05-20 22:01] LABS: Vancomycin,Trough 24.7 mcg/mL (5.0-10.0)
[2025-05-20] MEDS: ONDANSETRON INJ 2 MG/ML INJ 2 ML 4 MG IVP (22:25)
[2025-05-21] VITALS (20 sets, daily range): BP systolic 117–176; BP diastolic 57–70; PULSE 62–112; RESP 14–27; TEMP 35.9–36.8; O2SAT 91–100; BMI 44.2
[2025-05-21] MEDS: ALBUTEROL/IPRATROPIUM (Duoneb) RT SOL 3 ML NEBU INH ×6 (02:49→22:09)
[2025-05-21] MEDS: guaiFENesin SYRUP 200 MG/10 ML UDC 100 MG PO ×3 (05:50→21:10)
[2025-05-21 05:57] LABS: Basophils # (Auto) 0.0 Thou/mm3 (0.0-0.2); Basophils % (Auto) 0 % (0-2.5); Eosinophils # (Auto) 0.0 Thou/mm3 (0.0-0.5); Eosinophils % (Auto) 0 % (0-10); Lymphocytes % (Auto) 16 % (10-50); Mean Corpuscular Volume 96 fL (80-100); Monocytes # (Auto) 0.7 Thou/mm3 (0.0-0.8); Neutrophils # (Auto) 3.3 Thou/mm3 (1.8-7.7); Neutrophils % (Auto) 61 % (37-80)
[2025-05-21 05:59] LABS: Hematocrit 25.4 % (41.0-53.0); Immature Granulocytes Auto 0.50 Thou/mm3 (0.00-0.00); Lymphocytes # (Auto) 0.9 Thou/mm3 (1.0-4.8); Mean Corpuscular HGB Conc 29.5 g/dl (31.0-37.0); Mean Corpuscular Hemoglobin 28.3 pg (25.0-35.0); Monocytes % (Auto) 13 % (0-12); Nucleated Red Blood Cell # 0.21 Thou/mm3 (0.00-0.00); Nucleated Red Blood Cell % 4 /100 WBC (0); Platelet Count 151 Thou/mm3 (140-440); RDW Standard Deviation 62.7 fL (35.1-43.9); Red Blood Count 2.65 Miln/mm3 (4.50-5.90); White Blood Count 5.4 Thou/mm3 (3.8-10.6)
[2025-05-21 06:20] LABS: Alanine Aminotransferase 13 U/L (10-49); Albumin, Serum 2.8 gm/dL (3.4-4.8); Albumin/Globulin Ratio 1.6 (1.2-2.2); Alkaline Phosphatase 62 U/L (46-116); Anion Gap 6 (7-16); Aspartate Amino Transferase 25 U/L (0-34); BUN/Creatinine Ratio 26 Ratio (12-20); Bilirubin,Total 0.5 mg/dL (0.3-1.2); Blood Urea Nitrogen 31 mg/dL (9-23); Calcium 8.5 mg/dL (8.3-10.6); Calcium (Corrected) 9.5 mg/dL (8.5-10.1); Carbon Dioxide 36.3 mMol/L (20.0-31.0); Chloride 103 mMol/L (98-107); Creatinine (Component) 1.2 mg/dL (0.6-1.3); Estimated Creatinine Clearance 56.9 mL/min (>60); Globulin 1.8 gm/dL (2.3-3.5); Glucose 97 mg/dL (74-106); Osmolality,Calculated 295 (275-295); Potassium 4.4 mMol/L (3.4-5.1); Sodium 145 mMol/L (136-145); Total Protein 4.6 gm/dL (5.7-8.2); eGFR 59 See Note
[2025-05-21 06:29] LABS: Hemoglobin 7.5 g/dL (13.5-16.0)
--- NOTE | 2025-05-21 07:32 | XR_ITS ---
Examination: Ultrasound-guided needle placement right cephalic vein. Dual-lumen central line placement (PICC line). Fluoroscopy AP chest, portable, single view Exam date and time: May 21, 2025, 1517 hours INDICATIONS: Need for long-term intravenous antibiotics today free for bacteremia A timeout was completed verifying correct patient, procedure, site, positioning Informed consent provided Technique: The patient's site was prepped and draped in sterile fashion. Maximum Sterile Barrier Technique used including cap, mask, sterile gown, sterile gloves, and sterile full body drape. If ultrasound technique used: sterile gel and sterile probe covers. Hand Hygiene performed using proper scrub, soap and water, or alcohol-based hand rub. Ultrasound utilized to confirm patency of the right cephalic vein Utilizing ultrasonographic guidance successful 21-gauge needle puncture into the right cephalic vein Ultrasound images recorded and stored. 5 cc 1% lidocaine administered for local anesthetic. Successful micropuncture with a 21-gauge needle is performed. 0.18 wire guide is then introduced into the SVC under fluoroscopic guidance. Dual-lumen catheter dilator is then introduced, followed by the catheter in the SVC and proper position under fluoroscopic guidance. Successful aspiration of blood and flushing with heparinized saline is then performed in the 2 venous limbs. The catheter sutured in place. Findings: Under fluoroscopy, the tip of the catheter is in good position in the vena cava. Portable chest x-ray, post line placement is ordered. Estimated blood loss 3 cc The patient tolerated the procedure well and was in stable and satisfactory condition at completion of the procedure Impression: Successful ultrasound-guided needle placement right cephalic vein Successful placement of dual lumen central line, percutaneous Fluoroscopy 0.6 minutes radiation dose 3.77 mGy 1 spot fluoroscopic chest film. AP chest completion procedure demonstrates satisfactory position central line. May use central line.
[2025-05-21] MEDS: ATORVASTATIN CALCIUM 10 MG TABLET PO (08:06)
--- NOTE | 2025-05-21 10:14 | PC.SS ---
SS follow up note; Patient is pending a PIC Line. Patient will need IV ABX X2 a day. Patient will discharge home with .
[2025-05-21 11:24] LABS: Magnesium 2.1 mg/dL (1.6-2.6)
--- NOTE | 2025-05-21 13:21 | ESPR_ITS ---
<Statement entered by Holly Morales MD - 05/25/25 12:13> I reviewed above note and agree with findings and plans. I have also personally examined the patient with medicine team and went over assessment and plan with medical team including public relations intern and resident physician. Documentation for date of: 05/21/25 No overnight events. Patient examined at bedside. Improved vesicular breath sounds. Patient is to be alert and oriented x 3. Patient has been afebrile. Patient has been normotensive continue to hold patient's antihypertensive medication. Vanco held by pharmacy today given elevated trough. Given concern for bacteremia, infectious disease recommending vancomycin through 05/30. Plan for PICC line today, 05/21/2025. - The patient's plan was discussed with attending Dr. Andrew Enriquez MD PGY2 Internal Medicine Subjective Subjective Interval history: No overnight events. Patient was examined at bedside; he appears A&Ox4 and in NAD. He has remained afebrile and his respiratory status continues to appear much improved from initial admission. Today, his vancomycin was held by pharmacy due to elevated trough level. Patient is planned for PICC line placement so that he can be discharged with outpatient IV vancomycin to be taken until 05/30 for his possible Staphylococcus hominis bacteremia as recommended by ID. Plan Updates: -Continue to follow up on PICC line placement Exam Vital Signs Temp Pulse Resp BP Pulse Ox O2 Del Method O2 Flow Rate 98.2 F 87 19 129/65 93 L Nasal Cannula 3 05/21/25 12:00 05/21/25 12:00 05/21/25 12:00 05/21/25 12:00 05/21/25 12:00 05/21/25 12:00 05/21/25 12:00 FiO2 40 05/21/25 12:00 Narrative Exam General: A&O x 3 elderly, obese male in NAD. HEENT: Mucosa moist. Pupils are equal, redundant tissue around the neck. Cardiovascular: Belinda-Cath in place at right chest. Normal rate and rhythm, systolic murmur appreciated. Respiratory: On 3 L NC. Mild expiratory wheezing of R anterior lung base. Prolonged expiratory phase. No crackles, rales, or rhonchi appreciated. Abdomen: Soft, non-tender, not distended. No guarding or rebound tenderness. Bowel sounds present. Skin: Dry, no rashes or bruising, some dark discoloration of the nailbeds and distal phalanges, does not appear necrotic. Ecchymosis noted on the right duran. Musculoskeletal: No gross injuries. Able to move all 4 extremities. Non edematous lower extremities. Objective Labs 05/21/25 05:14 05/21/25 05:14 Labs: Laboratory Results - last 24 hr 05/20/25 05/21/25 05/21/25 21:14 05:14 10:50 WBC 5.4 D RBC 2.65 L Hgb 7.5 L Hct 25.4 L MCV 96 MCH 28.3 MCHC 29.5 L RDW Std Deviation 62.7 H Plt Count 151 Neut % (Auto) 61 Lymph % (Auto) 16 [place] % (Auto) 13 H Eos % (Auto) 0 Baso % (Auto) 0 Neut # (Auto) 3.3 Lymph # (Auto) 0.9 L [place] # (Auto) 0.7 Eos # (Auto) 0.0 Baso # (Auto) 0.0 Immature Gran # (Auto) 0.50 H Absolute Nucleated RBC 0.21 H Immature Gran % 9 H Nucleated RBC % 4 H Sodium 145 Potassium 4.4 Chloride 103 Carbon Dioxide 36.3 H Anion Gap 6 L BUN 31 H Creatinine 1.2 Estim Creat Clear Calc 56.9 L eGFR 59 L BUN/Creatinine Ratio 26 H Glucose 97 Calculated Osmolality 295 Calcium 8.5 Corrected Calcium 9.5 Magnesium 2.1 Total Bilirubin 0.5 AST 25 ALT 13 Alkaline Phosphatase 62 Total Protein 4.6 L Albumin 2.8 L Globulin 1.8 L Albumin/Globulin Ratio 1.6 Vancomycin Trough 24.7 H* ABG Interpretation ABG results: 05/15/25 05/17/25 05/17/25 15:13 09:41 14:00 ABG pH 7.26 L 7.31 L ABG pCO2 83 H* 73 H* D ABG pO2 66 L 91 D ABG HCO3 38 H 37 H ABG O2 Saturation 93 98 ABG Base Excess 9 H 10 H VBG pH 7.43 VBG pCO2 50 VBG pO2 71 H VBG Base Excess 8 H 05/17/25 05/17/25 05/18/25 18:31 21:10 01:01 ABG pH 7.40 7.42 ABG pCO2 59 H D 56 H ABG pO2 78 L 72 L ABG HCO3 36 H 36 H ABG O2 Saturation 97 96 ABG Base Excess 10 H 11 H VBG pH 7.41 VBG pCO2 56 VBG pO2 39 D VBG Base Excess 10 H Quality Measures Quality Measures VTE prophylaxis Advance care planning discussed with:: child Assessment & Plan Assessment Current Active Medications: Generic Name Dose Route Start Last Admin Trade Name Freq PRN Reason Stop Dose Admin Acetaminophen 650 mg 05/12/25 21:10 Acetaminophen 325 Mg Tablet PO 06/11/25 20:57 Q6H PRN Fever >100.4 and pain 1-3 Albuterol/Ipratropium 3 ml 05/17/25 11:00 05/21/25 10:51 Albuterol/Ipratropium (Duoneb) Rt Chaya 3 Ml Nebu INH 06/16/25 10:59 3 ml Q4HRRT BERE Administration Albuterol/Ipratropium 3 ml 05/17/25 10:00 Albuterol/Ipratropium (Duoneb) Rt Chaya 3 Ml Nebu INH 06/16/25 09:59 Q2HR PRN SHORTNESS OF BREATH OR WHEEZE Atorvastatin Calcium 10 mg 05/13/25 09:00 05/21/25 08:06 Atorvastatin Calcium 10 Mg Tablet PO 06/12/25 08:59 10 mg QDAY BERE Administration Furosemide 40 mg 05/13/25 09:00 05/14/25 21:40 Furosemide 40 Mg Tablet PO 06/12/25 08:59 40 mg On Hold: 05/15/25 08:06 BID BERE Administration Guaifenesin 100 mg 05/15/25 14:00 05/21/25 05:50 Guaifenesin Syrup 200 Mg/10 Ml Udc PO 06/14/25 13:59 100 mg TID BERE Administration Protocol Heparin Sodium (Porcine) 5,000 unit 05/15/25 14:00 05/21/25 05:45 Heparin Sod Inj 5000 Unit/Ml Vial SC 05/29/25 13:59 Not Given Q8HR BERE Vancomycin/Sodium Chloride 750 mg in 150 mls @ 120 mls/hr 05/19/25 22:00 05/20/25 22:13 Vancomycin/Ns 750 Mg Ivpb IV 05/26/25 21:59 Not Given On Hold: 05/21/25 06:44 BID@1000,2200 [facility] Comment: HOLD ALL DOSES FOR , RECHECK VANCO RANDOM LEVEL 05/22 @0500, PLEASE RESUME IF LEVEL <20 Labetalol HCl 10 mg 05/14/25 14:34 Labetalol Inj 5 Mg/Ml Vial 20 Ml IVP 06/13/25 14:33 Q6HR PRN Hypertensive Emergency Ondansetron HCl 4 mg 05/15/25 11:34 05/20/25 22:25 Ondansetron Inj 2 Mg/Ml Inj 2 Ml IVP 06/14/25 11:33 4 mg Q6HR PRN Administration NAUSEA OR VOMITING Protocol Pantoprazole Sodium 40 mg 05/19/25 13:45 05/21/25 08:07 Pantoprazole Inj 40 Mg Vial IVP 06/18/25 13:44 40 mg QDAY [facility] Administration Pharmacy Consult 1 each 05/20/25 09:00 Vancomycin Pharmacy To Dose 1 Each Each IV 06/19/25 08:59 QDAY PRN PROTOCOL Prednisone 40 mg 05/19/25 13:45 05/21/25 08:07 Prednisone 20 Mg Tablet PO 05/21/25 13:36 40 mg QDAY [facility] Administration Plan Patient is a 84-year-old male past medical significant for metastatic prostate cancer patient, hypertension and dyslipidemia presented to the ED on 05/12/2025 with chief complaint of fever and lethargy who was admitted for neutropenic fever and PNA. #Staphylococcus hominis bacteremia 05/12 blood cultures grew 2/2 GPCs later speciated as Staphyloccocus hominis, a common commensal organism of human skin that is sensitive to azithromycin, ciprofloxacin, vancomycin, and tetracycline 05/12 sputum culture grew mixed anna and Gram stain showed 3 + GPC and 2 + GNR 05/12 UCx grew mixed anna 05/14 repeat blood cultures 2/2 [id number] 05/15 echo negative for vegetations Likely contaminant rather than true Staphylococcus hominis bacteremia Antibiotic course this hospitalization: Vancomycin [05/12-05/16], MRSA (-), [05/19--] Cefepime [05/12-05/19] Doxycycline [05/15-05/16], [05/17-05/19] Plan: - Follow up on PICC line placement for receiving IV vancomycin in the outpatient setting - Per ID recommendations, continue [id number] of IV vancomycin [05/19-05/30] - Tylenol as needed for fever - Chest physiotherapy, guaifenesin as needed #Acute on chronic hypercapnic respiratory failure, likely 2/2 non-compliance w/ night-time CPAP in the setting of COPD exacerbation, PAULA, and possible OHS (resolved) #COPD exacerbation #PAULA #Possible OHS On 05/17, patient exhibited cough productive of thick, green-yellow sputum that had not been present prior with new confusion and increased work of breathing Had not been compliant w/ night-time CPAP for the past few days prior Now improved on 05/18 s/p BiPAP and breathing treatments Received IV Solumedrol 60 mg q12HR [05/17-05/19] Plan: -Emphasize compliance w/ night-time CPAP -Continue Duoneb q4HR scheduled and Duoneb q2HR prn -Chest physiotherapy -Antibiotics as mentioned in #Staphylococcus hominis bacteremia section (changed today per ID recommendations) -No intubation as patient is DNR/DNI #Pancytopenia, likely secondary malignancy & chemo, improving #Thrombocytopenia #Normocytic anemia #Metastatic prostate cancer Patient has metastatic cancer for which he follows oncologist Dr. Phipps outpatient On arrival WBC 1.5, platelets 111 and febrile, Hgb 8.3, HCT 27.7. These lab values likely secondary to chemotherapy-induced myelosuppression despite filgrastim injections that were given as an adjunct to chemo. Gets chemo q3 weeks. Pt has hx of recurrent admissions following chemo treatments. Last admission was 04/18 for Covid PNA Plan: -Per Dr. Phipps, give SC Neupogen 480 mg if ANC drops below 1000 -Follows with Dr. Phipps (she will try to see him next week) -Continue to monitor #PMH, Hypertension #Dyslipidemia Patient has a reported past medical history of HTN and dyslipidemia Last lipid panel from 09/24/24 was WNL Plan: -Labetolol PRN -Home atorvastatin 10 mg -Home Lasix 40 mg twice daily RRx: -Currently normotensive #Urinary retention (resolved) #BPH Patient has not been having good UOP lately and 05/17 bladder scan showed more than 450 mL of retained urine Patient has previous imaging showing a significantly enlarged prostate in the setting of metastatic prostate cancer Now on Alonzo catheter Plan: -Continue PO tamsulosin 0.4 mg qD Health Maintenance: DVT prophylaxis: Heparin Diet: Special diet request, ensure with meals Alonzo: Yes Lines: PIV CODE STATUS: DNR/DNI Disposition: Plan to discharge home with possible home health Patient's plan and care discussed with my attending, Dr. Morales and my senior Dr. Zoe Tello, DO Internal Medicine, PGY-1
--- NOTE | 2025-05-21 13:42 | ESPR_ITS ---
Subjective Subjective Interval history: ok to use port as echo neg and f/u bc neg. will see again prn Exam Vital Signs Temp Pulse Resp BP Pulse Ox O2 Del Method O2 Flow Rate 98.2 F 87 19 129/65 93 L Nasal Cannula 3 05/21/25 12:00 05/21/25 12:00 05/21/25 12:00 05/21/25 12:00 05/21/25 12:00 05/21/25 12:00 05/21/25 12:00 FiO2 40 05/21/25 12:00 Narrative Exam limited visit Objective - Internal Medicine Labs 05/21/25 05:14 05/21/25 05:14 Labs: Laboratory Results - last 24 hr 05/20/25 05/21/25 05/21/25 21:14 05:14 10:50 WBC 5.4 D RBC 2.65 L Hgb 7.5 L Hct 25.4 L MCV 96 MCH 28.3 MCHC 29.5 L RDW Std Deviation 62.7 H Plt Count 151 Neut % (Auto) 61 Lymph % (Auto) 16 [place] % (Auto) 13 H Eos % (Auto) 0 Baso % (Auto) 0 Neut # (Auto) 3.3 Lymph # (Auto) 0.9 L [place] # (Auto) 0.7 Eos # (Auto) 0.0 Baso # (Auto) 0.0 Immature Gran # (Auto) 0.50 H Absolute Nucleated RBC 0.21 H Immature Gran % 9 H Nucleated RBC % 4 H Sodium 145 Potassium 4.4 Chloride 103 Carbon Dioxide 36.3 H Anion Gap 6 L BUN 31 H Creatinine 1.2 Estim Creat Clear Calc 56.9 L eGFR 59 L BUN/Creatinine Ratio 26 H Glucose 97 Calculated Osmolality 295 Calcium 8.5 Corrected Calcium 9.5 Magnesium 2.1 Total Bilirubin 0.5 AST 25 ALT 13 Alkaline Phosphatase 62 Total Protein 4.6 L Albumin 2.8 L Globulin 1.8 L Albumin/Globulin Ratio 1.6 Vancomycin Trough 24.7 H* ABG Interpretation ABG results: 05/15/25 05/17/25 05/17/25 15:13 09:41 14:00 ABG pH 7.26 L 7.31 L ABG pCO2 83 H* 73 H* D ABG pO2 66 L 91 D ABG HCO3 38 H 37 H ABG O2 Saturation 93 98 ABG Base Excess 9 H 10 H VBG pH 7.43 VBG pCO2 50 VBG pO2 71 H VBG Base Excess 8 H 05/17/25 05/17/25 05/18/25 18:31 21:10 01:01 ABG pH 7.40 7.42 ABG pCO2 59 H D 56 H ABG pO2 78 L 72 L ABG HCO3 36 H 36 H ABG O2 Saturation 97 96 ABG Base Excess 10 H 11 H VBG pH 7.41 VBG pCO2 56 VBG pO2 39 D VBG Base Excess 10 H Assessment & Plan A&P Narrative bacteremia, coag neg vs contamination metastatic prostate ca most conservative rx is vanco thru 05/30(14d total) least conservative is nothing at all, will put on vanco. oral meds not used for this at all but note that the germ may have been a contaminant as the gnr's are the worrisome pathogens in this setting.if port removed then rx is 10d total and he had 3d before and echo and f/u bc are neg you may use the port if rx chosen. Time Spent With Patient Time: Total time spent is greater than 50% in coordination of care (as documented) at patient's floor/unit and/or counseling patient:
[2025-05-21] MEDS: HEPARIN SOD INJ 5000 UNIT/ML VIAL SC ×2 (14:50→21:11)
[2025-05-21] MEDS: LIDOCAINE INJ PF 1% 30 ML VIAL INFL (16:30)
[2025-05-21] MEDS: HEPARIN SOD LOCK SYR 100 UNIT/ML 500 UNIT STFIELD (16:30)
--- NOTE | 2025-05-21 17:12 | PC.NURSE ---
1644 patient is awake, alert, breathing unlabored, s/p picc line insertion to right arm, report given to Mya VERDUZCO, patient transferred to room 277 with tele monitoring device.
[2025-05-22] VITALS (11 sets, daily range): BP systolic 107–129; BP diastolic 55–61; PULSE 70–97; RESP 14–24; TEMP 36.1–36.8; O2SAT 91–100; BMI 40.5
[2025-05-22] MEDS: ALBUTEROL/IPRATROPIUM (Duoneb) RT SOL 3 ML NEBU INH ×5 (02:34→18:58)
[2025-05-22 05:46] LABS: Basophils # (Auto) 0.0 Thou/mm3 (0.0-0.2); Basophils % (Auto) 0 % (0-2.5); Eosinophils # (Auto) 0.0 Thou/mm3 (0.0-0.5); Eosinophils % (Auto) 0 % (0-10); Hematocrit 25.1 % (41.0-53.0); Immature Granulocytes Auto 0.24 Thou/mm3 (0.00-0.00); Lymphocytes # (Auto) 0.7 Thou/mm3 (1.0-4.8); Lymphocytes % (Auto) 17 % (10-50); Mean Corpuscular HGB Conc 29.9 g/dl (31.0-37.0); Mean Corpuscular Hemoglobin 28.6 pg (25.0-35.0); Mean Corpuscular Volume 96 fL (80-100); Monocytes # (Auto) 0.5 Thou/mm3 (0.0-0.8); Monocytes % (Auto) 13 % (0-12); Neutrophils # (Auto) 2.5 Thou/mm3 (1.8-7.7); Neutrophils % (Auto) 63 % (37-80); Nucleated Red Blood Cell # 0.06 Thou/mm3 (0.00-0.00); Nucleated Red Blood Cell % 2 /100 WBC (0); Platelet Count 133 Thou/mm3 (140-440); RDW Standard Deviation 62.2 fL (35.1-43.9); Red Blood Count 2.62 Miln/mm3 (4.50-5.90); White Blood Count 4.0 Thou/mm3 (3.8-10.6)
[2025-05-22 06:03] LABS: Alanine Aminotransferase 11 U/L (10-49); Albumin, Serum 2.7 gm/dL (3.4-4.8); Albumin/Globulin Ratio 1.6 (1.2-2.2); Alkaline Phosphatase 59 U/L (46-116); Anion Gap 8 (7-16); Aspartate Amino Transferase 19 U/L (0-34); BUN/Creatinine Ratio 22 Ratio (12-20); Bilirubin,Total 0.5 mg/dL (0.3-1.2); Blood Urea Nitrogen 26 mg/dL (9-23); Calcium 8.1 mg/dL (8.3-10.6); Calcium (Corrected) 9.1 mg/dL (8.5-10.1); Carbon Dioxide 34.2 mMol/L (20.0-31.0); Chloride 103 mMol/L (98-107); Creatinine (Component) 1.2 mg/dL (0.6-1.3); Estimated Creatinine Clearance 54.2 mL/min (>60); Globulin 1.7 gm/dL (2.3-3.5); Glucose 100 mg/dL (74-106); Osmolality,Calculated 293 (275-295); Potassium 4.3 mMol/L (3.4-5.1); Sodium 145 mMol/L (136-145); Total Protein 4.4 gm/dL (5.7-8.2); Vancomycin,Random 13.7 mcg/mL; eGFR 59 See Note
[2025-05-22] MEDS: guaiFENesin SYRUP 200 MG/10 ML UDC 100 MG PO ×2 (06:13→14:24)
[2025-05-22 06:14] LABS: Hemoglobin 7.5 g/dL (13.5-16.0)
[2025-05-22] MEDS: HEPARIN SOD INJ 5000 UNIT/ML VIAL SC ×2 (06:14→14:24)
[2025-05-22] MEDS: ATORVASTATIN CALCIUM 10 MG TABLET PO (09:08)
[2025-05-22] MEDS: VANCOMYCIN/D5W 1,250 MG IVPB 250 ML 120 MG IV (09:08)
[2025-05-22] MEDS: PANTOPRAZOLE 40 MG TABLET PO (09:08)
--- NOTE | 2025-05-22 09:45 | PC.CC ---
Addendum entered by Alexander Azar RN 05/22/25 12:08: Informed SW Shannon Addendum entered by Alexander Azar RN 05/22/25 12:08: [facility] will deliver meds today and [facility] can open tomorrow morning. Addendum entered by Alexander Azar RN 05/22/25 11:22: [facility] accepted and booked. Coordinating delivery of meds and nurse for SOC Original Note: ref sent to and infusion pharmacy, waiting for response.
--- NOTE | 2025-05-22 10:22 | PC.NURSE ---
Pt requesting to be discharged at 11:30-1200 due to family transportation.
--- NOTE | 2025-05-22 10:30 | ESDS_ITS ---
<Statement entered by Holly Morales MD - 06/06/25 17:16> I reviewed above note and agree with findings and plans. I have also personally examined the patient with medicine team and went over assessment and plan with medical team including administrative intern and resident physician. Planned Discharge Date 05/23/25 DS: Providers Provider Date of admission: 05/12/25 20:58 Primary care physician: Bong Byers MD Admitting Provider: Henry Kan MD Attending Provider on Admission: Holly Morales MD Consults: 05/14/25 11:21 Referral Physical Therapy Routine Comment: Physician Instructions: 05/18/25 09:33 Referral - CUSTOMER ACCOUNT COORDINATOR Oral Communication Instructor Routine Comment: not able swallow 05/18/25 10:28 Consult to Infectious Diseases Routine Comment: PC bacteremia, recs appreciated Consulting Provider: Khalif Solorio Attending Provider on DC: Holly Morales MD Discharging Provider: Alejandro Howard MD DS: Diagnosis Problem List Completed Was Problem List Reviewed/Reconciled?: Yes Hospital Course Hospital Course Hospital course: Patient is a 84-year-old male past medical significant for metastatic prostate cancer patient, hypertension and dyslipidemia presented to the ED on 05/12/2025 with chief complaint of fever and lethargy who was admitted for neutropenic fever and PNA. For his neutropenia received 1 dose of filgrastim after which his condition improved. His blood cultures grew Staphylococcus hominis and he was treated with vancomycin from 05/12 - 05/22, cefepime from 05/12 - 05/23, doxycycline from 05/15 - 05/16 and [05/17-05/19]. His hospitalization was also complicated by acute on chronic hypercapnic respiratory failure secondary to PAULA and OHS which improved after BiPAP therapy. All patient's labs are now returning to baseline and he is clinically stable for discharge to home with home health. Discharge diagnoses: 1. Staphylococcus hominis bacteremia?resolving 2. Chronic respiratory failure with hypercapnia and hypoxia secondary to COPD, PAULA and OHS 3. COPD exacerbation?resolved 4. Pancytopenia secondary to malignancy and chemotherapy 5. Neutropenia?resolved 6. Metastatic prostate cancer 7. Primary hypertension 8. Hyperlipidemia 9. BPH Discharge plan: ? You have been started on antibiotic for the infection in your blood vancomycin. Take 1 dose of vancomycin daily as directed by your home health nurse to complete the last dose on 05/30/2025. - You will need blood tests every 2 days to monitor the vancomycin level in your blood. - Follow up with your primary doctor every 2 days to adjust your Vancomycin dose. - STOP Losartan 100 mg once daily as your blood pressure has been within normal limits. - STOP your Furosemide 40 mg PO twice daily and Metolazone 5 mg - Follow up with your primary care provider on changes to your blood pressure medication. - Please follow up with your primary care provider within one week of discharge - If your symptoms worsen,please seek immediate medical attention and return to your nearest emergency room - If you do not have a primary care provider, you may follow up at the [facility] at [address] [place] [address] [address], [place] [address], We are grateful to be able to participate in Mr. Hurley 's care. We wish him the best. Plan of care discussed with Attending Dr. Andrew Howard MD PGY 2 Disclaimer: This note was dictated by speech recognition. Minor errors in mending carrier may be present due to voice recognition software. Time Spent with Patient Time attestation: Total time spent providing and/or coordinating discharge services: Time spent: Greater than 30 minutes (37) Home Health Home Health Referral Orders: 05/22/25 09:32 Home Health Referral Routine Reason For Exam: IV antibiotics Home-Bound The patient must either because of illness or injury, need the aid of supportive devices such as crutches, canes, wheelchairs, and walkers; the use of special transportation; or the assistance of another person in order to leave their place of residence; OR have a condition such that leaving his or her home is medically contraindicated. In addition, the patient also meets the following criteria: patient is normally unable to leave the home and leaving home requires considerable taxing effort. Addendum to Home Health Certification Practitioner's Certification: I certify that the patient has been under my care in the hospital and the care of attending physician (see below). We had a [id number] encounter on (see date below). My clinical findings indicate that the patient is home bound per the above criteria and the Home Health Services noted in these orders are medically necessary. The primary reason for the [id number]-nz-affx encounter is related to the fact that the patient requires home health services. Date Certifying [id number]-ma-[id number] Physician Encounter: 05/12/25 Physician's Name who will Assume Oversight for Services: Bong Byers Physician's Phone No.who will Assume Oversight for Service: RUG CLEANER - Community Resources: No PT to Evaluate: No PT to evaluate and provide a treatmnet plan to increase patient's mobility and strength. Wound Care: No IV Therapy: Yes IV Medication: Vancomycin IV Dose: 1.25g IV Frequency: daily IV Stop Date: 05/30/25 Discontinue PICC Line Once Treatment Complete: Yes RN Safety Evaluation: Yes RN to evaluate and create a plan of care that will produce positive outcomes. Palliative Treatment: No Palliative treatment and evaluate the need for hospice. Home Health Aide - Personal Care: No Home Health Aide to assist with any ADL's. Exam Vital Signs Temp Pulse Resp BP Pulse Ox O2 Del Method O2 Flow Rate 97.2 F 86 20 107/55 L 99 Nasal Cannula 2 05/22/25 16:00 05/22/25 18:59 05/22/25 18:59 05/22/25 16:00 05/22/25 18:59 05/22/25 16:00 05/22/25 18:59 FiO2 35 05/22/25 02:34 Narrative Exam General: A&O x 3 elderly, obese male in NAD. HEENT: Mucosa moist. Pupils are equal, redundant tissue around the neck. Cardiovascular: Belinda-Cath in place at right chest. Normal rate and rhythm, systolic murmur appreciated. Respiratory: On 3 L NC. Mild expiratory wheezing of R anterior lung base. Prolonged expiratory phase. No crackles, rales, or rhonchi appreciated. Abdomen: Soft, non-tender, not distended. No guarding or rebound tenderness. Bowel sounds present. Skin: Dry, no rashes or bruising, some dark discoloration of the nailbeds and distal phalanges, does not appear necrotic. Ecchymosis noted on the right duran. Musculoskeletal: No gross injuries. Able to move all 4 extremities. Non edematous lower extremities. Discharge Plan Plan Patient Disposition: Home w/HOME HEALTH Patient condition on transfer: Stable Care Plan Goals: Instructions: ?You have been started on antibiotic for the infection in your blood vancomycin. Take 1 dose of vancomycin daily as directed by your home health nurse to complete the last dose on 05/30/2025. - You will need blood tests every 2 days to monitor the vancomycin level in your blood. - Follow up with your primary doctor every 2 days to adjust your Vancomycin dose. -STOP Losartan 100 mg once daily as your blood pressure has been within normal limits. -STOP your Furosemide 40 mg PO twice daily and Metolazone 5 mg -Follow up with your primary care provider on changes to your blood pressure medication. -Please follow up with your primary care provider within one week of discharge -If your symptoms worsen,please seek immediate medical attention and return to your nearest emergency room -If you do not have a primary care provider, you may follow up at the [facility] at [facility] [address], [place] [address], Instrucciones: ?Mcconnell comenzado a gerard un antibi?ziyad, Vacomcina para la infecci?n en la [place]. [place] manasa dosis dos veces al d?a, seg?n las indicaciones de kim enfermera de atenci?n domiciliaria, hasta completar la ?ltima dosis el 30/05/2025. - Necesitar? an?lisis de dal[place] cada 2 d?as para controlar el nivel de vancomicina en dal[place] con kim doctor de julia. - Acuda a manasa celena de seguimiento con kim m?dico de cabecera cada 2 d?as para ajustar kim dosis de vancomicina. -Suspenda la administraci?n de Losart?n 100 mg manasa vez al d?a, ya que kim presi?n arterial se mcconnell mantenido dentro de los l?mites normales. -Suspenda la administraci?n de Furosemida 40 mg por v?a oral dos veces al d?a y Metolazona 5 mg. -Consulte con kim m?dico de cabecera sobre los cambios en kim medicaci?n para la presi?n arterial. Por favor, consulte con kim m?dico de cabecera dentro de manasa semana despu?s del andrzej. -Si kirk s?ntomas empeoran, busque atenci?n m?dica inmediata y acuda a la franc de urgencias m?s cercana. -Si no cuenta con un m?dico de cabecera, puede consultar con kim m?dico de cabecera en el [facility] [facility]caesar ubicado en [address], [address], [place] [address], tel?fer . Prescriptions/Referrals Prescriptions/Med Rec: New vancomycin 1.25 gram recon soln 1.25 g IV Q24H 8 Days Continued Xtandi 80 mg tablet 80 mg PO BID Nissa-Sachin 0.8 mg tablet 1 tab PO QDAY Patient Comments: TAKE 1 TABLET BY MOUTH ONCE A DAY ondansetron 8 mg tablet,disintegrating 8 mg PO Q8H PRN (Reason: nausea and vomiting) Patient Comments: dissolve 1 tablet on top of the tongue every 8 hours if needed for nausea dexamethasone 4 mg tablet 4 mg PO BID prednisone 5 mg tablet 5 mg PO BID Patient Comments: take 1 tablet by mouth twice a day FOR 21 DAYS prochlorperazine maleate 5 mg tablet 5 mg PO Q6H PRN (Reason: nausea and vomiting) Patient Comments: take 1 tablet by mouth every 6 hours if needed for nausea atorvastatin 10 mg tablet 10 mg PO QDAY Patient Comments: take 1 tablet by mouth once daily for 3 MONTHS Held carvedilol 6.25 mg tablet 6.25 mg PO .BID W/FOOD Hold Instructions: Resume on 06/04/25. Hold until you see your Primary Doctor furosemide 40 mg tablet 40 mg PO BID Hold Instructions: Resume on 06/04/25. Hold until you see your Primary Doctor or Trade Sales Assistant to adjust the dose metolazone 5 mg tablet 5 mg PO .WITH BREAKFAST Hold Instructions: Resume on 06/04/25. Hold until you see your Primary Doctor Patient Comments: TAKE 1 TABLET BY MOUTH BEFORE BREAKFAST IN THE MORNING nifedipine 30 mg tablet extended release 24hr 30 mg PO QDAY Hold Instructions: Resume on 06/04/25. Hold until you see your Primary Doctor Patient Comments: take 1 tablet by mouth once daily losartan 100 mg tablet 100 mg PO QDAY Hold Instructions: Resume on 06/04/25. Hold until you see your primary doctor to adjust dose. Your blood pressures in hospital have been normal Patient Comments: take 1 tablet by mouth once daily Discontinued furosemide 40 mg tablet 40 mg PO BID losartan 100 mg tablet 100 mg PO DAILY Patient Comments: take 1 tablet by mouth once daily metolazone 5 mg tablet 5 mg PO ACBR Patient Comments: TAKE 1 TABLET BY MOUTH BEFORE BREAKFAST IN THE MORNING carvedilol 6.25 mg tablet 6.25 mg PO QDAY Referrals: Maxi Phipps MD [Physician, Hematology & Oncology] Bong Byers MD [Primary Care Provider, Family Practice] Outpatient Orders (i.e. Home Health, Labs, Imaging): Renal Function Panel (Routine) Timeframe: 1 Week Location: Determined by Patient Ordered By: Alejandro Howard Vancomycin,Trough (QDAY) Timeframe: 20250523 Location: Determined by Patient Ordered By: Alejandro Howard Vancomycin,Trough (QDAY) Timeframe: 20250524 Location: Determined by Patient Ordered By: Alejandro Howard Vancomycin,Trough (QDAY) Timeframe: 20250525 Location: Determined by Patient Ordered By: Alejandro Howard Vancomycin,Trough (QDAY) Timeframe: 20250526 Location: Determined by Patient Ordered By: Alejandro Howard Vancomycin,Trough (QDAY) Timeframe: 20250527 Location: Determined by Patient Ordered By: Alejandro Howard Vancomycin,Trough (QDAY) Timeframe: 20250528 Location: Determined by Patient Ordered By: Alejandro Howard Vancomycin,Trough (QDAY) Timeframe: 20250529 Location: Determined by Patient Ordered By: Alejandro Howard Vancomycin,Trough (QDAY) Timeframe: 20250530 Location: Determined by Patient Ordered By: Alejandro Howard Patient/Caregiver Discharge Instructions Education Materials: Neutropenia, COPD: Wheezing and Chest Tightness, ED Bacteremia, Suspected (Adult) Print Language: Greek Stand Alone Forms: Diana Award Info., Patient Portal Info Letter Discharge Order Discharge Orders: Discharge (Routine); Ordered 05/22/25 Ordered By: Alejandro Howard Quality Discharge Quality Measures VTE prophylaxis
--- NOTE | 2025-05-22 13:32 | ESPR_ITS ---
<Statement entered by Holly Morales MD - 05/25/25 12:15> I reviewed above note and agree with findings and plans. I have also personally examined the patient with medicine team and went over assessment and plan with medical team including recruitment intern and resident physician. Documentation for date of: 05/22/25 Subjective Subjective Interval history: No overnight events. Patient was examined at bedside; he appears A&Ox4 and in NAD. No complaints. Dr. Solorio ok to use port Vanc through 05/30 (14 days). Vanc held yesterday due to elevated trough. Exam Vital Signs Temp Pulse Resp BP Pulse Ox O2 Del Method O2 Flow Rate 97.2 F 83 22 H 121/61 91 L Nasal Cannula 2 05/22/25 12:00 05/22/25 12:00 05/22/25 12:00 05/22/25 12:00 05/22/25 12:00 05/22/25 12:00 05/22/25 12:00 FiO2 35 05/22/25 02:34 Narrative Exam General: A&O x 3 elderly, obese male in NAD. HEENT: Mucosa moist. Pupils are equal, redundant tissue around the neck. Cardiovascular: Belinda-Cath in place at right chest. Normal rate and rhythm, systolic murmur appreciated. Respiratory: On 3 L NC. Mild expiratory wheezing of R anterior lung base. Prolonged expiratory phase. No crackles, rales, or rhonchi appreciated. Abdomen: Soft, non-tender, not distended. No guarding or rebound tenderness. Bowel sounds present. Skin: Dry, no rashes or bruising, some dark discoloration of the nailbeds and distal phalanges, does not appear necrotic. Ecchymosis noted on the right duran. Musculoskeletal: No gross injuries. Able to move all 4 extremities. Non edematous lower extremities. Objective Labs 05/22/25 04:28 05/22/25 14:57 Labs: Laboratory Results - last 24 hr 05/22/25 04:28 WBC 4.0 RBC 2.62 L Hgb 7.5 L Hct 25.1 L MCV 96 MCH 28.6 MCHC 29.9 L RDW Std Deviation 62.2 H Plt Count 133 L Neut % (Auto) 63 Lymph % (Auto) 17 Merrick % (Auto) 13 H Eos % (Auto) 0 Baso % (Auto) 0 Neut # (Auto) 2.5 Lymph # (Auto) 0.7 L Merrick # (Auto) 0.5 Eos # (Auto) 0.0 Baso # (Auto) 0.0 Immature Gran # (Auto) 0.24 H Absolute Nucleated RBC 0.06 H Immature Gran % 6 H Nucleated RBC % 2 H Sodium 145 Potassium 4.3 Chloride 103 Carbon Dioxide 34.2 H Anion Gap 8 BUN 26 H Creatinine 1.2 Estim Creat Clear Calc 54.2 L eGFR 59 L BUN/Creatinine Ratio 22 H Glucose 100 Calculated Osmolality 293 Calcium 8.1 L Corrected Calcium 9.1 Total Bilirubin 0.5 AST 19 ALT 11 Alkaline Phosphatase 59 Total Protein 4.4 L Albumin 2.7 L Globulin 1.7 L Albumin/Globulin Ratio 1.6 Random Vancomycin 13.7 ABG Interpretation ABG results: 05/15/25 05/17/25 05/17/25 15:13 09:41 14:00 ABG pH 7.26 L 7.31 L ABG pCO2 83 H* 73 H* D ABG pO2 66 L 91 D ABG HCO3 38 H 37 H ABG O2 Saturation 93 98 ABG Base Excess 9 H 10 H VBG pH 7.43 VBG pCO2 50 VBG pO2 71 H VBG Base Excess 8 H 05/17/25 05/17/25 05/18/25 18:31 21:10 01:01 ABG pH 7.40 7.42 ABG pCO2 59 H D 56 H ABG pO2 78 L 72 L ABG HCO3 36 H 36 H ABG O2 Saturation 97 96 ABG Base Excess 10 H 11 H VBG pH 7.41 VBG pCO2 56 VBG pO2 39 D VBG Base Excess 10 H Quality Measures Quality Measures VTE prophylaxis Advance care planning discussed with:: other Assessment & Plan Assessment Current Active Medications: Generic Name Dose Route Start Last Admin Trade Name Freq PRN Reason Stop Dose Admin Acetaminophen 650 mg 05/12/25 21:10 Acetaminophen 325 Mg Tablet PO 06/11/25 20:57 Q6H PRN Fever >100.4 and pain 1-3 Albuterol/Ipratropium 3 ml 05/17/25 11:00 05/22/25 10:24 Albuterol/Ipratropium (Duoneb) Rt Chaya 3 Ml Nebu INH 06/16/25 10:59 3 ml Q4HRRT BERE Administration Albuterol/Ipratropium 3 ml 05/17/25 10:00 Albuterol/Ipratropium (Duoneb) Rt Chaya 3 Ml Nebu INH 06/16/25 09:59 Q2HR PRN SHORTNESS OF BREATH OR WHEEZE Atorvastatin Calcium 10 mg 05/13/25 09:00 05/22/25 09:08 Atorvastatin Calcium 10 Mg Tablet PO 06/12/25 08:59 10 mg QDAY BERE Administration Furosemide 40 mg 05/13/25 09:00 05/14/25 21:40 Furosemide 40 Mg Tablet PO 06/12/25 08:59 40 mg On Hold: 05/15/25 08:06 BID BERE Administration Guaifenesin 100 mg 05/15/25 14:00 05/22/25 06:13 Guaifenesin Syrup 200 Mg/10 Ml Udc PO 06/14/25 13:59 100 mg TID BERE Administration Protocol Heparin Sodium (Porcine) 5,000 unit 05/15/25 14:00 05/22/25 06:14 Heparin Sod Inj 5000 Unit/Ml Vial SC 05/29/25 13:59 5,000 unit Q8HR BERE Administration Vancomycin HCl/Dextrose 250 mls @ 120 mls/hr 05/22/25 10:00 05/22/25 09:08 Vancomycin/D5w 1,250 Mg Ivpb IV 05/29/25 09:59 120 mls/hr Q24H BERE Administration Labetalol HCl 10 mg 05/14/25 14:34 Labetalol Inj 5 Mg/Ml Vial 20 Ml IVP 06/13/25 14:33 Q6HR PRN Hypertensive Emergency Ondansetron HCl 4 mg 05/15/25 11:34 05/20/25 22:25 Ondansetron Inj 2 Mg/Ml Inj 2 Ml IVP 06/14/25 11:33 4 mg Q6HR PRN Administration NAUSEA OR VOMITING Protocol Pantoprazole Sodium 40 mg 05/22/25 09:00 05/22/25 09:08 Pantoprazole 40 Mg Tablet PO 06/21/25 08:59 40 mg QDAY BERE Administration Pharmacy Consult 1 each 05/20/25 09:00 Vancomycin Pharmacy To Dose 1 Each Each IV 06/19/25 08:59 QDAY PRN PROTOCOL Plan Patient is a 84-year-old male past medical significant for metastatic prostate cancer patient, hypertension and dyslipidemia presented to the ED on 05/12/2025 with chief complaint of fever and lethargy who was admitted for neutropenic fever and PNA. #Staphylococcus hominis bacteremia 05/12 blood cultures grew 2/2 GPCs later speciated as Staphyloccocus hominis, a common commensal organism of human skin that is sensitive to azithromycin, ciprofloxacin, vancomycin, and tetracycline 05/12 sputum culture grew mixed anna and Gram stain showed 3 + GPC and 2 + GNR 05/12 UCx grew mixed anna 05/14 repeat blood cultures 2/ [id number] 05/15 echo negative for vegetations Likely contaminant rather than true Staphylococcus hominis bacteremia Antibiotic course this hospitalization: Vancomycin [05/12-05/16], MRSA (-), [05/19--] Cefepime [05/12-05/19] Doxycycline [05/15-05/16], [05/17-05/19] Plan: - PICC line ok for receiving IV vancomycin in the outpatient setting - Per ID recommendations, continue [id number] of IV vancomycin [05/19-05/30] - Tylenol as needed for fever - Chest physiotherapy, guaifenesin as needed #Acute on chronic hypercapnic respiratory failure, likely 2/2 non-compliance w/ night-time CPAP in the setting of COPD exacerbation, PAULA, and possible OHS (resolved) #COPD exacerbation #PAULA #Possible OHS On 05/17, patient exhibited cough productive of thick, green-yellow sputum that had not been present prior with new confusion and increased work of breathing Had not been compliant w/ night-time CPAP for the past few days prior Now improved on 05/18 s/p BiPAP and breathing treatments Received IV Solumedrol 60 mg q12HR [05/17-05/19] Plan: -Emphasize compliance w/ night-time CPAP -Continue Duoneb q4HR scheduled and Duoneb q2HR prn -Chest physiotherapy -Antibiotics as mentioned in #Staphylococcus hominis bacteremia section (changed today per ID recommendations) -No intubation as patient is DNR/DNI #Pancytopenia, likely secondary malignancy & chemo, improving #Thrombocytopenia #Normocytic anemia #Metastatic prostate cancer Patient has metastatic cancer for which he follows oncologist Dr. Phipps outpatient On arrival WBC 1.5, platelets 111 and febrile, Hgb 8.3, HCT 27.7. These lab values likely secondary to chemotherapy-induced myelosuppression despite filgrastim injections that were given as an adjunct to chemo. Gets chemo q3 weeks. Pt has hx of recurrent admissions following chemo treatments. Last admission was 04/18 for Covid PNA Plan: -Per Dr. Phipps, give SC Neupogen 480 mg if ANC drops below 1000 -Follows with Dr. Phipps (she will try to see him next week) -Continue to monitor #PMH, Hypertension #Dyslipidemia Patient has a reported past medical history of HTN and dyslipidemia Last lipid panel from 09/24/24 was WNL Plan: -Labetolol PRN -Home atorvastatin 10 mg -Home Lasix 40 mg twice daily RRx: -Currently normotensive #Urinary retention (resolved) #BPH Patient has not been having good UOP lately and 05/17 bladder scan showed more than 450 mL of retained urine Patient has previous imaging showing a significantly enlarged prostate in the setting of metastatic prostate cancer Now on Alonzo catheter Plan: -Continue PO tamsulosin 0.4 mg qD Health Maintenance: DVT prophylaxis: Heparin Diet: Special diet request, ensure with meals Alonzo: Yes Lines: PIV CODE STATUS: DNR/DNI Disposition: Plan to discharge home with possible home health Patient's plan and care discussed with my attending, Dr. Morales and my senior Dr. Lee Velasquez MD Internal Medicine, PGY-1
[2025-05-22 15:34] LABS: Albumin, Serum 2.9 gm/dL (3.4-4.8); Anion Gap 5 (7-16); BUN/Creatinine Ratio 25 Ratio (12-20); Blood Urea Nitrogen 27 mg/dL (9-23); Calcium 8.1 mg/dL (8.3-10.6); Calcium (Corrected) 9.0 mg/dL (8.5-10.1); Carbon Dioxide 35.6 mMol/L (20.0-31.0); Chloride 103 mMol/L (98-107); Creatinine (Component) 1.1 mg/dL (0.6-1.3); Estimated Creatinine Clearance 59.1 mL/min (>60); Glucose 99 mg/dL (74-106); Osmolality,Calculated 291 (275-295); Phosphorous 4.3 mg/dL (2.4-5.1); Potassium 4.2 mMol/L (3.4-5.1); Sodium 144 mMol/L (136-145); eGFR > 60 See Note
--- NOTE | 2025-05-22 18:56 | PC.NURSE ---
Pt is stating he is ready to discharge. He has only voided about 20ml. Alonzo catheter D/C'd at 1630 and has 130ml in bladder scan. Pt and family aware of condition and states he is familiarized with urinary retention. Pt states he has experience with In n Out catheters and has had to do them in the past and has supplies at home. Dr. Szymanski made aware, consulted with patient, and has ordered to continue with discharge.
--- NOTE | 2025-05-23 12:32 | PC.CM ---
Addendum entered by Ana Anguiano RN 05/23/25 15:48: Discharge summary sent to [facility] and [facility]. Original Note: Patient discharged yesterday with [facility] and [facility] to follow today. I will send discharge summary once it is completed.
== END 2025-05-22 20:00 | disposition home health service (06) | DRG 193 ==
LOC: SERX 21:23 → SERHOLD 21:24 → S2NX 21:49
PROVIDERS: Internal Medicine Infectious Disease; Nurse Practitioner Family; Registered Nurse General Practice; Student in an Organized Health Care Education/Training Program; Admitting Provider Student in an Organized Health Care Education/Training Program; Emergency Provider Emergency Medicine; PCP Family Medicine; Visit Provider Internal Medicine
DX: J18.9 Pneumonia, unspecified organism (principal); D61.810 Antineoplastic chemotherapy induced pancytopenia; J96.01 Acute respiratory failure with hypoxia; R78.81 Bacteremia; C79.51 Secondary malignant neoplasm of bone; C78.00 Secondary malignant neoplasm of unspecified lung; J44.0 Chronic obstructive pulmonary disease with (acute) lower respiratory infection; J44.1 Chronic obstructive pulmonary disease with (acute) exacerbation; N17.9 Acute kidney failure, unspecified; E87.4 Mixed disorder of acid-base balance; T45.1X5A Adverse effect of antineoplastic and immunosuppressive drugs, initial encounter; D70.9 Neutropenia, unspecified; R50.81 Fever presenting with conditions classified elsewhere; E78.5 Hyperlipidemia, unspecified; C61 Malignant neoplasm of prostate; D69.6 Thrombocytopenia, unspecified; D64.9 Anemia, unspecified; M62.838 Other muscle spasm; I11.0 Hypertensive heart disease with heart failure; I50.9 Heart failure, unspecified; N40.1 Benign prostatic hyperplasia with lower urinary tract symptoms; E86.1 Hypovolemia; G47.33 Obstructive sleep apnea (adult) (pediatric); R13.10 Dysphagia, unspecified; R33.8 Other retention of urine; B95.7 Other staphylococcus as the cause of diseases classified elsewhere; Z66 Do not resuscitate; Z79.899 Other long term (current) drug therapy; Z86.16 Personal history of COVID-19; Z99.81 Dependence on supplemental oxygen; Z91.199 Patient's noncompliance with other medical treatment and regimen due to unspecified reason; Z87.01 Personal history of pneumonia (recurrent)
CPT/HCPCS: 36415; 36600; 71045; 80053; 80069; 80202; 81001; 82436; 82570; 82803; 83605; 83615; 83690; 83735; 83880; 84100; 84133; 84145; 84300; 84484; 85025; 85610; 85730; 86850; 86900; 86901; 87040; 87077; 87081; 87086; 87186; 87205; 87400; 87811; 92610; 93005; 93306; 93970; 94640; 94660; 94664; 94667; 94762; 96365; 96366; 97162; 99285; A4649; A9270; C1751; C1894; J0692; J1642; J1644; J2405; J2470; J2543; J2919; J3370; J3373; J3475; J3490; J7050; J7512; J7999; Q0138; Q0162; Q5101

== ENCOUNTER → 2025-05-26 | Outpatient (CLI) | payer MEDICARE, MEDICAID, SELFPAY ==
[2025-05-26 12:11] LABS: Basophils # (Auto) 0.0 Thou/mm3 (0.0-0.2); Basophils % (Auto) 0 % (0-2.5); Eosinophils # (Auto) 0.0 Thou/mm3 (0.0-0.5); Eosinophils % (Auto) 0 % (0-10); Hematocrit 30.0 % (41.0-53.0); Hemoglobin 8.9 g/dL (13.5-16.0); Immature Granulocytes Auto 0.04 Thou/mm3 (0.00-0.00); Lymphocytes # (Auto) 0.5 Thou/mm3 (1.0-4.8); Lymphocytes % (Auto) 11 % (10-50); Mean Corpuscular HGB Conc 29.7 g/dl (31.0-37.0); Mean Corpuscular Hemoglobin 29.6 pg (25.0-35.0); Mean Corpuscular Volume 100 fL (80-100); Monocytes # (Auto) 0.4 Thou/mm3 (0.0-0.8); Monocytes % (Auto) 9 % (0-12); Neutrophils # (Auto) 4.1 Thou/mm3 (1.8-7.7); Neutrophils % (Auto) 79 % (37-80); Nucleated Red Blood Cell # 0.00 Thou/mm3 (0.00-0.00); Nucleated Red Blood Cell % 0 /100 WBC (0); Platelet Count 177 Thou/mm3 (140-440); RDW Standard Deviation 75.7 fL (35.1-43.9); Red Blood Count 3.01 Miln/mm3 (4.50-5.90); White Blood Count 5.1 Thou/mm3 (3.8-10.6)
[2025-05-26 12:38] LABS: Alanine Aminotransferase 14 U/L (10-49); Albumin, Serum 3.1 gm/dL (3.4-4.8); Albumin/Globulin Ratio 1.6 (1.2-2.2); Alkaline Phosphatase 73 U/L (46-116); Anion Gap 10 (7-16); Aspartate Amino Transferase 26 U/L (0-34); BUN/Creatinine Ratio 17 Ratio (12-20); Bilirubin,Total 0.4 mg/dL (0.3-1.2); Blood Urea Nitrogen 17 mg/dL (9-23); Calcium 8.5 mg/dL (8.3-10.6); Calcium (Corrected) 9.2 mg/dL (8.5-10.1); Carbon Dioxide 30.9 mMol/L (20.0-31.0); Chloride 104 mMol/L (98-107); Creatinine (Component) 1.0 mg/dL (0.6-1.3); Globulin 1.9 gm/dL (2.3-3.5); Glucose 106 mg/dL (74-106); Osmolality,Calculated 290 (275-295); Potassium 4.3 mMol/L (3.4-5.1); Sodium 145 mMol/L (136-145); Total Protein 5.0 gm/dL (5.7-8.2); Vancomycin,Trough 17.1 mcg/mL (5.0-10.0); eGFR > 60 See Note
== END | disposition home or self-care (01) ==
LOC: SLDO 11:37
PROVIDERS: PCP Hospitalist; Referring Provider Hospitalist; Visit Provider Hospitalist
DX: Z79.2 Long term (current) use of antibiotics (principal)
CPT/HCPCS: 36415; 80053; 80202; 85025

== ENCOUNTER → 2025-05-28 | Outpatient (CLI) | payer MEDICARE, MEDICAID, SELFPAY ==
[2025-05-28 12:31] LABS: Basophils # (Auto) 0.0 Thou/mm3 (0.0-0.2); Basophils % (Auto) 1 % (0-2.5); Eosinophils # (Auto) 0.0 Thou/mm3 (0.0-0.5); Eosinophils % (Auto) 0 % (0-10); Hematocrit 29.1 % (41.0-53.0); Immature Granulocytes Auto 0.04 Thou/mm3 (0.00-0.00); Lymphocytes # (Auto) 0.5 Thou/mm3 (1.0-4.8); Lymphocytes % (Auto) 10 % (10-50); Mean Corpuscular HGB Conc 29.6 g/dl (31.0-37.0); Mean Corpuscular Hemoglobin 29.5 pg (25.0-35.0); Mean Corpuscular Volume 100 fL (80-100); Monocytes # (Auto) 0.6 Thou/mm3 (0.0-0.8); Monocytes % (Auto) 11 % (0-12); Neutrophils # (Auto) 3.8 Thou/mm3 (1.8-7.7); Neutrophils % (Auto) 77 % (37-80); Nucleated Red Blood Cell # 0.00 Thou/mm3 (0.00-0.00); Nucleated Red Blood Cell % 0 /100 WBC (0); Platelet Count 174 Thou/mm3 (140-440); RDW Standard Deviation 75.8 fL (35.1-43.9); Red Blood Count 2.92 Miln/mm3 (4.50-5.90); White Blood Count 5.0 Thou/mm3 (3.8-10.6)
[2025-05-28 12:37] LABS: Hemoglobin 8.6 g/dL (13.5-16.0)
[2025-05-28 12:55] LABS: Alanine Aminotransferase 12 U/L (10-49); Albumin, Serum 2.9 gm/dL (3.4-4.8); Albumin/Globulin Ratio 1.4 (1.2-2.2); Alkaline Phosphatase 69 U/L (46-116); Anion Gap 10 (7-16); Aspartate Amino Transferase 20 U/L (0-34); BUN/Creatinine Ratio 15 Ratio (12-20); Bilirubin,Total 0.4 mg/dL (0.3-1.2); Blood Urea Nitrogen 15 mg/dL (9-23); Calcium 8.2 mg/dL (8.3-10.6); Calcium (Corrected) 9.1 mg/dL (8.5-10.1); Carbon Dioxide 31.7 mMol/L (20.0-31.0); Chloride 105 mMol/L (98-107); Creatinine (Component) 1.0 mg/dL (0.6-1.3); Globulin 2.1 gm/dL (2.3-3.5); Glucose 90 mg/dL (74-106); Osmolality,Calculated 293 (275-295); Potassium 4.1 mMol/L (3.4-5.1); Sodium 147 mMol/L (136-145); Total Protein 5.0 gm/dL (5.7-8.2); Vancomycin,Trough 17.4 mcg/mL (5.0-10.0); eGFR > 60 See Note
== END | disposition home or self-care (01) ==
LOC: SLDO 11:20
PROVIDERS: PCP Hospitalist; Referring Provider Hospitalist; Visit Provider Hospitalist
DX: Z79.2 Long term (current) use of antibiotics (principal)
CPT/HCPCS: 36415; 80053; 80202; 85025

== ENCOUNTER 2025-06-03 12:55 | Outpatient (RCR) | payer MEDICARE, MEDICAID, SELFPAY ==
[2025-06-02 12:56] LABS: Basophils # (Auto) 0.0 Thou/mm3 (0.0-0.2); Basophils % (Auto) 1 % (0-2.5); Eosinophils # (Auto) 0.1 Thou/mm3 (0.0-0.5); Eosinophils % (Auto) 3 % (0-10); Hematocrit 28.6 % (41.0-53.0); Immature Granulocytes Auto 0.01 Thou/mm3 (0.00-0.00); Lymphocytes # (Auto) 0.6 Thou/mm3 (1.0-4.8); Lymphocytes % (Auto) 16 % (10-50); Mean Corpuscular HGB Conc 29.7 g/dl (31.0-37.0); Mean Corpuscular Hemoglobin 29.0 pg (25.0-35.0); Mean Corpuscular Volume 98 fL (80-100); Monocytes # (Auto) 0.4 Thou/mm3 (0.0-0.8); Monocytes % (Auto) 11 % (0-12); Neutrophils # (Auto) 2.5 Thou/mm3 (1.8-7.7); Neutrophils % (Auto) 70 % (37-80); Nucleated Red Blood Cell # 0.00 Thou/mm3 (0.00-0.00); Nucleated Red Blood Cell % 0 /100 WBC (0); Platelet Count 128 Thou/mm3 (140-440); RDW Standard Deviation 74.9 fL (35.1-43.9); Red Blood Count 2.93 Miln/mm3 (4.50-5.90); White Blood Count 3.5 Thou/mm3 (3.8-10.6)
[2025-06-02 13:03] LABS: Hemoglobin 8.5 g/dL (13.5-16.0)
[2025-06-02 13:05] LABS: Prostate Specific Antigen 4.11 ng/mL (0-4.00)
[2025-06-02 13:18] LABS: Alanine Aminotransferase 9 U/L (10-49); Albumin, Serum 3.1 gm/dL (3.4-4.8); Albumin/Globulin Ratio 1.6 (1.2-2.2); Alkaline Phosphatase 76 U/L (46-116); Anion Gap 9 (7-16); Aspartate Amino Transferase 22 U/L (0-34); BUN/Creatinine Ratio 13 Ratio (12-20); Bilirubin,Total 0.5 mg/dL (0.3-1.2); Blood Urea Nitrogen 15 mg/dL (9-23); Calcium 8.4 mg/dL (8.3-10.6); Calcium (Corrected) 9.1 mg/dL (8.5-10.1); Carbon Dioxide 33.7 mMol/L (20.0-31.0); Chloride 101 mMol/L (98-107); Creatinine (Component) 1.2 mg/dL (0.6-1.3); Globulin 2.0 gm/dL (2.3-3.5); Glucose 97 mg/dL (74-106); Osmolality,Calculated 287 (275-295); Potassium 3.8 mMol/L (3.4-5.1); Sodium 144 mMol/L (136-145); Total Protein 5.1 gm/dL (5.7-8.2); eGFR 59 See Note
== END 2025-06-13 23:59 | disposition home or self-care (01) ==
LOC: SCTC 12:55
PROVIDERS: PCP Family Medicine; Referring Provider Family Medicine; Visit Provider Internal Medicine Hematology & Oncology
DX: C61 Malignant neoplasm of prostate (principal); Z79.818 Long term (current) use of other agents affecting estrogen receptors and estrogen levels
CPT/HCPCS: 36591; 80053; 84153; 85025; A4216; J1100; J1434; J1642; J2405; J3490; J7050; J9171

== ENCOUNTER 2025-07-15 08:43 | Outpatient (RCR) | payer MEDICARE, MEDICAID, SELFPAY ==
[2025-07-14 13:47] LABS: Basophils # (Auto) 0.0 Thou/mm3 (0.0-0.2); Basophils % (Auto) 0 % (0-2.5); Eosinophils # (Auto) 0.1 Thou/mm3 (0.0-0.5); Eosinophils % (Auto) 3 % (0-10); Hematocrit 31.8 % (41.0-53.0); Hemoglobin 10.0 g/dL (13.5-16.0); Immature Granulocytes Auto 0.01 Thou/mm3 (0.00-0.00); Lymphocytes # (Auto) 1.8 Thou/mm3 (1.0-4.8); Lymphocytes % (Auto) 38 % (10-50); Mean Corpuscular HGB Conc 31.4 g/dl (31.0-37.0); Mean Corpuscular Hemoglobin 28.2 pg (25.0-35.0); Mean Corpuscular Volume 90 fL (80-100); Monocytes # (Auto) 0.3 Thou/mm3 (0.0-0.8); Monocytes % (Auto) 6 % (0-12); Neutrophils # (Auto) 2.6 Thou/mm3 (1.8-7.7); Neutrophils % (Auto) 53 % (37-80); Nucleated Red Blood Cell # 0.00 Thou/mm3 (0.00-0.00); Nucleated Red Blood Cell % 0 /100 WBC (0); Platelet Count 173 Thou/mm3 (140-440); RDW Standard Deviation 54.0 fL (35.1-43.9); Red Blood Count 3.55 Miln/mm3 (4.50-5.90); White Blood Count 4.9 Thou/mm3 (3.8-10.6)
[2025-07-14 14:36] LABS: Alanine Aminotransferase 11 U/L (10-49); Albumin, Serum 3.8 gm/dL (3.4-4.8); Albumin/Globulin Ratio 1.4 (1.2-2.2); Alkaline Phosphatase 82 U/L (46-116); Anion Gap 9 (7-16); Aspartate Amino Transferase 10 U/L (0-34); BUN/Creatinine Ratio 24 Ratio (12-20); Bilirubin,Total 0.4 mg/dL (0.3-1.2); Blood Urea Nitrogen 24 mg/dL (9-23); Calcium 8.8 mg/dL (8.3-10.6); Calcium (Corrected) 9.0 mg/dL (8.5-10.1); Carbon Dioxide 28.4 mMol/L (20.0-31.0); Chloride 103 mMol/L (98-107); Creatinine (Component) 1.0 mg/dL (0.6-1.3); Globulin 2.8 gm/dL (2.3-3.5); Glucose 102 mg/dL (74-106); Osmolality,Calculated 283 (275-295); Potassium 3.6 mMol/L (3.4-5.1); Sodium 140 mMol/L (136-145); Total Protein 6.6 gm/dL (5.7-8.2); eGFR > 60 See Note
[2025-07-15 13:15] LABS: Prostate Specific Antigen 4.61 ng/mL (0-4.00)
== END 2025-08-13 23:59 | disposition home or self-care (01) ==
LOC: SCTC 08:43
PROVIDERS: PCP Family Medicine; Referring Provider Family Medicine; Visit Provider Internal Medicine Hematology & Oncology
DX: Z51.11 Encounter for antineoplastic chemotherapy (principal); C61 Malignant neoplasm of prostate
CPT/HCPCS: 36591; 80053; 84153; 85025; 96402; A4216; J1642; J9217